=== PATIENT | female | born 1970 | race Caucasian/White ===

== ENCOUNTER 2018-10-18 08:42 | Inpatient (IN) | payer BC ==
--- NOTE | 2018-10-17 17:45 | Pre-op HX & Phy Repo 2 SIG ---
DATE OF ADMISSION: 10/18/2018 HISTORY OF PRESENT ILLNESS: The patient is a 47-year-old female in overall stable health with a malfunctioning ileostomy with parastomal hernia and peristomal ulcerations refractory to care. She has a past history of pelvic floor dysfunction and colonic inertia. She underwent surgery at the [facility] in May 2015 for removal of dilated colon and rectum with a coloanal anastomosis. She has previously had Botox injections and pelvic floor therapy. She had a temporary ileostomy at the time of her May 2015 surgery. In November 2015, she underwent left salpingo-oophorectomy. Subsequently, she had surgery 01/08/2017 to close the ileostomy, but she had severe difficulties evacuating and had an emergency colostomy 01/11/2017. On 07/30/2017, she had repair of a parastomal hernia. Finally, she had surgery 09/29/2017 at the [facility] to remove the rest of her colon and rectum with perineal rectal mucosectomy and end-loop ileostomy with finding of extensive adhesions. She has developed significant difficulties since then managing with her stoma despite interventions with enterostomal therapy. She is scheduled to undergo surgery to takedown her conventional ileostomy with repair of the stomal hernia and create a Wilkinson continent intestinal reservoir type of continent ileostomy. OPERATIONS: In addition to the above, she underwent right oophorectomy in 1989. She underwent total abdominal hysterectomy in 2000 for endometriosis. She underwent cholecystectomy in 2006 and rotator cuff surgery in 2012. She is not sure during one of her operation she had a Ari fundoplication MEDICATIONS: Paxil, trazodone at night, Carafate three times a day, probiotic. ALLERGIES: Morphine, causes severe itching, but she is not allergic to it. PHYSICAL EXAMINATION: The patient is 5 feet 6 inches, approximately 180 pounds. [place] and will be examined upon arrival and dictated separately. IMPRESSION: 1. Malfunctioning Anika ileostomy with parastomal hernia and severe peristomal ulcerations. 2. History of pelvic floor dysfunction and colonic inertia and remote history of endometriosis. 3. STATUS POST MULTIPLE ABDOMINAL OPERATIONS: A) Right oophorectomy in 1989. B) Total abdominal hysterectomy in 2000. C) Cholecystectomy in 2006. D) Removal of dilated colon and rectum with coloanal anastomosis and temporary ileostomy in May 2015 at [facility]. E) Left salpingo-oophorectomy in 11/30/2015. F) 01/08/2017, closure of ileostomy. G) 01/11/2017, emergency colostomy. H) 07/30/2017, repair of parastomal hernia. I) 09/29/2017, removal of the remaining abdominal colon and rectum with perineal rectal mucosectomy and end-loop ileostomy, all at the [facility] PLAN: I have had a full discussion with the patient regarding the nature of her condition, the nature of the surgery, indications, alternatives, options, and risks including bleeding, infection, injury to adjacent structures or organs, inability to create a Wilkinson pouch due to frozen or hostile abdomen or other issues with the small intestine with subsequent revision of ileostomy, repair of parastomal hernia if a Wilkinson pouch cannot be created. I have discussed the specific risks of the Wilkinson pouch including the risk of slipped valve or fistula of pouch or valve and need for reoperation, including stoma difficulties, bowel obstructions from adhesions, deep vein thrombosis despite prophylaxis, etc. All questions have been answered. The patient understands and agrees to proceed. I will have another detailed discussion in person with the patient when she arrives from [place] of state. Manny Kramer M.D. DR: RAJESH JOB#: [id number] CC: OPAL
[~2018-10-18] VITALS: Ht 167.6 cm; Wt 84.0 kg
--- NOTE | 2018-10-18 09:00 | NUR ---
NURSE NOTES: Patient was admitted to room 305 in stable condition. Belongings checked with pt and pt signed. Unit orientation was given. Bed in lowest position, call light within reach. Will continue to monitor.
[2018-10-18 09:05] VITALS: BP 101/68
[2018-10-18] MEDS ORDERED: Heparin1,000 units/500ml Premix(Conc:2 units/ml) IV PRN (09:45)
[2018-10-18] MEDS ORDERED: Lidocaine 1% Plain 30 ml INJ PRN (09:45)
[2018-10-18 10:12] LABS: BASOPHILS % (AUTO) 0.7 % (0.0-2.0); EOSINOPHILS % (AUTO) 1.3 % (0.0-3.0); HEMATOCRIT 38.3 % (37.0-47.0); HEMOGLOBIN 12.6 G/DL (12.0-16.0); LYMPHOCYTES % (AUTO) 33.5 % (20.0-45.0); MEAN CORPUSCULAR VOLUME 84 FL (80-99); MONOCYTES % (AUTO) 5.1 % (1.0-10.0); NEUTROPHILS % (AUTO) 59.4 % (45.0-75.0); PLATELET COUNT 286 K/UL (150-450); RED BLOOD COUNT 4.58 M/UL (4.20-5.40); RED CELL DISTRIBUTION WIDTH 11.4 % (11.6-14.8); WHITE BLOOD COUNT 6.5 K/UL (4.8-10.8)
[2018-10-18] MEDS ORDERED: TRIMPEX100 MG PO (10:12)
[2018-10-18] MEDS ORDERED: KLONOPIN0.5 MG ORAL (10:12)
[2018-10-18] MEDS ORDERED: ESTRACE42.5 GM VAGIN (10:12)
[2018-10-18] MEDS ORDERED: TRAZODONE HCL150 MG ORAL (10:12)
[2018-10-18] MEDS ORDERED: ESTRADIOL1 EA10 TD (10:12)
[2018-10-18] MEDS ORDERED: PAXIL30 MG ORAL (10:12)
[2018-10-18 10:24] LABS: INR 0.9 (0.9-1.1)
--- NOTE | 2018-10-18 10:27 | Diagnostic Imaging Report ---
Indication: Cough Technique: One view of the chest Comparison: none Findings: Lungs and pleural spaces are clear. Heart size is normal. Impression: No acute process
[2018-10-18 10:28] LABS: ANION GAP 10 mmol/L (5-15); BLOOD UREA NITROGEN 6 mg/dL (7-18); CALCIUM 9.1 MG/DL (8.5-10.1); CARBON DIOXIDE 24 MMOL/L (21-32); CHLORIDE 102 MMOL/L (98-107); CREATININE 0.9 MG/DL (0.55-1.30); POTASSIUM 3.5 MMOL/L (3.5-5.1); SODIUM 136 MMOL/L (136-145)
[2018-10-18 10:31] LABS: ALANINE AMINOTRANSFERASE 22 U/L (12-78); ALBUMIN/GLOBULIN RATIO 1.1 (1.0-2.7); ALKALINE PHOSPHATASE 82 U/L (46-116); ASPARTATE AMINO TRANSFERASE 24 U/L (15-37); BILIRUBIN,TOTAL 0.3 MG/DL (0.2-1.0)
--- NOTE | 2018-10-18 11:00 | NUR ---
NURSE NOTES: Picc line was inserted.
--- NOTE | 2018-10-18 11:06 | Pre-Procedure Note/Attestation ---
Pre-Procedure Note/Attestation Complete Prior to Procedure Planned Procedure: not applicable Procedure Narrative: PICC Indications for Procedure Pre-Operative Diagnosis: needs termite control service representative IV access Attestation I attest that I discussed the nature of the procedure; its benefits; risks and complications; and alternatives (and the risks and benefits of such alternatives ), prior to the procedure, with the patient (or the patient's legal parts representative). I attest that, if there was a reasonable possibility of needing a blood transfusion, the patient (or the patient's legal parts representative) was given the [facility] standardized written summary, pursuant to the Felix Jan Blood Safety Act ([place] Health and Safety Code # 1645, as amended). I attest that I re-evaluated the patient just prior to the surgery and that there has been no change in the patient's H&P, except as documented below: Sae Montague MD Oct 18, 2018 11:06
--- NOTE | 2018-10-18 11:07 | Brief Operative Note ---
Immediate Post Operative Note Operative Note Pre-op Diagnosis: needs manager terminal IV access Procedure: PICC Post-op Diagnosis: same as pre-op Surgeon: Suresh MONTAGUE Anesthesia: local Specimen: none Complications: none Condition: unstable Fluids: none Implant(s) used?: No Sae Montague MD Oct 18, 2018 11:07
[2018-10-18 11:19] LABS: APPEARANCE,URINE CLOUDY; BILIRUBIN, URINE NEGATIVE (NEGATIVE); GLUCOSE, URINE (UA) NEGATIVE (NEGATIVE); KETONES,URINE NEGATIVE (NEGATIVE); LEUKOCYTE ESTERASE ,URINE NEGATIVE (NEGATIVE); NITRITE,URINE NEGATIVE (NEGATIVE); PH,URINE 6 (4.5-8.0); PROTEIN,URINE 1+ (NEGATIVE); UROBILINOGEN,URINE NORMAL MG/DL (0.0-1.0)
[2018-10-18 11:23] LABS: COLOR,URINE YELLOW
--- NOTE | 2018-10-18 11:26 | Diagnostic Imaging Report ---
Indications: Needs long-term IV access Technique: Ultrasound confirms patent compressible left basilic vein. Total sterile technique, including sterile probe cover and sterile gel, hat, mask, sterile gown, large sterile drape, and preparation with 2% chlorhexidine utilized. Local anesthesia with 1% lidocaine. Under real-time ultrasound guidance, puncture basilic vein using 21-gauge needle, documented and archived, passage 0.018 guidewire under direct fluoroscopy, which was used to determine appropriate catheter length, exchange for 4 Mosotho peel-away sheath. 4 Mosotho Bard dual-lumen power PICC cut to 43 cm. It was inserted through the peel-away sheath. Peel-away sheath and guidewire removed. Catheter fixed to the skin. Both catheter ports aspirated and flushed. Patient tolerated procedure well, without immediate complication. Digital radiograph documents satisfactory catheter tip position, at the cavoatrial junction. Total fluoroscopy time 13.2 seconds. Total dose area product 1.37 mGy Total number of images: 1 Impression: Successful placement of left arm PICC under sonographic and fluoroscopic guidance, as described above.
[2018-10-18 12:00] VITALS: BP 102/67
[2018-10-18] MEDS: D5 1/2NS w/KCl 20mEq 1,000 ML IV SCH ×2 (12:18→22:00)
[2018-10-18] MEDS: Neomycin Sulfate 500mg Tab ORAL SCH ×3 (12:18→20:19)
--- NOTE | 2018-10-18 14:29 | Anethesia Preoperative Eval ---
Anesthesia Pre-op PMH/ROS General Date of Evaluation: Oct 18, 2018 Time of Evaluation: 15:58 Anesthesiologist: Clari ASA Score: ASA 2 Mallampati Score Class I : Soft palate, uvula, fauces, pillars visible Class II: Soft palate, uvula, fauces visible Class III: Soft palate, base of uvula visible Class IV: Only hard plate visible Mallampati Classification: Class II Surgeon: Williams Diagnosis: Malfunctioning Ileostomy Surgical Procedure: Creation Wilkinson Continent Ileostomy Anesthesia History: none Family History: no anesthesia problems Allergies: Coded Allergies: CODEINE (Verified Adverse Reaction, Severe, Itching, 10/18/18) MORPHINE (Verified Adverse Reaction, Severe, Itching, 10/18/18) sever itching to the point scratches self till bleeding. Medications: see eMAR Patient NPO?: Yes Past Medical History Neurologic/Psychiatric: Reports: depression/anxiety Other: obesity - BMI 31 PSxH Narrative: 1. Malfunctioning Anika ileostomy with parastomal hernia and severe peristomal ulcerations. 2. History of pelvic floor dysfunction and colonic inertia and remote history of endometriosis. 3. STATUS POST MULTIPLE ABDOMINAL OPERATIONS: A) Right oophorectomy in 1989. B) Total abdominal hysterectomy in 2000. C) Cholecystectomy in 2006. D) Removal of dilated colon and rectum with coloanal anastomosis and temporary ileostomy in May 2015 at [facility]. E) Left salpingo-oophorectomy in 11/30/2015. F) 01/08/2017, closed ileostomy. G) 01/11/2017, emergency colostomy. H) 07/30/2017, repair of parastomal hernia. Anesthesia Pre-op Phys. Exam Physician Exam Last Vital Signs Date Time Temp Pulse Resp B/P (MAP) Pulse Ox O2 Delivery O2 Flow Rate FiO2 10/18/18 12:00 98.3 86 15 102/67 (79) 99 10/18/18 09:26 Room Air Constitutional: NAD Neurologic: CN 2-12 intact Cardiovascular: RRR Respiratory: CTA Gastrointestinal: S/NT/ND Airway Exam Mallampati Score: Class II MO: full ROM: limited Teeth: missing, intact Anesthesia Pre-op A/P Labs Hematology Test 10/18/18 09:49 White Blood Count 6.5 K/UL (4.8-10.8) Red Blood Count 4.58 M/UL (4.20-5.40) Hemoglobin 12.6 G/DL (12.0-16.0) Hematocrit 38.3 % (37.0-47.0) Mean Corpuscular Volume 84 FL (80-99) Mean Corpuscular Hemoglobin 27.4 PG (27.0-31.0) Mean Corpuscular Hemoglobin Concent 32.8 G/DL (32.0-36.0) Red Cell Distribution Width 11.4 % (11.6-14.8) L Platelet Count 286 K/UL (150-450) Mean Platelet Volume 6.4 FL (6.5-10.1) L Neutrophils (%) (Auto) 59.4 % (45.0-75.0) Lymphocytes (%) (Auto) 33.5 % (20.0-45.0) Monocytes (%) (Auto) 5.1 % (1.0-10.0) Eosinophils (%) (Auto) 1.3 % (0.0-3.0) Basophils (%) (Auto) 0.7 % (0.0-2.0) Coagulation Test 10/18/18 09:49 Prothrombin Time 9.4 SEC (9.30-11.50) Prothromb Time International Ratio 0.9 (0.9-1.1) Activated Partial Thromboplast Time 27 SEC (23-33) Chemistry Test 10/18/18 09:49 Sodium Level 136 MMOL/L (136-145) Potassium Level 3.5 MMOL/L (3.5-5.1) Chloride Level 102 MMOL/L (98-107) Carbon Dioxide Level 24 MMOL/L (21-32) Anion Gap 10 mmol/L (5-15) Blood Urea Nitrogen 6 mg/dL (7-18) L Creatinine 0.9 MG/DL (0.55-1.30) Estimat Glomerular Filtration Rate > 60 mL/min (>60) Glucose Level 106 MG/DL (74-106) Calcium Level 9.1 MG/DL (8.5-10.1) Total Bilirubin 0.3 MG/DL (0.2-1.0) Aspartate Amino Transf (AST/SGOT) 24 U/L (15-37) Alanine Aminotransferase (ALT/SGPT) 22 U/L (12-78) Alkaline Phosphatase 82 U/L (46-116) Total Protein 7.7 G/DL (6.4-8.2) Albumin 4.0 G/DL (3.4-5.0) Globulin 3.7 g/dL Albumin/Globulin Ratio 1.1 (1.0-2.7) Risk Assessment & Plan Assessment: AS2 Plan: GA Status Change Before Surgery: No Pre-Antibiotics Drug: KENDRAA Ricardo Montague MD Oct 18, 2018 14:29
[2018-10-18 16:00] VITALS: BP 109/69
--- NOTE | 2018-10-18 16:14 | General Progress Note ---
Progress Note Progress Note H&P dictated. Full discussion with patient regarding her surgery tomorrow, all questions answered. Labs satisfactory Manny Kramer MD Oct 18, 2018 16:14
--- NOTE | 2018-10-18 17:10 | NUR ---
NURSE NOTES: Reconcile home meds with Dr. Kramer. ordered continue home meds except for Trimethoprim. Noted and carried out.
[2018-10-18] MEDS ORDERED: clonazePAM 0.5mg tab ORAL PRN (17:15)
--- NOTE | 2018-10-18 19:36 | NUR ---
HAND-OFF: Report given to RADHA Leija.
--- NOTE | 2018-10-18 19:37 | NUR ---
NURSE NOTES: Received report & pt from RADHA Keys. Pt lying in bed, a&ox4, in room air, at bedside. No s/s of acute distress & no c/o pain at this time. Pt made aware & NPO status after midnight for tomorrow's procedure & verbalized understanding. Ileo intact & draining to ostomy bag. PICC line intact with IVF running as ordered. Bed in lowest position, call light within reach. Will continue to monitor.
[2018-10-18 20:00] VITALS: BP 98/64
[2018-10-18] MEDS: Dyna-Hex 2% Top Sol 2oz TOPIC SCH (20:10)
[2018-10-18] MEDS: PARoxetine 10mg tab ORAL SCH (20:19)
[2018-10-18] MEDS: TraZODone 50mg tab ORAL SCH (20:19)
--- NOTE | 2018-10-18 22:30 | Pre-op HX & Phy Repo 2 SIG ---
DATE OF ADMISSION: 10/18/2018 HISTORY OF PRESENT ILLNESS: Please see previously dictated history. The [place] now [place] and examined. She provides additional history that ever since her colorectal resection, she has had to self catheterize her bladder, much more often originally years ago, but currently at least 2 times per week as needed if her bladder is allowed to get too full she cannot urinate. ADDITIONAL NEW INFORMATION: MEDICATIONS: Paxil, clonazepam p.r.n., trazodone at night, estradiol, and recent Bactrim for urinary infection. PHYSICAL EXAMINATION: GENERAL: The patient is 5 feet 6 inches, approximately 180 pounds. HEENT: Within normal limits. LUNGS: Clear. HEART: Regular rhythm. BREASTS: Without masses. ABDOMEN: Soft. There are multiple laparoscopic trocar sites. There is a lower midline incision. Her ileostomy is rather low in the right lower quadrant and she has a parastomal hernia. PELVIC: Per primary care, status post hysterectomy. RECTAL: Status post proctectomy. EXTREMITIES: Without edema. Pulses 2+ femoral to pedal bilaterally. NEUROLOGIC: Physiologic. IMPRESSION: 1. Malfunctioning Anika ileostomy with parastomal hernia and severe peristomal ulcerations. 2. History of pelvic floor dysfunction and colonic inertia and remote history of endometriosis. 3. STATUS POST MULTIPLE ABDOMINAL OPERATIONS: 3.1. Right oophorectomy in 1991. 3.2. Total abdominal hysterectomy in 2000. 3.3. Cholecystectomy in 2006. 3.4. Removal of dilated colon and rectum with colo-anal anastomosis and temporary ileostomy in May 2015 at [facility]. 3.5. Left salpingo-oophorectomy on November 30, 2015. 3.6. Closure of ileostomy on January 08, 2017. 3.7. Emergency colostomy on January 11, 2017. 3.8. Repair of parastomal hernia in July 2017. 3.9. Removal of the remaining abdominal colon and rectum with proctectomy and end ileostomy on September 29, 2017. (All of these operations were done at the [facility]). PLAN: I have had a full discussion with the patient regarding her surgery to convert her malfunctioning ileostomy to a Wilkinson continent intestinal reservoir type of continent ileostomy including the nature of the surgery associated with temporary catheter gastrostomy, indications, alternatives, options, and risks all outlined in the previous dictation. All questions have been answered. She understands and agrees to proceed. Manny Kramer M.D. DR: JILL JOB#: [id number] CC: OPAL
[2018-10-18] MEDS: Ampicillin/Sulbactam Sod 3 GM in NS 110 ML IVPB SCH (23:39)
[2018-10-19] VITALS (12 sets, daily range): BP systolic 94–112; BP diastolic 53–72
[2018-10-19] MEDS: Ampicillin/Sulbactam Sod 3 GM in NS 110 ML IVPB SCH ×3 (05:16→18:22)
--- NOTE | 2018-10-19 07:30 | NUR ---
NURSE NOTES: Patient is in bed awake and able to verbalize needs. Stable. Denies pain or SOB. Patient is encouraged to use call light for assistance, verbalized understanding. Patient is in bed in locked and lowest position with call light within reach. Will continue to monitor.
--- NOTE | 2018-10-19 07:30 | NUR ---
HAND-OFF: Report given to RADHA French. Pt in stable condition. Rounds done.
[2018-10-19] MEDS: D5 1/2NS w/KCl 20mEq 1,000 ML IV SCH (08:00)
[2018-10-19] MEDS ORDERED: Heparin 5000 units/ml inj SUBQ SCH (09:00)
--- NOTE | 2018-10-19 09:18 | Pre-Procedure Note/Attestation ---
Pre-Procedure Note/Attestation Complete Prior to Procedure Planned Procedure: not applicable Procedure Narrative: Wiliknson continent intestinal reservoir; gastrostomy Indications for Procedure Pre-Operative Diagnosis: malfunctioning ileostomy with parastomal hernia and peristomal ulcerations Attestation I attest that I discussed the nature of the procedure; its benefits; risks and complications; and alternatives (and the risks and benefits of such alternatives ), prior to the procedure, with the patient (or the patient's legal sales representative sales manager). I attest that, if there was a reasonable possibility of needing a blood transfusion, the patient (or the patient's legal sales representative sales manager) was given the [facility] standardized written summary, pursuant to the Felix Searcy Blood Safety Act ([place] Health and Safety Code # 1645, as amended). I attest that I re-evaluated the patient just prior to the surgery and that there has been no change in the patient's H&P, except as documented below:none Manny Kramer MD Oct 19, 2018 09:18
[2018-10-19] MEDS: Estradiol Vaginal Cr 42.5 Gm Tube VAGIN SCH (09:22)
[2018-10-19] MEDS ORDERED: Lidocaine 1% MPF 10mg/ml 5ml ONE (10:08)
[2018-10-19] MEDS ORDERED: Midazolam 2mg/2ml Inj ONE (10:08)
[2018-10-19] MEDS ORDERED: fentaNYL 100 mcg/2 mL IV ONE ×2 (10:08→11:35)
[2018-10-19] MEDS ORDERED: Propofol 200mg/20ml IV ONE (10:08)
[2018-10-19] MEDS ORDERED: Bacitracin 50000 Units Vial ONE (10:16)
[2018-10-19] MEDS ORDERED: Zemuron 50mg/5ml Inj IV ONE ×2 (10:16→13:46)
[2018-10-19] MEDS ORDERED: Succinylcholine 20mg/ml 10ml vial ONE (10:16)
[2018-10-19] MEDS ORDERED: NeoSporin Gu Irrig 1ml Amp IRRIG ONE (10:17)
--- NOTE | 2018-10-19 10:30 | NUR ---
NURSE NOTES: Patient taken to surgery. All belongings with .
[2018-10-19] MEDS ORDERED: TransDerm Scop 1.5mg/72HR Patch TDERMAL ONE (10:59)
[2018-10-19] MEDS ORDERED: LR 1000ml ONE (11:00)
[2018-10-19] MEDS ORDERED: NS Irrig 1000ml ONE (11:00)
[2018-10-19] MEDS ORDERED: Sterile Water Irrig 1000ml IRRIG ONE (11:00)
--- NOTE | 2018-10-19 11:07 | NUR ---
NURSE NOTES: Wedding ring with RN. Will give to .
[2018-10-19] MEDS ORDERED: NS Irrig 1000ml IRRIG ONE (11:22)
[2018-10-19] MEDS ORDERED: Ampicillin/Sulbactam Sod 3 GM in NS 110 ML IV SCH (12:00)
[2018-10-19] MEDS ORDERED: LR 1000ml 1,000 ML IVLG SCH (13:01)
[2018-10-19] MEDS ORDERED: Neostigmine 1mg/ml 10ml Inj ONE (13:14)
[2018-10-19] MEDS ORDERED: Glycopyrrolate 0.2mg/ml 1ml Vial ONE (13:14)
[2018-10-19] MEDS ORDERED: Midazolam 2mg/2ml Inj IVP PRN (13:15)
[2018-10-19] MEDS ORDERED: DiphenhydrAMINE 50mg/ml Inj IVP PRN ×2 (13:15→16:00)
[2018-10-19] MEDS ORDERED: Metoclopramide 10mg/2ml Inj IVP PRN (13:15)
[2018-10-19] MEDS ORDERED: Meperidine 50mg/ml Inj(FOR RIGORS ONLY) IV PRN (13:15)
[2018-10-19] MEDS ORDERED: Ketorolac 30mg Inj IV PRN (13:15)
[2018-10-19] MEDS ORDERED: Acetaminophen (Non formulary) 100 ML IV ONE (13:30)
--- NOTE | 2018-10-19 14:52 | NUR ---
CASE MANAGEMENT:REVIEW 47 YR OLD FEMALE HERE FOR ELECTIVE SURGERY SI: MALFUNCTIONING ILEOSTOMY W/PARTIAL HERNIA AND PERISTOMAL ULCERATIONS 98.5 79 16 101/68 97% ON RA IS: TO SURGERY FOR RAGLAND CONTINENT ILEOSTOMY IV FLAGYL Q6HRS IV AMPICILLIN Q6 IVF@100/HR : TO MED/SURG 3 EAST POST OP
--- NOTE | 2018-10-19 15:02 | NUR ---
INSURANCE RECEIVED CALL FROM SHADE BANDER RICHARDSON T: [phone] SHE WILL BE OUT OF THE OFFICE NEXT WEEK BUT MESSAGES CAN BE LEFT ON HER VOICEMAIL AND WILL BE ADDRESSED
--- NOTE | 2018-10-19 15:17 | NUR ---
*-* INSURANCE *-* ALL CLINICALS AND REVIEW HAVE BEEN FAXED TO: [facility] NCM: JANA P:[phone] F:[phone] NURSE: XIMENA
[2018-10-19] MEDS ORDERED: PCA HYDROmorphone 1mg/ml 30 ML IV PRN (15:56)
--- NOTE | 2018-10-19 15:59 | Brief Operative Note ---
Immediate Post Operative Note Operative Note Pre-op Diagnosis: malfunctioning ileostomy with parastomal hernia and peristomal ulcerations Procedure: Wilkinson continent intestinal reservoir, gastrostomy, takedown ileostomy and repair parastomal hernia Post-op Diagnosis: same Post-op Diagnosis: same as pre-op Findings: consistent w/pre-op dx studies Surgeon: junaid Mold Repair Technician: dangelo Anesthesiologist: estela Anesthesia: general Specimen: yes - ileostomy and small bowel segment Complications: none Condition: stable Fluids: see anesthesia record Estimated Blood Loss: volume - 100ml Drains: other - 28 Velasquez to Wilkinson pouch, 18 Fr gastrostomy, 0.25" kenan Implant(s) used?: No Manny Kramer MD Oct 19, 2018 15:59
[2018-10-19] MEDS ORDERED: Naloxone 0.4mg/ml Inj IVP PRN (16:00)
[2018-10-19] MEDS ORDERED: PCA Education Pamphlet MISC ONE (16:00)
[2018-10-19] MEDS ORDERED: Rate Change PCA 1 Each MISC PRN (16:00)
[2018-10-19] MEDS ORDERED: LORazepam 1mg tab SL PRN ×2 (16:00)
--- NOTE | 2018-10-19 16:03 | Immediate Post-Op Evaluation ---
Immediate Post-Op Evalulation Immediate Post-Op Evalulation Procedure: Ex laparotomy,lysis of adhesions, creation of continent pouch Date of Evaluation: Oct 19, 2018 Time of Evaluation: 16:02 IV Fluids: 1200 Blood Products: none Estimated Blood Loss: 100 Urinary Output: 350 Blood Pressure Systolic: 109 Blood Pressure Diastolic: 56 Pulse Rate: 78 Respiratory Rate: 20 O2 Sat by Pulse Oximetry: 99 Temperature (Fahrenheit): 97.8 Pain Score (1-10): 1 Nausea: No Vomiting: No Patient Status: reacts, patent, extubated, none Hydration Status: adequate Sawyer Gomez MD Oct 19, 2018 16:03
--- NOTE | 2018-10-19 17:25 | NUR ---
NURSE NOTES: Patient arrived on unit via hospital bed. Stable. No facial grimacing or visible signs of discomfort noted. Patient oriented to room, call light and unit. Patient encouraged to use call light for assistance, verbalized understanding. Surgical dressing clean, dry, and intact. Velasquez draining. Ileo and Gtube draining as ordered. ASSISTANT PROFESSOR SURGICAL TECHNOLOGY running as ordered. Patient is in bed in locked and lowest position with call light within reach. Will continue to monitor.
[2018-10-19] MEDS: D5 1/4NS w/KCl 20mEq 1,000 ML IV SCH (18:58)
[2018-10-19] MEDS: PCA shift volume MISC SCH (19:00)
--- NOTE | 2018-10-19 19:30 | NUR ---
HAND-OFF: Report given to Chandrao RN. Patient is stable.
--- NOTE | 2018-10-19 19:45 | NUR ---
NURSE NOTES: Receive a report from RADHA French. Done rounds. Pt is asleep but aroused easily by calling her name. Op site is clear without bleeding signs. Ileostomy drained with dark greenish drainage. Gastrostomy tube is drained with brownish gastric juice. Velasquez catheter inserted state with yellowish urine drained without hematuria or sediment. Despite ELOCUTION TEACHER pump for pain control, still noted pain 8/10 on op site. Will administer prn pain medication as ordered. Keep semi-Folwer's position for breathing expansion and encourage I/C while awake. Will continue to monitor.
[2018-10-19] MEDS: Dyna-Hex 2% Top Sol 2oz TOPIC SCH (20:01)
[2018-10-19] MEDS: TraZODone 50mg tab ORAL SCH ×2 (20:22→21:00)
[2018-10-19] MEDS: PARoxetine 10mg tab ORAL SCH ×2 (20:22→21:00)
--- NOTE | 2018-10-19 20:40 | NUR ---
NURSE NOTES: After pain medication for breakthrough, patient still states pain 08/27. Pt looks drowsy but able to answer properly with orientation x4. Reapply O2 3L NC due to spo2 88% in RA and goes up 93-96%. Keep O2 3L NC. Pt has routine medication for sleeping pills and depression medication. Call Dr. Kramer about pt's pain and drowsiness. Receive order to hold routine medication and to give Toradol 30mg IVP stat and prn Q 6hrs for breakthrough pain. Order noted and carried out. Will continue to monitor. Addendum: 10/20/18 at 0154 by Shara Salmeron RN v/s: 100/62-102-14- 93~96% with O2 3L NC.
[2018-10-19] MEDS ORDERED: Ketorolac 30mg Inj IV SCH (21:00)
--- NOTE | 2018-10-19 21:45 | NUR ---
NURSE NOTES: @ 2129 Noted decreased respiration rate < 10bmp with deep breathing pattern. Spo2 93% with O2 3L NC. MT: 121bmp, BP: 126/64mmHg. Minimal pain response without verbal response. Not given Toradol 30mg IVP. @2134 Let CN know pt's conditions and call GIFT SHOP MANAGER. ABGA is done and administer Nalcan 0.1mg/0.25ml IVP. Call Dr. Kramer for pt's change of conditions. @2144 Receive a call from Dr. Kramer and report pt's conditions and ABGA results. Receive orders to discontinue continuous dosage of HAND IRONER except bolus dosage and to transfer to SDU for monitoring. Order noted and carried out. Will continue to monitor.
--- NOTE | 2018-10-19 21:59 | NUR ---
RESPIRATORY NOTE: Pt placed on BiPAP post-COUPON MANIFEST CLERK (see Rapid Response sheet). Pt transferred to SDU & is now on BiPAP 20/5, backup rate 14, 40% w/ a Facial Mask. Skin intact, no redness/breakdowns noted. Foam tape applied on pt's nosebridge/cheeks/chin to prevent any mask irritations. Pt still very lethargic, but slowly responds to stimuli. B/S padmini. clear/diminished, nonproductive cough. BiPAP plugged into redoutlet, alarms on & audible. Pt in no apparent distress at this time. Will continue to monitor pt.
--- NOTE | 2018-10-19 22:00 | NUR ---
NURSE NOTES: Received Patient from Shara GARCIA. Patient is in bed, stable with no signs of acute distress. Patient is drowsy and A/O X 4. VS 98/55 pulse of 105, RR 15, O2 saturation of 98%, Bipap 20/5 , O2 at 40%. Surgical abdominal wound dressed with two drains and collection bags. PICC left upper arm. Bed at its lowest position, call light in reach and X 3 bed rails are up. clark Anthony, at bedside. Will continue to monitor. Addendum: 10/20/18 at 0113 by Bashir No RN Received Patient at 2100
--- NOTE | 2018-10-19 22:10 | NUR ---
NURSE NOTES: Endorse to RADHA Camejo @ SDU about pt's change of conditions and irrigation with 20ml N/S q3hrs on ileostomy and g-tube with checking I/O. After administration of Nalcan IVP, pt's orientation recovered but still noted drowsiness. On Bi-pap machine @ SDU.
[2018-10-19] MEDS ORDERED: Tubing IV Secondary IV ONE (22:23)
[2018-10-19] MEDS ORDERED: NS 275ml ONE (22:23)
[2018-10-20] VITALS (7 sets, daily range): BP systolic 86–145; BP diastolic 52–106
[2018-10-20] MEDS: Ampicillin/Sulbactam Sod 3 GM in NS 110 ML IVPB SCH ×5 (00:17→23:50)
--- NOTE | 2018-10-20 03:00 | Operative Note - Dictated ---
DATE OF OPERATION: 10/19/2018 SURGEON: Manny Kramer M.D. ACUTE SPECIALIST SURGEON: Saurav Moore M.D. ANESTHESIOLOGIST: Sawyer Gomez M.D. TYPE OF ANESTHESIA: General endotracheal. PREOPERATIVE DIAGNOSES: 1. 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 2. History of pelvic floor dysfunction and colonic inertia. 3. Status post multiple abdominal operations. 3.1. Right oophorectomy in 1989. 3.2. Total abdominal hysterectomy for endometriosis in 2000. 3.3. Cholecystectomy in 2006. 3.4. Removal of dilated colon and rectum with coloanal anastomosis and temporary ileostomy in May 2015 at the [facility]. 3.5. Left salpingo-oophorectomy in November 2015. 3.6. Closure of temporary ileostomy on January 08, 2017. 3.7. Emergency colostomy at the [facility] on January 11, 2017. 3.8. Repair of parastomal hernia, which has recurred on July 30, 2017. 3.9. Removal of the remaining abdominal colon and rectum with abdominal-perineal proctectomy and end-loop ileostomy at the [facility] on September 29, 2017. POSTOPERATIVE DIAGNOSES: 1. 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 2. History of pelvic floor dysfunction and colonic inertia. 3. Status post multiple abdominal operations. 3.1. Right oophorectomy in 1989. 3.2. Total abdominal hysterectomy for endometriosis in 2000. 3.3. Cholecystectomy in 2006. 3.4. Removal of dilated colon and rectum with coloanal anastomosis and temporary ileostomy in May 2015 at the [facility]. 3.5. Left salpingo-oophorectomy in November 2015. 3.6. Closure of temporary ileostomy on January 08, 2017. 3.7. Emergency colostomy at the [facility] again, all of the above operations, on January 11, 2017. 3.8. Repair of parastomal hernia, which has recurred on July 30, 2017. 3.9. Removal of the remaining abdominal colon and rectum with abdominal-perineal proctectomy and end-loop ileostomy at the [facility] on September 29, 2017. OPERATION PERFORMED: 1. Wilkinson continent intestinal reservoir. 2. Resection of 15 cm of defunctionalized terminal ileum and malfunctioning ileostomy and repair of parastomal hernia. 3. Temporary catheter gastrostomy. DESCRIPTION OF PROCEDURE: The patient was taken to the operating room and under general endotracheal anesthesia with sequential compression device stockings and Velasquez catheter in place, she was prepped and draped in the usual fashion with the stoma initially sealed with a Tegaderm in the right lower quadrant. Previous midline incision was reopened and due to extensive adhesions had to be extended above the umbilicus past the original incision into the midepigastrium. Hemostasis was achieved with cautery. There were diffuse adhesions to the undersurface of the abdominal wall and throughout the abdomen with small bowel loops deep in the pelvis towards the perineal floor. These loops were all mobilized and adhesions taken down and the ileostomy identified. A loop had been brought up with 15 cm distal defunctionalized. With a transversely oriented elliptical incision, the stoma was dismantled and brought through the abdominal wall into the abdomen. The fascia was closed after excising some hernia sac using continuous 0 looped PDS in a vertical orientation as there was too much tension to close this transversely. A Betadine-soaked Ray-Grant was placed in the subcutaneous tissues until the end of the procedure. Antibiotic-soaked laps were used to protect the abdominal wall. The old ileostomy was resected dividing mesentery with the Thunderbeat electrosurgical device dividing the ileum with a HENRY stapling device. The 15 cm of defunctionalized ileum had to be sacrificed. The staple line was imbricated with 3-0 silk and 12 cm proximal marked for the collar segment. A 15 cm proximal to that was marked for the ileal pouch and the two adjacent 15 cm loops of bowel were placed side by side. Using appropriately located enterotomy in each limb and using the HENRY 75 stapling device with several applications, the ileal reservoir was created. A 3-0 silk placed at the apex. The staple line was everted and there were no leaks. The staple line was reformed and there was hemostasis along the mucosa. The junction of the afferent bowel and the proximal ileum was marked and 12 cm proximal marked for the nipple valve segment. A 2 fingerbreadth mesenteric hiatus created at this point using the Thunderbeat. The abdominal wall thickness measured 5 cm. The appropriate length access segment was measured and marked and the mesentery then divided preserving two good vessels to the access segment. The bowel was divided proximally with the linear stapler 30 imbricated with 3-0 silk distally left open to become the new stoma. Now, the peritoneum on each side of the valve segment mesentery was stripped using the cautery scraper device gently with good elevation of the peritoneal layer. The small bowel segment of the valve was scarified with cautery. Then with intussusception, a 5.5 cm long nipple valve was created. Two applications of the PI 55 stapling device with 4.8 mm hernando were placed on either side of the mesentery. A 3-0 silk sutures were placed between the access segment and the pouch on each side of the access segment mesentery. A third application of the PI 55 stapling device with 4.8 mm hernando was then used to staple the valve to the anterior pouch wall. Using the Epstein suction, a straight tract was confirmed and maintained. Now, additional sutures of 3-0 silk were placed between the access segment and the pouch. Intestinal continuity was now restored by taking the proximal bowel with a very short blind end placing it next to the enterotomy in the pouch and then creating a two-layer anastomosis with an outer layer of 3-0 silk and an inner layer of continuous 2-0 chromic locking suture posteriorly carried anteriorly as [place] suture with an outer layer of 3-0 silk. Now, the collar was brought through the mesenteric hiatus at the junction of the valve and access segments and the collar was sutured to the access segment to itself into the pouch with multiple interrupted 3-0 silk sutures. The 28-Libyan Velasquez catheter was placed through the stoma into the pouch and the afferent bowel manually occluded. The pouch was distended with 100 mL of saline and there was no evidence of any extravasation. The pouch catheter was removed and there was no evidence of any incontinence. The catheter was reintroduced and the pouch decompressed. At an appropriate location low in the right lower quadrant above the prior Pfannenstiel incision, a 2.5 cm long narrow ellipse of skin was excised and with a cruciate incision in the fascia, a 2 fingerbreadth abdominal wall hiatus was created. The stoma and access segment with its mesentery was brought through the abdominal wall, redundancy of the access segment was excised, and the stoma primarily matured with continuous 2-0 chromic locking sutures starting at the 3 and 9 o'clock positions. A very satisfactory stoma was achieved. Through a separate stab incision inferior to the stoma, a quarter-inch Arrington drain was placed around the pouch and sutured to the skin with 3-0 silk. There was some bleeding from the tract, cauterized with the Thunderbeat. In view of all the dissection and the need for decompression, I placed a catheter gastrostomy. An 18-Libyan Velasquez was brought through the abdominal wall with a stab incision in the left upper quadrant and placed into the stomach, body greater curve anterior wall between two concentric 2-0 chromic pursestring sutures with the stomach sutured to the anterior abdominal wall with multiple interrupted 3-0 silk sutures. The catheter was sutured with a 2-0 silk skin suture and flushed and connected to a gravity drainage bag. The 28-Libyan ileostomy catheter was appropriately positioned in the apex of the pouch and marked at the level of the stoma with 3-0 silk and sutured to the skin with two sutures of 2-0 silk. The small bowel loops were allowed to fall back anatomically into the deep pelvis and the pouch lay transversely. After irrigating and ascertaining that hemostasis was secured throughout the abdomen and pelvis, the midline incision was closed in one layer with continuous #1 looped PDS. Additional antibiotic irrigation was utilized and the midline incision was closed with hernando with interrupted 2-0 nylon sutures around the umbilicus. The prior ileostomy site was closed with hernando and multiple interrupted vertical mattress 2-0 nylon sutures. Dry sterile dressings were applied. Final sponge and needle counts were correct. Estimated blood loss 100 mL. The patient tolerated the procedure well and left the operating room in good condition. Manny Kramer M.D. DR: JILL JOB#: [id number] CC: OPAL
--- NOTE | 2018-10-20 03:01 | NUR ---
NURSE NOTES: Patient is awake and alert. RT reduced Bipap O2 to 30%. No sign of acute distress. Will continue to monitor.
[2018-10-20] MEDS: D5 1/4NS w/KCl 20mEq 1,000 ML IV SCH ×3 (03:08→21:12)
--- NOTE | 2018-10-20 05:08 | NUR ---
NURSE NOTES: Patient continues to take Bipap off from 10/19/18 2300 until now. Patient is polite and friendly, but anxious and uncomfortable with bipap on. RT took patient off bipap at 0500. Will call MD regarding Bipap and request associated labs.
[2018-10-20 06:50] LABS: ANION GAP 7 mmol/L (5-15); BLOOD UREA NITROGEN 3 mg/dL (7-18); CALCIUM 7.9 MG/DL (8.5-10.1); CARBON DIOXIDE 24 MMOL/L (21-32); CHLORIDE 105 MMOL/L (98-107); CREATININE 0.9 MG/DL (0.55-1.30); POTASSIUM 4.3 MMOL/L (3.5-5.1); SODIUM 136 MMOL/L (136-145)
[2018-10-20] MEDS: PCA shift volume MISC SCH ×2 (07:20→19:00)
--- NOTE | 2018-10-20 07:20 | NUR ---
Report given to Karyn GARCIA.
[2018-10-20 07:23] LABS: HEMATOCRIT 36.4 % (37.0-47.0); HEMOGLOBIN 11.9 G/DL (12.0-16.0); MEAN CORPUSCULAR VOLUME 86 FL (80-99); PLATELET COUNT 204 K/UL (150-450); RED BLOOD COUNT 4.23 M/UL (4.20-5.40); RED CELL DISTRIBUTION WIDTH 12.2 % (11.6-14.8); WHITE BLOOD COUNT 8.6 K/UL (4.8-10.8)
--- NOTE | 2018-10-20 08:02 | General Progress Note ---
Progress Note Progress Note AVSS with mild tachycardia. Had severe pain last evening but with increased dilaudid developed respiratory depression, treated, recovered, transferred to step-down unit Now awake and alert and comfortable with Toradol IV Chest - decreased expansion Cor - reg rhythm Abdomen mildly distended, incisions clean, stoma pink. [place] moderate serosang Urine only 200cc overnight Gastrostomy and Wilkinson pouch catheter with bilious drainage WBC 8600 Hgb 11.9 BUN 3 Cr 0.9 Imp. Stable with ileus and atelectasis Respiratory depression due to dilaudid - resolved Plan: Transfer back to [facility] Modify MINESWEEPING OFFICER dosing Mobilize NPO Manny Kramer MD Oct 20, 2018 08:02
--- NOTE | 2018-10-20 08:15 | NUR ---
NURSE NOTES: Received pt from RADHA Camejo in stable condition with no cardiopulmonary distress noted. Pt is on RA w/ SaO2 99%. Pt hooked to cardiac rehab nurse currently SR. Pt has F/C draining dark orange urine (Per Bashir, pt only had 250cc of output on his shift, Dr. Kramer came to floor and made aware). Dr. Kramer came in to change surgical dressing. Pt has a surgical incision noted with intact hernando + ileostomy (RUQ) draining to gravity connected to Velasquez bag (Dark green drainage noted w/ Dr. Kramer). Gastrostomy noted in LUQ draining to gravity in Velasquez bag w/ brown colored drainage. Pt has a TEO PICC running D5 1/4NS KCL at 125cc/hr. SLEEPING CAR PORTER pump noted w/ following settings confirmed w/ RADHA Camejo (0.2mg Dilaudid bolus dose w/ 6 min interval rate and max dose of 6mg/4 hrs). Bed is in lowest position with alarm on, side rails up x 2, call light within reach. Will continue to monitor pt. at bedside. Per Dr. Kramer [facility] Awaiting bed.
--- NOTE | 2018-10-20 09:16 | 48 Hour Post Anesthesia Eval ---
Post Anesthesia Evaluation Procedure: Ex laparotomy,lysis of adhesions, creation of continent pouch Date of Evaluation: Oct 20, 2018 Time of Evaluation: 09:15 Blood Pressure Systolic: 124 0: 56 Pulse Rate: 72 Respiratory Rate: 22 Temperature (Fahrenheit): 97.8 O2 Sat by Pulse Oximetry: 98 Airway: patent Nausea: No Vomiting: No Pain Intensity: 3 Hydration Status: adequate Cardiopulmonary Status: stable Mental Status/LOC: patient returned to baseline Follow-up Care/Observations: n/a Post-Anesthesia Complications: none Follow-up care needed: N/A Sawyer Gomez MD Oct 20, 2018 09:16
[2018-10-20] MEDS ORDERED: DiphenhydrAMINE 50mg/ml Inj IVP PRN (10:00)
--- NOTE | 2018-10-20 11:45 | NUR ---
HAND-OFF: Report given to Marleny. Pt taken to 3E in stable condition. Belongings and medications given to Marleny. Telebox removed and returned to tele.
--- NOTE | 2018-10-20 12:00 | NUR ---
NURSE NOTES: Patient received from SDU, report received from Karyn GARCIA. Patient is awake and oriented, reporting abdominal pain rated 5/10, TEO PICC running IVF per order, TEO PICC dressing clean and dry. Ileo, g-tube and juarez to gravity drainage. PROCESS HELPER settings programmed to 0.1mg/6min/6mg/4hr max per MD order. Abdominal dressing clean, dry, intact. Patient placed on continuous pulseox. Patient and her at bedside updated on plan of care. Side rails upx3, bed low and locked, call light in reach. Will continue to monitor.
[2018-10-20] MEDS: Ketorolac 30mg Inj IV PRN ×2 (12:06→22:52)
--- NOTE | 2018-10-20 14:35 | Cardiology Report ---
APPROVED REPORT EKG Measurement Heart [id number] Normal sinus rhythm Normal ECG
[2018-10-20] MEDS ORDERED: PCA HYDROmorphone 1mg/ml 30 ML IV PRN ×2 (15:56)
--- NOTE | 2018-10-20 17:44 | NUR ---
CASE MANAGEMENT: REVIEW SI: MALFUNCTIONING ILEOSTOMY CREATION ELLYN CONTINENT ILEOSTOMY 10/19 T 99.0 HR 108 RR 13 BP 91/52 SAT 96% ROOM AIR H/H 11.9/36.4 IS: PAPER SHEETER DILAUDID D5 / NS IVF @ 125ML/HR UNASYN IV Q6HR PAXIL PO QHS MED/SURG STATUS DCP: PATIENT IS FROM HOME
[2018-10-20] MEDS ORDERED: Sodium Chloride 550 ML IV ONE (18:00)
--- NOTE | 2018-10-20 18:00 | NUR ---
NURSE NOTES: Called Dr. Kramer and informed MD that total urine output for 11 hours was 250mL. MD ordered to perform bladder scan, performed bladder scan, no residual urine in the bladder noted and catheter is draining small amounts of dark orange urine. Called Dr. Kramer back and notified MD of bladder scan results, received order for 500mL of NS IV at 100mL/hr x1 in additional patient's maintenance IVF. Order entered, will carry out.
--- NOTE | 2018-10-20 18:30 | NUR ---
NURSE NOTES: Total ileo output for my shift: +70mL Total g-tube output: +1570mL Total urine output: 275mL Patient ambulated in hallway and tolerated well, pain well managed with INVESTMENT MANAGER, toradol was given for breakthrough pain x1 and was effective for patient's pain management. Abdominal dressing 4x4's changed/reinforced x1 due to some dressings falling out while patient ambulated.
--- NOTE | 2018-10-20 19:30 | NUR ---
HAND-OFF: Report given to Chandrao RN. Patient is in stable condition.
--- NOTE | 2018-10-20 20:00 | NUR ---
NURSE NOTES: Receive a report from RADHA Farmer. Done rounds. Pt is awake and alert. No acute distress noted. Discharge planning tomorrow. Op site is open without any dressing with hernando and clear. Lower abdomen site pain is tolerating with oral pain medication. Leave call light within reach. Will continue to monitor. Addendum: 10/21/18 at 0843 by Shara Salmeron RN INCORRECT charting
--- NOTE | 2018-10-20 20:30 | NUR ---
NURSE NOTES: Pt is asleep but easily aroused by calling her name but noted disorientation x 1. Pt is currently on STORES DESPATCH HAND pump. v/s: 86/38-289-45-93% in RA, PA 07/27. No dizziness noted. Op site dressing clean and dry. Op site dressing has been undone so reinforced with ABD with tape. NPO except ice chips and medication. IV fluids running via PICC. Elevated both legs and recheck BP: 90/53mmHg. Noted 4 extremities involuntary movement. Apply O2 3L NC and keep monitoring Spo2. Spo2 raises up to 97% quickly. Lung sound clear bilateral without congestion. Velasquez catheter inserted state and concentrated urine drained. G-tube and ileostomy natural drained with NS 20ml irrigation q 3hrs. Yellowish with blood tinged gastric juice drained via G-tube and thick greenish drainage via ileostomy. Call Dr. Kramer. Will continue to monitor. Addendum: 10/21/18 at 0839 by Shara Salmeron RN INCORRECT PATIENT CHARTING Addendum: 10/21/18 at 0841 by Shara Salmeron RN RIGHT CHARTING
--- NOTE | 2018-10-20 20:35 | NUR ---
NURSE NOTES: Receive a call from Dr. Kramer and update pt's conditions. Receive orders to discontinue HOME STEREO EQUIPMENT INSTALLER pump and QHS medication. Another 0.9% NS 500ml 1 bag 100ml/hr IV with 5D1/2NS+KCL 20 125ml/hr via PICC. Keep Toradol 30mg IVP q 6hrs for breakthrough pain control and keep O2 3L NC with monitoring. Order noted and carried out. Relay to Dr. Kramer about pt's past experiences of disorientation and respiratory depression from pain medication by 's remark. Will continue to monitor. Pt made aware.
[2018-10-20] MEDS: Dyna-Hex 2% Top Sol 2oz TOPIC SCH (21:12)
--- NOTE | 2018-10-20 23:00 | NUR ---
NURSE NOTES: Pt wants to ambulate the unit. Done ambulation with staff members. Recover her orientations. v/s stable as 119/61-98-16-97% O2 3L NC. No dizziness noted but nausea sensation. After ambulation, pt complains for op site pain. Administer prn pain medication with Zofran 4mg IVP. Keep dry and clean on Op site dressing. SCDs on bilaterally. On bed alarm. Will continue to monitor with O2 3L NC.
[2018-10-21 00:20] VITALS: BP 115/61
[2018-10-21] MEDS: Sodium Chloride 550 ML IV SCH ×2 (01:25→06:45)
[2018-10-21 04:00] VITALS: BP 113/62
--- NOTE | 2018-10-21 04:30 | NUR ---
NURSE NOTES: Pt is crying for pain, 6/10. Alert and orientation x 4. Provide prn Toradol 30mg IVP to control pain. Reapply O2 3L NC with spo2 monitoring, 97%. Urine draining well with yellowish color. Will continue to monitor.
[2018-10-21] MEDS: Ketorolac 30mg Inj IV PRN ×2 (04:35→20:09)
[2018-10-21] MEDS: Ampicillin/Sulbactam Sod 3 GM in NS 110 ML IVPB SCH ×4 (05:47→23:54)
[2018-10-21] MEDS: D5 1/4NS w/KCl 20mEq 1,000 ML IV SCH ×4 (05:47→20:00)
--- NOTE | 2018-10-21 06:00 | NUR ---
NURSE NOTES: Pt is asleep. Pain is 2/10. Will continue to monitor. Ileostomy output: 100ml Urine out: 1075ml G-tube output: 775ml
[2018-10-21 07:00] LABS: BASOPHILS % (AUTO) 0.6 % (0.0-2.0); EOSINOPHILS % (AUTO) 2.4 % (0.0-3.0); HEMATOCRIT 26.4 % (37.0-47.0); HEMOGLOBIN 8.7 G/DL (12.0-16.0); LYMPHOCYTES % (AUTO) 9.1 % (20.0-45.0); MEAN CORPUSCULAR VOLUME 84 FL (80-99); MONOCYTES % (AUTO) 5.2 % (1.0-10.0); NEUTROPHILS % (AUTO) 82.8 % (45.0-75.0); PLATELET COUNT 176 K/UL (150-450); RED BLOOD COUNT 3.15 M/UL (4.20-5.40); RED CELL DISTRIBUTION WIDTH 11.4 % (11.6-14.8); WHITE BLOOD COUNT 7.8 K/UL (4.8-10.8)
[2018-10-21 07:12] LABS: ALANINE AMINOTRANSFERASE 20 U/L (12-78); ALBUMIN 2.3 G/DL (3.4-5.0); ALBUMIN/GLOBULIN RATIO 0.9 (1.0-2.7); ALKALINE PHOSPHATASE 53 U/L (46-116); ANION GAP 5 mmol/L (5-15); ASPARTATE AMINO TRANSFERASE 25 U/L (15-37); BILIRUBIN,TOTAL 0.3 MG/DL (0.2-1.0); BLOOD UREA NITROGEN 3 mg/dL (7-18); CALCIUM 7.4 MG/DL (8.5-10.1); CARBON DIOXIDE 29 MMOL/L (21-32); CHLORIDE 107 MMOL/L (98-107); CREATININE 0.7 MG/DL (0.55-1.30); PHOSPHORUS 2.1 MG/DL (2.5-4.9); POTASSIUM 3.4 MMOL/L (3.5-5.1); SODIUM 141 MMOL/L (136-145)
--- NOTE | 2018-10-21 07:30 | NUR ---
HAND-OFF: Report given to RADHA Farmer. Done rounds. Pt is trying to get out of bed to ambulate. Assisst for ambulation.
--- NOTE | 2018-10-21 07:30 | NUR ---
NURSE NOTES: Received report from Gho RN. Patient is awake and oriented, no acute distress noted, but patient is reporting pain, patient states pain is 5/10 currently, states Toradol helps but would like to have pain medication more frequently than every 6 hours, will follow up with MD. Abdominal dressing dry, intact. TEO PICC running IVF per order, PICC dressing clean and dry. Ileo, g-tube, and juarez to gravity drainage. Patient and her updated on plan of care. Side rails upx3, bed low and locked, call light in reach. Will continue to monitor.
[2018-10-21 08:00] VITALS: BP 91/54
--- NOTE | 2018-10-21 08:06 | NUR ---
NURSE NOTES: Patient is reporting her pain is increasing. Patient appears distressed from pain, called Dr. Kramer and left voicemail reporting patient's increase in pain and that unable to give Toradol yet. Also reported patient's potassium, H/H, Phos, and Mag levels. Awaiting callback from MD. Will continue to monitor.
[2018-10-21] MEDS ORDERED: HYDROmorphone 1mg/ml Carpuject SUBQ SCH (08:15)
--- NOTE | 2018-10-21 08:26 | NUR ---
NURSE NOTES: Received order from Dr. Kramer to give patient a one time dose of dilaudid 1mg subcut STAT. Order entered, carried out, patient placed back on continuous pulseox, saturating at 98% on RA currently. Will continue to monitor and assess.
[2018-10-21] MEDS ORDERED: Rate Change PCA 1 Each MISC PRN (08:30)
[2018-10-21] MEDS ORDERED: PCA Education Pamphlet MISC ONE (08:30)
[2018-10-21] MEDS ORDERED: PCA HYDROmorphone 1mg/ml 30 ML IV PRN (08:30)
[2018-10-21] MEDS ORDERED: DiphenhydrAMINE 50mg/ml Inj IVP PRN (08:30)
--- NOTE | 2018-10-21 08:39 | General Progress Note ---
Progress Note Progress Note AVSSs with decreased tachycardia. Very sensitive to dilaudid with drowsiness and confusion. dosing reduced + using toradol IV Ambulated in hallways yesterday - did well Chest clear Cor reg rhythm Abdomen soft distention, incisions clean, stoma pink, kenan serous Urine 1075cc overnight 12 hours Gastrostomy 775 BCIR ileo 100 enteric WBC 7800 Hgb 8.7 (vigorous hydration yesterday for oliguria) K 3.4 BUN 3 Cr 0.7 Mg 1.3 Phos 2.1 albumin 2.3 Imp. Ileus Malnutrition anemia ? dilutional Plan: NPO Start TPN Mg and P infusions Add compazine to Zofran for nausea Continue Velasquez - pelvic dissection f/u labs with Fe, B12 and folate levels and ferritin Manny Kramer MD Oct 21, 2018 08:39
--- NOTE | 2018-10-21 09:00 | NUR ---
NURSE NOTES: Pain reassessment: Patient reports her pain is much decreased after 1mg subcut dilaudid x1. Patient reports pain is now 2/10. Patient is ambulating comfortably. Will continue to monitor.
[2018-10-21] MEDS: Phytonadione 10 mg/mL 1ml amp SUBQ SCH (09:01)
--- NOTE | 2018-10-21 09:52 | NUR ---
RD ASSESSMENT & RECOMMENDATIONS SEE CARE ACTIVITY FOR COMPLETE ASSESSMENT DAILY ESTIMATED NEEDS: Needs based on Surgery 65.7kg adj 25-30 kcals/kg total kcals 1.2-2 g protein/kg 79-131 g total protein 25-30 mL/kg total fluid mLs NUTRITION DIAGNOSIS: Altered GI fxn r/t h/o pelvic floor dysfunction and colonic inertia as evidenced by pt w/ history of multiple abdominal operations including ileo + colostomy, now s/p BCIR, w/ ileus, NPO w/ TPN orders. PARENTERAL NUTRITION RECOMMENDATIONS: D/AA Rate: 70 IL Rate: 10 Total Rate: 80 Volume: 1920 % Dextrose: 18 % AA: 5.5 Energy (kcals/kg): 1878 Protein (g/kg protein): 92 Nonprotein KCALS: 1508 GIR (mg CHO/kg/min): 3.1 % Fat KCALS: 25.6 NPC: N Ratio: 102:1 TPN Comment: - D18% + AA 5.5% @70 w/ IL 20% @10ml-> all 3:1. - Start @20ml for 6 hrs, advance by 15ml/hr q4-6 hrs to goal. - TPN at goal meets 100% est needs, provides 1878 kcal (28 kcal/adj kg), 92g pro (1.4g/ adj kg). - GIR <5, IL <30%, NPC >100:1 ------- ADDITIONAL RECOMMENDATIONS: * Lytes low (k, phos, mg)- replete prior to TPN * Check lytes, BG daily * Monitor LFT's * Weekly standing weights
[2018-10-21] MEDS ORDERED: Potassium Phosphate 30 MM in NS 275 ML IV ONE (10:00)
--- NOTE | 2018-10-21 11:07 | NUR ---
NURSE NOTES: SOILED LINEN DISTRIBUTOR initiated per MD order. Patient is awake and calm. Set up witnessed by second nurse. Patient is on continuous pulseox, saturating at 95% on RA. Will continue to monitor.
[2018-10-21 12:00] VITALS: BP 94/52
[2018-10-21] MEDS ORDERED: NS Irrig 1000ml ONE (15:43)
[2018-10-21] MEDS ORDERED: NS 275ml ONE (15:43)
[2018-10-21 16:00] VITALS: BP 101/61
--- NOTE | 2018-10-21 17:38 | NUR ---
CASE MANAGEMENT: REVIEW SI: MALFUNCTIONING ILEOSTOMY CREATION ELLYN CONTINENT ILEOSTOMY 10/19 T 99.3 HR 99 RR 16 BP 94/52 SAT 97% ROOM AIR H/H 8.7/26.4 K 3.4 IS: DIESEL POWERPLANT MECHANIC HELPER DILAUDID D5 1/ NS w/KCl 20MEQ IVF @ 50ML/HR UNASYN IV Q6HR FLAGYL IV Q6HR PAXIL PO QHS TPN IV Q24HR MED/SURG STATUS DCP: PATIENT IS FROM HOME
--- NOTE | 2018-10-21 18:51 | NUR ---
NURSE NOTES: Total ileo output for my shift: +270mL Total g-tube output: +320mL Total urine output: 950mL Patient ambulated twice and tolerated well, pain is well managed with SENIOR SHAREPOINT DEVELOPER, patient remains on continuous pulseox and is saturating within normal limits.
[2018-10-21] MEDS: PCA shift volume MISC SCH (19:00)
--- NOTE | 2018-10-21 19:30 | NUR ---
NURSE NOTES: Receive a report from RADHA Farmer. Done rounds. Pt is awake and alert, oriented x 4. No acute distress noted. Op site is clear without bleeding signs. Spo2 97% in RA. No noted respiratory distress. On MACHINE PRINTER for pain control with prn Toradol 30mg IVP q 6hrs. Pain is tolerable as 4/10. Velasquez catheter, G-tube, and Ileostomy natural drained. Will continue to monitor.
--- NOTE | 2018-10-21 19:33 | NUR ---
HAND-OFF: Report given to Chandrao RN. Patient is in stable condition.
[2018-10-21 20:00] VITALS: BP 116/69
[2018-10-21] MEDS ORDERED: Dextrose 10% 1,000 ML IV PRN (20:00)
[2018-10-21] MEDS: Dyna-Hex 2% Top Sol 2oz TOPIC SCH (20:15)
[2018-10-21] MEDS: Fat Emulsion Iv 20% 240 ML in Tpn 1,680 ML IV SCH (20:25)
[2018-10-21] MEDS ORDERED: Fat Emulsion Iv 20% 250 ML IV SCH (21:00)
--- NOTE | 2018-10-21 21:45 | NUR ---
NURSE NOTES: Pt is awake and alert. Ambulating unit with staff members. No dizziness noted. Stating that pain is managing with DRESSMAKER GARMENT FITTER pump and prn Toradol 30mg IVP q 6hrs. TPN started via PICC. Explain for BS checking q 6hrs. Pt verbalizes understanding. Will continue to monitor.
[2018-10-21] MEDS ORDERED: TraZODone 50mg tab ORAL SCH (22:00)
[2018-10-21] MEDS ORDERED: PARoxetine 10mg tab ORAL SCH (22:00)
--- NOTE | 2018-10-21 22:30 | NUR ---
NURSE NOTES: Pt requests for her routine medication of spilling pills and depression medication, which discontinued yesterday d/t confusion. Call Dr. Kramer and receive a order to resume. Order noted and carried out.
[2018-10-22] VITALS (7 sets, daily range): BP systolic 85–108; BP diastolic 53–65
[2018-10-22] MEDS: NovoLOG Insulin Flexpen SUBQ SCH ×5 (00:16→23:37)
[2018-10-22] MEDS: Ketorolac 30mg Inj IV PRN ×4 (02:27→21:29)
--- NOTE | 2018-10-22 02:30 | NUR ---
NURSE NOTES: Ambulating with staff the unit two circles. No noted dizziness or dyspnea. No acute distress noted. Noted brownish mixed with blood drainage via ileostomy. No active bleeding noted. Done 20ml NS irrigation. Will continue to monitor.
[2018-10-22 05:39] LABS: BASOPHILS % (AUTO) 0.3 % (0.0-2.0); EOSINOPHILS % (AUTO) 3.2 % (0.0-3.0); HEMATOCRIT 27.7 % (37.0-47.0); LYMPHOCYTES % (AUTO) 17.4 % (20.0-45.0); MEAN CORPUSCULAR VOLUME 85 FL (80-99); MONOCYTES % (AUTO) 5.3 % (1.0-10.0); NEUTROPHILS % (AUTO) 73.8 % (45.0-75.0); PLATELET COUNT 188 K/UL (150-450); RED BLOOD COUNT 3.25 M/UL (4.20-5.40); RED CELL DISTRIBUTION WIDTH 11.7 % (11.6-14.8); WHITE BLOOD COUNT 7.1 K/UL (4.8-10.8)
--- NOTE | 2018-10-22 06:00 | NUR ---
NURSE NOTES: Pt is awake and alert. Done ambulation around the unit with staff member. Brownish drainage noted without blood via ileostomy. Pain is 2-3/10 and pt feels comfortable. Will continue to monitor. G-tube output: 365ml Urine output: 875ml Ileostomy output: 245ml
[2018-10-22] MEDS: Ampicillin/Sulbactam Sod 3 GM in NS 110 ML IVPB SCH ×4 (06:09→23:30)
[2018-10-22 06:11] LABS: ALANINE AMINOTRANSFERASE 15 U/L (12-78); ALBUMIN 2.3 G/DL (3.4-5.0); ALBUMIN/GLOBULIN RATIO 0.7 (1.0-2.7); ALKALINE PHOSPHATASE 59 U/L (46-116); ANION GAP 4 mmol/L (5-15); ASPARTATE AMINO TRANSFERASE 21 U/L (15-37); BILIRUBIN,TOTAL 0.3 MG/DL (0.2-1.0); BLOOD UREA NITROGEN 2 mg/dL (7-18); CARBON DIOXIDE 29 MMOL/L (21-32); CHLORIDE 107 MMOL/L (98-107); CREATININE 0.7 MG/DL (0.55-1.30); FERRITIN 70 NG/ML (8-388); PHOSPHORUS 2.9 MG/DL (2.5-4.9); POTASSIUM 3.7 MMOL/L (3.5-5.1); SODIUM 140 MMOL/L (136-145)
[2018-10-22 06:28] LABS: IRON 9 ug/dL (50-175); TOTAL IRON BINDING CAPACITY 201 ug/dL (250-450)
[2018-10-22 06:31] LABS: % IRON SATURATION 4 % (15-50)
[2018-10-22] MEDS: PCA shift volume MISC SCH ×2 (07:00→19:21)
--- NOTE | 2018-10-22 07:25 | NUR ---
HAND-OFF: Report given to RADHA French. Done rounds.
--- NOTE | 2018-10-22 07:30 | NUR ---
NURSE NOTES: Patient is in bed awake and able to verbalize needs. Stable. PICC patent, asymptomatic. IVF running as ordered. TPN running as ordered. SOFTWARE QUALITY ASSURANCE ANALYST running as ordered. Surgical dressing clean, dry, and intact. Patient encouraged to use call light for assistance, verbalized understanding. Ileo draining brownish output into bag, gtube draining greenish output into bag, f/c patent and draining urine. Will ambulate with patient as tolerated. Patient in bed in locked and lowest position with call light within reach. Overhead trapeze in place. Will continue to monitor.
[2018-10-22] MEDS: Estradiol Vaginal Cr 42.5 Gm Tube VAGIN SCH (09:00)
[2018-10-22] MEDS ORDERED: Naloxone 0.4mg/ml Inj IV PRN ×2 (09:00)
[2018-10-22] MEDS: PARoxetine 10mg tab ORAL SCH (09:00)
[2018-10-22] MEDS ORDERED: Rate Change PCA 1 Each MISC PRN (09:45)
--- NOTE | 2018-10-22 09:53 | General Progress Note ---
Progress Note Progress Note AVSS Ambulating well. Abdomen soft mild distention, healing well Urine 1825 Gastrostomy 685 BCIR ileo 515 WBC 7100 Hgb 9 stable CMP - ok Iron 9 Ferritin 70 B12 high, folate ok Imp. Ileus Malnutrition Severe iron deficiency Plan: continue npo, tpn, juarez (history of neurogenic bladder), IV antibiotics Venofer 100mg IV daily Manny Kramer MD Oct 22, 2018 09:53
[2018-10-22] MEDS ORDERED: DiphenhydrAMINE 50mg/ml Inj IVP PRN (10:00)
[2018-10-22] MEDS ORDERED: PCA HYDROmorphone 1mg/ml 30 ML IV PRN (10:00)
[2018-10-22] MEDS ORDERED: NS Irrig 1000ml ONE (10:44)
[2018-10-22] MEDS ORDERED: NS 500ML ONE (10:44)
[2018-10-22] MEDS ORDERED: NS 275ml ONE (10:44)
[2018-10-22] MEDS: D5 1/4NS w/KCl 20mEq 1,000 ML IV SCH (11:19)
--- NOTE | 2018-10-22 16:18 | NUR ---
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 98.5 HR 96 RR 20 B/P 108/85 RA 98% IS: IRON IV IVF D5KCL @ 50ML/HR TPN IV AMPICILLIN IV DILAUDID IV MED/SURG STATUS
--- NOTE | 2018-10-22 16:23 | NUR ---
NURSE NOTES: Patient ambulating unit. All safety measures provided.
--- NOTE | 2018-10-22 17:05 | NUR ---
*-* INSURANCE *-* ALL CLINICALS AND REVIEW HAVE BEEN FAXED TO: [facility] NCM: JANA P:[phone] F:[phone] NURSE: XIMENA
--- NOTE | 2018-10-22 19:30 | NUR ---
NURSE NOTES: Received report & pt from RADHA French. Pt lying in bed, a&ox4, in room air. No s/s of acute distress & no c/o pain at this time. Pt uses SIGNS CLEANER. GT, ileo, juarez cath intact & draining to gravity. Surgical dressing C/D/I. PICC line intact with IVF & TPN running as ordered. SIGNS CLEANER setting checked. Bed in lowest position, call light within reach. Will continue to monitor.
--- NOTE | 2018-10-22 19:30 | NUR ---
HAND-OFF: Report given to Liss GARCIA. Patient is stable.
[2018-10-22] MEDS: Fat Emulsion Iv 20% 240 ML in Tpn 1,680 ML IV SCH (19:58)
[2018-10-22] MEDS: Dyna-Hex 2% Top Sol 2oz TOPIC SCH (19:58)
[2018-10-22] MEDS: Iron Sucrose 100 MG in NS 55 ML IV SCH (20:11)
[2018-10-22] MEDS: TraZODone 50mg tab ORAL SCH (20:11)
[2018-10-23] VITALS: BP 107/53
[2018-10-23 04:00] VITALS: BP 109/68
[2018-10-23] MEDS: Ketorolac 30mg Inj IV PRN ×3 (04:55→20:36)
[2018-10-23] MEDS: NovoLOG Insulin Flexpen SUBQ SCH ×4 (05:11→23:34)
[2018-10-23] MEDS: Ampicillin/Sulbactam Sod 3 GM in NS 110 ML IVPB SCH ×3 (05:12→18:05)
[2018-10-23 06:25] LABS: BASOPHILS % (AUTO) 0.6 % (0.0-2.0); HEMATOCRIT 27.5 % (37.0-47.0); HEMOGLOBIN 8.9 G/DL (12.0-16.0); LYMPHOCYTES % (AUTO) 15.4 % (20.0-45.0); MEAN CORPUSCULAR VOLUME 84 FL (80-99); MONOCYTES % (AUTO) 6.1 % (1.0-10.0); NEUTROPHILS % (AUTO) 73.9 % (45.0-75.0); PLATELET COUNT 212 K/UL (150-450); RED BLOOD COUNT 3.27 M/UL (4.20-5.40); RED CELL DISTRIBUTION WIDTH 12.4 % (11.6-14.8); WHITE BLOOD COUNT 6.1 K/UL (4.8-10.8)
[2018-10-23 06:31] LABS: ANION GAP 4 mmol/L (5-15); BLOOD UREA NITROGEN 5 mg/dL (7-18); CALCIUM 8.1 MG/DL (8.5-10.1); CARBON DIOXIDE 31 MMOL/L (21-32); CHLORIDE 105 MMOL/L (98-107); CREATININE 0.6 MG/DL (0.55-1.30); POTASSIUM 3.6 MMOL/L (3.5-5.1); SODIUM 140 MMOL/L (136-145)
--- NOTE | 2018-10-23 07:19 | NUR ---
HAND-OFF: Report given to RADHA French. Patient is in stable condition.
[2018-10-23] MEDS: PCA shift volume MISC SCH (07:20)
--- NOTE | 2018-10-23 07:24 | NUR ---
NURSE NOTES: Patient is in bed awake and able to verbalize needs. Stable. Denies severe pain or SOB. Ileo draining into bag as ordered. Gtube draining into bag as ordered. F/c patent and draining. Surgical site clean, dry, and intact. PICC running IVF, SET BUILDER, and TPN as ordered. Patient in bed in locked and lowest position with call light wihthin reach. Overhead trapeze in place. Will continue to monitor.
[2018-10-23 08:00] VITALS: BP 116/69
[2018-10-23] MEDS: PARoxetine 10mg tab ORAL SCH (08:16)
[2018-10-23] MEDS: LORazepam 1mg tab SL PRN ×3 (08:16→20:40)
[2018-10-23] MEDS ORDERED: Rate Change PCA 1 Each MISC PRN (09:15)
[2018-10-23] MEDS ORDERED: clonazePAM 0.5mg tab ORAL PRN (09:15)
[2018-10-23] MEDS: D5 1/4NS w/KCl 20mEq 1,000 ML IV SCH (09:29)
--- NOTE | 2018-10-23 09:40 | General Progress Note ---
Progress Note Progress Note AVSS Ambulated 5x yesterday. Having some gas pains/cramping Abdomen soft, mildly distended, healing nicely. [place] nil Urine 1900 Gastrostomy 640 BCIR ileo 965 Hgb 8.9 BMP-wnl Imp. Stable with ileus Plan; continue npo, TPN, Venofer continue Velasquez - pelvic dissection + history of partial neurogenic bladder Manny Kramer MD Oct 23, 2018 09:40
[2018-10-23] MEDS ORDERED: PCA HYDROmorphone 1mg/ml 30 ML IV PRN (10:00)
[2018-10-23] MEDS ORDERED: DiphenhydrAMINE 50mg/ml Inj IVP PRN (10:00)
[2018-10-23] MEDS: Vitamin A&D Oint 2oz Tube TOPIC SCH ×2 (11:02→18:05)
[2018-10-23 12:00] VITALS: BP 106/66
[2018-10-23] MEDS ORDERED: NS Irrig 1000ml ONE (14:46)
[2018-10-23] MEDS ORDERED: Tubing IV Secondary IV ONE (14:46)
--- NOTE | 2018-10-23 15:05 | NUR ---
*-* INSURANCE *-* UPDATED CLINICALS HAVE BEEN FAXED TO: [facility] NCM: JANA P:[phone] F:[phone] NURSE: XIMENA
--- NOTE | 2018-10-23 15:12 | NUR ---
NURSE NOTES: Patient ambulating as ordered. Ativan SL given x1 for abdominal cramping. Patient stated she feels relief from Ativan. ileo and gt draining into bag as ordered. f/c patent and draining urine. Will continue to monitor.
[2018-10-23 16:00] VITALS: BP_SYST 100; BP_SYST 140; BP_DIAS 56; BP_DIAS 76
--- NOTE | 2018-10-23 16:59 | NUR ---
SHOW HOST OR HOSTESSHAND LASTER SI: POD#4 T. 97.4 HR 83 RR 16 B/P 100/56 RA 98% IS: IVF D5KCL @ 50ML/HR IRON IV TPN IV FLAGYL IV AMPICILLIN IV MED/SURG STATUS
[2018-10-23] MEDS ORDERED: PCA shift volume MISC SCH (19:00)
--- NOTE | 2018-10-23 19:20 | NUR ---
NURSE NOTES: Received report from RADHA French and rounds made with outgoing nurse. Received pt lying in bed, AOx4, denies any pain at this time, no distress noted. CORE WINDER setting checked and verified. PICCline patent, clean, dry and intact. IV fluid infusing as ordered. Ileo, G-tube, juarez to gravity. Surgical dressing C/D/I. Bed in lowest position and locked, side rails up x 2, call light within reach. Will continue to monitor.
--- NOTE | 2018-10-23 19:30 | NUR ---
HAND-OFF: Report given to Andrade GARCIA. Patient is stable.
[2018-10-23 20:00] VITALS: BP 104/61
[2018-10-23] MEDS: Fat Emulsion Iv 20% 240 ML in Tpn 1,680 ML IV SCH (20:00)
[2018-10-23] MEDS: TraZODone 50mg tab ORAL SCH (20:20)
[2018-10-23] MEDS: Iron Sucrose 100 MG in NS 55 ML IV SCH (20:22)
[2018-10-23] MEDS: Dyna-Hex 2% Top Sol 2oz TOPIC SCH (20:22)
--- NOTE | 2018-10-23 23:45 | NUR ---
NURSE NOTES: Pt ambulated in the hallway x 4 gait steady, denies any pain, no distress noted. Will continue to monitor.
--- NOTE | 2018-10-23 23:55 | NUR ---
NURSE NOTES: Safely back in bed, c/o nausea and pain. Will medicate as needed.
[2018-10-23] MEDS: HYDROmorphone 1mg/ml Carpuject SUBQ PRN (23:58)
[2018-10-24] VITALS: BP 103/62
--- NOTE | 2018-10-24 02:00 | NUR ---
NURSE NOTES: Pt ambulated in the hallway x 3, denies any pain, gait steady, no distress noted. Will continue to monitor.
--- NOTE | 2018-10-24 02:15 | NUR ---
NURSE NOTES: Back in bed safely, denies any pain, no distress noted, will continue to monitor.
[2018-10-24] MEDS: D5 1/4NS w/KCl 20mEq 1,000 ML IV SCH ×2 (02:23→22:05)
[2018-10-24 04:00] VITALS: BP 107/59
[2018-10-24 05:49] LABS: BASOPHILS % (AUTO) 0.7 % (0.0-2.0); EOSINOPHILS % (AUTO) 4.6 % (0.0-3.0); HEMATOCRIT 29.3 % (37.0-47.0); HEMOGLOBIN 9.5 G/DL (12.0-16.0); LYMPHOCYTES % (AUTO) 23.3 % (20.0-45.0); MEAN CORPUSCULAR VOLUME 84 FL (80-99); MONOCYTES % (AUTO) 8.7 % (1.0-10.0); NEUTROPHILS % (AUTO) 62.8 % (45.0-75.0); PLATELET COUNT 221 K/UL (150-450); RED BLOOD COUNT 3.46 M/UL (4.20-5.40); RED CELL DISTRIBUTION WIDTH 11.4 % (11.6-14.8); WHITE BLOOD COUNT 5.8 K/UL (4.8-10.8)
[2018-10-24] MEDS: NovoLOG Insulin Flexpen SUBQ SCH ×3 (06:00→17:19)
[2018-10-24 06:04] LABS: ALANINE AMINOTRANSFERASE 16 U/L (12-78); ALBUMIN 2.1 G/DL (3.4-5.0); ALBUMIN/GLOBULIN RATIO 0.6 (1.0-2.7); ALKALINE PHOSPHATASE 58 U/L (46-116); ANION GAP 4 mmol/L (5-15); ASPARTATE AMINO TRANSFERASE 13 U/L (15-37); BILIRUBIN,TOTAL 0.2 MG/DL (0.2-1.0); BLOOD UREA NITROGEN 7 mg/dL (7-18); CALCIUM 8.3 MG/DL (8.5-10.1); CARBON DIOXIDE 32 MMOL/L (21-32); CHLORIDE 103 MMOL/L (98-107); CREATININE 0.7 MG/DL (0.55-1.30); PHOSPHORUS 4.4 MG/DL (2.5-4.9); POTASSIUM 3.5 MMOL/L (3.5-5.1); SODIUM 139 MMOL/L (136-145)
[2018-10-24] MEDS ORDERED: Rate Change PCA 1 Each MISC PRN (07:00)
[2018-10-24] MEDS ORDERED: LORazepam 1mg tab SL PRN (07:00)
[2018-10-24] MEDS ORDERED: Naloxone 0.4mg/ml Inj IV PRN (07:00)
[2018-10-24] MEDS ORDERED: PCA HYDROmorphone 1mg/ml 30 ML IV PRN (07:10)
[2018-10-24] MEDS: PCA shift volume MISC SCH ×2 (07:14→19:08)
[2018-10-24] MEDS ORDERED: DiphenhydrAMINE 50mg/ml Inj IVP PRN (07:15)
--- NOTE | 2018-10-24 07:29 | General Progress Note ---
Progress Note Progress Note AVSS c/o bloating Abdomen distended, incisions clean, stoma pink Urine 1600 Gastrostomy 840 BCIR fileo 770 Hgb 9.5 Mg low 1.5 albumin 2.1 Imp. Distention Plan: KUB XRay continue npo, TPN, Venofer, Velasquez infuse Mg Manny Kramer MD Oct 24, 2018 07:29
--- NOTE | 2018-10-24 07:29 | NUR ---
HAND-OFF: Report given to RADHA Bass. Pt in stable condition.
--- NOTE | 2018-10-24 07:30 | NUR ---
NURSE NOTES: TITUS. PAIN SCALE 6/10. IN NO ACUTE DISTRESS.
[2018-10-24 08:00] VITALS: BP 105/64
[2018-10-24] MEDS: PARoxetine 10mg tab ORAL SCH (08:14)
[2018-10-24] MEDS: HYDROmorphone 1mg/ml Carpuject SUBQ PRN ×2 (08:15→14:28)
--- NOTE | 2018-10-24 08:30 | NUR ---
NURSE NOTES: OOB,AMBULATED OUT IN THE BECK,TOLERATED.
[2018-10-24] MEDS: Estradiol Vaginal Cr 42.5 Gm Tube VAGIN SCH (09:29)
[2018-10-24] MEDS: Vitamin A&D Oint 2oz Tube TOPIC SCH ×2 (09:29→17:47)
[2018-10-24] MEDS ORDERED: NS Irrig 1000ml ONE (09:34)
[2018-10-24] MEDS ORDERED: NS 500ML ONE (09:34)
[2018-10-24] MEDS: LORazepam 1mg tab SL PRN (10:48)
[2018-10-24 12:00] VITALS: BP 108/65
[2018-10-24 15:20] VITALS: BP 105/63
--- NOTE | 2018-10-24 15:20 | NUR ---
NURSE NOTES: TEMP 101.8. TYLENOL 1000MG GIVEN PO. GT CLAMPED X 30MINUTES. ENCOURAGED TO DO DEEP BREATHING AND USE OF INCENTIVE SPIROMETER. WILL MONITOR PT'S TEMPERATURE.
[2018-10-24] MEDS: Acetaminophen 650mg/20.3ml ORAL PRN (15:23)
--- NOTE | 2018-10-24 16:00 | NUR ---
NURSE NOTES: TEMP RECHECKED 100.2. INSTRUCTED TO CONTINUE USE OF INCENTIVE SPIROMETER.
--- NOTE | 2018-10-24 16:51 | NUR ---
ROLLER SKATE ASSEMBLERJUNIOR ARCHITECT SI: POD# 5 T. 101.8 HR 88 RR 20 B/P 105/63 IS: IVF D5NS @ 50ML/HR TPN IV LIPIDS IV IRON IV DILAUDID IV MED/SURG STATUS
[2018-10-24] MEDS ORDERED: Tubing IV Secondary IV ONE (18:02)
[2018-10-24] MEDS ORDERED: D5 1/2NS 1000ml IV ONE (18:02)
--- NOTE | 2018-10-24 18:55 | NUR ---
NURSE NOTES: DR Duc SALEEM CALLED RE: ABDOMINAL XRAY REPORT. LEFT MESSAGE TO RETURN CALL.
--- NOTE | 2018-10-24 19:08 | NUR ---
NURSE NOTES: dr quiroga returned call . also informed of pt's elevated temperature with new orders.
--- NOTE | 2018-10-24 19:20 | NUR ---
HAND-OFF: Report given to Tabitha BRIGGS RN.
--- NOTE | 2018-10-24 19:30 | NUR ---
NURSE NOTES: Received report from RADHA Bass and rounds made with outgoing nurse. Received pt lying in bed sleeping, arousable by verbal stimuli, AOx4, denies any pain at this time, no distress noted. FAST FOOD TEAM MEMBER setting checked and verified. PICCline patent, clean, dry and intact. IV fluid and TPN infusing as ordered. Ileo, G-tube, juarez to gravity. Surgical dressing C/D/I. Bed in lowest position and locked, side rails up x 2, call light within reach. Will continue to monitor.
[2018-10-24 20:00] VITALS: BP 99/59
[2018-10-24] MEDS: Dyna-Hex 2% Top Sol 2oz TOPIC SCH (20:22)
[2018-10-24] MEDS: Iron Sucrose 100 MG in NS 55 ML IV SCH (20:23)
[2018-10-24] MEDS: TraZODone 50mg tab ORAL SCH (20:23)
[2018-10-24] MEDS: Fat Emulsion Iv 20% 240 ML in Tpn 1,680 ML IV SCH (20:32)
[2018-10-25] VITALS: BP 99/57
[2018-10-25] MEDS: Ketorolac 30mg Inj IV PRN ×2 (01:54→14:46)
[2018-10-25] MEDS: LORazepam 1mg tab SL PRN ×2 (01:57→12:57)
[2018-10-25 04:00] VITALS: BP 98/56
[2018-10-25] MEDS: NovoLOG Insulin Flexpen SUBQ SCH ×4 (05:45→17:41)
[2018-10-25 05:49] LABS: BASOPHILS % (AUTO) 0.4 % (0.0-2.0); EOSINOPHILS % (AUTO) 2.7 % (0.0-3.0); HEMATOCRIT 29.6 % (37.0-47.0); HEMOGLOBIN 9.7 G/DL (12.0-16.0); LYMPHOCYTES % (AUTO) 15.2 % (20.0-45.0); MEAN CORPUSCULAR VOLUME 84 FL (80-99); MONOCYTES % (AUTO) 4.2 % (1.0-10.0); NEUTROPHILS % (AUTO) 77.5 % (45.0-75.0); PLATELET COUNT 230 K/UL (150-450); RED BLOOD COUNT 3.51 M/UL (4.20-5.40); RED CELL DISTRIBUTION WIDTH 11.4 % (11.6-14.8); WHITE BLOOD COUNT 11.1 K/UL (4.8-10.8)
[2018-10-25 06:10] LABS: ANION GAP 4 mmol/L (5-15); BLOOD UREA NITROGEN 9 mg/dL (7-18); CALCIUM 8.3 MG/DL (8.5-10.1); CARBON DIOXIDE 31 MMOL/L (21-32); CHLORIDE 104 MMOL/L (98-107); POTASSIUM 3.9 MMOL/L (3.5-5.1); SODIUM 139 MMOL/L (136-145)
[2018-10-25 06:17] LABS: CREATININE 0.7 MG/DL (0.55-1.30)
[2018-10-25] MEDS: PCA shift volume MISC SCH ×2 (07:16→19:00)
--- NOTE | 2018-10-25 07:28 | NUR ---
HAND-OFF: Report given to RADHA Bass. Pt in stable condition.
--- NOTE | 2018-10-25 07:54 | NUR ---
NURSE NOTES: AWAKE/ALERT. PAIN SCALE 2/10. IN NO APPARENT DISTRESS.
[2018-10-25 08:00] VITALS: BP 106/59
[2018-10-25] MEDS: Vitamin A&D Oint 2oz Tube TOPIC SCH ×2 (08:36→18:27)
[2018-10-25] MEDS: PARoxetine 10mg tab ORAL SCH (08:36)
--- NOTE | 2018-10-25 09:00 | NUR ---
NURSE NOTES: AMBULATED OUTIN THE BECK TOLERATED.
[2018-10-25] MEDS ORDERED: PCA HYDROmorphone 1mg/ml 30 ML IV PRN (09:30)
[2018-10-25] MEDS ORDERED: DiphenhydrAMINE 50mg/ml Inj IVP PRN (09:30)
[2018-10-25] MEDS ORDERED: Rate Change PCA 1 Each MISC PRN (09:30)
--- NOTE | 2018-10-25 09:36 | NUR ---
NURSE NOTES: YUDY PATEL'Duc. BEDSIDE COMMODE PROVIDED. WILL MONITOR PT'S VOIDING..
--- NOTE | 2018-10-25 09:41 | General Progress Note ---
Progress Note Progress Note Temp 101.8 yesterday now afebrile. No pulmonary symptoms but KUB XRay revealed left pleural effusion r/o pneumonia Abdomen soft, healing nicely. [place] - nil Urine 2575 Gastrostomy 390 BCIR fileo 890 WBC up 11,100 Hgb stable 9.7 BMP-wnl Mg 1.9 Imp. Fever ? pneumonitis without cough Resolving ileus Plan: CXR Pulmonary consultation D/C urinary Velasquez - may need to self-cath intermittently with history of partial neurogenic bladder continue TPN and npo urine C&S sent last night Manny Kramer MD Oct 25, 2018 09:41
--- NOTE | 2018-10-25 10:59 | Diagnostic Imaging Report ---
Indication: Fever and cough Comparison: 10/18/2018 A single view chest radiograph was obtained. Findings: Cardiomediastinal appearance is within normal limits for age. The lungs are clear. Pulmonary vascularity is appropriate. The diaphragmatic contour is smooth and costophrenic angles are sharp. No pleural effusions are identified. The bones are unremarkable. Impression: No acute findings
[2018-10-25 12:00] VITALS: BP 104/64
--- NOTE | 2018-10-25 13:15 | NUR ---
*-* INSURANCE *-* UPDATED CLINICALS HAVE BEEN FAXED TO: [facility] NCM: JANA P:[phone] F:[phone] NURSE: XIMENA
--- NOTE | 2018-10-25 13:26 | NUR ---
NURSE NOTES: C/O BURNING ON URINATION. DR Duc SALEEM CALLED,LEFT MESSAGE TO RETURN CALL.
--- NOTE | 2018-10-25 13:43 | NUR ---
RD ASSESSMENT & RECOMMENDATIONS SEE CARE ACTIVITY FOR COMPLETE ASSESSMENT DAILY ESTIMATED NEEDS: Needs based on Surgery 65.7kg adj 25-30 kcals/kg total kcals 1.2-2 g protein/kg 79-131 g total protein 25-30 mL/kg total fluid mLs NUTRITION DIAGNOSIS: Altered GI fxn r/t h/o pelvic floor dysfunction and colonic inertia as evidenced by pt w/ history of multiple abdominal operations including ileo + colostomy, now s/p BCIR, w/ ileus, NPO w/ TPN orders. PARENTERAL NUTRITION RECOMMENDATIONS: D/AA Rate: 70 IL Rate: 10 Total Rate: 80 Volume: 1920 % Dextrose: 18 % AA: 5.5 Energy (kcals/kg): 1878 Protein (g/kg protein): 92 Nonprotein KCALS: 1508 GIR (mg CHO/kg/min): 3.1 % Fat KCALS: 25.6 NCP: N Ratio: 102:1 TPN Comment: - Maineric current TPN at goal D18% + AA 5.5% @70 w/ IL 20% @10ml-> all 3:1. - TPN at goal meets 100% est needs, provides 1878 kcal (28 kcal/adj kg), 92g pro (1.4g/ adj kg). * Added D5 @50 provides additional 204 kcal, 60g dextrose per day. ADDITIONAL RECOMMENDATIONS: . * Check lytes, BG daily (added D5) * Monitor LFT's * Weekly standing weights
--- NOTE | 2018-10-25 13:43 | NUR ---
RD ASSESSMENT & RECOMMENDATIONS SEE CARE ACTIVITY FOR COMPLETE ASSESSMENT DAILY ESTIMATED NEEDS: Needs based on Surgery 65.7kg adj 25-30 kcals/kg total kcals 1.2-2 g protein/kg 79-131 g total protein 25-30 mL/kg total fluid mLs NUTRITION DIAGNOSIS: Altered GI fxn r/t h/o pelvic floor dysfunction and colonic inertia as evidenced by pt w/ history of multiple abdominal operations including ileo + colostomy, now s/p BCIR, w/ ileus, NPO w/ TPN orders. PARENTERAL NUTRITION RECOMMENDATIONS: D/AA Rate: 70 IL Rate: 10 Total Rate: 80 Volume: 1920 % Dextrose: 18 % AA: 5.5 Energy (kcals/kg): 1878 Protein (g/kg protein): 92 Nonprotein KCALS: 1508 GIR (mg CHO/kg/min): 3.1 % Fat KCALS: 25.6 NCP: N Ratio: 102:1 TPN Comment: - Maintain current TPN at goal D18% + AA 5.5% @70 w/ IL 20% @10ml-> all 3:1. - TPN at goal meets 100% est needs, provides 1878 kcal (28 kcal/adj kg), 92g pro (1.4g/ adj kg). * Added D5 @50 provides additional 204 kcal, 60g dextrose per day. ADDITIONAL RECOMMENDATIONS: * Check lytes, BG daily (added D5, 60g dextrose per day) * Monitor LFT's * Weekly standing weights
[2018-10-25 16:00] VITALS: BP 94/51
[2018-10-25] MEDS ORDERED: Tubing IV Secondary IV ONE (16:57)
[2018-10-25] MEDS ORDERED: NS Irrig 1000ml ONE (16:57)
[2018-10-25] MEDS ORDERED: NS 500ML ONE (16:57)
--- NOTE | 2018-10-25 17:30 | Consultation ---
Consult Note Assessment/Plan dict post op fever possible UTI, poss pneumonia cultures start Bashir Heath MD Oct 25, 2018 17:30
[2018-10-25 18:53] LABS: APPEARANCE,URINE CLEAR; BILIRUBIN, URINE NEGATIVE (NEGATIVE); COLOR,URINE BROWN; GLUCOSE, URINE (UA) NEGATIVE (NEGATIVE); KETONES,URINE NEGATIVE (NEGATIVE); LEUKOCYTE ESTERASE ,URINE 1+ (NEGATIVE); NITRITE,URINE POSITIVE (NEGATIVE); PH,URINE 7 (4.5-8.0); PROTEIN,URINE NEGATIVE (NEGATIVE); UROBILINOGEN,URINE 1 MG/DL (0.0-1.0)
--- NOTE | 2018-10-25 19:10 | NUR ---
NURSE NOTES: Received report from Shelia Haley RN. Rounds done. Patient alert, awake. COLLET DRILLER double checked with off going nurse. PICC intact and patent. Ileo and GT patent. Patient able to get up to BSC with minimal assistance. Bed in low position, locked, side rails up x2, call light within reach, COLLET DRILLER button within reach. Will continue to monitor.
[2018-10-25] MEDS: Piperacillin/Tazobactam 3.375 GM in NS 110 ML IVPB SCH (19:13)
[2018-10-25 20:00] VITALS: BP 93/44
[2018-10-25] MEDS: Fat Emulsion Iv 20% 240 ML in Tpn 1,680 ML IV SCH (20:11)
[2018-10-25] MEDS: D5 1/4NS w/KCl 20mEq 1,000 ML IV SCH (20:13)
[2018-10-25] MEDS: Dyna-Hex 2% Top Sol 2oz TOPIC SCH (20:13)
[2018-10-25] MEDS: Iron Sucrose 100 MG in NS 55 ML IV SCH (20:50)
[2018-10-25] MEDS: TraZODone 50mg tab ORAL SCH (20:51)
--- NOTE | 2018-10-25 21:45 | Consultation ---
DATE OF CONSULTATION: 10/25/2018 PULMONARY CONSULTATION CHIEF COMPLAINT: Fever and possible pneumonia. HISTORY OF PRESENT ILLNESS: The patient is a pleasant 47-year-old woman, who was admitted about a week ago and underwent repair of malfunctioning ileostomy. She had an uneventful recovery until yesterday when she had a temperature up to 101.8. She has some dysuria, but the urine culture is negative so far. Urinalysis was ordered. She had no cough or shortness of breath, but chest x-ray showed a possible infiltrate and I was asked to see her in consultation. The patient reports no chest pain, cough, wheezing, or shortness of breath. She has never smoked. She has no history of pneumonia in the past and has no history of asthma or other pulmonary problems. PAST MEDICAL HISTORY: Includes recurrent urinary retention and multiple abdominal surgeries including hysterectomy, cholecystectomy, and numerous bowel surgeries. She did not have any postoperative pneumonia by her report. MEDICATIONS: Paxil, trazodone, and Carafate. in the hospital, she is on numerous other medications, but is not on antibiotics presently. ALLERGIES: Morphine causes itching. REVIEW OF SYSTEMS: Otherwise unremarkable. PHYSICAL EXAMINATION: GENERAL: The patient is alert and responds appropriately. VITAL SIGNS: Normal today with temperature maximum 99.0. Yesterday, her temperature jose a to 101.8. Saturation is normal on room air. SKIN: Warm and dry. She is obese. HEENT: The head is normocephalic. NECK: Has no jugular venous distention. CHEST: Clear without wheezes, rales, or rhonchi. CARDIAC: Rhythm is regular. ABDOMEN: Soft. EXTREMITIES: Have no clubbing, cyanosis, or edema. LABORATORY DATA: White count jose a to 11.1 from 5.8 the previous day. Hemoglobin is 9.7. Chemistry is satisfactory. Blood sugar is mildly elevated. Urinalysis is pending. Urine culture done yesterday has no reportable results. Chest x-ray is reviewed and shows left base infiltrate. IMPRESSION: 1. Status post repair of ileostomy. 2. Possibly urinary infection, possible pneumonia. PLAN: The patient has had a urine culture. We will do blood cultures and follow the white count. Antibiotics will be initiated. Urinalysis will be obtained. Bashir Lynn M.D. DR: TREVER JOB#: [id number] CC: Manny Kramer M.D.; Fax#: [phone] BASHIR LYNN M.D. ; FAX#: [phone]
[2018-10-26] VITALS: BP 91/52
[2018-10-26] MEDS: Piperacillin/Tazobactam 3.375 GM in NS 110 ML IVPB SCH ×3 (01:51→18:39)
[2018-10-26] MEDS: Ketorolac 30mg Inj IV PRN ×3 (02:01→17:21)
[2018-10-26 05:50] LABS: BASOPHILS % (AUTO) 0.2 % (0.0-2.0); HEMATOCRIT 29.1 % (37.0-47.0); HEMOGLOBIN 9.6 G/DL (12.0-16.0); LYMPHOCYTES % (AUTO) 17.4 % (20.0-45.0); MEAN CORPUSCULAR VOLUME 84 FL (80-99); MONOCYTES % (AUTO) 5.6 % (1.0-10.0); NEUTROPHILS % (AUTO) 73.8 % (45.0-75.0); PLATELET COUNT 255 K/UL (150-450); RED BLOOD COUNT 3.46 M/UL (4.20-5.40); RED CELL DISTRIBUTION WIDTH 11.6 % (11.6-14.8); WHITE BLOOD COUNT 8.8 K/UL (4.8-10.8)
[2018-10-26 06:00] VITALS: BP 109/65
[2018-10-26] MEDS: NovoLOG Insulin Flexpen SUBQ SCH ×4 (06:00→17:43)
--- NOTE | 2018-10-26 06:00 | NUR ---
NURSE NOTES: 12 hours I&O: True ILEO: 445 (525 -80) True GT: 470 (439 -51) Urine: 1175 Addendum: 10/26/18 at 0655 by Grazyna Mcallister RN 12 hours Intake: TPN: 960 IVF: 600 IVPB: 165 NPO/sips
[2018-10-26 06:04] LABS: ANION GAP 7 mmol/L (5-15); BLOOD UREA NITROGEN 9 mg/dL (7-18); CALCIUM 8.5 MG/DL (8.5-10.1); CARBON DIOXIDE 29 MMOL/L (21-32); CHLORIDE 103 MMOL/L (98-107); CREATININE 0.9 MG/DL (0.55-1.30); SODIUM 139 MMOL/L (136-145)
[2018-10-26 06:07] LABS: PHOSPHORUS 4.2 MG/DL (2.5-4.9)
[2018-10-26] MEDS: HYDROmorphone 1mg/ml Carpuject SUBQ PRN (07:13)
[2018-10-26] MEDS: PCA shift volume MISC SCH ×2 (07:23→19:18)
[2018-10-26 08:00] VITALS: BP 118/69
[2018-10-26] MEDS ORDERED: Rate Change PCA 1 Each MISC PRN (08:00)
--- NOTE | 2018-10-26 08:14 | Diagnostic Imaging Report ---
Indication: Abdominal distention Technique: Single AP view of the abdomen. Comparison: None. Findings: Bowel gas pattern is nonobstructive. Surgical hernando project over the central abdomen. Cholecystectomy clips are noted. There is a small left pleural effusion with associated streaky airspace opacities. IMPRESSION: 1. No evidence of obstruction. 2. Small left pleural effusion with associated airspace opacities which likely represent compressive atelectasis, but pneumonia should be excluded clinically.
--- NOTE | 2018-10-26 08:36 | Pulmonology Progress Note ---
Assessment/Plan Assessment/Plan 1. Status post repair of ileostomy. 2. Pneumonia urine neg for UTI no fever; WBC down no pulm sx cont Zosyn CXR tomorrow Subjective Constitutional: Reports: no symptoms Respiratory: Denies: dry cough, productive cough, sputum, shortness of breath, dyspnea at rest Allergies: Coded Allergies: CODEINE (Verified Adverse Reaction, Severe, Itching, 10/18/18) MORPHINE (Verified Adverse Reaction, Severe, Itching, 10/18/18) sever itching to the point scratches self till bleeding. Objective Last 24 Hour Vital Signs Date Time Temp Pulse Resp B/P (MAP) Pulse Ox O2 Delivery O2 Flow Rate FiO2 10/26/18 06:00 97.6 83 17 109/65 (80) 96 10/26/18 04:00 17 10/26/18 00:00 98.5 91 18 91/52 (65) 97 10/25/18 23:49 18 10/25/18 21:00 Room Air 10/25/18 20:00 97.9 90 18 93/44 (60) 98 10/25/18 19:45 18 10/25/18 16:00 20 10/25/18 16:00 97.9 93 20 94/51 (65) 95 10/25/18 15:16 99.0 10/25/18 12:00 99.0 95 21 104/64 (77) 97 10/25/18 12:00 21 10/25/18 09:36 Room Air 10/25/18 09:11 Room Air Intake and Output 10/25/18 10/26/18 19:00 07:00 Intake Total 1560 ml 130 ml Output Total 3015 ml Balance -1455 ml 130 ml IV Total 1560 ml 130 ml Output Urine Total 1250 ml Other 1765 ml # Voids 5 General Appearance: no acute distress HEENT: atraumatic Respiratory/Chest: lungs clear Cardiovascular: normal rate Microbiology Date/Time Source Procedure Growth Status 10/24/18 20:45 Indwelling Cath Urine Culture - Preliminary Resulted Laboratory Tests 10/25/18 17:30: Urine Color Brown, Urine Appearance Clear, Urine pH 7, Urine Specific [place] 1.005, Urine Protein Negative, Urine Glucose (UA) Negative, Urine Ketones Negative, Urine Blood Negative, Urine Nitrite PositiveH, Urine Bilirubin Negative, Urine Urobilinogen 1H, Urine Leukocyte Esterase 1+H, Urine RBC 0-2, Urine WBC 2-4, Urine Squamous Epithelial Cells ModerateH, Urine Bacteria Few 10/26/18 05:26: White Blood Count 8.8, Red Blood Count 3.46L, Hemoglobin 9.6L, Hematocrit 29.1L , Mean Corpuscular Volume 84, Mean Corpuscular Hemoglobin 27.7, Mean Corpuscular Hemoglobin Concent 32.9, Red Cell Distribution Width 11.6, Platelet Count 255, Mean Platelet Volume 6.6, Neutrophils (%) (Auto) 73.8, Lymphocytes (% ) (Auto) 17.4L, Monocytes (%) (Auto) 5.6, Eosinophils (%) (Auto) 3.0, Basophils (%) (Auto) 0.2, Sodium Level 139, Potassium Level 4.0, Chloride Level 103, Carbon Dioxide Level 29, Anion Gap 7, Blood Urea Nitrogen 9, Creatinine 0.9, Estimat Glomerular Filtration Rate > 60, Glucose Level 123H, Calcium Level 8.5, Phosphorus Level 4.2, Magnesium Level 1.8 Current Medications Medications (Trade) Dose Ordered Sig/Ld Route PRN Reason Start Time Stop Time Status Last Admin Dose Admin Acetaminophen (Tylenol) 1,000 mg Q4H PRN ORAL temp>100.2 or headache 10/19/18 16:00 11/18/18 15:59 10/24/18 15:23 Chlorhexidine Gluconate (Ana Rosa-Hex 2%) 1 applic DAILY@2000 TOPIC 10/18/18 20:00 11/17/18 19:59 10/25/18 20:13 Clonazepam (KlonoPIN) 0.5 mg Q8H PRN ORAL For Anxiety 10/23/18 09:15 10/30/18 09:14 Dextrose 1,000 ml @ 0 mls/hr Q24H PRN IV PN interrupted or unavailable 10/21/18 20:00 11/20/18 19:59 Dextrose (Dextrose 50%) 25 ml Q30M PRN IV Hypoglycemia 10/21/18 08:15 11/20/18 08:14 Dextrose (Dextrose 50%) 50 ml Q30M PRN IV Hypoglycemia 10/21/18 08:15 11/20/18 08:14 Dextrose/ Electrolytes 1,000 ml @ 50 mls/hr Q20H IV 10/21/18 20:00 11/20/18 19:59 10/25/18 20:13 Diphenhydramine HCl (Benadryl) 25 mg Q6H PRN IVP Itching/Pruritis 10/26/18 09:30 10/28/18 09:29 Estradiol (Estrace) 1 applic THREE TIMES A WEEK VAGIN 10/19/18 09:00 11/18/18 08:59 10/24/18 09:29 Fat Emulsion Intravenous 240 ml/Amino Acids/ Electrolytes/ Dextrose 1,920 ml @ 80 mls/hr Q24H IV 10/21/18 20:00 11/20/18 19:59 10/25/18 20:11 Heparin Sodium/ Sodium Chloride (Heparin 1000 units/500ml Premix) 1,000 unit ONCE PRN IV picc line placement 10/18/18 09:45 11/17/18 09:44 Hydromorphone HCl 30 ml @ 0 mls/hr Q24H PRN IV For Pain 10/26/18 09:30 10/28/18 09:29 Hydromorphone HCl (Dilaudid) 1 mg Q3H PRN SUBQ Severe Pain (Pain Scale 7-10) 10/26/18 08:30 11/02/18 08:29 Insulin Aspart (NovoLOG) Q6HR SUBQ 10/22/18 00:00 11/21/18 00:00 10/25/18 17:41 Iron Sucrose 100 mg/Sodium Chloride 60 ml @ 240 mls/hr BEDTIME IV 10/26/18 21:00 10/31/18 21:14 Ketorolac Tromethamine (Toradol 30mg) 30 mg Q6H PRN IV Breakthrough Pain 10/25/18 09:30 10/30/18 09:29 10/26/18 02:01 Lorazepam (Ativan) 1 mg HSPRN PRN SL Sleep 10/24/18 07:00 10/31/18 06:59 Lorazepam (Ativan) 1 mg Q4H PRN SL Abdominal cramps 10/22/18 17:22 10/29/18 17:21 10/25/18 12:57 Miscellaneous Medication (HYDRAULICS ENGINEER Rate Change) 1 ea DAILY PRN MISC rate change 10/26/18 08:00 10/28/18 07:59 Miscellaneous Medication (HYDRAULICS ENGINEER shift volume) 1 ea Q12HR@0700,1900 MISC 10/26/18 19:00 10/28/18 18:59 Naloxone HCl (Narcan) 0.1 mg PRN IV RR<10min OR SBP<90 mmHg OR 10/24/18 07:00 11/23/18 06:59 Ondansetron HCl (Zofran) 4 mg Q4H PRN IVP Nausea & Vomiting 10/26/18 09:30 10/28/18 09:29 Paroxetine HCl (Paxil) 30 mg DAILY ORAL 10/22/18 09:00 11/21/18 08:59 10/25/18 08:36 Patient Own Medication (Patient's Own Med) 1 ea SuWe@0900 TDERMAL 10/28/18 09:00 10/28/18 09:01 Patient Own Medication (Patient's Own Med) 1 ea SuWe@0900 TDERMAL 10/31/18 09:00 11/21/18 09:01 Phenazopyridine HCl (Pyridium) 100 mg THREE TIMES A DAY ORAL 10/25/18 14:45 11/24/18 14:44 10/25/18 18:27 Phytonadione (Vitamin K) 10 mg ONCE A WEEK SUBQ 10/21/18 08:15 11/20/18 08:14 10/21/18 09:01 Piperacillin Sod/ Tazobactam Sod 3.375 gm/Sodium Chloride 110 ml @ 27.5 mls/hr Q8H IVPB 10/25/18 18:30 11/01/18 18:29 10/26/18 01:51 Prochlorperazine (Compazine) 10 mg Q6H PRN IVP Nausea & Vomiting 10/21/18 08:30 11/20/18 08:29 10/23/18 23:53 Trazodone HCl (Desyrel) 150 mg BEDTIME ORAL 10/22/18 21:00 11/21/18 20:59 10/25/18 20:51 Vitamin A/Vitamin D (A & D Oint) 1 applic BID TOPIC 10/23/18 11:00 11/22/18 10:59 10/25/18 18:27 Bashir Lynn MD Oct 26, 2018 08:35
--- NOTE | 2018-10-26 08:57 | General Progress Note ---
Progress Note Progress Note Afebrile since spike / afternoon. Started on Zosyn by Dr. Lynn for LLL infiltrate Abdomen mildly distended, soft, healing nicely Urine 2275 Gastrostomy 1610 BCIR ileo 1065 WBC 8800 Hgb 9.6 sstable chem - ok u/a neg Imp. Persistent high volume gastrostomy output and mild distention Plan: Maintain gastrostomy and BCIR ileo catheters to continuous drainage continue TPN Manny Kramer MD Oct 26, 2018 08:57
[2018-10-26] MEDS: PARoxetine 10mg tab ORAL SCH (09:17)
[2018-10-26] MEDS: Estradiol Vaginal Cr 42.5 Gm Tube VAGIN SCH (09:18)
[2018-10-26] MEDS: Vitamin A&D Oint 2oz Tube TOPIC SCH ×2 (09:18→18:08)
[2018-10-26] MEDS ORDERED: DiphenhydrAMINE 50mg/ml Inj IVP PRN (09:30)
[2018-10-26] MEDS ORDERED: PCA HYDROmorphone 1mg/ml 30 ML IV PRN (09:30)
[2018-10-26] MEDS: LORazepam 1mg tab SL PRN (11:21)
[2018-10-26 12:00] VITALS: BP 115/70
--- NOTE | 2018-10-26 13:18 | NUR ---
VERIFICATION SPECIALISTSOFTWARE SUPPORT ENGINEER SI: POD#7 MALFUNCTION ILEOSTOMY T. 97.3 HR 86 RR 20 B/P 118/69 UTI + NITRITES,UROBILINOGEN,LEUKOCYTE ESTERASE IS: IRON IV ZOSYN IV TPN IV IVF D5@50ML/HR MED/SURG STATUS
[2018-10-26 16:00] VITALS: BP 113/68
[2018-10-26] MEDS: D5 1/4NS w/KCl 20mEq 1,000 ML IV SCH ×3 (17:21→21:00)
--- NOTE | 2018-10-26 19:06 | NUR ---
NURSE NOTES: no significant acute changes.condition stable.
--- NOTE | 2018-10-26 19:30 | NUR ---
NURSE NOTES: Receive a report from RADHA Bass. Round is done. Pt is awake and alert, orientation x4. On ambulating in the unit with steady gait. Breathing is silvaan and non labored. No acute distress noted. Pain is tolerable state with FLANGING OPERATOR pump. No dizziness noted. Ileostomy and G-tube are patent and drained with natural gravity. Will continue to monitor.
--- NOTE | 2018-10-26 19:42 | NUR ---
HAND-OFF: Report given to SHARRON GARCIA.
[2018-10-26 20:00] VITALS: BP 94/57
[2018-10-26] MEDS: Dyna-Hex 2% Top Sol 2oz TOPIC SCH (20:59)
[2018-10-26] MEDS: Iron Sucrose 100 MG in NS 55 ML IV SCH (20:59)
[2018-10-26] MEDS: TraZODone 50mg tab ORAL SCH (21:00)
--- NOTE | 2018-10-26 21:00 | NUR ---
NURSE NOTES: No dysuria, no chilling or febrile sensation noted. Done irrigation with NS 20ml to ileostomy with brownish drainage and to g-tube with yellowish drainage. Kept op site clear without bleeding signs. PICC site is clear without infiltration. Will continue to monitor.
[2018-10-26] MEDS: Fat Emulsion Iv 20% 240 ML in Tpn 1,680 ML IV SCH (21:12)
[2018-10-27] VITALS: BP 90/59
[2018-10-27] MEDS: NovoLOG Insulin Flexpen SUBQ SCH ×4 (00:18→18:00)
[2018-10-27] MEDS: Piperacillin/Tazobactam 3.375 GM in NS 110 ML IVPB SCH ×3 (02:46→18:27)
[2018-10-27] MEDS: Ketorolac 30mg Inj IV PRN ×2 (03:15→14:51)
[2018-10-27 04:30] VITALS: BP 97/64
--- NOTE | 2018-10-27 06:00 | NUR ---
NURSE NOTES: Pt is asleep but easily aroused by calling her name easily. Denies pain. No acute distress noted. Will continue to monitor. Urine output: 1380ml Ileostomy output: 395ml brownish color G-tube output: 290ml light light orange to yellowish color
[2018-10-27 06:06] LABS: BASOPHILS % (AUTO) 0.4 % (0.0-2.0); EOSINOPHILS % (AUTO) 3.9 % (0.0-3.0); HEMATOCRIT 28.9 % (37.0-47.0); HEMOGLOBIN 9.4 G/DL (12.0-16.0); LYMPHOCYTES % (AUTO) 20.5 % (20.0-45.0); MEAN CORPUSCULAR VOLUME 84 FL (80-99); NEUTROPHILS % (AUTO) 70.1 % (45.0-75.0); PLATELET COUNT 279 K/UL (150-450); RED BLOOD COUNT 3.42 M/UL (4.20-5.40); RED CELL DISTRIBUTION WIDTH 12.2 % (11.6-14.8); WHITE BLOOD COUNT 8.2 K/UL (4.8-10.8)
[2018-10-27 06:48] LABS: ALANINE AMINOTRANSFERASE 14 U/L (12-78); ALBUMIN 2.3 G/DL (3.4-5.0); ALBUMIN/GLOBULIN RATIO 0.6 (1.0-2.7); ALKALINE PHOSPHATASE 127 U/L (46-116); ANION GAP 7 mmol/L (5-15); ASPARTATE AMINO TRANSFERASE 15 U/L (15-37); BILIRUBIN,TOTAL 0.3 MG/DL (0.2-1.0); CALCIUM 8.5 MG/DL (8.5-10.1); CARBON DIOXIDE 29 MMOL/L (21-32); CHLORIDE 103 MMOL/L (98-107); CREATININE 0.8 MG/DL (0.55-1.30); SODIUM 139 MMOL/L (136-145)
[2018-10-27] MEDS: PCA shift volume MISC SCH ×2 (07:20→19:00)
--- NOTE | 2018-10-27 07:25 | NUR ---
HAND-OFF: Report given to RADHA Orellana. Round is done.
--- NOTE | 2018-10-27 07:29 | NUR ---
NURSE NOTES: Received RADHA Olmedo. Rounding done with outgoing nurse. Pt a/o x4, in bedside commode. No respiratory distress noted. Bed in lowest position, Will come back soon later. Will continue to monitor.
[2018-10-27 07:37] LABS: BLOOD UREA NITROGEN 12 mg/dL (7-18)
[2018-10-27 08:00] VITALS: BP 109/59
[2018-10-27] MEDS: PARoxetine 10mg tab ORAL SCH (09:23)
[2018-10-27] MEDS: Vitamin A&D Oint 2oz Tube TOPIC SCH ×2 (09:24→18:26)
--- NOTE | 2018-10-27 10:00 | NUR ---
NURSE NOTES: Pt ambulated hallway in stable condition.
[2018-10-27] MEDS: LORazepam 1mg tab SL PRN (10:24)
--- NOTE | 2018-10-27 11:26 | General Progress Note ---
Progress Note Progress Note doing well felt distended and full after clamping g tube for meds Abdomen mildly distended, soft, healing nicely labs stable on abx Imp. Persistent high volume gastrostomy output and mild distention Plan: Maintain gastrostomy and BCIR ileo catheters to continuous drainage continue TPN Saurav Moore Oct 27, 2018 11:26
[2018-10-27 12:00] VITALS: BP 109/71
[2018-10-27] MEDS ORDERED: PCA HYDROmorphone 1mg/ml 30 ML IV PRN (12:41)
[2018-10-27] MEDS ORDERED: DiphenhydrAMINE 50mg/ml Inj IVP PRN (12:41)
[2018-10-27] MEDS ORDERED: Rate Change PCA 1 Each MISC PRN (13:00)
[2018-10-27] MEDS ORDERED: NS Irrig 1000ml ONE (14:56)
[2018-10-27] MEDS: D5 1/4NS w/KCl 20mEq 1,000 ML IV SCH (15:31)
[2018-10-27 16:00] VITALS: BP 95/61
--- NOTE | 2018-10-27 18:40 | NUR ---
NURSE NOTES: Pt ambulating hallway in steady gait.
--- NOTE | 2018-10-27 19:30 | NUR ---
NURSE NOTES: Report taken from RADHA Orellana. Patient is awake and in bed, slightly fatigued, but A&Ox4. No signs of distress on room air. Minor complaint of pain through her abdomen, 04/29. Partial surgical wound open to air, other area covered with 4x4, abd, paper tape, no drainage. Ileo draining to gravity, draining brown/green fluid. G-tube constant drainage, light brown fluid. TEO PICC c/d/i and both ports patent. Running TPN @ 80mls/hr and D51/4+20KCl @ 50mls/hr. bed in lowest position, call light within reach.
--- NOTE | 2018-10-27 19:48 | NUR ---
HAND-OFF: Report given to RADHA Rinaldi.
--- NOTE | 2018-10-27 19:56 | Pulmonology Progress Note ---
Assessment/Plan Assessment/Plan 1. Status post repair of ileostomy. 2. Pneumonia urine neg for UTI no fever; WBC down no pulm sx cont Zosyn NPo and TPN for now pain controlled with AIRCRAFT MACHINIST CXR not done Subjective Constitutional: Reports: no symptoms HEENT: Repors: no symptoms Respiratory: Reports: no symptoms Cardiovascular: Reports: no symptoms Gastrointestinal/Abdominal: Reports: nausea, vomiting Genitourinary: Reports: no symptoms Allergies: Coded Allergies: CODEINE (Verified Adverse Reaction, Severe, Itching, 10/18/18) MORPHINE (Verified Adverse Reaction, Severe, Itching, 10/18/18) sever itching to the point scratches self till bleeding. Subjective doing well pain controlled with brake lining maker npo oob no nv this afternoon Objective Last 24 Hour Vital Signs Date Time Temp Pulse Resp B/P (MAP) Pulse Ox O2 Delivery O2 Flow Rate FiO2 10/27/18 16:00 98.3 86 17 95/61 (72) 96 10/27/18 16:00 17 10/27/18 12:00 18 10/27/18 12:00 98.9 86 18 109/71 (84) 97 10/27/18 09:00 Room Air 10/27/18 08:00 98.8 74 17 109/59 (76) 99 10/27/18 08:00 17 10/27/18 04:30 97.6 80 18 97/64 (75) 96 10/27/18 04:00 18 10/27/18 00:00 98.4 85 18 90/59 (69) 98 10/27/18 00:00 18 10/26/18 21:00 Room Air 10/26/18 20:00 16 10/26/18 20:00 98.2 88 16 94/57 (69) 99 Intake and Output 10/26/18 10/27/18 19:00 07:00 Intake Total 1590 ml 1690 ml Output Total 2265 ml 2065 ml Balance -675 ml -375 ml IV Total 1590 ml 1690 ml Output Urine Total 1150 ml 1380 ml Gastric Drainage Total 290 ml Other 1115 ml 395 ml # Voids 6 General Appearance: WD/WN Respiratory/Chest: lungs clear, normal breath sounds Cardiovascular: normal rate, regular rhythm Abdomen: tender Skin: lesions Neurologic/Psychiatric: alert, oriented x 3, responsive Microbiology Date/Time Source Procedure Growth Status 10/25/18 18:05 Blood Blood Culture - Preliminary NO GROWTH AFTER 24 HOURS Resulted 10/25/18 18:00 Blood Blood Culture - Preliminary NO GROWTH AFTER 24 HOURS Resulted 10/24/18 20:45 Indwelling Cath Urine Culture - Final NO GROWTH AFTER 48 HOURS Complete Laboratory Tests 10/27/18 04:50: White Blood Count 8.2, Red Blood Count 3.42L, Hemoglobin 9.4L, Hematocrit 28.9L , Mean Corpuscular Volume 84, Mean Corpuscular Hemoglobin 27.5, Mean Corpuscular Hemoglobin Concent 32.5, Red Cell Distribution Width 12.2, Platelet Count 279, Mean Platelet Volume 6.6, Neutrophils (%) (Auto) 70.1, Lymphocytes (% ) (Auto) 20.5, Monocytes (%) (Auto) 5.0, Eosinophils (%) (Auto) 3.9H, Basophils (%) (Auto) 0.4, Sodium Level 139, Potassium Level 4.0, Chloride Level 103, Carbon Dioxide Level 29, Anion Gap 7, Blood Urea Nitrogen 12, Creatinine 0.8, Estimat Glomerular Filtration Rate > 60, Glucose Level 103, Calcium Level 8.5, Magnesium Level 1.8, Total Bilirubin 0.3, Aspartate Amino Transf (AST/SGOT) 15, Alanine Aminotransferase (ALT/SGPT) 14, Alkaline Phosphatase 127H, Total Protein 6.4, Albumin 2.3L, Globulin 4.1, Albumin/Globulin Ratio 0.6L Current Medications Medications (Trade) Dose Ordered Sig/Ld Route PRN Reason Start Time Stop Time Status Last Admin Dose Admin Acetaminophen (Tylenol) 1,000 mg Q4H PRN ORAL temp>100.2 or headache 10/19/18 16:00 11/18/18 15:59 10/24/18 15:23 Chlorhexidine Gluconate (Ana Rosa-Hex 2%) 1 applic DAILY@2000 TOPIC 10/18/18 20:00 11/17/18 19:59 10/26/18 20:59 Clonazepam (KlonoPIN) 0.5 mg Q8H PRN ORAL For Anxiety 10/23/18 09:15 10/30/18 09:14 Dextrose 1,000 ml @ 0 mls/hr Q24H PRN IV PN interrupted or unavailable 10/21/18 20:00 11/20/18 19:59 Dextrose (Dextrose 50%) 25 ml Q30M PRN IV Hypoglycemia 10/21/18 08:15 11/20/18 08:14 Dextrose (Dextrose 50%) 50 ml Q30M PRN IV Hypoglycemia 10/21/18 08:15 11/20/18 08:14 Dextrose/ Electrolytes 1,000 ml @ 50 mls/hr Q20H IV 10/21/18 20:00 11/20/18 19:59 10/27/18 15:31 Diphenhydramine HCl (Benadryl) 25 mg Q6H PRN IVP Itching/Pruritis 10/27/18 12:41 11/26/18 12:40 Estradiol (Estrace) 1 applic THREE TIMES A WEEK VAGIN 10/19/18 09:00 11/18/18 08:59 10/26/18 09:18 Fat Emulsion Intravenous 240 ml/Amino Acids/ Electrolytes/ Dextrose 1,920 ml @ 80 mls/hr Q24H IV 10/21/18 20:00 11/20/18 19:59 10/26/18 21:12 Heparin Sodium/ Sodium Chloride (Heparin 1000 units/500ml Premix) 1,000 unit ONCE PRN IV picc line placement 10/18/18 09:45 11/17/18 09:44 Hydromorphone HCl 30 ml @ 0 mls/hr Q24H PRN IV For Pain 10/27/18 12:41 10/29/18 12:40 Hydromorphone HCl (Dilaudid) 1 mg Q3H PRN SUBQ Severe Pain (Pain Scale 7-10) 10/26/18 08:30 11/02/18 08:29 Insulin Aspart (NovoLOG) Q6HR SUBQ 10/22/18 00:00 11/21/18 00:00 10/27/18 12:26 Iron Sucrose 100 mg/Sodium Chloride 60 ml @ 240 mls/hr BEDTIME IV 10/26/18 21:00 10/31/18 21:14 10/26/18 20:59 Ketorolac Tromethamine (Toradol 30mg) 30 mg Q6H PRN IV Breakthrough Pain 10/25/18 09:30 10/30/18 09:29 10/27/18 14:51 Lorazepam (Ativan) 1 mg HSPRN PRN SL Sleep 10/24/18 07:00 10/31/18 06:59 Lorazepam (Ativan) 1 mg Q4H PRN SL Abdominal cramps 10/22/18 17:22 10/29/18 17:21 10/27/18 10:24 Miscellaneous Medication (AIRCRAFT MACHINIST Rate Change) 1 ea DAILY PRN MISC rate change 10/27/18 13:00 10/29/18 12:59 Miscellaneous Medication (AIRCRAFT MACHINIST shift volume) 1 ea Q12HR@0700,1900 MISC 10/27/18 19:00 10/29/18 18:59 10/27/18 19:00 Naloxone HCl (Narcan) 0.1 mg PRN IV RR<10min OR SBP<90 mmHg OR 10/24/18 07:00 11/23/18 06:59 Ondansetron HCl (Zofran) 4 mg Q4H PRN IVP Nausea & Vomiting 10/27/18 12:41 11/26/18 12:40 Paroxetine HCl (Paxil) 30 mg DAILY ORAL 10/22/18 09:00 11/21/18 08:59 10/27/18 09:23 Patient Own Medication (Patient's Own Med) 1 ea SuWe@0900 TDERMAL 10/28/18 09:00 10/28/18 09:01 Patient Own Medication (Patient's Own Med) 1 ea SuWe@0900 TDERMAL 10/31/18 09:00 11/21/18 09:01 Phenazopyridine HCl (Pyridium) 100 mg THREE TIMES A DAY ORAL 10/25/18 14:45 11/24/18 14:44 10/27/18 18:26 Phytonadione (Vitamin K) 10 mg ONCE A WEEK SUBQ 10/21/18 08:15 11/20/18 08:14 10/21/18 09:01 Piperacillin Sod/ Tazobactam Sod 3.375 gm/Sodium Chloride 110 ml @ 27.5 mls/hr Q8H IVPB 10/25/18 18:30 11/01/18 18:29 10/27/18 18:27 Prochlorperazine (Compazine) 10 mg Q6H PRN IVP Nausea & Vomiting 10/21/18 08:30 11/20/18 08:29 8/6/19 23:53 Trazodone HCl (Desyrel) 150 mg BEDTIME ORAL 10/22/18 21:00 11/21/18 20:59 10/26/18 21:00 Vitamin A/Vitamin D (A & D Oint) 1 applic BID TOPIC 10/23/18 11:00 11/22/18 10:59 10/27/18 18:26 Susannah Velazquez DO Oct 27, 2018 19:56
[2018-10-27 20:00] VITALS: BP 138/70
[2018-10-27] MEDS: Iron Sucrose 100 MG in NS 55 ML IV SCH (20:12)
[2018-10-27] MEDS: TraZODone 50mg tab ORAL SCH (20:12)
[2018-10-27] MEDS: Fat Emulsion Iv 20% 240 ML in Tpn 1,680 ML IV SCH (20:20)
[2018-10-27] MEDS: Dyna-Hex 2% Top Sol 2oz TOPIC SCH (20:20)
[2018-10-28] VITALS (7 sets, daily range): BP systolic 102–134; BP diastolic 60–79
[2018-10-28] MEDS: Piperacillin/Tazobactam 3.375 GM in NS 110 ML IVPB SCH ×3 (02:50→18:47)
[2018-10-28] MEDS: Ketorolac 30mg Inj IV PRN ×2 (05:47→18:25)
[2018-10-28] MEDS: NovoLOG Insulin Flexpen SUBQ SCH ×4 (06:00→18:00)
[2018-10-28] MEDS: PCA shift volume MISC SCH ×2 (07:00→19:29)
[2018-10-28 07:21] LABS: BASOPHILS % (AUTO) 0.8 % (0.0-2.0); EOSINOPHILS % (AUTO) 4.1 % (0.0-3.0); HEMATOCRIT 28.5 % (37.0-47.0); HEMOGLOBIN 9.4 G/DL (12.0-16.0); LYMPHOCYTES % (AUTO) 17.5 % (20.0-45.0); MEAN CORPUSCULAR VOLUME 84 FL (80-99); MONOCYTES % (AUTO) 5.3 % (1.0-10.0); NEUTROPHILS % (AUTO) 72.3 % (45.0-75.0); PLATELET COUNT 303 K/UL (150-450); RED BLOOD COUNT 3.41 M/UL (4.20-5.40); RED CELL DISTRIBUTION WIDTH 11.8 % (11.6-14.8); WHITE BLOOD COUNT 8.8 K/UL (4.8-10.8)
--- NOTE | 2018-10-28 07:30 | NUR ---
NURSE NOTES: Patient is in bed awake and able to verbalize needs. Stable. Denies pain at this time. No SOB or distress noted at this time. IVF, EEG TECHNICIAN and TPN running through PICC as ordered. Ileo draining into bag, will flush q3h. Gtube draining into bag, will flush q3h. Surgical dressing clean, dry, and intact. Patient NPO except ice chips and meds. Patient in bed in locked and lowest position with call light within reach. Will continue to monitor.
--- NOTE | 2018-10-28 07:30 | NUR ---
HAND-OFF: Report given to RADHA French.
[2018-10-28 07:51] LABS: ALANINE AMINOTRANSFERASE 18 U/L (12-78); ALBUMIN 2.4 G/DL (3.4-5.0); ALBUMIN/GLOBULIN RATIO 0.5 (1.0-2.7); ALKALINE PHOSPHATASE 211 U/L (46-116); ANION GAP 9 mmol/L (5-15); ASPARTATE AMINO TRANSFERASE 26 U/L (15-37); BILIRUBIN,TOTAL 0.3 MG/DL (0.2-1.0); BLOOD UREA NITROGEN 13 mg/dL (7-18); CALCIUM 8.8 MG/DL (8.5-10.1); CARBON DIOXIDE 26 MMOL/L (21-32); CHLORIDE 102 MMOL/L (98-107); CREATININE 0.8 MG/DL (0.55-1.30); POTASSIUM 3.9 MMOL/L (3.5-5.1); SODIUM 137 MMOL/L (136-145)
[2018-10-28] MEDS: PARoxetine 10mg tab ORAL SCH (08:37)
[2018-10-28] MEDS: Phytonadione 10 mg/mL 1ml amp SUBQ SCH (08:37)
[2018-10-28] MEDS: Vitamin A&D Oint 2oz Tube TOPIC SCH ×2 (08:39→18:25)
[2018-10-28] MEDS ORDERED: Tubing IV Secondary IV ONE (09:58)
--- NOTE | 2018-10-28 09:58 | Diagnostic Imaging Report ---
EXAM: XR Chest, 1 View CLINICAL HISTORY: COPD TECHNIQUE: Frontal view of the chest. COMPARISON: Chest x-ray dated 10/25/18 FINDINGS: Lungs: Unremarkable. The lungs appear clear. No focal consolidation. Pleural space: Unremarkable. The costophrenic angles are sharp. No visible pneumothorax. Heart: Unremarkable. No cardiomegaly. Mediastinum: Unremarkable. Bones/joints: Unremarkable. Tubes, lines and devices: Left-sided PICC with catheter tip in the region of the SVC. IMPRESSION: No acute findings.
[2018-10-28] MEDS: D5 1/4NS w/KCl 20mEq 1,000 ML IV SCH (12:12)
--- NOTE | 2018-10-28 12:41 | General Progress Note ---
Progress Note Progress Note Doing much better today does not feel distended. output okay comfortable. no complaints abd soft incisions c/d/i labs stable on abx Imp. Persistent high volume gastrostomy output and mild distention now improved Plan: BCIR ileo catheter to continuous drainage continue TPN start BCIR clear diet gastrostomy 3:3 trial Saurav Moore Oct 28, 2018 12:41
--- NOTE | 2018-10-28 13:00 | NUR ---
NURSE NOTES: GT clamped, will unclamp at 16:00. Started clear liquid diet. Will continue to monitor.
[2018-10-28] MEDS: LORazepam 1mg tab SL PRN (14:10)
--- NOTE | 2018-10-28 14:48 | Pulmonology Progress Note ---
Assessment/Plan Assessment/Plan 1. Status post repair of ileostomy. 2. Pneumonia CXR negative today urine neg for UTI no fever; WBC down no pulm sx cont Zosyn-probably can DC clears adn advance per surgery pain controlled with METEOROLOGICAL AIDE CXR negative Subjective Constitutional: Reports: no symptoms HEENT: Repors: no symptoms Respiratory: Reports: no symptoms Gastrointestinal/Abdominal: Reports: no symptoms Genitourinary: Reports: no symptoms Allergies: Coded Allergies: CODEINE (Verified Adverse Reaction, Severe, Itching, 10/18/18) MORPHINE (Verified Adverse Reaction, Severe, Itching, 10/18/18) sever itching to the point scratches self till bleeding. Subjective doing well pain controlled with engraver set up operator npo oob no nv this afternoon one drain capped Objective Last 24 Hour Vital Signs Date Time Temp Pulse Resp B/P (MAP) Pulse Ox O2 Delivery O2 Flow Rate FiO2 10/28/18 09:00 Room Air 10/28/18 08:00 98.4 89 18 105/63 (77) 98 10/28/18 08:00 18 10/28/18 04:50 98.8 95 18 126/69 (88) 97 10/28/18 04:00 17 10/28/18 04:00 98.5 82 18 121/68 (85) 99 10/28/18 00:00 18 10/28/18 00:00 98.4 80 18 124/60 (81) 98 10/27/18 21:00 Room Air 10/27/18 20:00 97.5 84 18 138/70 (92) 100 10/27/18 20:00 18 10/27/18 16:00 98.3 86 17 95/61 (72) 96 10/27/18 16:00 17 Intake and Output 10/27/18 10/28/18 18:59 06:59 Intake Total 1440.0 ml Output Total 3410 ml 1965 ml Balance -1970.0 ml -1965 ml IV Total 1440.0 ml Output Urine Total 1900 ml 1225 ml Other 1510 ml 740 ml # Voids 4 General Appearance: WD/WN Respiratory/Chest: lungs clear, normal breath sounds Cardiovascular: normal rate, regular rhythm Abdomen: tender Extremities: no clubbing Neurologic/Psychiatric: alert Microbiology Date/Time Source Procedure Growth Status 10/25/18 18:05 Blood Blood Culture - Preliminary NO GROWTH AFTER 48 HOURS Resulted 10/25/18 18:00 Blood Blood Culture - Preliminary NO GROWTH AFTER 48 HOURS Resulted Laboratory Tests 10/28/18 05:30: White Blood Count 8.8, Red Blood Count 3.41L, Hemoglobin 9.4L, Hematocrit 28.5L , Mean Corpuscular Volume 84, Mean Corpuscular Hemoglobin 27.5, Mean Corpuscular Hemoglobin Concent 33.0, Red Cell Distribution Width 11.8, Platelet Count 303, Mean Platelet Volume 6.6, Neutrophils (%) (Auto) 72.3, Lymphocytes (% ) (Auto) 17.5L, Monocytes (%) (Auto) 5.3, Eosinophils (%) (Auto) 4.1H, Basophils (%) (Auto) 0.8, Sodium Level 137, Potassium Level 3.9, Chloride Level 102, Carbon Dioxide Level 26, Anion Gap 9, Blood Urea Nitrogen 13, Creatinine 0.8, Estimat Glomerular Filtration Rate > 60, Glucose Level 77, Calcium Level 8.8, Magnesium Level 1.9, Total Bilirubin 0.3, Aspartate Amino Transf (AST/SGOT ) 26, Alanine Aminotransferase (ALT/SGPT) 18, Alkaline Phosphatase 211H, Total Protein 6.8, Albumin 2.4L, Globulin 4.4, Albumin/Globulin Ratio 0.5L Current Medications Medications (Trade) Dose Ordered Sig/Ld Route PRN Reason Start Time Stop Time Status Last Admin Dose Admin Acetaminophen (Tylenol) 1,000 mg Q4H PRN ORAL temp>100.2 or headache 10/19/18 16:00 11/18/18 15:59 10/24/18 15:23 Chlorhexidine Gluconate (Ana Rosa-Hex 2%) 1 applic DAILY@2000 TOPIC 10/18/18 20:00 11/17/18 19:59 10/27/18 20:20 Clonazepam (KlonoPIN) 0.5 mg Q8H PRN ORAL For Anxiety 10/23/18 09:15 10/30/18 09:14 Dextrose 1,000 ml @ 0 mls/hr Q24H PRN IV PN interrupted or unavailable 10/21/18 20:00 11/20/18 19:59 Dextrose (Dextrose 50%) 25 ml Q30M PRN IV Hypoglycemia 10/21/18 08:15 11/20/18 08:14 Dextrose (Dextrose 50%) 50 ml Q30M PRN IV Hypoglycemia 10/21/18 08:15 11/20/18 08:14 Dextrose/ Electrolytes 1,000 ml @ 50 mls/hr Q20H IV 10/21/18 20:00 11/20/18 19:59 10/28/18 12:12 Diphenhydramine HCl (Benadryl) 25 mg Q6H PRN IVP Itching/Pruritis 10/27/18 12:41 11/26/18 12:40 Estradiol (Estrace) 1 applic THREE TIMES A WEEK VAGIN 10/19/18 09:00 11/18/18 08:59 10/26/18 09:18 Fat Emulsion Intravenous 240 ml/Amino Acids/ Electrolytes/ Dextrose 1,920 ml @ 80 mls/hr Q24H IV 10/21/18 20:00 11/20/18 19:59 10/27/18 20:20 Heparin Sodium/ Sodium Chloride (Heparin 1000 units/500ml Premix) 1,000 unit ONCE PRN IV picc line placement 10/18/18 09:45 11/17/18 09:44 Hydromorphone HCl 30 ml @ 0 mls/hr Q24H PRN IV For Pain 10/27/18 12:41 10/29/18 12:40 Hydromorphone HCl (Dilaudid) 1 mg Q3H PRN SUBQ Severe Pain (Pain Scale 7-10) 10/26/18 08:30 11/02/18 08:29 Insulin Aspart (NovoLOG) Q6HR SUBQ 10/22/18 00:00 11/21/18 00:00 10/27/18 12:26 Iron Sucrose 100 mg/Sodium Chloride 60 ml @ 240 mls/hr BEDTIME IV 10/26/18 21:00 10/31/18 21:14 10/27/18 20:12 Ketorolac Tromethamine (Toradol 30mg) 30 mg Q6H PRN IV Breakthrough Pain 10/25/18 09:30 10/30/18 09:29 10/28/18 05:47 Lorazepam (Ativan) 1 mg HSPRN PRN SL Sleep 10/24/18 07:00 10/31/18 06:59 Lorazepam (Ativan) 1 mg Q4H PRN SL Abdominal cramps 10/22/18 17:22 10/29/18 17:21 10/28/18 14:10 Miscellaneous Medication (METEOROLOGICAL AIDE Rate Change) 1 ea DAILY PRN MISC rate change 10/27/18 13:00 10/29/18 12:59 Miscellaneous Medication (METEOROLOGICAL AIDE shift volume) 1 ea Q12HR@0700,1900 MISC 10/27/18 19:00 10/29/18 18:59 10/28/18 07:00 Naloxone HCl (Narcan) 0.1 mg PRN IV RR<10min OR SBP<90 mmHg OR 10/24/18 07:00 11/23/18 06:59 Ondansetron HCl (Zofran) 4 mg Q4H PRN IVP Nausea & Vomiting 10/27/18 12:41 11/26/18 12:40 Paroxetine HCl (Paxil) 30 mg DAILY ORAL 10/22/18 09:00 11/21/18 08:59 10/28/18 08:37 Patient Own Medication (Patient's Own Med) 1 ea SuWe@0900 TDERMAL 10/28/18 14:00 11/18/18 09:01 10/28/18 14:10 Phenazopyridine HCl (Pyridium) 100 mg THREE TIMES A DAY ORAL 10/25/18 14:45 11/24/18 14:44 10/28/18 13:25 Phytonadione (Vitamin K) 10 mg ONCE A WEEK SUBQ 10/21/18 08:15 11/20/18 08:14 10/28/18 08:37 Piperacillin Sod/ Tazobactam Sod 3.375 gm/Sodium Chloride 110 ml @ 27.5 mls/hr Q8H IVPB 10/25/18 18:30 11/01/18 18:29 10/28/18 10:46 Prochlorperazine (Compazine) 10 mg Q6H PRN IVP Nausea & Vomiting 10/21/18 08:30 11/20/18 08:29 10/23/18 23:53 Trazodone HCl (Desyrel) 150 mg BEDTIME ORAL 10/22/18 21:00 11/21/18 20:59 10/27/18 20:12 Vitamin A/Vitamin D (A & D Oint) 1 applic BID TOPIC 8/6/19 11:00 11/22/18 10:59 10/28/18 08:39 Susannah Velazquez DO Oct 28, 2018 14:48
--- NOTE | 2018-10-28 19:20 | NUR ---
NURSE NOTES: Report taken from RADHA French. Patient is awake and in bed, A&Ox4. No signs of distress on room air. States that she has been getting minor cramps since her diet change with minimal pain, 05/27. LOG YARD DERRICK OPERATOR still running .. TEO PICC c/d/i and both port patent. Running TPN @80mls/hr and D51/4NS+20KCl at 50mls/hr. Skin is intact, surgical dressing c/d, change PRN. Ileo draining to gravity. G-tube on 3:3 protocal, currently closed, patient aware of protocol for the evening. Bed in lowest position, call light within reach.
--- NOTE | 2018-10-28 19:30 | NUR ---
HAND-OFF: Report given to Gentry GARCIA. Patient is stable.
[2018-10-28] MEDS: Fat Emulsion Iv 20% 240 ML in Tpn 1,680 ML IV SCH (20:18)
[2018-10-28] MEDS: TraZODone 50mg tab ORAL SCH (20:22)
[2018-10-28] MEDS: Dyna-Hex 2% Top Sol 2oz TOPIC SCH (20:23)
[2018-10-28] MEDS: Iron Sucrose 100 MG in NS 55 ML IV SCH (20:30)
[2018-10-29] VITALS: BP 112/69
[2018-10-29] MEDS: Ketorolac 30mg Inj IV PRN ×3 (02:26→16:28)
[2018-10-29] MEDS: Piperacillin/Tazobactam 3.375 GM in NS 110 ML IVPB SCH ×3 (02:26→18:30)
[2018-10-29 04:00] VITALS: BP_SYST 106; BP_SYST 123; BP_DIAS 57; BP_DIAS 63
[2018-10-29] MEDS: NovoLOG Insulin Flexpen SUBQ SCH ×4 (05:47→18:00)
[2018-10-29 06:42] LABS: BASOPHILS % (AUTO) 0.3 % (0.0-2.0); EOSINOPHILS % (AUTO) 2.8 % (0.0-3.0); HEMATOCRIT 31.4 % (37.0-47.0); HEMOGLOBIN 10.2 G/DL (12.0-16.0); LYMPHOCYTES % (AUTO) 13.4 % (20.0-45.0); MEAN CORPUSCULAR VOLUME 84 FL (80-99); MONOCYTES % (AUTO) 4.5 % (1.0-10.0); PLATELET COUNT 355 K/UL (150-450); RED BLOOD COUNT 3.74 M/UL (4.20-5.40); RED CELL DISTRIBUTION WIDTH 12.4 % (11.6-14.8); WHITE BLOOD COUNT 11.9 K/UL (4.8-10.8)
[2018-10-29 07:01] LABS: ALANINE AMINOTRANSFERASE 24 U/L (12-78); ALBUMIN 2.3 G/DL (3.4-5.0); ALBUMIN/GLOBULIN RATIO 0.5 (1.0-2.7); ALKALINE PHOSPHATASE 229 U/L (46-116); ANION GAP 8 mmol/L (5-15); ASPARTATE AMINO TRANSFERASE 29 U/L (15-37); BILIRUBIN,TOTAL 0.3 MG/DL (0.2-1.0); BLOOD UREA NITROGEN 15 mg/dL (7-18); CALCIUM 8.9 MG/DL (8.5-10.1); CARBON DIOXIDE 26 MMOL/L (21-32); CHLORIDE 102 MMOL/L (98-107); CREATININE 0.9 MG/DL (0.55-1.30); POTASSIUM 4.1 MMOL/L (3.5-5.1); SODIUM 136 MMOL/L (136-145)
[2018-10-29] MEDS: PCA shift volume MISC SCH ×2 (07:19→19:00)
--- NOTE | 2018-10-29 07:19 | NUR ---
HAND-OFF: Report given to RADHA French. Patient is awake, endorsed to RN that she has some increased pain in her pelvic/abdominal area, will discuss medicaiton options with patient. Outputs for the evening stated below Ileo: 470cc GT: -55cc UO: 1300cc.
--- NOTE | 2018-10-29 07:30 | NUR ---
NURSE NOTES: Patient is in bed awake and able to verbalize needs. Stable. Denies pain or SOB. Patient encouraged to use call light for assistance. IVF, TPN, and SCHEDULE CLERK running through PICC as ordered. Will clamp and unclamp Gtube as ordered. ileo draining to bag as ordered. Patient in bed in locked and lowest position with call light within reach. Will continue to monitor.
[2018-10-29 08:00] VITALS: BP 98/57
[2018-10-29] MEDS ORDERED: LORazepam 1mg tab SL PRN (08:15)
[2018-10-29] MEDS ORDERED: Rate Change PCA 1 Each MISC PRN (08:15)
[2018-10-29] MEDS: D5 1/4NS w/KCl 20mEq 1,000 ML IV SCH (08:30)
[2018-10-29] MEDS ORDERED: clonazePAM 0.5mg tab ORAL PRN (08:30)
[2018-10-29] MEDS ORDERED: PCA HYDROmorphone 1mg/ml 30 ML IV PRN (08:30)
[2018-10-29] MEDS: Estradiol Vaginal Cr 42.5 Gm Tube VAGIN SCH (08:31)
[2018-10-29] MEDS: PARoxetine 10mg tab ORAL SCH (08:31)
[2018-10-29] MEDS: Vitamin A&D Oint 2oz Tube TOPIC SCH ×2 (09:00→18:00)
[2018-10-29] MEDS: LORazepam 1mg tab SL PRN (09:29)
[2018-10-29] MEDS: HYDROmorphone 1mg/ml Carpuject SUBQ PRN ×3 (10:26→21:20)
[2018-10-29 12:00] VITALS: BP 104/66
--- NOTE | 2018-10-29 13:11 | Pulmonology Progress Note ---
Assessment/Plan Assessment/Plan 1. Status post repair of ileostomy. 2. Pneumonia lungs clear, no focal consolidation on CXR urine neg no fever no pulm sx cont Zosyn until tomorrow Subjective Constitutional: Reports: no symptoms Respiratory: Reports: no symptoms Allergies: Coded Allergies: CODEINE (Verified Adverse Reaction, Severe, Itching, 10/18/18) MORPHINE (Verified Adverse Reaction, Severe, Itching, 10/18/18) sever itching to the point scratches self till bleeding. Objective Last 24 Hour Vital Signs Date Time Temp Pulse Resp B/P (MAP) Pulse Ox O2 Delivery O2 Flow Rate FiO2 10/29/18 12:00 99.4 96 20 104/66 (79) 95 10/29/18 12:00 20 10/29/18 09:00 Room Air 10/29/18 08:00 98.9 96 18 98/57 (71) 99 10/29/18 08:00 18 10/29/18 04:00 18 10/29/18 04:00 98.4 72 17 106/57 (73) 95 10/29/18 00:00 98.6 91 17 112/69 (83) 100 10/29/18 00:00 17 10/28/18 21:00 Room Air 10/28/18 20:00 99.1 98 18 134/79 (97) 97 10/28/18 20:00 17 10/28/18 16:00 18 10/28/18 16:00 97.4 92 18 102/64 (77) 97 Intake and Output 10/28/18 10/29/18 19:00 07:00 Intake Total 1560 ml 600 ml Output Total 2490 ml 1770 ml Balance -930 ml -1170 ml Intake Oral 600 ml IV Total 1560 ml Output Urine Total 800 ml 1300 ml Gastric Drainage Total 770 ml Other 920 ml 470 ml # Voids 3 HEENT: atraumatic Respiratory/Chest: lungs clear Cardiovascular: normal rate Laboratory Tests 10/29/18 05:35: White Blood Count 11.9H, Red Blood Count 3.74L, Hemoglobin 10.2L, Hematocrit 31.4L, Mean Corpuscular Volume 84, Mean Corpuscular Hemoglobin 27.3, Mean Corpuscular Hemoglobin Concent 32.4, Red Cell Distribution Width 12.4, Platelet Count 355, Mean Platelet Volume 6.9, Neutrophils (%) (Auto) 79.0H, Lymphocytes ( %) (Auto) 13.4L, Monocytes (%) (Auto) 4.5, Eosinophils (%) (Auto) 2.8, Basophils (%) (Auto) 0.3, Sodium Level 136, Potassium Level 4.1, Chloride Level 102, Carbon Dioxide Level 26, Anion Gap 8, Blood Urea Nitrogen 15, Creatinine 0.9, Estimat Glomerular Filtration Rate > 60, Glucose Level 122H, Calcium Level 8.9, Total Bilirubin 0.3, Aspartate Amino Transf (AST/SGOT) 29, Alanine Aminotransferase (ALT/SGPT) 24, Alkaline Phosphatase 229H, Total Protein 6.7, Albumin 2.3L, Globulin 4.4, Albumin/Globulin Ratio 0.5L Current Medications Medications (Trade) Dose Ordered Sig/Ld Route PRN Reason Start Time Stop Time Status Last Admin Dose Admin Acetaminophen (Tylenol) 1,000 mg Q4H PRN ORAL temp>100.2 or headache 10/19/18 16:00 11/18/18 15:59 10/24/18 15:23 Chlorhexidine Gluconate (Ana Rosa-Hex 2%) 1 applic DAILY@2000 TOPIC 10/18/18 20:00 11/17/18 19:59 10/28/18 20:23 Clonazepam (KlonoPIN) 0.5 mg Q8H PRN ORAL For Anxiety 10/29/18 08:30 11/05/18 08:29 Dextrose 1,000 ml @ 0 mls/hr Q24H PRN IV PN interrupted or unavailable 10/21/18 20:00 11/20/18 19:59 Dextrose (Dextrose 50%) 25 ml Q30M PRN IV Hypoglycemia 10/21/18 08:15 11/20/18 08:14 Dextrose (Dextrose 50%) 50 ml Q30M PRN IV Hypoglycemia 10/21/18 08:15 11/20/18 08:14 Dextrose/ Electrolytes 1,000 ml @ 50 mls/hr Q20H IV 10/21/18 20:00 11/20/18 19:59 10/29/18 08:30 Diphenhydramine HCl (Benadryl) 25 mg Q6H PRN IVP Itching/Pruritis 10/27/18 12:41 11/26/18 12:40 Estradiol (Estrace) 1 applic THREE TIMES A WEEK VAGIN 10/19/18 09:00 11/18/18 08:59 10/29/18 08:31 Fat Emulsion Intravenous 240 ml/Amino Acids/ Electrolytes/ Dextrose 1,920 ml @ 80 mls/hr Q24H IV 10/21/18 20:00 11/20/18 19:59 10/28/18 20:18 Heparin Sodium/ Sodium Chloride (Heparin 1000 units/500ml Premix) 1,000 unit ONCE PRN IV picc line placement 10/18/18 09:45 11/17/18 09:44 Hydromorphone HCl 30 ml @ 0 mls/hr Q24H PRN IV For Pain 10/29/18 08:30 10/31/18 08:29 Hydromorphone HCl (Dilaudid) 1 mg Q3H PRN SUBQ Severe Pain (Pain Scale 7-10) 10/26/18 08:30 11/02/18 08:29 10/29/18 10:26 Insulin Aspart (NovoLOG) Q6HR SUBQ 10/22/18 00:00 11/21/18 00:00 10/29/18 05:47 Iron Sucrose 100 mg/Sodium Chloride 60 ml @ 240 mls/hr BEDTIME IV 10/26/18 21:00 10/31/18 21:14 10/28/18 20:30 Ketorolac Tromethamine (Toradol 30mg) 30 mg Q6H PRN IV Breakthrough Pain 10/29/18 08:30 11/03/18 08:29 10/29/18 08:31 Lorazepam (Ativan) 1 mg HSPRN PRN SL Sleep 10/29/18 08:15 11/05/18 08:14 Lorazepam (Ativan) 1 mg Q4H PRN SL Abdominal cramps 10/29/18 08:30 11/05/18 08:29 10/29/18 09:29 Miscellaneous Medication (ALTERATIONS TAILOR Rate Change) 1 ea DAILY PRN MISC rate change 10/29/18 08:15 10/31/18 08:14 Miscellaneous Medication (ALTERATIONS TAILOR shift volume) 1 ea Q12HR@0700,1900 MISC 10/29/18 19:00 10/31/18 18:59 Naloxone HCl (Narcan) 0.1 mg PRN IV RR<10min OR SBP<90 mmHg OR 10/24/18 07:00 11/23/18 06:59 Ondansetron HCl (Zofran) 4 mg Q4H PRN IVP Nausea & Vomiting 10/27/18 12:41 11/26/18 12:40 Paroxetine HCl (Paxil) 30 mg DAILY ORAL 10/22/18 09:00 11/21/18 08:59 10/29/18 08:31 Patient Own Medication (Patient's Own Med) 1 ea SuWe@0900 TDERMAL 10/28/18 14:00 11/18/18 09:01 10/28/18 14:10 Phenazopyridine HCl (Pyridium) 100 mg THREE TIMES A DAY ORAL 10/25/18 14:45 11/24/18 14:44 10/29/18 12:21 Phytonadione (Vitamin K) 10 mg ONCE A WEEK SUBQ 10/21/18 08:15 11/20/18 08:14 10/28/18 08:37 Piperacillin Sod/ Tazobactam Sod 3.375 gm/Sodium Chloride 110 ml @ 27.5 mls/hr Q8H IVPB 10/25/18 18:30 11/01/18 18:29 10/29/18 10:26 Prochlorperazine (Compazine) 10 mg Q6H PRN IVP Nausea & Vomiting 10/21/18 08:30 11/20/18 08:29 10/23/18 23:53 Trazodone HCl (Desyrel) 150 mg BEDTIME ORAL 10/22/18 21:00 11/21/18 20:59 10/28/18 20:22 Vitamin A/Vitamin D (A & D Oint) 1 applic BID TOPIC 10/23/18 11:00 11/22/18 10:59 10/29/18 09:00 Bashir Lynn MD Oct 29, 2018 13:11
--- NOTE | 2018-10-29 14:02 | NUR ---
RD ASSESSMENT & RECOMMENDATIONS SEE CARE ACTIVITY FOR COMPLETE ASSESSMENT DAILY ESTIMATED NEEDS: Needs based on Surgery 65.7kg adj 25-30 kcals/kg total kcals 1.2-2 g protein/kg 79-131 g total protein 25-30 mL/kg total fluid mLs NUTRITION DIAGNOSIS: Altered GI fxn r/t h/o pelvic floor dysfunction and colonic inertia as evidenced by pt w/ history of multiple abdominal operations including ileo + colostomy, now s/p BCIR, w/ ileus, on TPN, diet now advanced to clear liquid. CURRENT DIET:CLD PO DIET RECOMMENDATIONS: Clear Liquid diet as per MD PARENTERAL NUTRITION RECOMMENDATIONS: D/AA Rate: 70 IL Rate: 10 Total Rate: 80 Volume: 1920 % Dextrose: 18 % AA: 5.5 Energy (kcals/kg): 1878 Protein (g/kg protein): 92 Nonprotein KCALS: 1508 GIR (mg CHO/kg/min): 3.1 % Fat KCALS: 25.6 NCP: N Ratio: 102:1 TPN Comment: - Rosamaria current TPN at goal D18% + AA 5.5% @70 w/ IL 20% @10ml-> all 3:1. - TPN at goal meets 100% est needs, provides 1878 kcal (28 kcal/adj kg), 92g pro (1.4g/ adj kg). * Added D5 @50 provides additional 204 kcal, 60g dextrose per day. ADDITIONAL RECOMMENDATIONS: * Check lytes, BG daily (added D5) * Monitor LFT's * Weekly standing weights
--- NOTE | 2018-10-29 14:11 | NUR ---
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
[2018-10-29] MEDS ORDERED: NS Irrig 1000ml ONE (14:40)
[2018-10-29] MEDS ORDERED: Tubing IV Secondary IV ONE (14:40)
[2018-10-29] MEDS ORDERED: NS 500ML ONE (14:40)
[2018-10-29] MEDS ORDERED: Isovue-300 100ml vial INJ PRN (15:30)
--- NOTE | 2018-10-29 15:32 | NUR ---
*-* INSURANCE *-* UPDATED CLINICALS AND REVIEWS HAVE BEEN FAXED TO: [facility] NCM: JANA P:[phone] F:[phone] NURSE: XIMENA
--- NOTE | 2018-10-29 15:41 | General Progress Note ---
Progress Note Progress Note Chills and fever 100.4 this afternoon. Had been tolerating clear liquids with gastrostomy 3:3 since yesterday. Abdomen soft, incisions clean, stoma healing, kenan small amount serous, mucous from stoma WBC 11,900 (up) Hgb 10.2 albumin 2.3 on TPN Urine 2100 Gastrostomy 735 BCIR fileo 1450 Imp. Fever and chills on Zosyn for possible pneumonitis now with clear Chest XRay Plan: STAT CT scan of abd+pelvis with oral and IV contrast If CT scan negative, will need to remove PIC line and d/c TPN f/u labs Manny Kramer MD Oct 29, 2018 15:41
[2018-10-29 16:00] VITALS: BP 100/68
[2018-10-29] MEDS: Acetaminophen 650mg/20.3ml ORAL PRN (16:32)
--- NOTE | 2018-10-29 19:30 | NUR ---
NURSE NOTES: Report taken from RADHA French. Patient was just brought back up to the floor via wheelchair from imaging lab. Awaiting results of CT. Patient is A&Ox4. No signs of distress on room air. Is having constant RLQ pain, sharp/tender, 5/10. Skin is intact, surgical site c/d/i, hernando open to air, changed dressing per PRN order. TEO PICC c/d/i and running TPN @75mls/hr and D51/4NS+20KCl at 75mls/hr. Following G-tube 3:3 protocol per MD order, next open to gravity at 2100. Ileo patent and draining to gravity. Bedside commode. Bed in lowest position, call light within reach.
--- NOTE | 2018-10-29 19:30 | NUR ---
HAND-OFF: Report given to Gentry GARCIA. Patient is stable.
--- NOTE | 2018-10-29 19:42 | Diagnostic Imaging Report ---
CT ABDOMEN AND PELVIS WITH CONTRAST INDICATION: Status post total colectomy with ileostomy presenting with fever, concern for abscess TECHNIQUE: Continuous helical transaxial imaging of the abdomen and pelvis was obtained from the lung bases to the pubic symphysis during intravenous contrast administration. Coronal 2-D reformats were also obtained. Study obtained in a Siemens sensation [address] Automatic Exposure Control was utilized. Total Dose length Product (DLP): 922.[address] Dose Index Volume (CTDIvol): 17.49 mGy COMPARISON: None available FINDINGS: Lower chest:: Bibasilar subsegmental atelectasis. Status post bilateral breast augmentation. Hepatobiliary:: Liver is unremarkable. Status post cholecystectomy. Genitourinary:: No hydronephrosis or nephrolithiasis. Bladder is under distended, limiting evaluation. Status post hysterectomy. Adrenals:: Remarkable. Pancreas:: Unremarkable. Gastrointestinal:: Percutaneous gastrostomy tube in good position. 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 No evidence of obstruction. Diffuse multifocal small bowel wall thickening is likely reactive. There is a small umbilical hernia containing nonobstructed loop of small bowel. ] Spleen: : Unremarkable. Peritoneum:: There is diffuse mesenteric and omental fat straining, presumably postoperative. There is a right lower quadrant approach percutaneous drain with an adjacent percutaneous drain tract and prior ostomy site containing locules of air. Subjacent and surrounding this, there is loss of fat plane between the anterior abdominal wall/rectus sheath musculature in the operative bed. There is trace free fluid. In the anterior right lower quadrant, there is a a 1.9 x 1.1 x 2.4 cm walled off, rim-enhancing collection containing gas locules. Subjacent to the midline incision in the left lower quadrant (3:65) there is an ill-defined collection which is indistinguishable from adjacent loop of bowel and which may be a decompressed loop versus additional collection. In the posterior aspect of the pelvis subjacent to the sacrum, there is a walled off, rim-enhancing collection measuring 2.6 x 2.5 x 4.4 cm in maximum orthogonal dimensions. Bones and soft tissues:: There are multilevel discogenic degenerative changes of the visualized spine. IMPRESSION: 1. Status post total colectomy with associated postoperative appearance and two organized, rim-enhancing collections in the pelvis as described above. 2. Additional possible left lower quadrant collection which appears indistinguishable from adjacent loops may represent additional collection, but anastomotic leak cannot be excluded on this examination. These findings are concordant with the [facility] preliminary report, with additional findings as described above. The CT scanner at [facility] is accredited by the [employer] and the scans are performed using protocols designed to limit radiation exposure to as low as reasonably achievable to attain images of sufficient resolution adequate for diagnostic evaluation.
[2018-10-29 20:00] VITALS: BP 99/61
[2018-10-29] MEDS: Dyna-Hex 2% Top Sol 2oz TOPIC SCH (20:00)
[2018-10-29] MEDS: Iron Sucrose 100 MG in NS 55 ML IV SCH (20:38)
[2018-10-29] MEDS: Fat Emulsion Iv 20% 240 ML in Tpn 1,680 ML IV SCH (20:39)
[2018-10-29] MEDS: TraZODone 50mg tab ORAL SCH (20:39)
[2018-10-30] VITALS (19 sets, daily range): BP systolic 98–117; BP diastolic 50–70
[2018-10-30] MEDS: Piperacillin/Tazobactam 3.375 GM in NS 110 ML IVPB SCH ×2 (02:44→10:59)
[2018-10-30] MEDS: Ketorolac 30mg Inj IV PRN ×2 (03:26→15:51)
[2018-10-30] MEDS: D5 1/4NS w/KCl 20mEq 1,000 ML IV SCH ×2 (04:08→23:59)
[2018-10-30] MEDS: HYDROmorphone 1mg/ml Carpuject SUBQ PRN ×3 (05:38→19:56)
[2018-10-30] MEDS: NovoLOG Insulin Flexpen SUBQ SCH ×5 (05:41→23:59)
[2018-10-30 06:14] LABS: BASOPHILS % (AUTO) 0.3 % (0.0-2.0); EOSINOPHILS % (AUTO) 1.7 % (0.0-3.0); HEMATOCRIT 29.2 % (37.0-47.0); HEMOGLOBIN 9.6 G/DL (12.0-16.0); LYMPHOCYTES % (AUTO) 9.5 % (20.0-45.0); MEAN CORPUSCULAR VOLUME 84 FL (80-99); MONOCYTES % (AUTO) 4.5 % (1.0-10.0); PLATELET COUNT 375 K/UL (150-450); RED CELL DISTRIBUTION WIDTH 12.3 % (11.6-14.8); WHITE BLOOD COUNT 15.6 K/UL (4.8-10.8)
[2018-10-30 06:31] LABS: ANION GAP 8 mmol/L (5-15); BLOOD UREA NITROGEN 15 mg/dL (7-18); CALCIUM 8.7 MG/DL (8.5-10.1); CARBON DIOXIDE 26 MMOL/L (21-32); CHLORIDE 101 MMOL/L (98-107); CREATININE 0.9 MG/DL (0.55-1.30); POTASSIUM 3.6 MMOL/L (3.5-5.1); SODIUM 135 MMOL/L (136-145)
--- NOTE | 2018-10-30 06:44 | NUR ---
NURSE NOTES: Patient had an okay night. Continues to get increased pain in her RLQ near her surgical site. Gets some relief from pain meds and has continuous use of DESK MONITOR. MD called to recieve the CT results, will discuss further with patient today. Outputs for patient below. Continue to follow GT 3:3 protocol. UO: 1500cc Ileo: 850cc-80cc= 750cc GT: 600cc-80cc= 520cc
[2018-10-30] MEDS ORDERED: Lidocaine 1% Plain 30 ml INJ PRN (07:15)
[2018-10-30] MEDS: PCA shift volume MISC SCH ×2 (07:27→19:12)
--- NOTE | 2018-10-30 07:30 | NUR ---
NURSE NOTES: WAKING ROUNDS DONE WITH OUTGOING RN. PATIENT AWAKE IN ROOM AT BEDSIDE. SURGICAL SITE C/D/I. ILEO TO DRAINAGE BAG PATENT. GASTRO CURRENTLY PLUGGED PER 3:3 PROTOCOL. CERTIFIED NOVELL ADMINISTRATOR SETTINGS VERIFIED AGAINST MD ORDER. DISCUSSED PLAN OF CARE FOR THE DAY. VERBALIZED UNDERSTANDING. CALL LIGHT WITHIN REACH. WILL CONTINUE MONITOR.
--- NOTE | 2018-10-30 07:35 | NUR ---
HAND-OFF: Report given to RADHA Freed. Patient is awake and stable. NPO order placed and patient aware.
[2018-10-30] MEDS: PARoxetine 10mg tab ORAL SCH (08:17)
[2018-10-30] MEDS: Vitamin A&D Oint 2oz Tube TOPIC SCH ×2 (09:00→18:00)
[2018-10-30] MEDS ORDERED: Lidocaine 1% Plain 30 ml INJ SCH (12:00)
[2018-10-30] MEDS ORDERED: fentaNYL 100 mcg/2 mL IV ONE ×2 (12:47→12:48)
[2018-10-30] MEDS ORDERED: Midazolam 2mg/2ml Inj ONE ×2 (12:47→12:48)
--- NOTE | 2018-10-30 13:18 | NUR ---
*-* INSURANCE *-* UPDATED CLINICALS AND REVIEWS HAVE BEEN FAXED TO: [facility] NCM: JANA P:[phone] F:[phone] NURSE: XIMENA
--- NOTE | 2018-10-30 13:22 | Moderate Sedation - Procedural ---
Moderate Sedation HPI Home Medication Reported Medications Estradiol* (ESTRACE*) 42.5 Gm Cream.appl, 1 APPLIC VAGIN THREE TIMES A WEEK, GM Estradiol 0.01 Vaginal cream three times a week 10/18/18 Estradiol (Estradiol) 1 Each Patch.tdsw, 1 EACH TD TWICE A WEEK, PATCH Estradiol 0.1 mg patch apply to skin twice a week 10/18/18 Clonazepam* (KLONOPIN*) 0.5 Mg Tablet, 0.5 MG ORAL TID PRN for For Anxiety, TAB 0 Refills 10/18/18 Paroxetine Hcl (PAXIL) 30 Mg Tablet, 30 MG ORAL BEDTIME, #30 TAB 0 Refills 10/18/18 Trazodone* (TRAZODONE*) 150 Mg Tablet, 150 MG ORAL BEDTIME, TAB 10/18/18 Trimethoprim Sulfate (Trimethoprim) 100 Mg Tablet, 100 MG PO BEDTIME, TAB 10/18/18 Patient History Allergies: Coded Allergies: CODEINE (Verified Adverse Reaction, Severe, Itching, 10/18/18) MORPHINE (Verified Adverse Reaction, Severe, Itching, 10/18/18) sever itching to the point scratches self till bleeding. Pre-Procedural Mod Sedation Pre-Assessment Time: 13:30 Pre-Sedation Assessment: Reviewed H&P Airway Assessment (Malampati): II Heart: normal Lungs: normal Abdomen: abnormal - abdominal incisions Extremities: normal Pre-op Diagnosis: Pelvic abscess Evaluation Hx of untoward rxns to mod sed: No Procedures/Plans: Radiology Plan for Moderate Sedation: Midazolam, Fentanyl ASA Score: II Informed Consent The nature of the procedure/sedation; its benefits; risks and complications; and alternatives (and the risks and benefits of such alternatives) were discussed with the patient (or their legal business development representative), prior to the procedure. All questions were answered to the patient's (or their legal business development representative's) satisfaction and the patient (or their legal business development representative) gave informed consent to the procedure. I attest that I re-evaluated the patient just prior to the surgery and that there has been no change in the patient's H&P, except as documented below: Post Procedure Assessment Post Procedure TIme: 14:20 Communication: No Apparent Limitation Mental Status: Awake Respiration: Unlabored Skin Condition: WNL Adomen: WNL Nausea: NO Vomiting: NO Trent Cummins MD Oct 30, 2018 13:22
--- NOTE | 2018-10-30 13:23 | Pre-Procedure Note/Attestation ---
Pre-Procedure Note/Attestation Complete Prior to Procedure Planned Procedure: right Procedure Narrative: Planned CT guided drainage of posterior pelvic collection Indications for Procedure Pre-Operative Diagnosis: Abscess Attestation I attest that I discussed the nature of the procedure; its benefits; risks and complications; and alternatives (and the risks and benefits of such alternatives ), prior to the procedure, with the patient (or the patient's legal telephone sales representative). I attest that, if there was a reasonable possibility of needing a blood transfusion, the patient (or the patient's legal telephone sales representative) was given the [facility] standardized written summary, pursuant to the Felix Jan Blood Safety Act ([place] Health and Safety Code # 1645, as amended). I attest that I re-evaluated the patient just prior to the surgery and that there has been no change in the patient's H&P, except as documented below: Trent Cummins MD Oct 30, 2018 13:23
--- NOTE | 2018-10-30 14:00 | Pulmonology Progress Note ---
Assessment/Plan Assessment/Plan Status post repair of ileostomy. Pneumonia, resolved Atelectasis abd abscess lungs clear, no consolidation on CT; atelectasis noted T to 100; CT with abd abscess planned drainage cont Zosyn pending c/s Subjective Constitutional: Reports: fever Gastrointestinal/Abdominal: Reports: other - pain Allergies: Coded Allergies: CODEINE (Verified Adverse Reaction, Severe, Itching, 10/18/18) MORPHINE (Verified Adverse Reaction, Severe, Itching, 10/18/18) sever itching to the point scratches self till bleeding. Objective Last 24 Hour Vital Signs Date Time Temp Pulse Resp B/P (MAP) Pulse Ox O2 Delivery O2 Flow Rate FiO2 10/30/18 12:00 16 10/30/18 12:00 98.9 86 18 105/58 (74) 98 10/30/18 09:00 Room Air 10/30/18 08:48 99.5 10/30/18 08:00 16 10/30/18 08:00 98.9 65 20 98/53 (68) 98 10/30/18 04:00 18 10/30/18 04:00 99.5 98 18 109/62 (78) 94 10/30/18 00:00 18 10/30/18 00:00 98.6 92 18 103/59 (74) 96 10/29/18 21:00 Room Air 10/29/18 20:00 98.9 94 17 99/61 (74) 96 10/29/18 20:00 18 10/29/18 16:00 18 10/29/18 16:00 100.9 105 18 100/68 (79) 100 Intake and Output 10/29/18 10/30/18 19:00 07:00 Intake Total 2740 ml 2470.0 ml Output Total 2345 ml 2790 ml Balance 395 ml -320.0 ml Intake Oral 1440 ml 580 ml IV Total 1300 ml 1890.0 ml Output Urine Total 1200 ml 1500 ml Other 1145 ml 1290 ml # Voids 4 General Appearance: no acute distress HEENT: atraumatic Respiratory/Chest: lungs clear Cardiovascular: normal rate Laboratory Tests 10/30/18 05:00: White Blood Count 15.6H, Red Blood Count 3.50L, Hemoglobin 9.6L, Hematocrit 29.2L, Mean Corpuscular Volume 84, Mean Corpuscular Hemoglobin 27.4, Mean Corpuscular Hemoglobin Concent 32.9, Red Cell Distribution Width 12.3, Platelet Count 375, Mean Platelet Volume 7.1, Neutrophils (%) (Auto) 84.0H, Lymphocytes ( %) (Auto) 9.5L, Monocytes (%) (Auto) 4.5, Eosinophils (%) (Auto) 1.7, Basophils (%) (Auto) 0.3, Sodium Level 135L, Potassium Level 3.6, Chloride Level 101, Carbon Dioxide Level 26, Anion Gap 8, Blood Urea Nitrogen 15, Creatinine 0.9, Estimat Glomerular Filtration Rate > 60, Glucose Level 115H, Calcium Level 8.7 Current Medications Medications (Trade) Dose Ordered Sig/Ld Route PRN Reason Start Time Stop Time Status Last Admin Dose Admin Acetaminophen (Tylenol) 1,000 mg Q4H PRN ORAL temp>100.2 or headache 10/19/18 16:00 11/18/18 15:59 10/29/18 16:32 Barium Sulfate (Readi-Cat 2) 450 ml NOW PRN ORAL Radiology Procedure 10/29/18 15:30 10/31/18 15:27 Chlorhexidine Gluconate (Ana Rosa-Hex 2%) 1 applic DAILY@2000 TOPIC 10/18/18 20:00 11/17/18 19:59 10/29/18 20:00 Clonazepam (KlonoPIN) 0.5 mg Q8H PRN ORAL For Anxiety 10/29/18 08:30 11/05/18 08:29 Dextrose 1,000 ml @ 0 mls/hr Q24H PRN IV PN interrupted or unavailable 10/21/18 20:00 11/20/18 19:59 Dextrose (Dextrose 50%) 25 ml Q30M PRN IV Hypoglycemia 10/21/18 08:15 11/20/18 08:14 Dextrose (Dextrose 50%) 50 ml Q30M PRN IV Hypoglycemia 10/21/18 08:15 11/20/18 08:14 Dextrose/ Electrolytes 1,000 ml @ 50 mls/hr Q20H IV 10/21/18 20:00 11/20/18 19:59 10/30/18 04:08 Diphenhydramine HCl (Benadryl) 25 mg Q6H PRN IVP Itching/Pruritis 10/27/18 12:41 11/26/18 12:40 10/29/18 18:25 Estradiol (Estrace) 1 applic THREE TIMES A WEEK VAGIN 10/19/18 09:00 11/18/18 08:59 10/29/18 08:31 Fat Emulsion Intravenous 240 ml/Amino Acids/ Electrolytes/ Dextrose 1,920 ml @ 80 mls/hr Q24H IV 10/21/18 20:00 11/20/18 19:59 10/29/18 20:39 Heparin Sodium/ Sodium Chloride (Heparin 1000 units/500ml Premix) 1,000 unit ONCE PRN IV picc line placement 10/18/18 09:45 11/17/18 09:44 Hydromorphone HCl 30 ml @ 0 mls/hr Q24H PRN IV For Pain 10/29/18 08:30 10/31/18 08:29 Hydromorphone HCl (Dilaudid) 1 mg Q3H PRN SUBQ Severe Pain (Pain Scale 7-10) 10/26/18 08:30 11/02/18 08:29 10/30/18 08:18 Insulin Aspart (NovoLOG) Q6HR SUBQ 10/22/18 00:00 11/21/18 00:00 10/30/18 05:41 Iopamidol (Isovue-300 100ml) 100 ml NOW PRN INJ Radiology Procedure 10/29/18 15:30 10/31/18 15:29 Iron Sucrose 100 mg/Sodium Chloride 60 ml @ 240 mls/hr BEDTIME IV 10/26/18 21:00 10/31/18 21:14 10/29/18 20:38 Ketorolac Tromethamine (Toradol 30mg) 30 mg Q6H PRN IV Breakthrough Pain 10/30/18 14:00 Lidocaine HCl (Xylocaine 1% 30ml) 30 ml ONCE PRN INJ cath placement 10/30/18 07:15 10/30/18 23:59 Lorazepam (Ativan) 1 mg HSPRN PRN SL Sleep 10/29/18 08:15 11/05/18 08:14 Lorazepam (Ativan) 1 mg Q4H PRN SL Abdominal cramps 10/29/18 08:30 11/05/18 08:29 10/29/18 09:29 Miscellaneous Medication (HAND WRAPPER OPERATOR Rate Change) 1 ea DAILY PRN MISC rate change 10/29/18 08:15 10/31/18 08:14 Miscellaneous Medication (HAND WRAPPER OPERATOR shift volume) 1 ea Q12HR@0700,1900 MISC 10/29/18 19:00 10/31/18 18:59 10/30/18 07:27 Naloxone HCl (Narcan) 0.1 mg PRN IV RR<10min OR SBP<90 mmHg OR 10/24/18 07:00 11/23/18 06:59 Ondansetron HCl (Zofran) 4 mg Q4H PRN IVP Nausea & Vomiting 10/27/18 12:41 11/26/18 12:40 Paroxetine HCl (Paxil) 30 mg DAILY ORAL 10/22/18 09:00 11/21/18 08:59 10/30/18 08:17 Patient Own Medication (Patient's Own Med) 1 ea SuWe@0900 TDERMAL 10/28/18 14:00 11/18/18 09:01 10/28/18 14:10 Phenazopyridine HCl (Pyridium) 100 mg Q8H PRN ORAL BURNING 10/29/18 19:00 11/28/18 18:59 Phytonadione (Vitamin K) 10 mg ONCE A WEEK SUBQ 10/21/18 08:15 11/20/18 08:14 10/28/18 08:37 Piperacillin Sod/ Tazobactam Sod 3.375 gm/Sodium Chloride 110 ml @ 27.5 mls/hr Q8H IVPB 10/25/18 18:30 11/01/18 18:29 10/30/18 10:59 Prochlorperazine (Compazine) 10 mg Q6H PRN IVP Nausea & Vomiting 10/21/18 08:30 11/20/18 08:29 10/23/18 23:53 Trazodone HCl (Desyrel) 150 mg BEDTIME ORAL 10/22/18 21:00 11/21/18 20:59 10/29/18 20:39 Vitamin A/Vitamin D (A & D Oint) 1 applic BID TOPIC 10/23/18 11:00 11/22/18 10:59 10/29/18 09:00 Bashir Lynn MD Oct 30, 2018 14:00
--- NOTE | 2018-10-30 14:27 | Brief Operative Note ---
Immediate Post Operative Note Operative Note Chief Complaint: Abdominal abscess Pre-op Diagnosis: Abscess Procedure: CT guided pelvic drain placement, percutaneous Post-op Diagnosis: Same Post-op Diagnosis: same as pre-op Findings: consistent w/pre-op dx studies - small presacral fluid collection suspicious for abscess Surgeon: Trent Cummins MD, MA Anesthesia: moderate sedation Specimen: yes Complications: none Condition: stable Fluids: None Estimated Blood Loss: minimal Implant(s) used?: No Trent Cummins MD Oct 30, 2018 14:26
--- NOTE | 2018-10-30 14:30 | NUR ---
NURSE NOTES: PATIENT RETURNED FROM PACU WITH PIGTAIL CATHETER ATTACHED TO UROSIL DRAINAGE VIA RIGHT BUTTOCKS. DRSG C/D/I. AND SECURED. BEDSIDE REPORT RECEIVED. BE DIN LOW AND LOCKED POSITION. CALL LIGHT WITHIN REACH.
--- NOTE | 2018-10-30 14:43 | NUR ---
Weed Control InspectorCommercial Credit Lead SI: S/P BCIR, Gastrostomy, takedown ileostomy & repair of parastomal hernia BP:105/58 HR:86 T:98.9 RR:18 02 Sat:98% WBC:15.6 Hgb:9.6 Neutrophils:84 Lymphocytes:9.5 IS: Zosyn IV LIPIDS IV PROCESS CONTROL PROGRAMMER DILAUDID IV IVF TORADOL IV VENOFER IV M/S STATUS
[2018-10-30] MEDS ORDERED: Hydromorphone 0.5mg/0.5ml inj IVP SCH (14:45)
[2018-10-30] MEDS ORDERED: Hydromorphone 0.5mg/0.5ml inj ONE (14:47)
[2018-10-30] MEDS ORDERED: PCA HYDROmorphone 1mg/ml 30 ML IV PRN (16:09)
[2018-10-30] MEDS ORDERED: Rate Change PCA 1 Each MISC PRN (16:15)
--- NOTE | 2018-10-30 16:22 | General Progress Note ---
Progress Note Progress Note T 100.9 yesterday 1600. Has been having chills and diaphoresis. Still on Zosyn per Dr. Lynn - was going to be stopped today CT scan - ? abscesses RLQ (too small to drain) and pre-sacral - CT guided drain placed with 4cc brownish fluid sent for C&S - ? old blood Abdomen soft, incisions clean, stoma healing, small amount of stool around the catheter, kenan nil Urine 2700 Gastrostomy 1915 BCIR ileo 860 WBC up this AM 15,600 Imp. Fever and intra-abdominal infection Plan: ID consult Dr. Quintana Hopefully in AM can start clear liquid diet and gastrostomy 3:3 protocol f/u labs Manny Kramer MD Oct 30, 2018 16:22
--- NOTE | 2018-10-30 17:22 | Infectious Diseases Prog Note ---
Assessment/Plan Assessment/Plan Full consult dictated: A) 1) possible intra-abdominal abscess, ? sepsis, ? line infection, ? other, fevers, leukocytosis - s/p abscess drain 2) s/p Wilkinson continent intestinal reservoir 3) pmh noted 4) allergies - codeine, morphine P) 1) vancomycin and meropenem 2) f/u on cultures, monitor labs 3) d/w Dr. Kramer 4) thank you Subjective Allergies: Coded Allergies: CODEINE (Verified Adverse Reaction, Severe, Itching, 10/18/18) MORPHINE (Verified Adverse Reaction, Severe, Itching, 10/18/18) sever itching to the point scratches self till bleeding. Objective Vital Signs Last 24 Hour Vital Signs Date Time Temp Pulse Resp B/P (MAP) Pulse Ox O2 Delivery O2 Flow Rate FiO2 10/30/18 16:21 98.1 10/30/18 16:00 99.7 100 20 116/69 (85) 100 10/30/18 16:00 16 10/30/18 15:21 98.1 94 20 100 Nasal Cannula 3.0 92 100 10/30/18 15:21 98.1 10/30/18 15:05 98.0 97 21 106/58 97 Room Air 10/30/18 15:00 98 22 100/56 98 Room Air 10/30/18 14:50 93 21 102/56 100 Nasal Cannula 3 10/30/18 14:43 98.5 94 18 102/58 100 Nasal Cannula 3 10/30/18 14:20 91 20 102/66 (78) 98 10/30/18 14:15 91 20 107/61 (76) 100 10/30/18 14:10 94 22 106/70 (82) 100 10/30/18 14:05 93 22 104/65 (78) 100 10/30/18 14:00 89 20 99/64 (76) 100 10/30/18 13:55 89 22 101/66 (78) 100 10/30/18 13:50 89 20 110/57 (74) 100 10/30/18 13:45 98.1 88 20 103/60 (74) 100 10/30/18 12:00 16 10/30/18 12:00 98.9 86 18 105/58 (74) 98 10/30/18 09:00 Room Air 10/30/18 08:48 99.5 10/30/18 08:00 16 10/30/18 08:00 98.9 65 20 98/53 (68) 98 10/30/18 04:00 18 10/30/18 04:00 99.5 98 18 109/62 (78) 94 10/30/18 00:00 18 10/30/18 00:00 98.6 92 18 103/59 (74) 96 10/29/18 21:00 Room Air 10/29/18 20:00 98.9 94 17 99/61 (74) 96 10/29/18 20:00 18 Height (Feet): 5 Height (Inches): 6.00 Weight (Pounds): 187 Laboratory Tests Test 10/30/18 05:00 White Blood Count 15.6 K/UL (4.8-10.8) H Red Blood Count 3.50 M/UL (4.20-5.40) L Hemoglobin 9.6 G/DL (12.0-16.0) L Hematocrit 29.2 % (37.0-47.0) L Mean Corpuscular Volume 84 FL (80-99) Mean Corpuscular Hemoglobin 27.4 PG (27.0-31.0) Mean Corpuscular Hemoglobin Concent 32.9 G/DL (32.0-36.0) Red Cell Distribution Width 12.3 % (11.6-14.8) Platelet Count 375 K/UL (150-450) Mean Platelet Volume 7.1 FL (6.5-10.1) Neutrophils (%) (Auto) 84.0 % (45.0-75.0) H Lymphocytes (%) (Auto) 9.5 % (20.0-45.0) L Monocytes (%) (Auto) 4.5 % (1.0-10.0) Eosinophils (%) (Auto) 1.7 % (0.0-3.0) Basophils (%) (Auto) 0.3 % (0.0-2.0) Sodium Level 135 MMOL/L (136-145) L Potassium Level 3.6 MMOL/L (3.5-5.1) Chloride Level 101 MMOL/L (98-107) Carbon Dioxide Level 26 MMOL/L (21-32) Anion Gap 8 mmol/L (5-15) Blood Urea Nitrogen 15 mg/dL (7-18) Creatinine 0.9 MG/DL (0.55-1.30) Estimat Glomerular Filtration Rate > 60 mL/min (>60) Glucose Level 115 MG/DL (74-106) H Calcium Level 8.7 MG/DL (8.5-10.1) Current Medications Medications (Trade) Dose Ordered Sig/Ld Route PRN Reason Start Time Stop Time Status Last Admin Dose Admin Acetaminophen (Tylenol) 1,000 mg Q4H PRN ORAL temp>100.2 or headache 10/19/18 16:00 11/18/18 15:59 10/29/18 16:32 Barium Sulfate (Readi-Cat 2) 450 ml NOW PRN ORAL Radiology Procedure 10/29/18 15:30 10/31/18 15:27 Chlorhexidine Gluconate (Ana Rosa-Hex 2%) 1 applic DAILY@2000 TOPIC 10/18/18 20:00 11/17/18 19:59 10/29/18 20:00 Clonazepam (KlonoPIN) 0.5 mg Q8H PRN ORAL For Anxiety 10/29/18 08:30 11/05/18 08:29 Dextrose 1,000 ml @ 0 mls/hr Q24H PRN IV PN interrupted or unavailable 10/21/18 20:00 11/20/18 19:59 Dextrose (Dextrose 50%) 25 ml Q30M PRN IV Hypoglycemia 10/21/18 08:15 11/20/18 08:14 Dextrose (Dextrose 50%) 50 ml Q30M PRN IV Hypoglycemia 10/21/18 08:15 11/20/18 08:14 Dextrose/ Electrolytes 1,000 ml @ 50 mls/hr Q20H IV 10/21/18 20:00 11/20/18 19:59 10/30/18 04:08 Diphenhydramine HCl (Benadryl) 25 mg Q6H PRN IVP Itching/Pruritis 10/27/18 12:41 11/26/18 12:40 10/29/18 18:25 Estradiol (Estrace) 1 applic THREE TIMES A WEEK VAGIN 10/19/18 09:00 11/18/18 08:59 10/29/18 08:31 Fat Emulsion Intravenous 240 ml/Amino Acids/ Electrolytes/ Dextrose 1,920 ml @ 80 mls/hr Q24H IV 10/21/18 20:00 11/20/18 19:59 10/29/18 20:39 Heparin Sodium/ Sodium Chloride (Heparin 1000 units/500ml Premix) 1,000 unit ONCE PRN IV picc line placement 10/18/18 09:45 11/17/18 09:44 Hydromorphone HCl 30 ml @ 0 mls/hr Q24H PRN IV For Pain 10/30/18 16:09 11/01/18 16:08 Hydromorphone HCl (Dilaudid) 1 mg Q3H PRN SUBQ Severe Pain (Pain Scale 7-10) 10/26/18 08:30 11/02/18 08:29 10/30/18 08:18 Insulin Aspart (NovoLOG) Q6HR SUBQ 10/22/18 00:00 11/21/18 00:00 10/30/18 05:41 Iopamidol (Isovue-300 100ml) 100 ml NOW PRN INJ Radiology Procedure 10/29/18 15:30 10/31/18 15:29 Iron Sucrose 100 mg/Sodium Chloride 60 ml @ 240 mls/hr BEDTIME IV 10/26/18 21:00 10/31/18 21:14 10/29/18 20:38 Ketorolac Tromethamine (Toradol 30mg) 30 mg Q6H PRN IV Breakthrough Pain 10/30/18 14:00 10/30/18 15:51 Lidocaine HCl (Xylocaine 1% 30ml) 30 ml ONCE PRN INJ cath placement 10/30/18 07:15 10/30/18 23:59 Lorazepam (Ativan) 1 mg HSPRN PRN SL Sleep 10/29/18 08:15 11/05/18 08:14 Lorazepam (Ativan) 1 mg Q4H PRN SL Abdominal cramps 10/29/18 08:30 11/05/18 08:29 10/29/18 09:29 Miscellaneous Medication (SKEIN WINDING OPERATOR Rate Change) 1 ea DAILY PRN MISC rate change 10/30/18 16:15 11/01/18 16:14 Miscellaneous Medication (SKEIN WINDING OPERATOR shift volume) 1 ea Q12HR@0700,1900 MISC 10/30/18 19:00 11/01/18 18:59 Naloxone HCl (Narcan) 0.1 mg PRN IV RR<10min OR SBP<90 mmHg OR 10/24/18 07:00 11/23/18 06:59 Ondansetron HCl (Zofran) 4 mg Q4H PRN IVP Nausea & Vomiting 10/27/18 12:41 11/26/18 12:40 Paroxetine HCl (Paxil) 30 mg DAILY ORAL 10/22/18 09:00 11/21/18 08:59 10/30/18 08:17 Patient Own Medication (Patient's Own Med) 1 ea SuWe@0900 TDERMAL 10/28/18 14:00 11/18/18 09:01 10/28/18 14:10 Phenazopyridine HCl (Pyridium) 100 mg Q8H PRN ORAL BURNING 10/29/18 19:00 11/28/18 18:59 Phytonadione (Vitamin K) 10 mg ONCE A WEEK SUBQ 10/21/18 08:15 11/20/18 08:14 10/28/18 08:37 Piperacillin Sod/ Tazobactam Sod 3.375 gm/Sodium Chloride 110 ml @ 27.5 mls/hr Q8H IVPB 10/30/18 18:00 11/06/18 17:59 Prochlorperazine (Compazine) 10 mg Q6H PRN IVP Nausea & Vomiting 10/21/18 08:30 11/20/18 08:29 10/23/18 23:53 Trazodone HCl (Desyrel) 150 mg BEDTIME ORAL 10/22/18 21:00 11/21/18 20:59 10/29/18 20:39 Vitamin A/Vitamin D (A & D Oint) 1 applic BID TOPIC 10/23/18 11:00 11/22/18 10:59 10/29/18 09:00 Yoshi Quintana MD Oct 30, 2018 17:22
--- NOTE | 2018-10-30 17:22 | Diagnostic Imaging Report ---
CT GUIDED PERCUTANEOUS DRAIN PLACEMENT INDICATION: Pelvic abscess Procedural personnel: Trent Cummins MD, MA COMPARISON: Same day CT abdomen and pelvis Total Dose length Product (DLP): 1365 mGycm ANESTHESIA: Moderate sedation supervised by qualified independent practitioner. PROCEDURE: After the indications, procedure, risks, complications, and alternatives of the procedure were explained, written informed consent was obtained. Patient was placed prone. High Lift Mule Operator CT demonstrated previously described 2.5 x 2.3 cm presacral fluid collection. A skin site was selected and marked with initial beef skinner CT and grid placement. The skin was prepped in the usual sterile fashion and maximum sterile. Technique were followed including cap, mask, sterile gown, sterile gloves, hand hygiene, and sterile sheets. 1% lidocaine was used to anesthetize the skin. A 19-gauge long Chiba needle was then advanced stepwise under sequential CT guidance into the collection. Position was confirmed with aspiration of brown serous fluid. An Amplatz wire was then advanced, over which serial dilatation of the soft tissues was performed. A 10 Iranian Tripathi-Andersen catheter was then advanced over the wire, locked into place, and secured to the skin with adhesive device. Post drain placement CT demonstrates drain in good position without hematoma. IMPRESSION: Successful CT-guided placement of 10 Iranian Tripathi-Judge drain by right gluteal percutaneous approach.
[2018-10-30] MEDS ORDERED: Piperacillin/Tazobactam 3.375 GM in NS 110 ML IVPB SCH (18:00)
[2018-10-30] MEDS ORDERED: Vancomycin 1.5gm Premix IVPB ONE (18:00)
[2018-10-30 18:47] LABS: APPEARANCE,URINE CLEAR; BILIRUBIN, URINE NEGATIVE (NEGATIVE); COLOR,URINE YELLOW; GLUCOSE, URINE (UA) NEGATIVE (NEGATIVE); KETONES,URINE 1+ (NEGATIVE); LEUKOCYTE ESTERASE ,URINE 1+ (NEGATIVE); NITRITE,URINE NEGATIVE (NEGATIVE); PH,URINE 5 (4.5-8.0); PROTEIN,URINE 2+ (NEGATIVE); UROBILINOGEN,URINE NORMAL MG/DL (0.0-1.0)
--- NOTE | 2018-10-30 19:30 | NUR ---
Receive a report from RADHA Freed. Round is done. Pt is awake alert, orientation x 4. Revolution Securement device inserted state and pinkish color drainage drained. Ileostomy and G-tube drained with gravity. Call light is within reach. Will continue to monitor.
--- NOTE | 2018-10-30 19:30 | NUR ---
NURSE NOTES: PATIENT REMAINS STABLE. AMBULATED IN HALLWAY THIS EVENING.TOLERATED. WELL. PAIN CONTROLLED WITH PCS AND ALTERNATING DILAUDID AND TORADOL FOR BREAKTHROUGH PAIN.
--- NOTE | 2018-10-30 19:40 | NUR ---
HAND-OFF: Report given to PETAR JOSEPH RN.
[2018-10-30] MEDS: Dyna-Hex 2% Top Sol 2oz TOPIC SCH (19:54)
[2018-10-30] MEDS: Fat Emulsion Iv 20% 240 ML in Tpn 1,680 ML IV SCH (20:01)
[2018-10-30] MEDS: Iron Sucrose 100 MG in NS 55 ML IV SCH (20:19)
[2018-10-30] MEDS: TraZODone 50mg tab ORAL SCH (20:20)
[2018-10-31] VITALS: BP 96/58
[2018-10-31] MEDS: Ketorolac 30mg Inj IV PRN ×4 (00:10→22:36)
--- NOTE | 2018-10-31 00:30 | Consultation ---
DATE OF CONSULTATION: 10/30/2018 INFECTIOUS DISEASE CONSULTATION CONSULTING PHYSICIAN: Yoshi Quintana M.D. ATTENDING PHYSICIAN: Manny Kramer M.D. REFERRING PHYSICIAN: Manny Kramer M.D. REASON FOR CONSULTATION: Possible intra-abdominal abscess, fevers, possible sepsis, leukocytosis, and possible line infection. CHIEF COMPLAINT: The patient's chief complaint coming in to the hospital is malfunction ileostomy. HISTORY OF PRESENT ILLNESS: This is a very pleasant 47-year-old female who comes to [facility] with malfunction ileostomy. 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 She also has a temporary catheter gastrostomy. The patient was initially on Unasyn and Flagyl and then she subsequently had fevers and she was placed on Zosyn on 10/25/2018. Because the cultures were negative, there was planning on discontinuation of Zosyn. However, the patient was febrile yesterday up to temperature of 100.9. The patient also was noted to have leukocytosis. A CT scan of the abdomen and pelvis showed the following. It showed status post colectomy and again has an enhancing fluid collections or collections in the pelvis. The patient had drainage procedure of pelvic abscess. Infectious Disease consultation is requested for antibiotic management. The patient is currently on Zosyn. I will change to vancomycin and meropenem. Of note, the patient is on TPN. She has a PICC line. Chest x-ray was negative. The patient has been re-cultured. Also noted that the urinalysis is ordered. Case was discussed with Dr. Kramer. We will continue meropenem and vancomycin for now pending workup. REVIEW OF SYSTEMS: CONSTITUTIONAL: The patient has a PICC line. She did have fevers up to 100.9. Currently, no chills. She says she occasionally has night sweats. HEAD AND NECK: No head pain or headache or neck stiffness. CARDIAC: No chest pain. GASTROINTESTINAL: She has abdominal discomfort. GENITOURINARY: No dysuria or frequency. No Velasquez. PULMONARY: No congestion or shortness of breath. SKIN: No rash. EXTREMITY: No extremity pain. NEUROLOGIC: No seizures. PAST MEDICAL HISTORY: The patient's past medical history includes the following. The patient has a past medical history of malfunction ileostomy. 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 She has history of total abdominal hysterectomy, endometriosis, and right oophorectomy. As discussed on 10/20/2018, she had a Wilkinson continent intestinal reservoir placement. Other past medical history is history of urinary retention, cholecystectomy, and multiple bowel surgeries or abdominal surgeries. No history of diabetes or hypertension mentioned. MEDICATIONS: Upon reviewing the MAR, she is on the following medications. She is on Zosyn. I am going to put her on meropenem and vancomycin. She is also on IV fluids, TPN, acetaminophen as needed, Klonopin I believe as needed, diphenhydramine, estradiol cream, heparin, Dilaudid as needed, insulin as needed, lorazepam as needed, Zofran as needed, and paroxetine or Paxil. Outside medications noted and reconciled. ALLERGIES: Include codeine and morphine. SOCIAL HISTORY: Negative for smoking, alcohol, or drug abuse. FAMILY HISTORY: Noncontributory. PHYSICAL EXAMINATION: VITAL SIGNS: Temperature is 99.7, pulse rate 100, respiratory rate 16, and blood pressure 100 +/69, O2 saturation 100%, and T-max 100.9. GENERAL: Alert, responsive, in no distress, and oriented x3. HEAD AND NECK: Oral exam, no thrush. Eye exam, no icterus. Neck is supple. No JVD. Normocephalic. No icterus or thrush. HEART: Regular. No gallop or murmur. ABDOMEN: Soft. Positive bowel sounds. Some discomfort. No rebound. Incisions were clean and dry. She also has a pelvic abscess drained and also a feeding tube, which is a temporary catheter gastrostomy tube. She is on TPN. LUNGS: Clear bilaterally. No rhonchi or rales. SKIN: No rash. MUSCULOSKELETAL: No effusion. Legs are without cellulitis. PERIPHERAL VASCULAR: No cyanosis. GENITOURINARY: She has no Velasquez. LINE SITES: She has a PICC line without any cellulitis. NEUROLOGIC: Intact and nonfocal. She is alert and oriented x3. LABORATORY AND DIAGNOSTIC DATA: Laboratory data is as follows: White count 15.6 and hemoglobin 9.6. Creatinine 0.9. Previous blood cultures on 10/25/2018 are negative and urine culture on 10/24/2018 is negative. Urinalysis is noted. IMAGING: Chest x-ray on October 28, 2018 was negative, no acute findings. CT scan of the abdomen and pelvis showed possible pelvic abscess. The patient is status post drain of possible pelvic abscess. ASSESSMENT AND PLAN: 1. The patient has what looks like possible pelvic abscess. It is unclear if she had intra-abdominal abscess. However, CT scan shows pelvic abscess. The patient is status post drain of the pelvic abscess and she also has possible sepsis with elevated heart rate, leukocytosis, and fevers. She also has risk for line infection and she is on TPN at this time. At this time, I will continue antibiotics. I will change to vancomycin and meropenem. She might have resistance to zosyn since she has been on it for sometime . We will continue vancomycin and meropenem. Follow up on blood cultures, urine culture, UA, and pelvic abscess cultures from the drain. Monitor leukocytosis and temperatures. Continue vancomycin and meropenem for now pending workup. Case was discussed with Dr. Kramer. 2. 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 3. Anemia. 4. The patient has history of multiple abdominal surgeries. 5. History of pelvic floor dysfunction, colonic inertia, and history of endometriosis. 6. History of hysterectomy. 7. History of cholecystectomy. 8. Allergies to codeine and morphine. 9. Social history is negative. 10. Family history is noncontributory. 11. MAR was noted. 12. Case was discussed with RN. 13. Case was discussed with Dr. Kramer. 14. Continue treatment per primary consultants. Yoshi Quintana M.D. DR: PAULO JOB#: [id number] CC: OPAL
[2018-10-31 04:00] VITALS: BP 123/69
--- NOTE | 2018-10-31 06:00 | NUR ---
NURSE NOTES: Pt is awake and alert. No acute distress noted. Dressing change is done d/t greenish discharge with 4x4 gauze, ABD and paper tape. Ileostomy and g-tube patent with NS 20ml q 3hr flushing. Will continue to monitor. Urine output: 1050ml Ileostomy output: 260ml brownish G-tube: 370ml yellowish
[2018-10-31] MEDS: Vancomycin 1gm/D5W 275ml IVPB SCH ×4 (06:17→17:58)
[2018-10-31] MEDS: NovoLOG Insulin Flexpen SUBQ SCH ×3 (06:37→17:58)
[2018-10-31 06:45] LABS: ANION GAP 7 mmol/L (5-15); BLOOD UREA NITROGEN 14 mg/dL (7-18); CALCIUM 8.8 MG/DL (8.5-10.1); CARBON DIOXIDE 27 MMOL/L (21-32); CHLORIDE 102 MMOL/L (98-107); CREATININE 0.9 MG/DL (0.55-1.30); POTASSIUM 4.1 MMOL/L (3.5-5.1); SODIUM 136 MMOL/L (136-145)
[2018-10-31] MEDS: PCA shift volume MISC SCH ×2 (07:00→19:22)
[2018-10-31 07:19] LABS: BASOPHILS % (AUTO) 0.5 % (0.0-2.0); EOSINOPHILS % (AUTO) 2.9 % (0.0-3.0); HEMATOCRIT 25.9 % (37.0-47.0); HEMOGLOBIN 8.7 G/DL (12.0-16.0); LYMPHOCYTES % (AUTO) 14.4 % (20.0-45.0); MEAN CORPUSCULAR VOLUME 83 FL (80-99); MONOCYTES % (AUTO) 4.2 % (1.0-10.0); NEUTROPHILS % (AUTO) 78.1 % (45.0-75.0); PLATELET COUNT 393 K/UL (150-450); RED BLOOD COUNT 3.13 M/UL (4.20-5.40); RED CELL DISTRIBUTION WIDTH 12.2 % (11.6-14.8)
--- NOTE | 2018-10-31 07:45 | NUR ---
HAND-OFF: Report given to RADHA Farmer.
[2018-10-31 08:00] VITALS: BP 112/68
--- NOTE | 2018-10-31 08:00 | NUR ---
NURSE NOTES: Received report from Gho RN. Patient is awake and oriented, ambulating during rounds, no acute distress noted, reports she is feeling better after Toradol administration. Ileo and g-tube to gravity drainage, Urasil drainage bag draining. TEO PICC intact, running IVF and TPN per order, dressing clean and dry. Patient on UNHAIRING INSPECTOR, settings checked and verified against order. Received call from Dr. Kramer, orders received and entered, will carry out. Patient updated on plan of care for the day. Will continue to monitor.
[2018-10-31] MEDS: Estradiol Vaginal Cr 42.5 Gm Tube VAGIN SCH (10:07)
[2018-10-31] MEDS: PARoxetine 10mg tab ORAL SCH (10:08)
[2018-10-31] MEDS: Vitamin A&D Oint 2oz Tube TOPIC SCH ×2 (10:09→17:59)
[2018-10-31] MEDS: HYDROmorphone 1mg/ml Carpuject SUBQ PRN ×2 (10:51→19:28)
[2018-10-31 12:00] VITALS: BP 112/67
--- NOTE | 2018-10-31 12:56 | Infectious Diseases Prog Note ---
Assessment/Plan Assessment/Plan Full consult dictated: A) 1) possible intra-abdominal abscess, ? sepsis, ? line infection, ? other, fevers, leukocytosis - s/p abscess drain - leukocytosis better 2) s/p Wilkinson continent intestinal reservoir 3) pmh noted 4) allergies - codeine, morphine P) 1) vancomycin and meropenem pending final cultures 2) f/u on cultures, monitor labs 3) d/w patient 4) will follow Subjective Constitutional: Denies: fever HEENT: Denies: congestion Respiratory: Denies: shortness of breath Gastrointestinal/Abdominal: Denies: nausea, vomiting, diarrhea Genitourinary: Reports: other - no juarez Allergies: Coded Allergies: CODEINE (Verified Adverse Reaction, Severe, Itching, 10/18/18) MORPHINE (Verified Adverse Reaction, Severe, Itching, 10/18/18) sever itching to the point scratches self till bleeding. Objective Vital Signs Last 24 Hour Vital Signs Date Time Temp Pulse Resp B/P (MAP) Pulse Ox O2 Delivery O2 Flow Rate FiO2 10/31/18 12:00 99.4 86 16 112/67 (82) 98 10/31/18 12:00 16 10/31/18 09:00 Room Air 10/31/18 08:00 16 10/31/18 08:00 98.2 87 16 112/68 (83) 98 10/31/18 04:00 97.5 89 17 123/69 (87) 98 10/31/18 04:00 17 10/31/18 00:00 16 10/31/18 00:00 97.9 73 16 96/58 (71) 97 10/30/18 21:00 Room Air 10/30/18 20:00 18 10/30/18 20:00 97.7 86 18 99/50 (66) 98 10/30/18 16:21 98.1 10/30/18 16:00 99.7 100 20 116/69 (85) 100 10/30/18 16:00 16 10/30/18 15:21 98.1 94 20 100 Nasal Cannula 3.0 92 100 10/30/18 15:21 98.1 10/30/18 15:05 98.0 97 21 106/58 97 Room Air 10/30/18 15:00 98 22 100/56 98 Room Air 10/30/18 14:50 93 21 102/56 100 Nasal Cannula 3 10/30/18 14:43 98.5 94 18 102/58 100 Nasal Cannula 3 10/30/18 14:20 91 20 102/66 (78) 98 10/30/18 14:15 91 20 107/61 (76) 100 10/30/18 14:10 94 22 106/70 (82) 100 10/30/18 14:05 93 22 104/65 (78) 100 10/30/18 14:00 89 20 99/64 (76) 100 10/30/18 13:55 89 22 101/66 (78) 100 10/30/18 13:50 89 20 110/57 (74) 100 10/30/18 13:45 98.1 88 20 103/60 (74) 100 Height (Feet): 5 Height (Inches): 6.00 Weight (Pounds): 189 General Appearance: no acute distress HEENT: normocephalic, atraumatic, anicteric, mucous membranes moist Respiratory/Chest: lungs clear, normal breath sounds, no respiratory distress, no accessory muscle use Cardiovascular: normal rate, regular rhythm, no gallop/murmur, no JVD Abdomen: normal bowel sounds, soft, non tender, no organomegaly Genitourinary: other - no juarez Extremities: no cyanosis Skin: no rash Neurologic/Psychiatric: nurses director II-XII grossly normal Lymphatic: no neck adenopathy Musculoskeletal: no effusion Microbiology Date/Time Source Procedure Growth Status 10/29/18 15:30 Blood Blood Culture - Preliminary NO GROWTH AFTER 24 HOURS Resulted 10/29/18 15:30 Blood Blood Culture - Preliminary NO GROWTH AFTER 24 HOURS Resulted 10/30/18 14:10 Peritoneal Fluid Gram Stain Pending Resulted 10/30/18 14:10 Peritoneal Fluid Body Fluid Culture - Preliminary NO GROWTH Resulted 10/30/18 18:10 Urine,Clean Catch Urine Culture - Preliminary NO GROWTH Resulted Laboratory Tests Test 10/30/18 18:10 10/31/18 06:30 Urine Color Yellow Urine Appearance Clear Urine pH 5 (4.5-8.0) Urine Specific [place] 1.020 (1.005-1.035) Urine Protein 2+ (NEGATIVE) H Urine Glucose (UA) Negative (NEGATIVE) Urine Ketones 1+ (NEGATIVE) H Urine Blood Negative (NEGATIVE) Urine Nitrite Negative (NEGATIVE) Urine Bilirubin Negative (NEGATIVE) Urine Urobilinogen Normal MG/DL (0.0-1.0) Urine Leukocyte Esterase 1+ (NEGATIVE) H Urine RBC 0-2 /HPF (0 - 2) Urine WBC 0-2 /HPF (0 - 2) Urine Squamous Epithelial Cells Few /LPF (NONE/OCC) Urine Bacteria Few /HPF (NONE) White Blood Count 10.0 K/UL (4.8-10.8) Red Blood Count 3.13 M/UL (4.20-5.40) L Hemoglobin 8.7 G/DL (12.0-16.0) L Hematocrit 25.9 % (37.0-47.0) L Mean Corpuscular Volume 83 FL (80-99) Mean Corpuscular Hemoglobin 27.7 PG (27.0-31.0) Mean Corpuscular Hemoglobin Concent 33.4 G/DL (32.0-36.0) Red Cell Distribution Width 12.2 % (11.6-14.8) Platelet Count 393 K/UL (150-450) Mean Platelet Volume 6.3 FL (6.5-10.1) L Neutrophils (%) (Auto) 78.1 % (45.0-75.0) H Lymphocytes (%) (Auto) 14.4 % (20.0-45.0) L Monocytes (%) (Auto) 4.2 % (1.0-10.0) Eosinophils (%) (Auto) 2.9 % (0.0-3.0) Basophils (%) (Auto) 0.5 % (0.0-2.0) Sodium Level 136 MMOL/L (136-145) Potassium Level 4.1 MMOL/L (3.5-5.1) Chloride Level 102 MMOL/L (98-107) Carbon Dioxide Level 27 MMOL/L (21-32) Anion Gap 7 mmol/L (5-15) Blood Urea Nitrogen 14 mg/dL (7-18) Creatinine 0.9 MG/DL (0.55-1.30) Estimat Glomerular Filtration Rate > 60 mL/min (>60) Glucose Level 124 MG/DL (74-106) H Calcium Level 8.8 MG/DL (8.5-10.1) Current Medications Medications (Trade) Dose Ordered Sig/Ld Route PRN Reason Start Time Stop Time Status Last Admin Dose Admin Acetaminophen (Tylenol) 1,000 mg Q4H PRN ORAL temp>100.2 or headache 10/19/18 16:00 11/18/18 15:59 10/29/18 16:32 Barium Sulfate (Readi-Cat 2) 450 ml NOW PRN ORAL Radiology Procedure 10/29/18 15:30 10/31/18 15:27 Chlorhexidine Gluconate (Ana Rosa-Hex 2%) 1 applic DAILY@2000 TOPIC 10/18/18 20:00 11/17/18 19:59 10/30/18 19:54 Clonazepam (KlonoPIN) 0.5 mg Q8H PRN ORAL For Anxiety 10/29/18 08:30 11/05/18 08:29 Dextrose 1,000 ml @ 0 mls/hr Q24H PRN IV PN interrupted or unavailable 10/21/18 20:00 11/20/18 19:59 Dextrose (Dextrose 50%) 25 ml Q30M PRN IV Hypoglycemia 10/21/18 08:15 11/20/18 08:14 Dextrose (Dextrose 50%) 50 ml Q30M PRN IV Hypoglycemia 10/21/18 08:15 11/20/18 08:14 Dextrose/ Electrolytes 1,000 ml @ 50 mls/hr Q20H IV 10/21/18 20:00 11/20/18 19:59 10/30/18 23:59 Diphenhydramine HCl (Benadryl) 25 mg Q6H PRN IVP Itching/Pruritis 10/27/18 12:41 11/26/18 12:40 10/29/18 18:25 Estradiol (Estrace) 1 applic THREE TIMES A WEEK VAGIN 10/19/18 09:00 11/18/18 08:59 10/31/18 10:07 Fat Emulsion Intravenous 240 ml/Amino Acids/ Electrolytes/ Dextrose 1,920 ml @ 80 mls/hr Q24H IV 10/21/18 20:00 11/20/18 19:59 10/30/18 20:01 Heparin Sodium/ Sodium Chloride (Heparin 1000 units/500ml Premix) 1,000 unit ONCE PRN IV picc line placement 10/18/18 09:45 11/17/18 09:44 Hydromorphone HCl 30 ml @ 0 mls/hr Q24H PRN IV For Pain 10/30/18 16:09 11/01/18 16:08 10/31/18 00:38 Hydromorphone HCl (Dilaudid) 1 mg Q3H PRN SUBQ Severe Pain (Pain Scale 7-10) 10/26/18 08:30 11/02/18 08:29 10/31/18 10:51 Insulin Aspart (NovoLOG) Q6HR SUBQ 10/22/18 00:00 11/21/18 00:00 10/31/18 12:20 Iopamidol (Isovue-300 100ml) 100 ml NOW PRN INJ Radiology Procedure 10/29/18 15:30 10/31/18 15:29 Iron Sucrose 100 mg/Sodium Chloride 60 ml @ 240 mls/hr BEDTIME IV 10/26/18 21:00 10/31/18 21:14 10/30/18 20:19 Ketorolac Tromethamine (Toradol 30mg) 30 mg Q6H PRN IV Breakthrough Pain 10/30/18 14:00 10/31/18 07:30 Lorazepam (Ativan) 1 mg HSPRN PRN SL Sleep 10/29/18 08:15 11/05/18 08:14 Lorazepam (Ativan) 1 mg Q4H PRN SL Abdominal cramps 10/29/18 08:30 11/05/18 08:29 10/29/18 09:29 Meropenem 1 gm/ Sodium Chloride 100 ml @ 200 mls/hr Q8HR IVPB 10/30/18 22:00 11/04/18 21:59 10/31/18 05:38 Miscellaneous Medication (CIRCULAR SAWYER STONE Rate Change) 1 ea DAILY PRN MISC rate change 10/30/18 16:15 11/01/18 16:14 Miscellaneous Medication (CIRCULAR SAWYER STONE shift volume) 1 ea Q12HR@0700,1900 MISC 10/30/18 19:00 11/01/18 18:59 10/31/18 07:00 Naloxone HCl (Narcan) 0.1 mg PRN IV RR<10min OR SBP<90 mmHg OR 10/24/18 07:00 11/23/18 06:59 Ondansetron HCl (Zofran) 4 mg Q4H PRN IVP Nausea & Vomiting 10/27/18 12:41 11/26/18 12:40 Paroxetine HCl (Paxil) 30 mg DAILY ORAL 10/22/18 09:00 11/21/18 08:59 10/31/18 10:08 Patient Own Medication (Patient's Own Med) 1 ea SuWe@0900 TDERMAL 10/28/18 14:00 11/18/18 09:01 10/31/18 10:08 Phenazopyridine HCl (Pyridium) 100 mg Q8H PRN ORAL BURNING 10/29/18 19:00 11/28/18 18:59 Phytonadione (Vitamin K) 10 mg ONCE A WEEK SUBQ 10/21/18 08:15 11/20/18 08:14 10/28/18 08:37 Prochlorperazine (Compazine) 10 mg Q6H PRN IVP Nausea & Vomiting 10/21/18 08:30 11/20/18 08:29 10/23/18 23:53 Trazodone HCl (Desyrel) 150 mg BEDTIME ORAL 10/22/18 21:00 11/21/18 20:59 10/30/18 20:20 Vancomycin HCl (Vanco rx to dose) 1 ea DAILY PRN MISC Per rx protocol 10/30/18 17:45 11/29/18 17:44 Vancomycin HCl 1 gm/Dextrose 275 ml @ 183.708 mls/hr Q12HR@0600,1800 IVPB 10/31/18 06:00 11/05/18 05:59 10/31/18 06:17 Vitamin A/Vitamin D (A & D Oint) 1 applic BID TOPIC 10/23/18 11:00 11/22/18 10:59 10/31/18 10:09 Yoshi Quintana MD Oct 31, 2018 12:56
--- NOTE | 2018-10-31 13:33 | Pulmonology Progress Note ---
Assessment/Plan Assessment/Plan Status post repair of ileostomy. Pneumonia, resolved Atelectasis abd abscess, s/p drainage lungs with atelectasis noted CT with abd abscess, drained via R buttock ID ordered abx Subjective Constitutional: Reports: no symptoms Allergies: Coded Allergies: CODEINE (Verified Adverse Reaction, Severe, Itching, 10/18/18) MORPHINE (Verified Adverse Reaction, Severe, Itching, 10/18/18) sever itching to the point scratches self till bleeding. Objective Last 24 Hour Vital Signs Date Time Temp Pulse Resp B/P (MAP) Pulse Ox O2 Delivery O2 Flow Rate FiO2 10/31/18 12:00 99.4 86 16 112/67 (82) 98 10/31/18 12:00 16 10/31/18 09:00 Room Air 10/31/18 08:00 16 10/31/18 08:00 98.2 87 16 112/68 (83) 98 10/31/18 04:00 97.5 89 17 123/69 (87) 98 10/31/18 04:00 17 10/31/18 00:00 16 10/31/18 00:00 97.9 73 16 96/58 (71) 97 10/30/18 21:00 Room Air 10/30/18 20:00 18 10/30/18 20:00 97.7 86 18 99/50 (66) 98 10/30/18 16:21 98.1 10/30/18 16:00 99.7 100 20 116/69 (85) 100 10/30/18 16:00 16 10/30/18 15:21 98.1 94 20 100 Nasal Cannula 3.0 92 100 10/30/18 15:21 98.1 10/30/18 15:05 98.0 97 21 106/58 97 Room Air 10/30/18 15:00 98 22 100/56 98 Room Air 10/30/18 14:50 93 21 102/56 100 Nasal Cannula 3 10/30/18 14:43 98.5 94 18 102/58 100 Nasal Cannula 3 10/30/18 14:20 91 20 102/66 (78) 98 10/30/18 14:15 91 20 107/61 (76) 100 10/30/18 14:10 94 22 106/70 (82) 100 10/30/18 14:05 93 22 104/65 (78) 100 10/30/18 14:00 89 20 99/64 (76) 100 10/30/18 13:55 89 22 101/66 (78) 100 10/30/18 13:50 89 20 110/57 (74) 100 10/30/18 13:45 98.1 88 20 103/60 (74) 100 Intake and Output 10/30/18 10/31/18 19:00 07:00 Intake Total 1405 ml 1747.5 ml Output Total 2250 ml 1690 ml Balance -845 ml 57.5 ml IV Total 1405 ml 1747.5 ml Output Urine Total 840 ml 1050 ml Gastric Drainage Total 370 ml Drainage Total 10 ml Other 1410 ml 260 ml Objective drain, R buttock General Appearance: no acute distress HEENT: atraumatic Respiratory/Chest: lungs clear Cardiovascular: normal rate Microbiology Date/Time Source Procedure Growth Status 10/29/18 15:30 Blood Blood Culture - Preliminary NO GROWTH AFTER 24 HOURS Resulted 10/29/18 15:30 Blood Blood Culture - Preliminary NO GROWTH AFTER 24 HOURS Resulted 10/30/18 14:10 Peritoneal Fluid Gram Stain Pending Resulted 10/30/18 14:10 Peritoneal Fluid Body Fluid Culture - Preliminary NO GROWTH Resulted 10/30/18 18:10 Urine,Clean Catch Urine Culture - Preliminary NO GROWTH Resulted Laboratory Tests 10/30/18 18:10: Urine Color Yellow, Urine Appearance Clear, Urine pH 5, Urine Specific Fre[place] 1.020, Urine Protein 2+H, Urine Glucose (UA) Negative, Urine Ketones 1+H, Urine Blood Negative, Urine Nitrite Negative, Urine Bilirubin Negative, Urine Urobilinogen Normal, Urine Leukocyte Esterase 1+H, Urine RBC 0-2, Urine WBC 0-2 , Urine Squamous Epithelial Cells Few, Urine Bacteria Few 10/31/18 06:30: White Blood Count 10.0, Red Blood Count 3.13L, Hemoglobin 8.7L, Hematocrit 25.9L , Mean Corpuscular Volume 83, Mean Corpuscular Hemoglobin 27.7, Mean Corpuscular Hemoglobin Concent 33.4, Red Cell Distribution Width 12.2, Platelet Count 393, Mean Platelet Volume 6.3L, Neutrophils (%) (Auto) 78.1H, Lymphocytes (%) (Auto) 14.4L, Monocytes (%) (Auto) 4.2, Eosinophils (%) (Auto) 2.9, Basophils (%) (Auto) 0.5, Sodium Level 136, Potassium Level 4.1, Chloride Level 102, Carbon Dioxide Level 27, Anion Gap 7, Blood Urea Nitrogen 14, Creatinine 0.9, Estimat Glomerular Filtration Rate > 60, Glucose Level 124H, Calcium Level 8.8 Current Medications Medications (Trade) Dose Ordered Sig/Ld Route PRN Reason Start Time Stop Time Status Last Admin Dose Admin Acetaminophen (Tylenol) 1,000 mg Q4H PRN ORAL temp>100.2 or headache 10/19/18 16:00 11/18/18 15:59 10/29/18 16:32 Barium Sulfate (Readi-Cat 2) 450 ml NOW PRN ORAL Radiology Procedure 10/29/18 15:30 10/31/18 15:27 Chlorhexidine Gluconate (Ana Rosa-Hex 2%) 1 applic DAILY@2000 TOPIC 10/18/18 20:00 11/17/18 19:59 10/30/18 19:54 Clonazepam (KlonoPIN) 0.5 mg Q8H PRN ORAL For Anxiety 10/29/18 08:30 11/05/18 08:29 Dextrose 1,000 ml @ 0 mls/hr Q24H PRN IV PN interrupted or unavailable 10/21/18 20:00 11/20/18 19:59 Dextrose (Dextrose 50%) 25 ml Q30M PRN IV Hypoglycemia 10/21/18 08:15 11/20/18 08:14 Dextrose (Dextrose 50%) 50 ml Q30M PRN IV Hypoglycemia 10/21/18 08:15 11/20/18 08:14 Dextrose/ Electrolytes 1,000 ml @ 50 mls/hr Q20H IV 10/21/18 20:00 11/20/18 19:59 10/30/18 23:59 Diphenhydramine HCl (Benadryl) 25 mg Q6H PRN IVP Itching/Pruritis 10/27/18 12:41 11/26/18 12:40 10/29/18 18:25 Estradiol (Estrace) 1 applic THREE TIMES A WEEK VAGIN 10/19/18 09:00 11/18/18 08:59 10/31/18 10:07 Fat Emulsion Intravenous 240 ml/Amino Acids/ Electrolytes/ Dextrose 1,920 ml @ 80 mls/hr Q24H IV 10/21/18 20:00 11/20/18 19:59 10/30/18 20:01 Heparin Sodium/ Sodium Chloride (Heparin 1000 units/500ml Premix) 1,000 unit ONCE PRN IV picc line placement 10/18/18 09:45 11/17/18 09:44 Hydromorphone HCl 30 ml @ 0 mls/hr Q24H PRN IV For Pain 10/30/18 16:09 11/01/18 16:08 10/31/18 00:38 Hydromorphone HCl (Dilaudid) 1 mg Q3H PRN SUBQ Severe Pain (Pain Scale 7-10) 10/26/18 08:30 11/02/18 08:29 10/31/18 10:51 Insulin Aspart (NovoLOG) Q6HR SUBQ 10/22/18 00:00 11/21/18 00:00 10/31/18 12:20 Iopamidol (Isovue-300 100ml) 100 ml NOW PRN INJ Radiology Procedure 10/29/18 15:30 10/31/18 15:29 Iron Sucrose 100 mg/Sodium Chloride 60 ml @ 240 mls/hr BEDTIME IV 10/26/18 21:00 10/31/18 21:14 10/30/18 20:19 Ketorolac Tromethamine (Toradol 30mg) 30 mg Q6H PRN IV Breakthrough Pain 10/30/18 14:00 10/31/18 07:30 Lorazepam (Ativan) 1 mg HSPRN PRN SL Sleep 10/29/18 08:15 11/05/18 08:14 Lorazepam (Ativan) 1 mg Q4H PRN SL Abdominal cramps 10/29/18 08:30 11/05/18 08:29 10/29/18 09:29 Meropenem 1 gm/ Sodium Chloride 100 ml @ 200 mls/hr Q8HR IVPB 10/30/18 22:00 11/04/18 21:59 10/31/18 05:38 Miscellaneous Medication (QUALITY SYSTEMS SPECIALIST Rate Change) 1 ea DAILY PRN MISC rate change 10/30/18 16:15 11/01/18 16:14 Miscellaneous Medication (QUALITY SYSTEMS SPECIALIST shift volume) 1 ea Q12HR@0700,1900 MISC 10/30/18 19:00 11/01/18 18:59 10/31/18 07:00 Naloxone HCl (Narcan) 0.1 mg PRN IV RR<10min OR SBP<90 mmHg OR 10/24/18 07:00 11/23/18 06:59 Ondansetron HCl (Zofran) 4 mg Q4H PRN IVP Nausea & Vomiting 10/27/18 12:41 11/26/18 12:40 Paroxetine HCl (Paxil) 30 mg DAILY ORAL 10/22/18 09:00 11/21/18 08:59 10/31/18 10:08 Patient Own Medication (Patient's Own Med) 1 ea SuWe@0900 TDERMAL 10/28/18 14:00 11/18/18 09:01 10/31/18 10:08 Phenazopyridine HCl (Pyridium) 100 mg Q8H PRN ORAL BURNING 10/29/18 19:00 11/28/18 18:59 Phytonadione (Vitamin K) 10 mg ONCE A WEEK SUBQ 10/21/18 08:15 11/20/18 08:14 10/28/18 08:37 Prochlorperazine (Compazine) 10 mg Q6H PRN IVP Nausea & Vomiting 10/21/18 08:30 11/20/18 08:29 10/23/18 23:53 Trazodone HCl (Desyrel) 150 mg BEDTIME ORAL 10/22/18 21:00 11/21/18 20:59 10/30/18 20:20 Vancomycin HCl (Vanco rx to dose) 1 ea DAILY PRN MISC Per rx protocol 10/30/18 17:45 11/29/18 17:44 Vancomycin HCl 1 gm/Dextrose 275 ml @ 183.708 mls/hr Q12HR@0600,1800 IVPB 10/31/18 06:00 11/05/18 05:59 10/31/18 06:17 Vitamin A/Vitamin D (A & D Oint) 1 applic BID TOPIC 10/23/18 11:00 11/22/18 10:59 10/31/18 10:09 Bashir Lynn MD Oct 31, 2018 13:33
--- NOTE | 2018-10-31 14:07 | General Progress Note ---
Progress Note Progress Note Afebrile x 24 hours. having leaking of stool around BCIR pouch catheter Abdomen mildly distended, incisions clean. Joel removedd BCIR ileo catheter repaced with new 28 Velasquez without difficulty WBC 10,000Hgb 8.7 Urine 1890 Gastrostomy 1210 BCIR ileo 585 On Meropenem and Vancomycin per ID Imp: Intra=abdominal abscess, drained Ileus, resolving Plan; BCIR pouch catheter to med intermittent suction clear liquid diet with gastrostomy 5:1 protocol hopefully can remove pre-sacral drain in 24-48 hours Manny Kramer MD Oct 31, 2018 14:07
[2018-10-31 16:00] VITALS: BP 97/66
--- NOTE | 2018-10-31 16:12 | NUR ---
*-* INSURANCE *-* UPDATED CLINICALS AND REVIEWS HAVE BEEN FAXED TO: [facility] NCM: JANA P:[phone] F:[phone] NURSE: XIMENA
--- NOTE | 2018-10-31 18:30 | NUR ---
NURSE NOTES: Total ileo output for my shift: +145mL Total g-tube output: +415mL Total urine output: 1100mL Patient tolerating 5:1 g-tube plugging protocol so far, dressing reinforced x2 for drainage from kenan drain site. Pain managed with BANKRUPTCY LEGAL ASSISTANT and breakthrough pain medication.
--- NOTE | 2018-10-31 19:30 | NUR ---
NURSE NOTES: Receive a report from RADHA Farmer. Round is done. Pt is awake and alert. Pt states of pressure feeling of discomfort on lower abdomen. Given prn pain medication as ordered. G-tube is 5:1 protocol as ordered with clear liquid diet. Flushing NS 20ml is done and gravity drained for an hour. Ileostomy is on intermittent suction with 3hr NS 20ml flushing. Will continue to monitor.
--- NOTE | 2018-10-31 19:30 | NUR ---
HAND-OFF: Report given to Chandrao RN. Patient is in stable condition.
--- NOTE | 2018-10-31 19:50 | NUR ---
NURSE NOTES: Receive a call from Dr. Kramer after updating from AM RN about discharging on pin jose a site and ileostomy catheter site. Dr Kramer orders to discontinue G-tube 5:1 protocol and resume npo except ice chips and po medication, keep G-tube natural gravity drainage with NS 20ml Q 3hrs flushing and change dressing as needed. Order noted and carried out. Update to pt's order. Pt verbalize understanding. Will continue to monitor.
[2018-10-31 20:00] VITALS: BP 105/56
[2018-10-31] MEDS: Dyna-Hex 2% Top Sol 2oz TOPIC SCH (20:41)
[2018-10-31] MEDS: Fat Emulsion Iv 20% 240 ML in Tpn 1,680 ML IV SCH (20:41)
[2018-10-31] MEDS: Iron Sucrose 100 MG in NS 55 ML IV SCH (20:46)
[2018-10-31] MEDS: TraZODone 50mg tab ORAL SCH (20:47)
[2018-10-31] MEDS: D5 1/4NS w/KCl 20mEq 1,000 ML IV SCH (21:08)
--- NOTE | 2018-10-31 22:00 | NUR ---
NURSE NOTES: During routine care, changed dressing twice with reinforcement on ileostomy catheter site and pin jose a removal site with 4x4 gauze, ABD and paper tape. Pt still feeling bloating and discomfort on lower abdomen. Bowel sound intact but decreased on left side. TPN and main fluid running on left upper arm PICC. Serosanguineous color drainage via Uracil on right lower back area with Tegarderm dressing on. Due to pt's discomfort, call Dr. Kramer and update pt's conditions. Will continue to monitor for now.
[2018-11-01] VITALS: BP 100/44
--- NOTE | 2018-11-01 | NUR ---
NURSE NOTES: After prn pain medication, Toradol 30mg IVP, pt states that level of discomfort gets better. Done dressing change with reinforcement with 4 of 4x4 gauze and ABD with paper tape to support ileostomy catheter. Will continue to monitor.
--- NOTE | 2018-11-01 04:00 | NUR ---
NURSE NOTES: Reinforce ileostomy catheter with 4x4 gauze and paper tape. Dressing change is done on site with greenish discharge on pen jose a removal site and ileostomy catheter site. Will continue to monitor.
[2018-11-01 04:30] VITALS: BP 113/68
[2018-11-01 05:15] LABS: BASOPHILS % (AUTO) 0.7 % (0.0-2.0); EOSINOPHILS % (AUTO) 5.4 % (0.0-3.0); HEMATOCRIT 30.1 % (37.0-47.0); HEMOGLOBIN 9.8 G/DL (12.0-16.0); LYMPHOCYTES % (AUTO) 22.7 % (20.0-45.0); MEAN CORPUSCULAR VOLUME 85 FL (80-99); MONOCYTES % (AUTO) 5.6 % (1.0-10.0); NEUTROPHILS % (AUTO) 65.5 % (45.0-75.0); PLATELET COUNT 445 K/UL (150-450); RED BLOOD COUNT 3.56 M/UL (4.20-5.40); RED CELL DISTRIBUTION WIDTH 12.6 % (11.6-14.8); WHITE BLOOD COUNT 7.8 K/UL (4.8-10.8)
[2018-11-01 05:49] LABS: ANION GAP 6 mmol/L (5-15); BLOOD UREA NITROGEN 10 mg/dL (7-18); CALCIUM 8.8 MG/DL (8.5-10.1); CARBON DIOXIDE 29 MMOL/L (21-32); CHLORIDE 102 MMOL/L (98-107); CREATININE 0.7 MG/DL (0.55-1.30); SODIUM 137 MMOL/L (136-145)
[2018-11-01] MEDS: NovoLOG Insulin Flexpen SUBQ SCH ×5 (06:00→23:33)
--- NOTE | 2018-11-01 06:00 | NUR ---
NURSE NOTES: Pt is asleep and easily aroused by calling her name. No acute distress noted. Pt states that her bloating relieves. Ileostomy is connected intermittent suction on low pressure and patent with brownish greenish color drainage. Will continue to monitor. Urine output: 1180ml Ileostomy output: 470ml G-tube output: 480ml Uracil output: 10ml with 10ml ns flushing
[2018-11-01] MEDS: Vancomycin 1gm/D5W 275ml IVPB SCH ×2 (06:14)
[2018-11-01 06:32] LABS: % IRON SATURATION 36 % (15-50); IRON 102 ug/dL (50-175); TOTAL IRON BINDING CAPACITY 280 ug/dL (250-450)
--- NOTE | 2018-11-01 07:45 | NUR ---
HAND-OFF: Report given to RADHA Orellana. Round is done. Dr. Kramer is next to bed, changes dressing and speak to pt. Will contiue to moniotor.
--- NOTE | 2018-11-01 07:50 | NUR ---
NURSE NOTES: Received report from RADHA Olmedo. Rounding done with outgoing nurse. Pt a/o x4, in bed. Abdominal dressing was changed by Dr. Kramer. Ileostomy is on intermittent low suction. GT is patent. TEO PICC line is patent. Denies any pain at this time. Bed in lowest position, call light within reach. Will continue to monitor.
[2018-11-01] MEDS ORDERED: PCA HYDROmorphone 1mg/ml 30 ML IV PRN (07:52)
--- NOTE | 2018-11-01 07:54 | General Progress Note ---
Progress Note Progress Note AVKEMI Had stool draining from kenan drain site yesterday and overnight until several hours ago. BCIR pouch catheter now to med intermittent suction and gastrostomy to drainage and NPO Abdomen mildly distended, soft, incisions clean. 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 sealed now Plan: Continue npo, TPN, gastrostomy to continuous drainage, BCIR catheter to suction If fistula starts draining profusely again will need to return to surgery - if seals, will need to remain in current status at least 7 days, then pouchogram XRay before advancing diet and starting self-intubations Manny Kramer MD Nov 01, 2018 07:54
[2018-11-01 08:00] VITALS: BP 120/72
[2018-11-01] MEDS ORDERED: Rate Change PCA 1 Each MISC PRN (08:00)
[2018-11-01] MEDS: PARoxetine 10mg tab ORAL SCH (09:09)
[2018-11-01] MEDS: Vitamin A&D Oint 2oz Tube TOPIC SCH ×2 (09:09→18:22)
[2018-11-01] MEDS: LORazepam 1mg tab SL PRN (09:09)
--- NOTE | 2018-11-01 10:27 | NUR ---
*-* INSURANCE *-* UPDATED CLINICALS AND REVIEWS HAVE BEEN FAXED TO: [facility] NCM: JANA P:[phone] F:[phone] NURSE: XIMENA
[2018-11-01] MEDS: Ketorolac 30mg Inj IV PRN (11:08)
--- NOTE | 2018-11-01 11:44 | NUR ---
RD ASSESSMENT & RECOMMENDATIONS SEE CARE ACTIVITY FOR COMPLETE ASSESSMENT DAILY ESTIMATED NEEDS: Needs based on Surgery 65.7kg adj 25-30 kcals/kg total kcals 1.2-2 g protein/kg 79-131 g total protein 25-30 mL/kg total fluid mLs NUTRITION DIAGNOSIS: Altered GI fxn r/t h/o pelvic floor dysfunction and colonic inertia as evidenced by pt w/ history of mutliple abdominal operations including ileo + colostomy, now s/p BCIR, w/ ileus, on TPN, diet now back to NPO status. CURRENT DIET:NPO PO DIET RECOMMENDATIONS: DIET PER MED PARENTERAL NUTRITION RECOMMENDATIONS: D/AA Rate: 70 IL Rate: 10 Total Rate: 80 Volume: 1920 % Dextrose: 18 % AA: 5.5 Energy (kcals/kg): 1878 Protein (g/kg protein): 92 Nonprotein KCALS: 1508 GIR (mg CHO/kg/min): 3.1 % Fat KCALS: 25.6 NCP: N Ratio: 102:1 TPN Comment: - Rosamaria current TPN at goal D18% + AA 5.5% @70 w/ IL 20% @10ml-> all 3:1. - TPN at goal meets 100% est needs, provides 1878 kcal (28 kcal/adj kg), 92g pro (1.4g/ adj kg). * Added D5 @50 provides additional 204 kcal, 60g dextrose per day. ADDITIONAL RECOMMENDATIONS: * Monitor NPO status, diet per MD * Check lytes, BG daily (added D5) * Monitor LFT's * Weekly standing weights
[2018-11-01 12:00] VITALS: BP 109/72
[2018-11-01] MEDS ORDERED: Tubing IV Secondary IV ONE (12:27)
[2018-11-01] MEDS ORDERED: NS Irrig 1000ml ONE (12:27)
[2018-11-01] MEDS ORDERED: NS 275ml ONE (12:27)
--- NOTE | 2018-11-01 15:08 | NUR ---
COFFEE BLENDERONLINE EDITOR SI: S/P BCIR, Gastrostomy, takedown ileostomy and repair of parastomal hernia, PELVIA ABSCESS S/P DRAINAGE T. 98.5 HR 84 RR 16 B/P 100/44 RA 98% IS: VANCO IV MEROPENEM IV TPN/LIPIDS IV IVF D5KCL @ 50ML/HR DILAUDID SUGAR TRUCKER PYRIDIUM PO MED/SURG STATUS
--- NOTE | 2018-11-01 15:35 | Pulmonology Progress Note ---
Assessment/Plan Assessment/Plan Status post repair of ileostomy. Pneumonia, resolved Atelectasis abd abscess, s/p drainage lungs with atelectasis noted CT with abd abscess, drained via R buttock culture neg so far ID ordered abx WBC normal Subjective Constitutional: Reports: no symptoms Allergies: Coded Allergies: CODEINE (Verified Adverse Reaction, Severe, Itching, 10/18/18) MORPHINE (Verified Adverse Reaction, Severe, Itching, 10/18/18) sever itching to the point scratches self till bleeding. Objective Last 24 Hour Vital Signs Date Time Temp Pulse Resp B/P (MAP) Pulse Ox O2 Delivery O2 Flow Rate FiO2 11/01/18 12:00 98.6 84 17 109/72 (84) 97 11/01/18 12:00 17 11/01/18 09:00 Room Air 11/01/18 08:00 16 11/01/18 08:00 98.5 89 16 120/72 (88) 99 11/01/18 04:30 98.0 83 16 113/68 (83) 97 11/01/18 04:00 16 11/01/18 00:00 16 11/01/18 00:00 97.9 90 16 100/44 (62) 95 10/31/18 21:00 Room Air 10/31/18 20:00 98.1 89 16 105/56 (72) 96 10/31/18 20:00 16 10/31/18 16:00 16 10/31/18 16:00 98.9 81 16 97/66 (76) 98 Intake and Output 10/31/18 11/01/18 19:00 07:00 Intake Total 2240 ml 1540 ml Output Total 1660 ml 2140 ml Balance 580 ml -600 ml Intake Oral 700 ml 100 ml IV Total 1530 ml 1430 ml Other 10 ml 10 ml Output Urine Total 1100 ml 1180 ml Gastric Drainage Total 480 ml Drainage Total 10 ml Other 560 ml 470 ml Objective drain, R buttock General Appearance: no acute distress HEENT: atraumatic Respiratory/Chest: lungs clear Cardiovascular: normal rate Microbiology Date/Time Source Procedure Growth Status 10/30/18 14:10 Peritoneal Fluid Gram Stain - Final Resulted 10/30/18 14:10 Peritoneal Fluid Body Fluid Culture - Preliminary NO GROWTH AFTER 24 HOURS Resulted 10/30/18 14:10 Aspirate Gram Stain - Final Resulted 10/30/18 14:10 Aspirate Aerobic Culture - Preliminary NO GROWTH AFTER 24 HOURS Resulted 10/30/18 14:10 Aspirate Anaerobic Culture - Preliminary NO GROWTH AFTER 48 HOURS Resulted 10/30/18 18:10 Urine,Clean Catch Urine Culture - Final NO GROWTH AFTER 48 HOURS Complete Laboratory Tests 11/01/18 05:03: White Blood Count 7.8, Red Blood Count 3.56L, Hemoglobin 9.8L, Hematocrit 30.1L , Mean Corpuscular Volume 85, Mean Corpuscular Hemoglobin 27.5, Mean Corpuscular Hemoglobin Concent 32.6, Red Cell Distribution Width 12.6, Platelet Count 445, Mean Platelet Volume 6.4L, Neutrophils (%) (Auto) 65.5, Lymphocytes ( %) (Auto) 22.7, Monocytes (%) (Auto) 5.6, Eosinophils (%) (Auto) 5.4H, Basophils (%) (Auto) 0.7, Sodium Level 137, Potassium Level 4.0, Chloride Level 102, Carbon Dioxide Level 29, Anion Gap 6, Blood Urea Nitrogen 10, Creatinine 0.7, Estimat Glomerular Filtration Rate > 60, Glucose Level 105, Calcium Level 8.8, Iron Level 102, Total Iron Binding Capacity 280, Percent Iron Saturation 36 , Unsaturated Iron Binding 178, Vancomycin Level Trough 11.3 Current Medications Medications (Trade) Dose Ordered Sig/Ld Route PRN Reason Start Time Stop Time Status Last Admin Dose Admin Acetaminophen (Tylenol) 1,000 mg Q4H PRN ORAL temp>100.2 or headache 10/19/18 16:00 11/18/18 15:59 10/29/18 16:32 Chlorhexidine Gluconate (Ana Rosa-Hex 2%) 1 applic DAILY@2000 TOPIC 10/18/18 20:00 11/17/18 19:59 10/31/18 20:41 Clonazepam (KlonoPIN) 0.5 mg Q8H PRN ORAL For Anxiety 10/29/18 08:30 11/05/18 08:29 Dextrose 1,000 ml @ 0 mls/hr Q24H PRN IV PN interrupted or unavailable 10/21/18 20:00 11/20/18 19:59 Dextrose (Dextrose 50%) 25 ml Q30M PRN IV Hypoglycemia 10/21/18 08:15 11/20/18 08:14 Dextrose (Dextrose 50%) 50 ml Q30M PRN IV Hypoglycemia 10/21/18 08:15 11/20/18 08:14 Dextrose/ Electrolytes 1,000 ml @ 50 mls/hr Q20H IV 10/21/18 20:00 11/20/18 19:59 10/31/18 21:08 Diphenhydramine HCl (Benadryl) 25 mg Q6H PRN IVP Itching/Pruritis 10/27/18 12:41 11/26/18 12:40 10/29/18 18:25 Estradiol (Estrace) 1 applic THREE TIMES A WEEK VAGIN 10/19/18 09:00 11/18/18 08:59 10/31/18 10:07 Fat Emulsion Intravenous 240 ml/Amino Acids/ Electrolytes/ Dextrose 1,920 ml @ 80 mls/hr Q24H IV 10/21/18 20:00 11/20/18 19:59 10/31/18 20:41 Heparin Sodium/ Sodium Chloride (Heparin 1000 units/500ml Premix) 1,000 unit ONCE PRN IV picc line placement 10/18/18 09:45 11/17/18 09:44 Hydromorphone HCl 30 ml @ 0 mls/hr Q24H PRN IV For Pain 11/01/18 07:52 11/03/18 07:51 Hydromorphone HCl (Dilaudid) 1 mg Q3H PRN SUBQ Severe Pain (Pain Scale 7-10) 11/01/18 07:51 11/08/18 07:50 Insulin Aspart (NovoLOG) Q6HR SUBQ 10/22/18 00:00 11/21/18 00:00 11/01/18 12:09 Lorazepam (Ativan) 1 mg HSPRN PRN SL Sleep 10/29/18 08:15 11/05/18 08:14 Lorazepam (Ativan) 1 mg Q4H PRN SL Abdominal cramps 10/29/18 08:30 11/05/18 08:29 11/01/18 09:09 Meropenem 1 gm/ Sodium Chloride 100 ml @ 200 mls/hr Q8HR IVPB 10/30/18 22:00 11/04/18 21:59 11/01/18 14:50 Miscellaneous Medication (HEALTH SAFETY SPECIALIST Rate Change) 1 ea DAILY PRN MISC rate change 11/01/18 08:00 11/03/18 07:59 Miscellaneous Medication (HEALTH SAFETY SPECIALIST shift volume) 1 ea Q12HR@0700,1900 MISC 11/01/18 19:00 11/03/18 18:59 Naloxone HCl (Narcan) 0.1 mg PRN IV RR<10min OR SBP<90 mmHg OR 10/24/18 07:00 11/23/18 06:59 Ondansetron HCl (Zofran) 4 mg Q4H PRN IVP Nausea & Vomiting 10/27/18 12:41 11/26/18 12:40 Paroxetine HCl (Paxil) 30 mg DAILY ORAL 10/22/18 09:00 11/21/18 08:59 11/01/18 09:09 Patient Own Medication (Patient's Own Med) 1 ea SuWe@0900 TDERMAL 10/28/18 14:00 11/18/18 09:01 10/31/18 10:08 Phenazopyridine HCl (Pyridium) 100 mg Q8H PRN ORAL BURNING 10/29/18 19:00 11/28/18 18:59 Phytonadione (Vitamin K) 10 mg ONCE A WEEK SUBQ 10/21/18 08:15 11/20/18 08:14 10/28/18 08:37 Prochlorperazine (Compazine) 10 mg Q6H PRN IVP Nausea & Vomiting 10/21/18 08:30 11/20/18 08:29 10/23/18 23:53 Trazodone HCl (Desyrel) 150 mg BEDTIME ORAL 10/22/18 21:00 11/21/18 20:59 10/31/18 20:47 Vancomycin HCl (Vanco rx to dose) 1 ea DAILY PRN MISC Per rx protocol 10/30/18 17:45 11/29/18 17:44 Vancomycin HCl 1 gm/Dextrose 275 ml @ 183.708 mls/hr Q12HR@0600,1800 IVPB 10/31/18 06:00 11/05/18 05:59 11/01/18 06:14 Vitamin A/Vitamin D (A & D Oint) 1 applic BID TOPIC 10/23/18 11:00 11/22/18 10:59 11/01/18 09:09 Bashir Lynn MD Nov 01, 2018 15:35
[2018-11-01 16:00] VITALS: BP 113/76
--- NOTE | 2018-11-01 16:00 | NUR ---
NURSE NOTES: Pt is stable condition. No leakage from pen jose a drain removed site.
--- NOTE | 2018-11-01 17:48 | Infectious Diseases Prog Note ---
Assessment/Plan Assessment/Plan ASSESSMENT AND PLAN: 1. pelvic abscess on CT, s/p drain, ? sepsis, leukocytosis and fevers, possible pna - continue meropenem - day # 3, discontinue iv vancomycin (blood cultures negative) - cultures negative (patient on zosyn prior to CT drainage cultures) - monitor labs - leukocytosis and fevers resolved - continue per Dr. Kramer and Dr. Lynn 2. 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 3. Anemia. 4. The patient has history of multiple abdominal surgeries. 5. History of pelvic floor dysfunction, colonic inertia, and history of endometriosis. 6. History of hysterectomy. 7. History of cholecystectomy. 8. Allergies to codeine and morphine. 9. Social history is negative. 10. Family history is noncontributory. 11. MAR was noted. 12. Case was discussed with RN. 13. Case was discussed with Dr. Kramer. 14. Continue treatment per primary consultants. Subjective Constitutional: Denies: fever HEENT: Denies: congestion Respiratory: Denies: shortness of breath Cardiovascular: Denies: chest pain Gastrointestinal/Abdominal: Reports: other - less abdominal pain ; Denies: nausea, vomiting, diarrhea Genitourinary: Reports: other - no juarez Neurologic: Denies: headache Psychiatric: Denies: depression Skin: Denies: rash Hematologic: Denies: bleeding Musculoskeletal: Reports: pain - less abdominal pain Allergies: Coded Allergies: CODEINE (Verified Adverse Reaction, Severe, Itching, 10/18/18) MORPHINE (Verified Adverse Reaction, Severe, Itching, 10/18/18) sever itching to the point scratches self till bleeding. Objective Vital Signs Last 24 Hour Vital Signs Date Time Temp Pulse Resp B/P (MAP) Pulse Ox O2 Delivery O2 Flow Rate FiO2 11/01/18 16:00 16 11/01/18 16:00 98.1 87 16 113/76 (88) 99 11/01/18 12:00 98.6 84 17 109/72 (84) 97 11/01/18 12:00 17 11/01/18 09:00 Room Air 11/01/18 08:00 16 11/01/18 08:00 98.5 89 16 120/72 (88) 99 11/01/18 04:30 98.0 83 16 113/68 (83) 97 11/01/18 04:00 16 11/01/18 00:00 16 11/01/18 00:00 97.9 90 16 100/44 (62) 95 10/31/18 21:00 Room Air 10/31/18 20:00 98.1 89 16 105/56 (72) 96 10/31/18 20:00 16 Height (Feet): 5 Height (Inches): 6.00 Weight (Pounds): 189 General Appearance: no acute distress HEENT: normocephalic, atraumatic, anicteric, mucous membranes moist Respiratory/Chest: lungs clear, normal breath sounds, no respiratory distress, no accessory muscle use Cardiovascular: normal peripheral pulses, normal rate, regular rhythm, no gallop/murmur Abdomen: normal bowel sounds, soft, non tender, no organomegaly, non distended , other - + drain Genitourinary: other - no juarez Extremities: no cyanosis Skin: no rash Neurologic/Psychiatric: 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 Status post total colectomy with associated postoperative appearance and two organized, rim-enhancing collections in the pelvis as described above. 2. Additional possible left lower quadrant collection which appears indistinguishable from adjacent loops may represent additional collection, but anastomotic leak cannot be excluded on this examination. Microbiology Date/Time Source Procedure Growth Status 10/30/18 14:10 Peritoneal Fluid Gram Stain - Final Resulted 10/30/18 14:10 Peritoneal Fluid Body Fluid Culture - Preliminary NO GROWTH AFTER 24 HOURS Resulted 10/30/18 14:10 Aspirate Gram Stain - Final Resulted 10/30/18 14:10 Aspirate Aerobic Culture - Preliminary NO GROWTH AFTER 24 HOURS Resulted 10/30/18 14:10 Aspirate Anaerobic Culture - Preliminary NO GROWTH AFTER 48 HOURS Resulted 10/30/18 18:10 Urine,Clean Catch Urine Culture - Final NO GROWTH AFTER 48 HOURS Complete Laboratory Tests Test 11/01/18 05:03 White Blood Count 7.8 K/UL (4.8-10.8) Red Blood Count 3.56 M/UL (4.20-5.40) L Hemoglobin 9.8 G/DL (12.0-16.0) L Hematocrit 30.1 % (37.0-47.0) L Mean Corpuscular Volume 85 FL (80-99) Mean Corpuscular Hemoglobin 27.5 PG (27.0-31.0) Mean Corpuscular Hemoglobin Concent 32.6 G/DL (32.0-36.0) Red Cell Distribution Width 12.6 % (11.6-14.8) Platelet Count 445 K/UL (150-450) Mean Platelet Volume 6.4 FL (6.5-10.1) L Neutrophils (%) (Auto) 65.5 % (45.0-75.0) Lymphocytes (%) (Auto) 22.7 % (20.0-45.0) Monocytes (%) (Auto) 5.6 % (1.0-10.0) Eosinophils (%) (Auto) 5.4 % (0.0-3.0) H Basophils (%) (Auto) 0.7 % (0.0-2.0) Sodium Level 137 MMOL/L (136-145) Potassium Level 4.0 MMOL/L (3.5-5.1) Chloride Level 102 MMOL/L (98-107) Carbon Dioxide Level 29 MMOL/L (21-32) Anion Gap 6 mmol/L (5-15) Blood Urea Nitrogen 10 mg/dL (7-18) Creatinine 0.7 MG/DL (0.55-1.30) Estimat Glomerular Filtration Rate > 60 mL/min (>60) Glucose Level 105 MG/DL (74-106) Calcium Level 8.8 MG/DL (8.5-10.1) Iron Level 102 ug/dL (50-175) Total Iron Binding Capacity 280 ug/dL (250-450) Percent Iron Saturation 36 % (15-50) Unsaturated Iron Binding 178 ug/dL (112-346) Vancomycin Level Trough 11.3 ug/mL (5.0-12.0) Current Medications Medications (Trade) Dose Ordered Sig/Ld Route PRN Reason Start Time Stop Time Status Last Admin Dose Admin Acetaminophen (Tylenol) 1,000 mg Q4H PRN ORAL temp>100.2 or headache 10/19/18 16:00 11/18/18 15:59 10/29/18 16:32 Chlorhexidine Gluconate (Ana Rosa-Hex 2%) 1 applic DAILY@1999 TOPIC 10/18/18 20:00 11/17/18 19:59 10/31/18 20:41 Clonazepam (KlonoPIN) 0.5 mg Q8H PRN ORAL For Anxiety 10/29/18 08:30 11/05/18 08:29 Dextrose 1,000 ml @ 0 mls/hr Q24H PRN IV PN interrupted or unavailable 10/21/18 20:00 11/20/18 19:59 Dextrose (Dextrose 50%) 25 ml Q30M PRN IV Hypoglycemia 10/21/18 08:15 11/20/18 08:14 Dextrose (Dextrose 50%) 50 ml Q30M PRN IV Hypoglycemia 10/21/18 08:15 11/20/18 08:14 Dextrose/ Electrolytes 1,000 ml @ 50 mls/hr Q20H IV 10/21/18 20:00 11/20/18 19:59 10/31/18 21:08 Diphenhydramine HCl (Benadryl) 25 mg Q6H PRN IVP Itching/Pruritis 10/27/18 12:41 11/26/18 12:40 10/29/18 18:25 Estradiol (Estrace) 1 applic THREE TIMES A WEEK VAGIN 10/19/18 09:00 11/18/18 08:59 10/31/18 10:07 Fat Emulsion Intravenous 240 ml/Amino Acids/ Electrolytes/ Dextrose 1,920 ml @ 80 mls/hr Q24H IV 10/21/18 20:00 11/20/18 19:59 10/31/18 20:41 Heparin Sodium/ Sodium Chloride (Heparin 1000 units/500ml Premix) 1,000 unit ONCE PRN IV picc line placement 10/18/18 09:45 11/17/18 09:44 Hydromorphone HCl 30 ml @ 0 mls/hr Q24H PRN IV For Pain 11/01/18 07:52 11/03/18 07:51 Hydromorphone HCl (Dilaudid) 1 mg Q3H PRN SUBQ Severe Pain (Pain Scale 7-10) 11/01/18 07:51 11/08/18 07:50 Insulin Aspart (NovoLOG) Q6HR SUBQ 10/22/18 00:00 11/21/18 00:00 11/01/18 12:09 Lorazepam (Ativan) 1 mg HSPRN PRN SL Sleep 10/29/18 08:15 11/05/18 08:14 Lorazepam (Ativan) 1 mg Q4H PRN SL Abdominal cramps 10/29/18 08:30 11/05/18 08:29 11/01/18 09:09 Meropenem 1 gm/ Sodium Chloride 100 ml @ 200 mls/hr Q8HR IVPB 10/30/18 22:00 11/04/18 21:59 11/01/18 14:50 Miscellaneous Medication (MEDICAL OFFICE ASST Rate Change) 1 ea DAILY PRN MISC rate change 11/01/18 08:00 11/03/18 07:59 Miscellaneous Medication (MEDICAL OFFICE ASST shift volume) 1 ea Q12HR@0700,1900 MISC 11/01/18 19:00 11/03/18 18:59 Naloxone HCl (Narcan) 0.1 mg PRN IV RR<10min OR SBP<90 mmHg OR 10/24/18 07:00 11/23/18 06:59 Ondansetron HCl (Zofran) 4 mg Q4H PRN IVP Nausea & Vomiting 10/27/18 12:41 11/26/18 12:40 Paroxetine HCl (Paxil) 30 mg DAILY ORAL 10/22/18 09:00 11/21/18 08:59 11/01/18 09:09 Patient Own Medication (Patient's Own Med) 1 ea SuWe@0900 TDERMAL 10/28/18 14:00 11/18/18 09:01 10/31/18 10:08 Phenazopyridine HCl (Pyridium) 100 mg Q8H PRN ORAL BURNING 10/29/18 19:00 11/28/18 18:59 Phytonadione (Vitamin K) 10 mg ONCE A WEEK SUBQ 10/21/18 08:15 11/20/18 08:14 10/28/18 08:37 Prochlorperazine (Compazine) 10 mg Q6H PRN IVP Nausea & Vomiting 10/21/18 08:30 11/20/18 08:29 10/23/18 23:53 Trazodone HCl (Desyrel) 150 mg BEDTIME ORAL 10/22/18 21:00 11/21/18 20:59 10/31/18 20:47 Vancomycin HCl (Vanco rx to dose) 1 ea DAILY PRN MISC Per rx protocol 10/30/18 17:45 11/29/18 17:44 Vancomycin HCl 1 gm/Dextrose 275 ml @ 183.708 mls/hr Q12HR@0600,1800 IVPB 10/31/18 06:00 11/05/18 05:59 11/01/18 06:14 Vitamin A/Vitamin D (A & D Oint) 1 applic BID TOPIC 10/23/18 11:00 11/22/18 10:59 11/01/18 09:09 Yoshi Quintana MD Nov 01, 2018 17:48
[2018-11-01] MEDS: D5 1/4NS w/KCl 20mEq 1,000 ML IV SCH (18:22)
[2018-11-01] MEDS: PCA shift volume MISC SCH (19:00)
--- NOTE | 2018-11-01 19:29 | NUR ---
HAND-OFF: Report given to Larry Zafar RN. Pt in stable condition.
--- NOTE | 2018-11-01 19:30 | NUR ---
NURSE NOTES: Received patient in bed, awake, alert, orientedx4, very pleasant, responsive, able to make her needs known. No acute distress noted, VSS, afebrile. Patient is NPO except ice chips and medications. Call light is within reach, bed is low, locked and alarm is on. Will continue to monitor for comfort and safety.
[2018-11-01 20:00] VITALS: BP 107/71
[2018-11-01] MEDS: Dyna-Hex 2% Top Sol 2oz TOPIC SCH (20:06)
[2018-11-01] MEDS: TraZODone 50mg tab ORAL SCH (20:06)
[2018-11-01] MEDS: Fat Emulsion Iv 20% 240 ML in Tpn 1,680 ML IV SCH (20:07)
[2018-11-01] MEDS ORDERED: Ketorolac 30mg Inj IV PRN (20:45)
--- NOTE | 2018-11-01 21:10 | NUR ---
NURSE NOTES: Pt c/o pain, requesting Toradol medication. Toradol medication discontinued by pharmacy this am at 1108. Called Dr. Kramer if he wants Toradol renewed. Awaiting for call back.
[2018-11-01] MEDS ORDERED: HYDROmorphone 1mg/ml Carpuject IVP SCH (21:15)
--- NOTE | 2018-11-01 21:15 | NUR ---
NURSE NOTES: Dr. Kramer called back and said that pt has reach the maximum dose for Toradol. Dr. Kramer ordered for pt to have Dilaudid 1mg sub cut for break thru pain or if pt does not want injection she can have bolus Dilaudid 0.1mg IVP x 1. Informed pt and pt wants Dilaudid sub cut. Will give pain medication.
[2018-11-01] MEDS: HYDROmorphone 1mg/ml Carpuject SUBQ PRN (21:23)
[2018-11-02] VITALS: BP 103/60
[2018-11-02] MEDS: HYDROmorphone 1mg/ml Carpuject SUBQ PRN ×2 (04:37→09:34)
[2018-11-02 04:47] VITALS: BP 107/63
[2018-11-02] MEDS: NovoLOG Insulin Flexpen SUBQ SCH ×4 (05:46→23:51)
[2018-11-02 07:09] LABS: ALANINE AMINOTRANSFERASE 20 U/L (12-78); ALBUMIN 2.3 G/DL (3.4-5.0); ALBUMIN/GLOBULIN RATIO 0.5 (1.0-2.7); ALKALINE PHOSPHATASE 237 U/L (46-116); ANION GAP 9 mmol/L (5-15); ASPARTATE AMINO TRANSFERASE 19 U/L (15-37); BILIRUBIN,TOTAL 0.2 MG/DL (0.2-1.0); BLOOD UREA NITROGEN 10 mg/dL (7-18); CALCIUM 9.3 MG/DL (8.5-10.1); CARBON DIOXIDE 27 MMOL/L (21-32); CHLORIDE 101 MMOL/L (98-107); CREATININE 0.7 MG/DL (0.55-1.30); PHOSPHORUS 3.5 MG/DL (2.5-4.9); POTASSIUM 3.8 MMOL/L (3.5-5.1); SODIUM 137 MMOL/L (136-145)
[2018-11-02] MEDS: PCA shift volume MISC SCH ×2 (07:09→19:00)
--- NOTE | 2018-11-02 07:22 | NUR ---
HAND-OFF: Report given to RADHA Orellana. Pt in stable condition.
--- NOTE | 2018-11-02 07:25 | NUR ---
NURSE NOTES: Received report from Andrade Juarez RN. Rounding done with outgoing nurse. Pt a/o x 4, in bed. No respiratory distress noted. Denies pain at this time. Abdominal dressing is C/D/I. is at bedside. Questions answered. Bed in lowest position, call light within reach. Will continue to monitor.
[2018-11-02 08:00] VITALS: BP 113/69
[2018-11-02 08:34] LABS: BASOPHILS % (AUTO) 0.6 % (0.0-2.0); EOSINOPHILS % (AUTO) 3.6 % (0.0-3.0); HEMATOCRIT 29.6 % (37.0-47.0); HEMOGLOBIN 9.8 G/DL (12.0-16.0); LYMPHOCYTES % (AUTO) 18.3 % (20.0-45.0); MEAN CORPUSCULAR VOLUME 84 FL (80-99); MONOCYTES % (AUTO) 3.9 % (1.0-10.0); NEUTROPHILS % (AUTO) 73.7 % (45.0-75.0); PLATELET COUNT 528 K/UL (150-450); RED BLOOD COUNT 3.51 M/UL (4.20-5.40); RED CELL DISTRIBUTION WIDTH 12.4 % (11.6-14.8); WHITE BLOOD COUNT 9.6 K/UL (4.8-10.8)
[2018-11-02] MEDS: Estradiol Vaginal Cr 42.5 Gm Tube VAGIN SCH ×2 (09:00→09:34)
[2018-11-02] MEDS: Vitamin A&D Oint 2oz Tube TOPIC SCH ×2 (09:34→18:00)
[2018-11-02] MEDS: PARoxetine 10mg tab ORAL SCH (09:34)
[2018-11-02] MEDS ORDERED: PCA HYDROmorphone 1mg/ml 30 ML IV PRN (10:58)
[2018-11-02] MEDS ORDERED: Rate Change PCA 1 Each MISC PRN (11:00)
--- NOTE | 2018-11-02 11:15 | General Progress Note ---
Progress Note Progress Note AVSS Has achy lower abdominal/pelvic pain but feels okay. No further drainage from kenan drain site aBdomen mildly distended, soft, non-tender, incisions healing Urine 3300 Gastrostomy 620 BCIR ileo to suction 1065 WBC 9800 - on Meropenem Hgb 9.8 Platelets up 528,000 Albumin 2.3 Imp. Early post-operative Wilkinson pouch enterocutaneous fistula, sealed with pouch catheter to suction, npo and gastrostomy to drainage Plan: continue current regimen of npo, TPN, etc try Percocet po instead of Dilaudid RENEWABLE ENERGY CONSULTANT Manny Kramer MD Nov 02, 2018 11:15
[2018-11-02 12:00] VITALS: BP 107/75
[2018-11-02] MEDS: D5 1/4NS w/KCl 20mEq 1,000 ML IV SCH (12:00)
[2018-11-02] MEDS: TransDerm Scop 1.5mg/72HR Patch TDERMAL SCH (13:08)
[2018-11-02] MEDS: oxyCODONE HCL/Acetaminophen 5/325mg ORAL PRN ×3 (13:08→22:29)
--- NOTE | 2018-11-02 15:02 | Pulmonology Progress Note ---
Assessment/Plan Assessment/Plan Status post repair of ileostomy. Pneumonia, resolved Atelectasis abd abscess, s/p drainage lungs with atelectasis on CT CT with abd abscess, drained via R buttock culture neg so far abx per ID WBC normal increase activity, up to chair Subjective Allergies: Coded Allergies: CODEINE (Verified Adverse Reaction, Severe, Itching, 10/18/18) MORPHINE (Verified Adverse Reaction, Severe, Itching, 10/18/18) sever itching to the point scratches self till bleeding. Objective Last 24 Hour Vital Signs Date Time Temp Pulse Resp B/P (MAP) Pulse Ox O2 Delivery O2 Flow Rate FiO2 11/02/18 12:00 15 11/02/18 12:00 98.1 90 15 107/75 (86) 99 11/02/18 09:00 Room Air 11/02/18 08:00 98.5 82 16 113/69 (84) 95 11/02/18 08:00 16 11/02/18 04:47 97.9 89 18 107/63 (78) 11/02/18 04:00 18 11/02/18 00:00 98.0 84 18 103/60 (74) 11/02/18 00:00 18 11/01/18 21:00 Room Air 11/01/18 20:00 99.0 90 18 107/71 (83) 11/01/18 20:00 18 11/01/18 16:00 16 11/01/18 16:00 98.1 87 16 113/76 (88) 99 Intake and Output 11/01/18 11/02/18 19:00 07:00 Intake Total 1510 ml 1320 ml Output Total 3132 ml 1875 ml Balance -1622 ml -555 ml IV Total 1510 ml 1320 ml Output Urine Total 2200 ml 1100 ml Gastric Drainage Total 220 ml Drainage Total 12 ml 10 ml Other 920 ml 545 ml Objective drain, R buttock General Appearance: no acute distress HEENT: atraumatic Respiratory/Chest: normal breath sounds Cardiovascular: normal rate Abdomen: soft, non tender Microbiology Date/Time Source Procedure Growth Status 10/30/18 18:10 Urine,Clean Catch Urine Culture - Final NO GROWTH AFTER 48 HOURS Complete Laboratory Tests 11/02/18 05:15: Sodium Level 137, Potassium Level 3.8, Chloride Level 101, Carbon Dioxide Level 27, Anion Gap 9, Blood Urea Nitrogen 10, Creatinine 0.7, Estimat Glomerular Filtration Rate > 60, Glucose Level 104, Calcium Level 9.3, Phosphorus Level 3.5 , Magnesium Level 1.8, Total Bilirubin 0.2, Aspartate Amino Transf (AST/SGOT) 19 , Alanine Aminotransferase (ALT/SGPT) 20, Alkaline Phosphatase 237H, Total Protein 7.3, Albumin 2.3L, Globulin 5.0, Albumin/Globulin Ratio 0.5L 11/02/18 07:30: White Blood Count 9.6, Red Blood Count 3.51L, Hemoglobin 9.8L, Hematocrit 29.6L , Mean Corpuscular Volume 84, Mean Corpuscular Hemoglobin 27.9, Mean Corpuscular Hemoglobin Concent 33.1, Red Cell Distribution Width 12.4, Platelet Count 528H, Mean Platelet Volume 5.7L, Neutrophils (%) (Auto) 73.7, Lymphocytes (%) (Auto) 18.3L, Monocytes (%) (Auto) 3.9, Eosinophils (%) (Auto) 3.6H, Basophils (%) (Auto) 0.6 Current Medications Medications (Trade) Dose Ordered Sig/Ld Route PRN Reason Start Time Stop Time Status Last Admin Dose Admin Acetaminophen (Tylenol) 1,000 mg Q4H PRN ORAL temp>100.2 or headache 10/19/18 16:00 11/18/18 15:59 10/29/18 16:32 Chlorhexidine Gluconate (Ana Rosa-Hex 2%) 1 applic DAILY@2000 TOPIC 10/18/18 20:00 11/17/18 19:59 11/01/18 20:06 Clonazepam (KlonoPIN) 0.5 mg Q8H PRN ORAL For Anxiety 10/29/18 08:30 11/05/18 08:29 Dextrose 1,000 ml @ 0 mls/hr Q24H PRN IV PN interrupted or unavailable 10/21/18 20:00 11/20/18 19:59 Dextrose (Dextrose 50%) 25 ml Q30M PRN IV Hypoglycemia 10/21/18 08:15 11/20/18 08:14 Dextrose (Dextrose 50%) 50 ml Q30M PRN IV Hypoglycemia 10/21/18 08:15 11/20/18 08:14 Dextrose/ Electrolytes 1,000 ml @ 50 mls/hr Q20H IV 10/21/18 20:00 11/20/18 19:59 11/01/18 18:22 Diphenhydramine HCl (Benadryl) 25 mg Q6H PRN IVP Itching/Pruritis 10/27/18 12:41 11/26/18 12:40 10/29/18 18:25 Estradiol (Estrace) 1 applic THREE TIMES A WEEK VAGIN 10/19/18 09:00 11/18/18 08:59 10/31/18 10:07 Fat Emulsion Intravenous 240 ml/Amino Acids/ Electrolytes/ Dextrose 1,920 ml @ 80 mls/hr Q24H IV 10/21/18 20:00 11/20/18 19:59 11/01/18 20:07 Heparin Sodium/ Sodium Chloride (Heparin 1000 units/500ml Premix) 1,000 unit ONCE PRN IV picc line placement 10/18/18 09:45 11/17/18 09:44 Hydromorphone HCl 30 ml @ 0 mls/hr Q24H PRN IV For Pain 11/02/18 10:58 11/04/18 10:57 Hydromorphone HCl (Dilaudid) 1 mg Q3H PRN SUBQ Severe Pain (Pain Scale 7-10) 11/01/18 07:51 11/08/18 07:50 11/02/18 09:34 Insulin Aspart (NovoLOG) Q6HR SUBQ 10/22/18 00:00 11/21/18 00:00 11/01/18 23:33 Lorazepam (Ativan) 1 mg HSPRN PRN SL Sleep 10/29/18 08:15 11/05/18 08:14 Lorazepam (Ativan) 1 mg Q4H PRN SL Abdominal cramps 10/29/18 08:30 11/05/18 08:29 11/01/18 09:09 Meropenem 1 gm/ Sodium Chloride 100 ml @ 200 mls/hr Q8HR IVPB 10/30/18 22:00 11/04/18 21:59 11/02/18 05:47 Miscellaneous Medication (PNEUMATIC DRUM SANDER Rate Change) 1 ea DAILY PRN MISC rate change 11/02/18 11:00 11/04/18 10:59 Miscellaneous Medication (PNEUMATIC DRUM SANDER shift volume) 1 ea Q12HR@0700,1900 MISC 11/02/18 19:00 11/04/18 18:59 Naloxone HCl (Narcan) 0.1 mg PRN IV RR<10min OR SBP<90 mmHg OR 10/24/18 07:00 11/23/18 06:59 Ondansetron HCl (Zofran ODT) 4 mg Q6H PRN ORAL Nausea & Vomiting 11/02/18 11:15 12/02/18 11:14 Ondansetron HCl (Zofran) 4 mg Q4H PRN IVP Nausea & Vomiting 11/02/18 11:15 11/26/18 12:40 Oxycodone/ Acetaminophen (Percocet 5-325) 1 tab Q4H PRN ORAL For Pain 11/02/18 11:15 11/09/18 11:14 11/02/18 13:08 Paroxetine HCl (Paxil) 30 mg DAILY ORAL 10/22/18 09:00 11/21/18 08:59 11/02/18 09:34 Patient Own Medication (Patient's Own Med) 1 ea SuWe@0900 TDERMAL 10/28/18 14:00 11/18/18 09:01 10/31/18 10:08 Phenazopyridine HCl (Pyridium) 100 mg Q8H PRN ORAL BURNING 10/29/18 19:00 11/28/18 18:59 Phytonadione (Vitamin K) 10 mg ONCE A WEEK SUBQ 10/21/18 08:15 11/20/18 08:14 10/28/18 08:37 Prochlorperazine (Compazine) 10 mg Q6H PRN IVP Nausea & Vomiting 10/21/18 08:30 11/20/18 08:29 10/23/18 23:53 Scopolamine (TransDerm Scop 1.5mg/72HR Patch) 1.5 mg Q72H TDERMAL 11/02/18 12:00 12/02/18 11:59 11/02/18 13:08 Trazodone HCl (Desyrel) 150 mg BEDTIME ORAL 10/22/18 21:00 11/21/18 20:59 11/01/18 20:06 Vitamin A/Vitamin D (A & D Oint) 1 applic BID TOPIC 10/23/18 11:00 11/22/18 10:59 11/02/18 09:34 Bashir Lynn MD Nov 02, 2018 15:02
[2018-11-02 16:00] VITALS: BP 110/70
--- NOTE | 2018-11-02 16:20 | NUR ---
NURSE NOTES: CLINICAL MEDICAL TRANSCRIPTIONIST tubing was leaking and tubing was changed by Hannah Adames/ Reid, Charge nurse. CLINICAL MEDICAL TRANSCRIPTIONIST Dilaudid 1.6 ml was waste. Spoke to pharmacist.
--- NOTE | 2018-11-02 17:00 | NUR ---
NURSE NOTES: Dr. Kramer ordered flush PICC line with heparin today. Noted and carried out.
[2018-11-02 20:00] VITALS: BP 95/55
--- NOTE | 2018-11-02 20:08 | NUR ---
HAND-OFF: Report given to RADHA Restrepo.
--- NOTE | 2018-11-02 20:14 | NUR ---
NURSE NOTES: Verified with pharmacist, no need to put new heparin flush order. okay to use previously ordered heparin for PICC line placement.
[2018-11-02] MEDS: Dyna-Hex 2% Top Sol 2oz TOPIC SCH (20:20)
[2018-11-02] MEDS: Fat Emulsion Iv 20% 240 ML in Tpn 1,680 ML IV SCH (20:20)
[2018-11-02] MEDS: TraZODone 50mg tab ORAL SCH (21:48)
--- NOTE | 2018-11-02 23:02 | Diagnostic Imaging Report ---
APPROVED REPORT CPT Code: 50532 Present Symptoms Comments: RIGHT LEG PAIN. RIGHT LEG: Venous imaging reveals a patent deep venous system. There is no evidence of thrombus within the femoral, popliteal or tibial segments. The greater saphenous vein is also within normal limits. Doppler indicates normal spontaneous flow within these segments.
[2018-11-03] VITALS: BP 97/47
--- NOTE | 2018-11-03 02:46 | NUR ---
NURSE NOTE: Pt is A/Ox4 with stable VS. Orders reviewed and physical assessment completed. PRN pain meds given per patient request. IV fluid primary tubing was changed. Irrigation trays and bottle of NS replaced. Pt does not endorse any complaints. is at bedside. Call reynolds remains within reach and bed is low and locked. Will continue to monitor.
[2018-11-03 04:00] VITALS: BP 116/59
[2018-11-03] MEDS: NovoLOG Insulin Flexpen SUBQ SCH ×4 (05:05→23:57)
[2018-11-03] MEDS: oxyCODONE HCL/Acetaminophen 5/325mg ORAL PRN ×4 (05:42→21:22)
[2018-11-03 06:20] LABS: BASOPHILS % (AUTO) 0.6 % (0.0-2.0); EOSINOPHILS % (AUTO) 4.5 % (0.0-3.0); HEMATOCRIT 29.3 % (37.0-47.0); HEMOGLOBIN 9.5 G/DL (12.0-16.0); LYMPHOCYTES % (AUTO) 15.9 % (20.0-45.0); MEAN CORPUSCULAR VOLUME 85 FL (80-99); MONOCYTES % (AUTO) 4.8 % (1.0-10.0); NEUTROPHILS % (AUTO) 74.2 % (45.0-75.0); PLATELET COUNT 539 K/UL (150-450); RED BLOOD COUNT 3.45 M/UL (4.20-5.40); RED CELL DISTRIBUTION WIDTH 12.6 % (11.6-14.8); WHITE BLOOD COUNT 10.6 K/UL (4.8-10.8)
[2018-11-03 06:59] LABS: ANION GAP 8 mmol/L (5-15); BLOOD UREA NITROGEN 12 mg/dL (7-18); CALCIUM 9.2 MG/DL (8.5-10.1); CARBON DIOXIDE 27 MMOL/L (21-32); CHLORIDE 104 MMOL/L (98-107); CREATININE 0.8 MG/DL (0.55-1.30); POTASSIUM 3.9 MMOL/L (3.5-5.1); SODIUM 139 MMOL/L (136-145)
--- NOTE | 2018-11-03 07:15 | NUR ---
NURSE NOTES: Report received from Shobha RN/Lauro RN, rounds made. Patient sleeping in semi-fowlers position in bed, awakens to name/touch. No distress on RA. TEO PICC dressing CDI, site asymptomatic. Reinforced NPO status (except ice/meds). IVF (D5 1/4 NS + 20KCL at 50 ml/hr) and TPN at 80 ml/hr, NURSE EDUCATOR (Dilaudid) in place. Abdominal hernando intact, no redness/swelling, dressing to right ileostomy (light green output in tubing to intermittent suction) and left GT (light clear yellow drainage to tubing), CDI. Right Uresil drainage bag intact, light serosanguineous fluid to tubing. Voids on BSC. Bilateral SCDs off. Spouse at bedside. Call light in reach, bed in lowest position, will continue to monitor.
[2018-11-03] MEDS: PCA shift volume MISC SCH (07:25)
--- NOTE | 2018-11-03 07:44 | NUR ---
hAND OFF: Report given to Kathryn. Pt is stable. Endorsed that PICC line dressing was changed on 11/03/2016 at approx 0545.
[2018-11-03 08:00] VITALS: BP 106/64
[2018-11-03] MEDS: D5 1/4NS w/KCl 20mEq 1,000 ML IV SCH ×2 (08:00→18:06)
--- NOTE | 2018-11-03 09:18 | General Progress Note ---
Progress Note Progress Note AVSS Feeling okay. Abdomen soft, hernando removed and steristrips applied. 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
[2018-11-03] MEDS ORDERED: clonazePAM 0.5mg tab ORAL PRN (09:21)
[2018-11-03] MEDS: Vitamin A&D Oint 2oz Tube TOPIC SCH ×2 (09:48→18:04)
[2018-11-03] MEDS: PARoxetine 10mg tab ORAL SCH (09:48)
[2018-11-03 12:00] VITALS: BP 117/78
--- NOTE | 2018-11-03 14:57 | Infectious Diseases Prog Note ---
Assessment/Plan Assessment/Plan ASSESSMENT AND PLAN: 1. pelvic abscess on CT, s/p drain, ? sepsis, leukocytosis and fevers, possible pna - continue meropenem - day # 5 - cultures negative (patient on zosyn prior to CT drainage cultures) - monitor labs - leukocytosis and fevers resolved - continue per Dr. Kramer and Dr. Lynn 2. 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 3. Anemia. 4. The patient has history of multiple abdominal surgeries. 5. History of pelvic floor dysfunction, colonic inertia, and history of endometriosis. 6. History of hysterectomy. 7. History of cholecystectomy. 8. Allergies to codeine and morphine. 9. Social history is negative. 10. Family history is noncontributory. 11. MAR was noted. 12. Case was discussed with RN. 13. Case was discussed with Dr. Kramer. 14. Continue treatment per primary consultants. Subjective Constitutional: Denies: fever HEENT: Denies: congestion Respiratory: Denies: shortness of breath Cardiovascular: Denies: chest pain Gastrointestinal/Abdominal: Denies: nausea, vomiting Genitourinary: Reports: other - no juarez Neurologic: Denies: headache Psychiatric: Denies: depression Skin: Denies: rash Hematologic: Denies: bleeding Musculoskeletal: Denies: pain Allergies: Coded Allergies: CODEINE (Verified Adverse Reaction, Severe, Itching, 10/18/18) MORPHINE (Verified Adverse Reaction, Severe, Itching, 10/18/18) sever itching to the point scratches self till bleeding. Objective Vital Signs Last 24 Hour Vital Signs Date Time Temp Pulse Resp B/P (MAP) Pulse Ox O2 Delivery O2 Flow Rate FiO2 11/03/18 08:00 18 11/03/18 08:00 98.4 84 15 106/64 (78) 97 11/03/18 05:00 18 11/03/18 04:00 18 11/03/18 04:00 98.6 77 20 116/59 (78) 96 11/03/18 00:00 98.3 86 18 97/47 (64) 94 11/03/18 00:00 18 11/02/18 21:00 Room Air 11/02/18 20:00 98.3 84 20 95/55 (68) 97 11/02/18 20:00 20 11/02/18 16:00 98.3 84 16 110/70 (83) 99 11/02/18 16:00 16 Height (Feet): 5 Height (Inches): 6.00 Weight (Pounds): 189 General Appearance: no acute distress HEENT: normocephalic, atraumatic, anicteric, mucous membranes moist Respiratory/Chest: lungs clear, normal breath sounds, no respiratory distress, respiratory distress Cardiovascular: normal rate, regular rhythm, no gallop/murmur, no JVD Abdomen: normal bowel sounds, soft, non tender, no organomegaly, non distended Genitourinary: other - no juarez Extremities: no cyanosis Skin: no rash Neurologic/Psychiatric: pricing consultant II-XII grossly normal, 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 Status post total colectomy with associated postoperative appearance and two organized, rim-enhancing collections in the pelvis as described above. 2. Additional possible left lower quadrant collection which appears indistinguishable from adjacent loops may represent additional collection, but anastomotic leak cannot be excluded on this examination. Microbiology Date/Time Source Procedure Growth Status 10/29/18 15:30 Blood Blood Culture - Preliminary NO GROWTH AFTER 4 DAYS Resulted 10/30/18 14:10 Peritoneal Fluid Gram Stain - Final Resulted 10/30/18 14:10 Peritoneal Fluid Body Fluid Culture - Preliminary NO GROWTH AFTER 72 HOURS Resulted 10/30/18 18:10 Urine,Clean Catch Urine Culture - Final NO GROWTH AFTER 48 HOURS Complete Laboratory Tests Test 11/03/18 05:00 White Blood Count 10.6 K/UL (4.8-10.8) Red Blood Count 3.45 M/UL (4.20-5.40) L Hemoglobin 9.5 G/DL (12.0-16.0) L Hematocrit 29.3 % (37.0-47.0) L Mean Corpuscular Volume 85 FL (80-99) Mean Corpuscular Hemoglobin 27.5 PG (27.0-31.0) Mean Corpuscular Hemoglobin Concent 32.4 G/DL (32.0-36.0) Red Cell Distribution Width 12.6 % (11.6-14.8) Platelet Count 539 K/UL (150-450) H Mean Platelet Volume 5.8 FL (6.5-10.1) L Neutrophils (%) (Auto) 74.2 % (45.0-75.0) Lymphocytes (%) (Auto) 15.9 % (20.0-45.0) L Monocytes (%) (Auto) 4.8 % (1.0-10.0) Eosinophils (%) (Auto) 4.5 % (0.0-3.0) H Basophils (%) (Auto) 0.6 % (0.0-2.0) Sodium Level 139 MMOL/L (136-145) Potassium Level 3.9 MMOL/L (3.5-5.1) Chloride Level 104 MMOL/L (98-107) Carbon Dioxide Level 27 MMOL/L (21-32) Anion Gap 8 mmol/L (5-15) Blood Urea Nitrogen 12 mg/dL (7-18) Creatinine 0.8 MG/DL (0.55-1.30) Estimat Glomerular Filtration Rate > 60 mL/min (>60) Glucose Level 96 MG/DL (74-106) Calcium Level 9.2 MG/DL (8.5-10.1) Current Medications Medications (Trade) Dose Ordered Sig/Ld Route PRN Reason Start Time Stop Time Status Last Admin Dose Admin Acetaminophen (Tylenol) 1,000 mg Q4H PRN ORAL temp>100.2 or headache 10/19/18 16:00 11/18/18 15:59 10/29/18 16:32 Chlorhexidine Gluconate (Ana Rosa-Hex 2%) 1 applic DAILY@2000 TOPIC 10/18/18 20:00 11/17/18 19:59 11/02/18 20:20 Clonazepam (KlonoPIN) 0.5 mg Q8H PRN ORAL For Anxiety 11/03/18 09:21 11/10/18 09:20 Dextrose 1,000 ml @ 0 mls/hr Q24H PRN IV PN interrupted or unavailable 10/21/18 20:00 11/20/18 19:59 Dextrose (Dextrose 50%) 25 ml Q30M PRN IV Hypoglycemia 10/21/18 08:15 11/20/18 08:14 Dextrose (Dextrose 50%) 50 ml Q30M PRN IV Hypoglycemia 10/21/18 08:15 11/20/18 08:14 Dextrose/ Electrolytes 1,000 ml @ 50 mls/hr Q20H IV 10/21/18 20:00 11/20/18 19:59 11/01/18 18:22 Diphenhydramine HCl (Benadryl) 25 mg Q6H PRN IVP Itching/Pruritis 10/27/18 12:41 11/26/18 12:40 10/29/18 18:25 Estradiol (Estrace) 1 applic THREE TIMES A WEEK VAGIN 10/19/18 09:00 11/18/18 08:59 10/31/18 10:07 Fat Emulsion Intravenous 240 ml/Amino Acids/ Electrolytes/ Dextrose 1,920 ml @ 80 mls/hr Q24H IV 10/21/18 20:00 11/20/18 19:59 11/02/18 20:20 Heparin Sodium/ Sodium Chloride (Heparin 1000 units/500ml Premix) 1,000 unit ONCE PRN IV picc line placement 10/18/18 09:45 11/17/18 09:44 Hydromorphone HCl (Dilaudid) 1 mg Q3H PRN SUBQ Severe Pain (Pain Scale 7-10) 11/01/18 07:51 11/08/18 07:50 11/02/18 09:34 Insulin Aspart (NovoLOG) Q6HR SUBQ 10/22/18 00:00 11/21/18 00:00 11/01/18 23:33 Lorazepam (Ativan) 1 mg HSPRN PRN SL Sleep 11/03/18 21:00 11/10/18 20:59 Lorazepam (Ativan) 1 mg Q4H PRN SL Abdominal cramps 11/03/18 09:22 11/10/18 09:21 Meropenem 1 gm/ Sodium Chloride 100 ml @ 200 mls/hr Q8HR IVPB 10/30/18 22:00 11/04/18 21:59 11/03/18 14:47 Naloxone HCl (Narcan) 0.1 mg PRN IV RR<10min OR SBP<90 mmHg OR 10/24/18 07:00 11/23/18 06:59 Ondansetron HCl (Zofran ODT) 4 mg Q6H PRN ORAL Nausea & Vomiting 11/02/18 11:15 12/02/18 11:14 Ondansetron HCl (Zofran) 4 mg Q4H PRN IVP Nausea & Vomiting 11/02/18 11:15 11/26/18 12:40 Oxycodone/ Acetaminophen (Percocet 5-325) 1 tab Q4H PRN ORAL For Pain 11/02/18 11:15 11/09/18 11:14 11/03/18 10:01 Paroxetine HCl (Paxil) 30 mg DAILY ORAL 10/22/18 09:00 11/21/18 08:59 11/03/18 09:48 Patient Own Medication (Patient's Own Med) 1 ea SuWe@0900 TDERMAL 10/28/18 14:00 11/18/18 09:01 10/31/18 10:08 Phenazopyridine HCl (Pyridium) 100 mg Q8H PRN ORAL BURNING 10/29/18 19:00 11/28/18 18:59 Phytonadione (Vitamin K) 10 mg ONCE A WEEK SUBQ 10/21/18 08:15 11/20/18 08:14 10/28/18 08:37 Prochlorperazine (Compazine) 10 mg Q6H PRN IVP Nausea & Vomiting 10/21/18 08:30 11/20/18 08:29 10/23/18 23:53 Scopolamine (TransDerm Scop 1.5mg/72HR Patch) 1.5 mg Q72H TDERMAL 11/02/18 12:00 12/02/18 11:59 11/02/18 13:08 Trazodone HCl (Desyrel) 150 mg BEDTIME ORAL 10/22/18 21:00 11/21/18 20:59 11/02/18 21:48 Vitamin A/Vitamin D (A & D Oint) 1 applic BID TOPIC 10/23/18 11:00 11/22/18 10:59 11/03/18 09:48 Yoshi Quintana MD Nov 03, 2018 14:57
--- NOTE | 2018-11-03 15:00 | NUR ---
NURSE NOTES: Uresil drain discontinued by Dr. Kramer at 0910, no output noted in bag, light serosanguineous fluid noted in tubing and suction compartment. 4x4 gauze with paper tape in place, intact, small area/shadow drainage noted, outlined. Will continue to monitor. Will endorse to next shift.
[2018-11-03 16:00] VITALS: BP 112/71
--- NOTE | 2018-11-03 16:00 | NUR ---
NURSE NOTES: GT clamped for 30 minutes when PO medications given, no distress noted during clamp time, unclamped and resumed drainage to gravity without difficulty.
[2018-11-03] MEDS ORDERED: NS Irrig 1000ml ONE (17:27)
--- NOTE | 2018-11-03 19:35 | NUR ---
HAND-OFF: Report given to Shobha GARCIA/Lauro GARCIA. Outputs: Urine/Voids: 2300 ml True Ileostomy: 720 ml Gastrostomy: 370 ml
[2018-11-03 20:00] VITALS: BP 92/67
--- NOTE | 2018-11-03 20:11 | Pulmonology Progress Note ---
Assessment/Plan Assessment/Plan Status post repair of ileostomy. Pneumonia, resolved Atelectasis abd abscess, s/p drainage lungs with atelectasis on CT CT with abd abscess, drained via R buttock culture neg so far abx per ID WBC normal increase activity, up to chair Subjective Constitutional: Reports: no symptoms HEENT: Repors: no symptoms Cardiovascular: Reports: no symptoms Gastrointestinal/Abdominal: Reports: no symptoms Genitourinary: Reports: no symptoms Neurologic: Reports: no symptoms Allergies: Coded Allergies: CODEINE (Verified Adverse Reaction, Severe, Itching, 10/18/18) MORPHINE (Verified Adverse Reaction, Severe, Itching, 10/18/18) sever itching to the point scratches self till bleeding. Subjective doing well pain controlled npo, tpn and ice chips oob no nv this afternoon Objective Last 24 Hour Vital Signs Date Time Temp Pulse Resp B/P (MAP) Pulse Ox O2 Delivery O2 Flow Rate FiO2 11/03/18 16:00 97.9 83 17 112/71 (85) 99 11/03/18 12:00 98.0 81 17 117/78 (91) 97 11/03/18 09:00 Room Air 11/03/18 08:00 18 11/03/18 08:00 98.4 84 15 106/64 (78) 97 11/03/18 05:00 18 11/03/18 04:00 18 11/03/18 04:00 98.6 77 20 116/59 (78) 96 11/03/18 00:00 98.3 86 18 97/47 (64) 94 11/03/18 00:00 18 11/02/18 21:00 Room Air Intake and Output 11/02/18 11/03/18 18:59 06:59 Intake Total 1470 ml 730 ml Output Total 1880 ml 1480 ml Balance -410 ml -750 ml IV Total 1460 ml 720 ml Other 10 ml 10 ml Output Urine Total 1050 ml 1300 ml Drainage Total 10 ml 10 ml Other 820 ml 170 ml General Appearance: WD/WN Respiratory/Chest: lungs clear Cardiovascular: normal rate, regular rhythm Abdomen: tender Skin: no rash Neurologic/Psychiatric: alert, oriented x 3, responsive Laboratory Tests 11/03/18 05:00: White Blood Count 10.6, Red Blood Count 3.45L, Hemoglobin 9.5L, Hematocrit 29.3L , Mean Corpuscular Volume 85, Mean Corpuscular Hemoglobin 27.5, Mean Corpuscular Hemoglobin Concent 32.4, Red Cell Distribution Width 12.6, Platelet Count 539H, Mean Platelet Volume 5.8L, Neutrophils (%) (Auto) 74.2, Lymphocytes (%) (Auto) 15.9L, Monocytes (%) (Auto) 4.8, Eosinophils (%) (Auto) 4.5H, Basophils (%) (Auto) 0.6, Sodium Level 139, Potassium Level 3.9, Chloride Level 104, Carbon Dioxide Level 27, Anion Gap 8, Blood Urea Nitrogen 12, Creatinine 0.8, Estimat Glomerular Filtration Rate > 60, Glucose Level 96, Calcium Level 9.2 Current Medications Medications (Trade) Dose Ordered Sig/Ld Route PRN Reason Start Time Stop Time Status Last Admin Dose Admin Acetaminophen (Tylenol) 1,000 mg Q4H PRN ORAL temp>100.2 or headache 10/19/18 16:00 11/18/18 15:59 10/29/18 16:32 Chlorhexidine Gluconate (Ana Rosa-Hex 2%) 1 applic DAILY@2000 TOPIC 10/18/18 20:00 11/17/18 19:59 11/02/18 20:20 Clonazepam (KlonoPIN) 0.5 mg Q8H PRN ORAL For Anxiety 11/03/18 09:21 11/10/18 09:20 Dextrose 1,000 ml @ 0 mls/hr Q24H PRN IV PN interrupted or unavailable 10/21/18 20:00 11/20/18 19:59 Dextrose (Dextrose 50%) 25 ml Q30M PRN IV Hypoglycemia 10/21/18 08:15 11/20/18 08:14 Dextrose (Dextrose 50%) 50 ml Q30M PRN IV Hypoglycemia 10/21/18 08:15 11/20/18 08:14 Dextrose/ Electrolytes 1,000 ml @ 50 mls/hr Q20H IV 10/21/18 20:00 11/20/18 19:59 11/03/18 18:06 Diphenhydramine HCl (Benadryl) 25 mg Q6H PRN IVP Itching/Pruritis 10/27/18 12:41 11/26/18 12:40 10/29/18 18:25 Estradiol (Estrace) 1 applic THREE TIMES A WEEK VAGIN 10/19/18 09:00 11/18/18 08:59 10/31/18 10:07 Fat Emulsion Intravenous 240 ml/Amino Acids/ Electrolytes/ Dextrose 1,920 ml @ 80 mls/hr Q24H IV 10/21/18 20:00 11/20/18 19:59 11/02/18 20:20 Hydromorphone HCl (Dilaudid) 1 mg Q3H PRN SUBQ Severe Pain (Pain Scale 7-10) 11/01/18 07:51 11/08/18 07:50 11/02/18 09:34 Insulin Aspart (NovoLOG) Q6HR SUBQ 10/22/18 00:00 11/21/18 00:00 11/01/18 23:33 Lorazepam (Ativan) 1 mg HSPRN PRN SL Sleep 11/03/18 21:00 11/10/18 20:59 Lorazepam (Ativan) 1 mg Q4H PRN SL Abdominal cramps 11/03/18 09:22 11/10/18 09:21 Meropenem 1 gm/ Sodium Chloride 100 ml @ 200 mls/hr Q8HR IVPB 11/03/18 22:00 11/08/18 21:59 Naloxone HCl (Narcan) 0.1 mg PRN IV RR<10min OR SBP<90 mmHg OR 10/24/18 07:00 11/23/18 06:59 Ondansetron HCl (Zofran ODT) 4 mg Q6H PRN ORAL Nausea & Vomiting 11/02/18 11:15 12/02/18 11:14 Ondansetron HCl (Zofran) 4 mg Q4H PRN IVP Nausea & Vomiting 11/02/18 11:15 11/26/18 12:40 Oxycodone/ Acetaminophen (Percocet 5-325) 1 tab Q4H PRN ORAL For Pain 11/02/18 11:15 11/09/18 11:14 11/03/18 14:57 Paroxetine HCl (Paxil) 30 mg DAILY ORAL 10/22/18 09:00 11/21/18 08:59 11/03/18 09:48 Patient Own Medication (Patient's Own Med) 1 ea SuWe@0900 TDERMAL 10/28/18 14:00 9/1/19 09:01 10/31/18 10:08 Phenazopyridine HCl (Pyridium) 100 mg Q8H PRN ORAL BURNING 10/29/18 19:00 11/28/18 18:59 Phytonadione (Vitamin K) 10 mg ONCE A WEEK SUBQ 10/21/18 08:15 11/20/18 08:14 10/28/18 08:37 Prochlorperazine (Compazine) 10 mg Q6H PRN IVP Nausea & Vomiting 10/21/18 08:30 11/20/18 08:29 10/23/18 23:53 Scopolamine (TransDerm Scop 1.5mg/72HR Patch) 1.5 mg Q72H TDERMAL 11/02/18 12:00 12/02/18 11:59 11/02/18 13:08 Trazodone HCl (Desyrel) 150 mg BEDTIME ORAL 10/22/18 21:00 11/21/18 20:59 11/02/18 21:48 Vitamin A/Vitamin D (A & D Oint) 1 applic BID TOPIC 10/23/18 11:00 11/22/18 10:59 11/03/18 18:04 Susannah Velazquez DO Nov 03, 2018 20:11
[2018-11-03] MEDS ORDERED: Cathflo Alteplase 2mg Inj INJ ONE (20:15)
[2018-11-03] MEDS ORDERED: LORazepam 1mg tab SL PRN (21:00)
[2018-11-03] MEDS: Fat Emulsion Iv 20% 240 ML in Tpn 1,680 ML IV SCH (21:25)
[2018-11-03] MEDS: Dyna-Hex 2% Top Sol 2oz TOPIC SCH (21:36)
[2018-11-03] MEDS: TraZODone 50mg tab ORAL SCH (22:26)
[2018-11-04] VITALS: BP 109/68
--- NOTE | 2018-11-04 03:16 | NUR ---
NURSE NOTE: Pt is A/Ox4 with stable VS. Orders reviewed and physical assessment completed. Due to a sluggish flow and reoccurring errors with the IV pump related to occlusion, 2mg IV push Alteplase was ordered and administered in each lumen of the PICC line. Alteplase was allowed to sit in lines for 30 mins then was removed. IV fluids/TPN restarted without complications. Bed is low and locked and call reynolds remains within reach. is at the bedside. Will continue to monitor.
[2018-11-04 04:00] VITALS: BP 125/67
[2018-11-04 04:38] LABS: BASOPHILS % (AUTO) 0.4 % (0.0-2.0); EOSINOPHILS % (AUTO) 4.4 % (0.0-3.0); HEMATOCRIT 31.7 % (37.0-47.0); HEMOGLOBIN 10.2 G/DL (12.0-16.0); LYMPHOCYTES % (AUTO) 18.5 % (20.0-45.0); MEAN CORPUSCULAR VOLUME 85 FL (80-99); MONOCYTES % (AUTO) 5.4 % (1.0-10.0); NEUTROPHILS % (AUTO) 71.4 % (45.0-75.0); PLATELET COUNT 615 K/UL (150-450); RED BLOOD COUNT 3.74 M/UL (4.20-5.40); RED CELL DISTRIBUTION WIDTH 12.7 % (11.6-14.8); WHITE BLOOD COUNT 11.2 K/UL (4.8-10.8)
[2018-11-04 04:47] LABS: ANION GAP 8 mmol/L (5-15); BLOOD UREA NITROGEN 14 mg/dL (7-18); CALCIUM 9.3 MG/DL (8.5-10.1); CARBON DIOXIDE 27 MMOL/L (21-32); CHLORIDE 104 MMOL/L (98-107); CREATININE 0.7 MG/DL (0.55-1.30); POTASSIUM 3.7 MMOL/L (3.5-5.1); SODIUM 139 MMOL/L (136-145)
[2018-11-04] MEDS: NovoLOG Insulin Flexpen SUBQ SCH ×3 (05:35→18:00)
--- NOTE | 2018-11-04 07:00 | NUR ---
NURSE NOTES: Report received from Shobha RN/Lauro RN, rounds made. Patient sleeping in semi-fowlers position in bed. No distress on RA. TEO PICC dressing CDI, site asymptomatic. NPO status (except ice/meds). IVF (D5 1/4 NS + 20KCL at 50 ml/hr) and TPN at 80 ml/hr. Right ileostomy (dark green output noted to intermittent suction) and left GT (light clear yellow to drainage bag). Bilateral SCDs off. Spouse at bedside. Call light in reach, bed in lowest position, will continue to monitor.
--- NOTE | 2018-11-04 07:28 | NUR ---
HAND-OFF: Report given to valery Peralta is stable.
[2018-11-04 08:00] VITALS: BP 100/66
[2018-11-04] MEDS: Phytonadione 10 mg/mL 1ml amp SUBQ SCH (08:38)
[2018-11-04] MEDS: oxyCODONE HCL/Acetaminophen 5/325mg ORAL PRN ×3 (08:39→18:15)
[2018-11-04] MEDS: PARoxetine 10mg tab ORAL SCH (08:40)
[2018-11-04] MEDS: Vitamin A&D Oint 2oz Tube TOPIC SCH ×2 (08:40→18:15)
--- NOTE | 2018-11-04 10:26 | General Progress Note ---
Progress Note Progress Note AVSS Feeling okay with much less pain since drain removed ABdomen soft, non-distended. 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
[2018-11-04 12:00] VITALS: BP 105/60
--- NOTE | 2018-11-04 12:46 | Infectious Diseases Prog Note ---
Assessment/Plan Assessment/Plan ASSESSMENT AND PLAN: 1. pelvic abscess on CT, s/p drain, ? sepsis, leukocytosis and fevers, possible pna - continue meropenem - day # 6 - cultures negative - monitor labs - fevers resolved, monitor mild leukocytosis - continue per Dr. Kramer and Dr. Lynn 2. 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 3. Anemia. 4. The patient has history of multiple abdominal surgeries. 5. History of pelvic floor dysfunction, colonic inertia, and history of endometriosis. 6. History of hysterectomy. 7. History of cholecystectomy. 8. Allergies to codeine and morphine. 9. Social history is negative. 10. Family history is noncontributory. 11. MAR was noted. 12. Case was discussed with RN. 13. Case was discussed with Dr. Kramer. 14. Continue treatment per primary consultants. Subjective Constitutional: Denies: fever HEENT: Denies: congestion Respiratory: Denies: shortness of breath Cardiovascular: Denies: chest pain Gastrointestinal/Abdominal: Denies: nausea, vomiting Allergies: Coded Allergies: CODEINE (Verified Adverse Reaction, Severe, Itching, 10/18/18) MORPHINE (Verified Adverse Reaction, Severe, Itching, 10/18/18) sever itching to the point scratches self till bleeding. Objective Vital Signs Last 24 Hour Vital Signs Date Time Temp Pulse Resp B/P (MAP) Pulse Ox O2 Delivery O2 Flow Rate FiO2 11/04/18 08:00 98.2 73 20 100/66 (77) 97 11/04/18 04:00 98.8 85 16 125/67 (86) 99 11/04/18 00:00 98.4 77 16 109/68 (82) 99 11/03/18 21:00 Room Air 11/03/18 20:00 98.2 88 18 92/67 (75) 99 11/03/18 16:00 97.9 83 17 112/71 (85) 99 Height (Feet): 5 Height (Inches): 6.00 Weight (Pounds): 189 General Appearance: no acute distress HEENT: normocephalic, atraumatic, anicteric Respiratory/Chest: no respiratory distress, no accessory muscle use Cardiovascular: normal rate, regular rhythm Abdomen: normal bowel sounds, soft, non tender, no organomegaly Objective CT abdomen and pelvis: IMPRESSION: 1. Status post total colectomy with associated postoperative appearance and two organized, rim-enhancing collections in the pelvis as described above. 2. Additional possible left lower quadrant collection which appears indistinguishable from adjacent loops may represent additional collection, but anastomotic leak cannot be excluded on this examination. Laboratory Tests Test 11/04/18 04:00 White Blood Count 11.2 K/UL (4.8-10.8) H Red Blood Count 3.74 M/UL (4.20-5.40) L Hemoglobin 10.2 G/DL (12.0-16.0) L Hematocrit 31.7 % (37.0-47.0) L Mean Corpuscular Volume 85 FL (80-99) Mean Corpuscular Hemoglobin 27.3 PG (27.0-31.0) Mean Corpuscular Hemoglobin Concent 32.3 G/DL (32.0-36.0) Red Cell Distribution Width 12.7 % (11.6-14.8) Platelet Count 615 K/UL (150-450) H Mean Platelet Volume 5.8 FL (6.5-10.1) L Neutrophils (%) (Auto) 71.4 % (45.0-75.0) Lymphocytes (%) (Auto) 18.5 % (20.0-45.0) L Monocytes (%) (Auto) 5.4 % (1.0-10.0) Eosinophils (%) (Auto) 4.4 % (0.0-3.0) H Basophils (%) (Auto) 0.4 % (0.0-2.0) Sodium Level 139 MMOL/L (136-145) Potassium Level 3.7 MMOL/L (3.5-5.1) Chloride Level 104 MMOL/L (98-107) Carbon Dioxide Level 27 MMOL/L (21-32) Anion Gap 8 mmol/L (5-15) Blood Urea Nitrogen 14 mg/dL (7-18) Creatinine 0.7 MG/DL (0.55-1.30) Estimat Glomerular Filtration Rate > 60 mL/min (>60) Glucose Level 101 MG/DL (74-106) Calcium Level 9.3 MG/DL (8.5-10.1) Current Medications Medications (Trade) Dose Ordered Sig/Ld Route PRN Reason Start Time Stop Time Status Last Admin Dose Admin Acetaminophen (Tylenol) 1,000 mg Q4H PRN ORAL temp>100.2 or headache 10/19/18 16:00 11/18/18 15:59 10/29/18 16:32 Chlorhexidine Gluconate (Ana Rosa-Hex 2%) 1 applic DAILY@2000 TOPIC 10/18/18 20:00 11/17/18 19:59 11/03/18 21:36 Clonazepam (KlonoPIN) 0.5 mg Q8H PRN ORAL For Anxiety 11/03/18 09:21 11/10/18 09:20 Dextrose 1,000 ml @ 0 mls/hr Q24H PRN IV PN interrupted or unavailable 10/21/18 20:00 11/20/18 19:59 Dextrose (Dextrose 50%) 25 ml Q30M PRN IV Hypoglycemia 10/21/18 08:15 11/20/18 08:14 Dextrose (Dextrose 50%) 50 ml Q30M PRN IV Hypoglycemia 10/21/18 08:15 11/20/18 08:14 Dextrose/ Electrolytes 1,000 ml @ 50 mls/hr Q20H IV 10/21/18 20:00 11/20/18 19:59 11/03/18 18:06 Diphenhydramine HCl (Benadryl) 25 mg Q6H PRN IVP Itching/Pruritis 10/27/18 12:41 11/26/18 12:40 10/29/18 18:25 Estradiol (Estrace) 1 applic THREE TIMES A WEEK VAGIN 10/19/18 09:00 11/18/18 08:59 10/31/18 10:07 Fat Emulsion Intravenous 240 ml/Amino Acids/ Electrolytes/ Dextrose 1,920 ml @ 80 mls/hr Q24H IV 10/21/18 20:00 11/20/18 19:59 11/03/18 21:25 Hydromorphone HCl (Dilaudid) 1 mg Q3H PRN SUBQ Severe Pain (Pain Scale 7-10) 11/01/18 07:51 11/08/18 07:50 11/02/18 09:34 Insulin Aspart (NovoLOG) Q6HR SUBQ 10/22/18 00:00 11/21/18 00:00 11/03/18 23:57 Lorazepam (Ativan) 1 mg HSPRN PRN SL Sleep 11/03/18 21:00 11/10/18 20:59 Lorazepam (Ativan) 1 mg Q4H PRN SL Abdominal cramps 11/03/18 09:22 11/10/18 09:21 Meropenem 1 gm/ Sodium Chloride 100 ml @ 200 mls/hr Q8HR IVPB 11/03/18 22:00 11/08/18 21:59 11/04/18 05:36 Naloxone HCl (Narcan) 0.1 mg PRN IV RR<10min OR SBP<90 mmHg OR 10/24/18 07:00 11/23/18 06:59 Ondansetron HCl (Zofran ODT) 4 mg Q6H PRN ORAL Nausea & Vomiting 11/02/18 11:15 12/02/18 11:14 Ondansetron HCl (Zofran) 4 mg Q4H PRN IVP Nausea & Vomiting 11/02/18 11:15 11/26/18 12:40 Oxycodone/ Acetaminophen (Percocet 5-325) 1 tab Q4H PRN ORAL For Pain 11/02/18 11:15 11/09/18 11:14 11/04/18 08:39 Paroxetine HCl (Paxil) 30 mg DAILY ORAL 10/22/18 09:00 11/21/18 08:59 11/04/18 08:40 Patient Own Medication (Patient's Own Med) 1 ea SuWe@0900 TDERMAL 10/28/18 14:00 11/18/18 09:01 11/04/18 09:08 Phenazopyridine HCl (Pyridium) 100 mg Q8H PRN ORAL BURNING 10/29/18 19:00 11/28/18 18:59 Phytonadione (Vitamin K) 10 mg ONCE A WEEK SUBQ 10/21/18 08:15 11/20/18 08:14 11/04/18 08:38 Prochlorperazine (Compazine) 10 mg Q6H PRN IVP Nausea & Vomiting 10/21/18 08:30 11/20/18 08:29 10/23/18 23:53 Scopolamine (TransDerm Scop 1.5mg/72HR Patch) 1.5 mg Q72H TDERMAL 11/02/18 12:00 12/02/18 11:59 11/02/18 13:08 Trazodone HCl (Desyrel) 150 mg BEDTIME ORAL 10/22/18 21:00 11/21/18 20:59 11/03/18 22:26 Vitamin A/Vitamin D (A & D Oint) 1 applic BID TOPIC 10/23/18 11:00 11/22/18 10:59 11/04/18 08:40 Yoshi Quintana MD Nov 04, 2018 12:46
--- NOTE | 2018-11-04 13:25 | NUR ---
RD ASSESSMENT & RECOMMENDATIONS SEE CARE ACTIVITY FOR COMPLETE ASSESSMENT DAILY ESTIMATED NEEDS: Needs based on Surgery 65.7kg adj 25-30 kcals/kg total kcals 1.2-2 g protein/kg 79-131 g total protein 25-30 mL/kg total fluid mLs NUTRITION DIAGNOSIS: Altered GI fxn r/t h/o pelvic floor dysfunction and colonic inertia as evidenced by pt w/ history of multiple abdominal operations including ileo + colostomy, now s/p BCIR, w/ ileus, on TPN, diet now back to NPO status. PARENTERAL NUTRITION RECOMMENDATIONS: D/AA Rate: 70 IL Rate: 10 Total Rate: 80 Volume: 1920 % Dextrose: 18 % AA: 5.5 Energy (kcals/kg): 1878 Protein (g/kg protein): 92 Nonprotein KCALS: 1508 GIR (mg CHO/kg/min): 3.1 % Fat KCALS: 25.6 NCP: N Ratio: 102:1 TPN Comment: - Rosamaria current TPN at goal D18% + AA 5.5% @70 w/ IL 20% @10ml-> all 3:1. - TPN at goal meets 100% est needs, provides 1878 kcal (28 kcal/adj kg), 92g pro (1.4g/ adj kg). * Added D5 @50 provides additional 204 kcal, 60g dextrose per day. ADDITIONAL RECOMMENDATIONS: * Monitor NPO status, diet per MD * Check lytes, BG daily (added D5) * Monitor LFT's * Weekly standing weights
[2018-11-04 16:00] VITALS: BP 127/66
[2018-11-04] MEDS: D5 1/4NS w/KCl 20mEq 1,000 ML IV SCH (18:22)
--- NOTE | 2018-11-04 18:30 | NUR ---
NURSE NOTES: Patient up ambulating in halls twice this shift (1300 and 1800). Ileostomy connected to drainage bag and GT clamped for 30 minutes due to Percocet taken prior. Gait steady, no dizziness, weakness or NV reported. Encouraged CDB throughout shift, while using pillow to abdomen as splint, verbalized understanding.
--- NOTE | 2018-11-04 19:25 | NUR ---
HAND-OFF: Report given to Lauro GARCIA. Outputs: Urine:775 ml Ileostomy:670 ml Gastrostomy:270 ml
--- NOTE | 2018-11-04 19:30 | NUR ---
NURSE NOTES: Pt lying in bed w/bed in lowest position and call light within reach. Pt A&Ox4, VSS, and in no apparent distress at this time. TEO PICC line intact/asymptomatic w/IVF & TPN infusing; GT to drainage bag; ileo to mod/int suction; and dressing C/D/I. Pt state she would like to go on a walk a little later. Will continue to monitor.
[2018-11-04 20:00] VITALS: BP 109/60
[2018-11-04] MEDS: Fat Emulsion Iv 20% 240 ML in Tpn 1,680 ML IV SCH (20:35)
--- NOTE | 2018-11-04 20:35 | Pulmonology Progress Note ---
Assessment/Plan Assessment/Plan Status post repair of ileostomy. Pneumonia, resolved Atelectasis abd abscess, s/p drainage better still npo wound care lytes ok culture neg so far abx per ID WBC normal increase activity, up to chair Subjective Constitutional: Reports: no symptoms HEENT: Repors: no symptoms Respiratory: Reports: no symptoms Cardiovascular: Reports: no symptoms Gastrointestinal/Abdominal: Reports: no symptoms Allergies: Coded Allergies: CODEINE (Verified Adverse Reaction, Severe, Itching, 10/18/18) MORPHINE (Verified Adverse Reaction, Severe, Itching, 10/18/18) sever itching to the point scratches self till bleeding. Subjective doing well pain controlled npo, tpn and ice chips oob no nv this afternoon Objective Last 24 Hour Vital Signs Date Time Temp Pulse Resp B/P (MAP) Pulse Ox O2 Delivery O2 Flow Rate FiO2 11/04/18 16:00 98.1 105 21 127/66 (86) 97 11/04/18 12:00 97.1 60 20 105/60 (75) 100 11/04/18 09:00 Room Air 11/04/18 08:00 98.2 73 20 100/66 (77) 97 11/04/18 04:00 98.8 85 16 125/67 (86) 99 11/04/18 00:00 98.4 77 16 109/68 (82) 99 11/03/18 21:00 Room Air Intake and Output 11/03/18 11/04/18 19:00 07:00 Intake Total 1010 ml 1350 ml Output Total 3390 ml 1740 ml Balance -2380 ml -390 ml IV Total 1010 ml 1350 ml Other 0 ml Output Urine Total 2300 ml 950 ml Other 1090 ml 790 ml General Appearance: WD/WN Respiratory/Chest: lungs clear, normal breath sounds Cardiovascular: normal rate, regular rhythm Abdomen: soft, non tender, no organomegaly, non distended Extremities: no cyanosis Neurologic/Psychiatric: alert, oriented x 3, responsive Laboratory Tests 11/04/18 04:00: White Blood Count 11.2H, Red Blood Count 3.74L, Hemoglobin 10.2L, Hematocrit 31.7L, Mean Corpuscular Volume 85, Mean Corpuscular Hemoglobin 27.3, Mean Corpuscular Hemoglobin Concent 32.3, Red Cell Distribution Width 12.7, Platelet Count 615H, Mean Platelet Volume 5.8L, Neutrophils (%) (Auto) 71.4, Lymphocytes (%) (Auto) 18.5L, Monocytes (%) (Auto) 5.4, Eosinophils (%) (Auto) 4.4H, Basophils (%) (Auto) 0.4, Sodium Level 139, Potassium Level 3.7, Chloride Level 104, Carbon Dioxide Level 27, Anion Gap 8, Blood Urea Nitrogen 14, Creatinine 0.7, Estimat Glomerular Filtration Rate > 60, Glucose Level 101, Calcium Level 9.3 Current Medications Medications (Trade) Dose Ordered Sig/Ld Route PRN Reason Start Time Stop Time Status Last Admin Dose Admin Acetaminophen (Tylenol) 1,000 mg Q4H PRN ORAL temp>100.2 or headache 10/19/18 16:00 11/18/18 15:59 10/29/18 16:32 Chlorhexidine Gluconate (Ana Rosa-Hex 2%) 1 applic DAILY@2000 TOPIC 10/18/18 20:00 11/17/18 19:59 11/03/18 21:36 Clonazepam (KlonoPIN) 0.5 mg Q8H PRN ORAL For Anxiety 11/03/18 09:21 11/10/18 09:20 Dextrose 1,000 ml @ 0 mls/hr Q24H PRN IV PN interrupted or unavailable 10/21/18 20:00 11/20/18 19:59 Dextrose (Dextrose 50%) 25 ml Q30M PRN IV Hypoglycemia 10/21/18 08:15 11/20/18 08:14 Dextrose (Dextrose 50%) 50 ml Q30M PRN IV Hypoglycemia 10/21/18 08:15 11/20/18 08:14 Dextrose/ Electrolytes 1,000 ml @ 50 mls/hr Q20H IV 10/21/18 20:00 11/20/18 19:59 11/04/18 18:22 Diphenhydramine HCl (Benadryl) 25 mg Q6H PRN IVP Itching/Pruritis 10/27/18 12:41 11/26/18 12:40 10/29/18 18:25 Estradiol (Estrace) 1 applic THREE TIMES A WEEK VAGIN 10/19/18 09:00 11/18/18 08:59 10/31/18 10:07 Fat Emulsion Intravenous 240 ml/Amino Acids/ Electrolytes/ Dextrose 1,920 ml @ 80 mls/hr Q24H IV 10/21/18 20:00 11/20/18 19:59 11/03/18 21:25 Hydromorphone HCl (Dilaudid) 1 mg Q3H PRN SUBQ Severe Pain (Pain Scale 7-10) 11/01/18 07:51 11/08/18 07:50 11/02/18 09:34 Insulin Aspart (NovoLOG) Q6HR SUBQ 10/22/18 00:00 11/21/18 00:00 11/03/18 23:57 Lorazepam (Ativan) 1 mg HSPRN PRN SL Sleep 11/03/18 21:00 11/10/18 20:59 Lorazepam (Ativan) 1 mg Q4H PRN SL Abdominal cramps 11/03/18 09:22 11/10/18 09:21 Meropenem 1 gm/ Sodium Chloride 100 ml @ 200 mls/hr Q8HR IVPB 11/03/18 22:00 11/08/18 21:59 11/04/18 13:34 Naloxone HCl (Narcan) 0.1 mg PRN IV RR<10min OR SBP<90 mmHg OR 10/24/18 07:00 11/23/18 06:59 Ondansetron HCl (Zofran ODT) 4 mg Q6H PRN ORAL Nausea & Vomiting 11/02/18 11:15 12/02/18 11:14 Ondansetron HCl (Zofran) 4 mg Q4H PRN IVP Nausea & Vomiting 11/02/18 11:15 11/26/18 12:40 Oxycodone/ Acetaminophen (Percocet 5-325) 1 tab Q4H PRN ORAL For Pain 11/02/18 11:15 11/09/18 11:14 11/04/18 18:15 Paroxetine HCl (Paxil) 30 mg DAILY ORAL 10/22/18 09:00 11/21/18 08:59 11/04/18 08:40 Patient Own Medication (Patient's Own Med) 1 ea SuWe@0900 TDERMAL 10/28/18 14:00 11/18/18 09:01 11/04/18 09:08 Phenazopyridine HCl (Pyridium) 100 mg Q8H PRN ORAL BURNING 10/29/18 19:00 11/28/18 18:59 Phytonadione (Vitamin K) 10 mg ONCE A WEEK SUBQ 10/21/18 08:15 11/20/18 08:14 11/04/18 08:38 Prochlorperazine (Compazine) 10 mg Q6H PRN IVP Nausea & Vomiting 10/21/18 08:30 11/20/18 08:29 10/23/18 23:53 Scopolamine (TransDerm Scop 1.5mg/72HR Patch) 1.5 mg Q72H TDERMAL 11/02/18 12:00 12/02/18 11:59 11/02/18 13:08 Trazodone HCl (Desyrel) 150 mg BEDTIME ORAL 10/22/18 21:00 11/21/18 20:59 11/03/18 22:26 Vitamin A/Vitamin D (A & D Oint) 1 applic BID TOPIC 10/23/18 11:00 11/22/18 10:59 11/04/18 18:15 Susannah Velazquez DO Nov 04, 2018 20:35
[2018-11-04] MEDS: TraZODone 50mg tab ORAL SCH (20:36)
[2018-11-04] MEDS: Dyna-Hex 2% Top Sol 2oz TOPIC SCH (20:36)
--- NOTE | 2018-11-04 22:15 | NUR ---
NURSE NOTES: Pt seen ambulating around unit w/o difficulty; pt tolerated well. Will continue to monitor.
[2018-11-05] VITALS: BP 105/61
[2018-11-05 04:00] VITALS: BP 119/72
[2018-11-05 04:31] LABS: BASOPHILS % (AUTO) 0.5 % (0.0-2.0); EOSINOPHILS % (AUTO) 3.6 % (0.0-3.0); HEMATOCRIT 31.4 % (37.0-47.0); HEMOGLOBIN 10.3 G/DL (12.0-16.0); LYMPHOCYTES % (AUTO) 19.2 % (20.0-45.0); MEAN CORPUSCULAR VOLUME 84 FL (80-99); MONOCYTES % (AUTO) 5.4 % (1.0-10.0); NEUTROPHILS % (AUTO) 71.3 % (45.0-75.0); PLATELET COUNT 580 K/UL (150-450); RED BLOOD COUNT 3.72 M/UL (4.20-5.40); RED CELL DISTRIBUTION WIDTH 12.7 % (11.6-14.8); WHITE BLOOD COUNT 10.3 K/UL (4.8-10.8)
[2018-11-05 04:48] LABS: ALANINE AMINOTRANSFERASE 22 U/L (12-78); ALBUMIN 2.5 G/DL (3.4-5.0); ALBUMIN/GLOBULIN RATIO 0.5 (1.0-2.7); ALKALINE PHOSPHATASE 217 U/L (46-116); ANION GAP 7 mmol/L (5-15); ASPARTATE AMINO TRANSFERASE 18 U/L (15-37); BILIRUBIN,TOTAL 0.2 MG/DL (0.2-1.0); BLOOD UREA NITROGEN 14 mg/dL (7-18); CARBON DIOXIDE 28 MMOL/L (21-32); CHLORIDE 101 MMOL/L (98-107); CREATININE 0.7 MG/DL (0.55-1.30); PHOSPHORUS 3.1 MG/DL (2.5-4.9); POTASSIUM 3.9 MMOL/L (3.5-5.1); SODIUM 136 MMOL/L (136-145)
[2018-11-05] MEDS: NovoLOG Insulin Flexpen SUBQ SCH ×5 (05:42→23:22)
--- NOTE | 2018-11-05 07:22 | NUR ---
HAND-OFF: Report given to RADHA French.
--- NOTE | 2018-11-05 07:30 | NUR ---
NURSE NOTES: Patient is in bed awake and able to verbalize needs. AOx4. Stable. Denies pain or SOB at this time. Patient able to sit up independently and ambulate. Patient encouraged to use call light for assistance, verbalized understanding. Ileo connected to suction and gt draining as ordered. Will continue to monitor output throughout shift. Patient voided yellow urine into bedside commode, will continue to monitor urine output. Patient in bed in locked and lowest position with call light within reach. Will continue to monitor.
[2018-11-05 08:00] VITALS: BP 126/63
--- NOTE | 2018-11-05 08:06 | General Progress Note ---
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
[2018-11-05] MEDS: Vitamin A&D Oint 2oz Tube TOPIC SCH ×2 (08:44→18:37)
[2018-11-05] MEDS: Estradiol Vaginal Cr 42.5 Gm Tube VAGIN SCH ×2 (08:44→09:00)
[2018-11-05] MEDS: PARoxetine 10mg tab ORAL SCH (08:44)
[2018-11-05] MEDS: oxyCODONE HCL/Acetaminophen 5/325mg ORAL PRN ×2 (09:01→17:03)
[2018-11-05] MEDS ORDERED: Tubing IV Secondary IV ONE (10:00)
[2018-11-05] MEDS ORDERED: NS Irrig 1000ml ONE (10:00)
[2018-11-05 12:00] VITALS: BP 110/63
[2018-11-05] MEDS: TransDerm Scop 1.5mg/72HR Patch TDERMAL SCH (12:00)
[2018-11-05] MEDS: D5 1/4NS w/KCl 20mEq 1,000 ML IV SCH ×2 (14:30→20:21)
--- NOTE | 2018-11-05 14:49 | Infectious Diseases Prog Note ---
Assessment/Plan Assessment/Plan ASSESSMENT AND PLAN: 1. pelvic abscess on CT, s/p drain, ? sepsis, leukocytosis and fevers, possible pna - continue meropenem - day # 7 - clinically stable - cultures negative - monitor labs - fevers resolved, leukocytosis resolved - drain out - continue per Dr. Kramer and Dr. Lynn 2. 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 3. Anemia. 4. The patient has history of multiple abdominal surgeries. 5. History of pelvic floor dysfunction, colonic inertia, and history of endometriosis. 6. History of hysterectomy. 7. History of cholecystectomy. 8. Allergies to codeine and morphine. 9. Social history is negative. 10. Family history is noncontributory. 11. MAR was noted. 12. Case was discussed with RN. 13. Case was discussed with Dr. Kramer. 14. Continue treatment per primary consultants. Subjective Constitutional: Reports: fatigue; Denies: fever HEENT: Denies: congestion Respiratory: Denies: shortness of breath Cardiovascular: Denies: chest pain Gastrointestinal/Abdominal: Denies: nausea, vomiting, diarrhea Genitourinary: Reports: other - no juarez Neurologic: Denies: headache Psychiatric: Denies: depression Skin: Denies: rash Hematologic: Denies: bleeding Musculoskeletal: Denies: pain Allergies: Coded Allergies: CODEINE (Verified Adverse Reaction, Severe, Itching, 10/18/18) MORPHINE (Verified Adverse Reaction, Severe, Itching, 10/18/18) sever itching to the point scratches self till bleeding. Objective Vital Signs Last 24 Hour Vital Signs Date Time Temp Pulse Resp B/P (MAP) Pulse Ox O2 Delivery O2 Flow Rate FiO2 11/05/18 12:00 97.9 72 20 110/63 (79) 98 11/05/18 09:00 Room Air 11/05/18 08:00 97.2 79 18 126/63 (84) 96 11/05/18 04:00 98.6 78 20 119/72 (88) 96 11/05/18 00:00 98.0 75 20 105/61 (76) 98 11/04/18 21:00 Room Air 11/04/18 20:00 98.6 75 20 109/60 (76) 97 11/04/18 16:00 98.1 105 21 127/66 (86) 97 Height (Feet): 5 Height (Inches): 6.00 Weight (Pounds): 189 General Appearance: no acute distress HEENT: normocephalic, atraumatic, anicteric, mucous membranes moist Respiratory/Chest: lungs clear, normal breath sounds, no respiratory distress, no accessory muscle use Cardiovascular: normal rate, regular rhythm, no gallop/murmur, no JVD Abdomen: normal bowel sounds, soft, non tender, no organomegaly, non distended Genitourinary: other - no juarez Extremities: no cyanosis Skin: no rash 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 Status post total colectomy with associated postoperative appearance and two organized, rim-enhancing collections in the pelvis as described above. 2. Additional possible left lower quadrant collection which appears indistinguishable from adjacent loops may represent additional collection, but anastomotic leak cannot be excluded on this examination. Microbiology Date/Time Source Procedure Growth Status 10/29/18 15:30 Blood Blood Culture - Final NO GROWTH AFTER 5 DAYS Complete 10/30/18 14:10 Peritoneal Fluid Gram Stain - Final Complete 10/30/18 14:10 Peritoneal Fluid Body Fluid Culture - Final NO GROWTH Complete 10/30/18 18:10 Urine,Clean Catch Urine Culture - Final NO GROWTH AFTER 48 HOURS Complete Laboratory Tests Test 11/05/18 04:15 White Blood Count 10.3 K/UL (4.8-10.8) Red Blood Count 3.72 M/UL (4.20-5.40) L Hemoglobin 10.3 G/DL (12.0-16.0) L Hematocrit 31.4 % (37.0-47.0) L Mean Corpuscular Volume 84 FL (80-99) Mean Corpuscular Hemoglobin 27.6 PG (27.0-31.0) Mean Corpuscular Hemoglobin Concent 32.7 G/DL (32.0-36.0) Red Cell Distribution Width 12.7 % (11.6-14.8) Platelet Count 580 K/UL (150-450) H Mean Platelet Volume 5.6 FL (6.5-10.1) L Neutrophils (%) (Auto) 71.3 % (45.0-75.0) Lymphocytes (%) (Auto) 19.2 % (20.0-45.0) L Monocytes (%) (Auto) 5.4 % (1.0-10.0) Eosinophils (%) (Auto) 3.6 % (0.0-3.0) H Basophils (%) (Auto) 0.5 % (0.0-2.0) Sodium Level 136 MMOL/L (136-145) Potassium Level 3.9 MMOL/L (3.5-5.1) Chloride Level 101 MMOL/L (98-107) Carbon Dioxide Level 28 MMOL/L (21-32) Anion Gap 7 mmol/L (5-15) Blood Urea Nitrogen 14 mg/dL (7-18) Creatinine 0.7 MG/DL (0.55-1.30) Estimat Glomerular Filtration Rate > 60 mL/min (>60) Glucose Level 88 MG/DL (74-106) Calcium Level 9.0 MG/DL (8.5-10.1) Phosphorus Level 3.1 MG/DL (2.5-4.9) Magnesium Level 1.5 MG/DL (1.8-2.4) L Total Bilirubin 0.2 MG/DL (0.2-1.0) Aspartate Amino Transf (AST/SGOT) 18 U/L (15-37) Alanine Aminotransferase (ALT/SGPT) 22 U/L (12-78) Alkaline Phosphatase 217 U/L (46-116) H Total Protein 7.5 G/DL (6.4-8.2) Albumin 2.5 G/DL (3.4-5.0) L Globulin 5.0 g/dL Albumin/Globulin Ratio 0.5 (1.0-2.7) L Current Medications Medications (Trade) Dose Ordered Sig/Ld Route PRN Reason Start Time Stop Time Status Last Admin Dose Admin Acetaminophen (Tylenol) 1,000 mg Q4H PRN ORAL temp>100.2 or headache 10/19/18 16:00 11/18/18 15:59 10/29/18 16:32 Chlorhexidine Gluconate (Ana Rosa-Hex 2%) 1 applic DAILY@1999 TOPIC 10/18/18 20:00 11/17/18 19:59 11/04/18 20:36 Clonazepam (KlonoPIN) 0.5 mg Q8H PRN ORAL For Anxiety 11/03/18 09:21 11/10/18 09:20 Dextrose 1,000 ml @ 0 mls/hr Q24H PRN IV PN interrupted or unavailable 10/21/18 20:00 11/20/18 19:59 Dextrose (Dextrose 50%) 25 ml Q30M PRN IV Hypoglycemia 10/21/18 08:15 11/20/18 08:14 Dextrose (Dextrose 50%) 50 ml Q30M PRN IV Hypoglycemia 10/21/18 08:15 11/20/18 08:14 Dextrose/ Electrolytes 1,000 ml @ 50 mls/hr Q20H IV 10/21/18 20:00 11/20/18 19:59 11/04/18 18:22 Diphenhydramine HCl (Benadryl) 25 mg Q6H PRN IVP Itching/Pruritis 10/27/18 12:41 11/26/18 12:40 10/29/18 18:25 Estradiol (Estrace) 1 applic THREE TIMES A WEEK VAGIN 10/19/18 09:00 11/18/18 08:59 10/31/18 10:07 Fat Emulsion Intravenous 240 ml/Amino Acids/ Electrolytes/ Dextrose 1,920 ml @ 80 mls/hr Q24H IV 10/21/18 20:00 11/20/18 19:59 11/04/18 20:35 Hydromorphone HCl (Dilaudid) 1 mg Q3H PRN SUBQ Severe Pain (Pain Scale 7-10) 11/01/18 07:51 11/08/18 07:50 11/02/18 09:34 Insulin Aspart (NovoLOG) Q6HR SUBQ 10/22/18 00:00 11/21/18 00:00 11/03/18 23:57 Lorazepam (Ativan) 1 mg HSPRN PRN SL Sleep 11/03/18 21:00 11/10/18 20:59 Lorazepam (Ativan) 1 mg Q4H PRN SL Abdominal cramps 11/03/18 09:22 11/10/18 09:21 Meropenem 1 gm/ Sodium Chloride 100 ml @ 200 mls/hr Q8HR IVPB 11/03/18 22:00 11/08/18 21:59 11/05/18 05:39 Naloxone HCl (Narcan) 0.1 mg PRN IV RR<10min OR SBP<90 mmHg OR 10/24/18 07:00 11/23/18 06:59 Ondansetron HCl (Zofran ODT) 4 mg Q6H PRN ORAL Nausea & Vomiting 11/02/18 11:15 12/02/18 11:14 Ondansetron HCl (Zofran) 4 mg Q4H PRN IVP Nausea & Vomiting 11/02/18 11:15 11/26/18 12:40 Oxycodone/ Acetaminophen (Percocet 5-325) 1 tab Q4H PRN ORAL For Pain 11/02/18 11:15 11/09/18 11:14 11/05/18 09:01 Paroxetine HCl (Paxil) 30 mg DAILY ORAL 10/22/18 09:00 11/21/18 08:59 11/05/18 08:44 Patient Own Medication (Patient's Own Med) 1 fernando Mccain@0900 TDERMAL 10/28/18 14:00 11/18/18 09:01 11/04/18 09:08 Phenazopyridine HCl (Pyridium) 100 mg Q8H PRN ORAL BURNING 10/29/18 19:00 11/28/18 18:59 Phytonadione (Vitamin K) 10 mg ONCE A WEEK SUBQ 10/21/18 08:15 11/20/18 08:14 11/04/18 08:38 Prochlorperazine (Compazine) 10 mg Q6H PRN IVP Nausea & Vomiting 10/21/18 08:30 11/20/18 08:29 10/23/18 23:53 Scopolamine (TransDerm Scop 1.5mg/72HR Patch) 1.5 mg Q72H TDERMAL 11/02/18 12:00 12/02/18 11:59 11/05/18 12:00 Trazodone HCl (Desyrel) 150 mg BEDTIME ORAL 10/22/18 21:00 11/21/18 20:59 11/04/18 20:36 Vitamin A/Vitamin D (A & D Oint) 1 applic BID TOPIC 10/23/18 11:00 11/22/18 10:59 11/05/18 08:44 Alkasspooles,Salam MD Nov 05, 2018 14:49
[2018-11-05 16:00] VITALS: BP 108/64
--- NOTE | 2018-11-05 19:30 | NUR ---
HAND-OFF: Report given to Andrade GARCIA. Patient is stable.
--- NOTE | 2018-11-05 20:00 | NUR ---
NURSE NOTES: Received report from AM RN Gillian. Patient is resting comfortably in bed AxO x4. G-tube draining to gravity. Ileostomy tube on intermittent suction. Fluids running D5 1/4 NS + 20mEqu KCL at 50ml/hr. TPN changed and running at 80ml/hr. Abdominal dressing is c/d/i. Patient NPO with ice chips at bedside for medications. No SOB or signs of distress.
[2018-11-05] MEDS: Dyna-Hex 2% Top Sol 2oz TOPIC SCH (20:17)
[2018-11-05] MEDS: TraZODone 50mg tab ORAL SCH (20:17)
[2018-11-05] MEDS: Fat Emulsion Iv 20% 240 ML in Tpn 1,680 ML IV SCH (20:21)
[2018-11-06] VITALS: BP 99/58
[2018-11-06 04:00] VITALS: BP 105/63
[2018-11-06] MEDS: NovoLOG Insulin Flexpen SUBQ SCH ×4 (05:08→23:59)
[2018-11-06] MEDS: D5 1/4NS w/KCl 20mEq 1,000 ML IV SCH (05:09)
[2018-11-06] MEDS: oxyCODONE HCL/Acetaminophen 5/325mg ORAL PRN ×2 (05:40→20:17)
[2018-11-06 06:16] LABS: BASOPHILS % (AUTO) 0.7 % (0.0-2.0); EOSINOPHILS % (AUTO) 3.2 % (0.0-3.0); HEMATOCRIT 30.8 % (37.0-47.0); LYMPHOCYTES % (AUTO) 18.8 % (20.0-45.0); MEAN CORPUSCULAR VOLUME 84 FL (80-99); MONOCYTES % (AUTO) 5.9 % (1.0-10.0); NEUTROPHILS % (AUTO) 71.3 % (45.0-75.0); PLATELET COUNT 536 K/UL (150-450); RED BLOOD COUNT 3.67 M/UL (4.20-5.40); RED CELL DISTRIBUTION WIDTH 12.3 % (11.6-14.8); WHITE BLOOD COUNT 9.8 K/UL (4.8-10.8)
[2018-11-06 06:40] LABS: ANION GAP 8 mmol/L (5-15); BLOOD UREA NITROGEN 15 mg/dL (7-18); CALCIUM 9.1 MG/DL (8.5-10.1); CARBON DIOXIDE 28 MMOL/L (21-32); CHLORIDE 105 MMOL/L (98-107); CREATININE 0.8 MG/DL (0.55-1.30); POTASSIUM 4.2 MMOL/L (3.5-5.1); SODIUM 140 MMOL/L (136-145)
--- NOTE | 2018-11-06 07:19 | NUR ---
CASE MANAGEMENT:REVIEW 11/03/18 SI: POD #15 ABDOMINAL INFECTION IMPROVING 98.4 84 18 106/64 97% ON RA H/H-9.5/29.3 IS: IV MEROPENEM Q8HRS TPN/IL @80/HR IVF@50/HR : MED/SURG STATUS 3 EAST PLAN: CONTINUE NPO 11/04/18 SI: POD #16 97.1 60 20 105/60 100% ON RA WBC+11.2 IS: IV MEROPENEM Q8HRS TPN/IL @80/HR IVF@50/HR : MED/SURG STATUS 3 EAST PLAN: CONTINUE NPO AND TPN GASTROSTOMY TO DRAINAGE BCIR ILEO CATHETER TO SUCTION MAY NEED CT SCAN BEFORE POUCHOGRAM 11/05/18 SI: POD #17..S/P SURGERY DAY#6 SINCE ENTEROCUTANEOUS FISTULA SEALED 97.2 79 18 126/63 96% ON RA H/H-10.3/31.4 MAG-1.5 IS: IV MAG SULFATE Q1HR X3 BAGS IV MEROPENEM Q8HRS TPN/IL @80/HR IVF@50/HR : MED/SURG STATUS 3 EAST PLAN: CONTINUE NPO AND TPN RAGLAND POUCH TO SUCTION DEFER POUCHOGRAM XRAY ANOTHER DAY BEFORE DISTENDING THE POUCH W/CONTRAST 11/06/18 SI: POD #18..S/P SURGERY DAY#7 SINCE ENTEROCUTANEOUS FISTULA SEALED 99.0 87 18 105/63 98% ON RA IS: IV MEROPENEM Q8HRS TPN/IL @80/HR IVF@50/HR : MED/SURG STATUS 3 EAST PLAN: CONTINUE NPO AND TPN RAGLAND POUCH TO SUCTION
--- NOTE | 2018-11-06 07:30 | NUR ---
HAND-OFF: Report given to Shazia Tony RN.
--- NOTE | 2018-11-06 07:35 | NUR ---
NURSE NOTES: Patient lying in bed awake. No complain of pain or distress at this time. Skin intact and dry. Surgical dressing intact and dry. Ileostomy connected to wall suction as ordered. GT drainage bag patent and draining well. PICC line dressing intact and dry. TPN and IV fluid on going as ordered. Bed lowest position. Call light within reach. Will continue to monitor.
--- NOTE | 2018-11-06 07:58 | General Progress Note ---
Progress Note Progress Note AVSS Slept well Abdomen soft Urine 2525 Gastrostomy 470 BCIR ileo 1220 WBC 9800 Platelets down 536,000 BMP - wnl Mg 2 IMp. Improved Plan: Jaja continent ileostomy gastrograffin Pouchogram today to r/o fistula tract Manny Kramer MD Nov 06, 2018 07:58
[2018-11-06 08:00] VITALS: BP 110/63
[2018-11-06] MEDS: Vitamin A&D Oint 2oz Tube TOPIC SCH ×2 (09:18→18:17)
[2018-11-06] MEDS: PARoxetine 10mg tab ORAL SCH (09:18)
--- NOTE | 2018-11-06 10:00 | NUR ---
NURSE NOTES: Patient went down for procedure in stable condition.
--- NOTE | 2018-11-06 11:00 | NUR ---
NURSE NOTES: Patient came back from procedure in stable condition. Ileostomy catheter flushed and connected to wall suction as ordered. Will continue to monitor.
--- NOTE | 2018-11-06 11:51 | Infectious Diseases Prog Note ---
Assessment/Plan Assessment/Plan ASSESSMENT AND PLAN: 1. pelvic abscess on CT, s/p drain, ? sepsis, leukocytosis and fevers, possible pna - continue meropenem - day # 8 - clinically stable - cultures negative - monitor labs - fevers resolved, leukocytosis resolved - drain out - continue per Dr. Kramer and Dr. Lynn 2. 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 3. Anemia. 4. The patient has history of multiple abdominal surgeries. 5. History of pelvic floor dysfunction, colonic inertia, and history of endometriosis. 6. History of hysterectomy. 7. History of cholecystectomy. 8. Allergies to codeine and morphine. 9. Social history is negative. 10. Family history is noncontributory. 11. MAR was noted. 12. Case was discussed with RN. 13. Case was discussed with Dr. Kramer. 14. Continue treatment per primary consultants. Subjective Constitutional: Denies: fever HEENT: Denies: congestion Respiratory: Denies: shortness of breath Cardiovascular: Denies: chest pain Gastrointestinal/Abdominal: Denies: nausea, vomiting, diarrhea Allergies: Coded Allergies: CODEINE (Verified Adverse Reaction, Severe, Itching, 10/18/18) MORPHINE (Verified Adverse Reaction, Severe, Itching, 10/18/18) sever itching to the point scratches self till bleeding. Objective Vital Signs Last 24 Hour Vital Signs Date Time Temp Pulse Resp B/P (MAP) Pulse Ox O2 Delivery O2 Flow Rate FiO2 11/06/18 09:00 Room Air 11/06/18 08:00 99.1 68 16 110/63 (79) 99 11/06/18 04:00 99.0 87 18 105/63 (77) 98 11/06/18 00:00 97.8 73 18 99/58 (72) 97 11/05/18 21:00 Room Air 11/05/18 16:00 99.0 73 18 108/64 (79) 98 11/05/18 12:00 97.9 72 20 110/63 (79) 98 Height (Feet): 5 Height (Inches): 6.00 Weight (Pounds): 189 General Appearance: no acute distress HEENT: normocephalic, atraumatic, anicteric Respiratory/Chest: lungs clear, normal breath sounds, no respiratory distress Cardiovascular: normal rate, regular rhythm Abdomen: normal bowel sounds, soft, non tender, no organomegaly Objective CT abdomen and pelvis: IMPRESSION: 1. Status post total colectomy with associated postoperative appearance and two organized, rim-enhancing collections in the pelvis as described above. 2. Additional possible left lower quadrant collection which appears indistinguishable from adjacent loops may represent additional collection, but anastomotic leak cannot be excluded on this examination. Laboratory Tests Test 11/06/18 05:44 White Blood Count 9.8 K/UL (4.8-10.8) Red Blood Count 3.67 M/UL (4.20-5.40) L Hemoglobin 10.0 G/DL (12.0-16.0) L Hematocrit 30.8 % (37.0-47.0) L Mean Corpuscular Volume 84 FL (80-99) Mean Corpuscular Hemoglobin 27.3 PG (27.0-31.0) Mean Corpuscular Hemoglobin Concent 32.5 G/DL (32.0-36.0) Red Cell Distribution Width 12.3 % (11.6-14.8) Platelet Count 536 K/UL (150-450) H Mean Platelet Volume 5.6 FL (6.5-10.1) L Neutrophils (%) (Auto) 71.3 % (45.0-75.0) Lymphocytes (%) (Auto) 18.8 % (20.0-45.0) L Monocytes (%) (Auto) 5.9 % (1.0-10.0) Eosinophils (%) (Auto) 3.2 % (0.0-3.0) H Basophils (%) (Auto) 0.7 % (0.0-2.0) Sodium Level 140 MMOL/L (136-145) Potassium Level 4.2 MMOL/L (3.5-5.1) Chloride Level 105 MMOL/L (98-107) Carbon Dioxide Level 28 MMOL/L (21-32) Anion Gap 8 mmol/L (5-15) Blood Urea Nitrogen 15 mg/dL (7-18) Creatinine 0.8 MG/DL (0.55-1.30) Estimat Glomerular Filtration Rate > 60 mL/min (>60) Glucose Level 81 MG/DL (74-106) Calcium Level 9.1 MG/DL (8.5-10.1) Magnesium Level 2.0 MG/DL (1.8-2.4) Current Medications Medications (Trade) Dose Ordered Sig/Ld Route PRN Reason Start Time Stop Time Status Last Admin Dose Admin Acetaminophen (Tylenol) 1,000 mg Q4H PRN ORAL temp>100.2 or headache 10/19/18 16:00 11/18/18 15:59 10/29/18 16:32 Chlorhexidine Gluconate (Ana Rosa-Hex 2%) 1 applic DAILY@2000 TOPIC 10/18/18 20:00 11/17/18 19:59 11/05/18 20:17 Clonazepam (KlonoPIN) 0.5 mg Q8H PRN ORAL For Anxiety 11/03/18 09:21 11/10/18 09:20 Dextrose 1,000 ml @ 0 mls/hr Q24H PRN IV PN interrupted or unavailable 10/21/18 20:00 11/20/18 19:59 Dextrose (Dextrose 50%) 25 ml Q30M PRN IV Hypoglycemia 10/21/18 08:15 11/20/18 08:14 Dextrose (Dextrose 50%) 50 ml Q30M PRN IV Hypoglycemia 10/21/18 08:15 11/20/18 08:14 Dextrose/ Electrolytes 1,000 ml @ 50 mls/hr Q20H IV 10/21/18 20:00 11/20/18 19:59 11/06/18 05:09 Diphenhydramine HCl (Benadryl) 25 mg Q6H PRN IVP Itching/Pruritis 10/27/18 12:41 11/26/18 12:40 10/29/18 18:25 Estradiol (Estrace) 1 applic THREE TIMES A WEEK VAGIN 10/19/18 09:00 11/18/18 08:59 10/31/18 10:07 Fat Emulsion Intravenous 240 ml/Amino Acids/ Electrolytes/ Dextrose 1,920 ml @ 80 mls/hr Q24H IV 10/21/18 20:00 11/20/18 19:59 11/05/18 20:21 Hydromorphone HCl (Dilaudid) 1 mg Q3H PRN SUBQ Severe Pain (Pain Scale 7-10) 11/01/18 07:51 11/08/18 07:50 11/02/18 09:34 Insulin Aspart (NovoLOG) Q6HR SUBQ 10/22/18 00:00 11/21/18 00:00 11/03/18 23:57 Lorazepam (Ativan) 1 mg HSPRN PRN SL Sleep 11/03/18 21:00 11/10/18 20:59 Lorazepam (Ativan) 1 mg Q4H PRN SL Abdominal cramps 11/03/18 09:22 11/10/18 09:21 Meropenem 1 gm/ Sodium Chloride 100 ml @ 200 mls/hr Q8HR IVPB 11/03/18 22:00 11/08/18 21:59 11/06/18 05:09 Naloxone HCl (Narcan) 0.1 mg PRN IV RR<10min OR SBP<90 mmHg OR 10/24/18 07:00 11/23/18 06:59 Ondansetron HCl (Zofran ODT) 4 mg Q6H PRN ORAL Nausea & Vomiting 11/02/18 11:15 12/02/18 11:14 Ondansetron HCl (Zofran) 4 mg Q4H PRN IVP Nausea & Vomiting 11/02/18 11:15 11/26/18 12:40 Oxycodone/ Acetaminophen (Percocet 5-325) 1 tab Q4H PRN ORAL For Pain 11/02/18 11:15 11/09/18 11:14 11/06/18 05:40 Paroxetine HCl (Paxil) 30 mg DAILY ORAL 10/22/18 09:00 11/21/18 08:59 11/06/18 09:18 Patient Own Medication (Patient's Own Med) 1 ea SuWe@0900 TDERMAL 10/28/18 14:00 11/18/18 09:01 11/04/18 09:08 Phenazopyridine HCl (Pyridium) 100 mg Q8H PRN ORAL BURNING 10/29/18 19:00 11/28/18 18:59 Phytonadione (Vitamin K) 10 mg ONCE A WEEK SUBQ 10/21/18 08:15 11/20/18 08:14 11/04/18 08:38 Prochlorperazine (Compazine) 10 mg Q6H PRN IVP Nausea & Vomiting 10/21/18 08:30 11/20/18 08:29 10/23/18 23:53 Scopolamine (TransDerm Scop 1.5mg/72HR Patch) 1.5 mg Q72H TDERMAL 11/02/18 12:00 12/02/18 11:59 11/05/18 12:00 Trazodone HCl (Desyrel) 150 mg BEDTIME ORAL 10/22/18 21:00 11/21/18 20:59 11/05/18 20:17 Vitamin A/Vitamin D (A & D Oint) 1 applic BID TOPIC 10/23/18 11:00 11/22/18 10:59 11/06/18 09:18 Yoshi Quintana MD Nov 06, 2018 11:51
[2018-11-06 12:00] VITALS: BP 105/67
--- NOTE | 2018-11-06 14:58 | Pulmonology Progress Note ---
Assessment/Plan Assessment/Plan Status post repair of ileostomy Pneumonia, resolved Atelectasis abd abscess, s/p drainage better Diet per surgery wound care abx per ID WBC normal increase activity, OOB Stable from a respiratory standpoint, will sign off and follow peripherally, please call with any questions or change in status. Subjective Allergies: Coded Allergies: CODEINE (Verified Adverse Reaction, Severe, Itching, 10/18/18) MORPHINE (Verified Adverse Reaction, Severe, Itching, 10/18/18) sever itching to the point scratches self till bleeding. Subjective AFVSS on RA S/P esophogram No F/C, no cough, no SOB, OOB feels better Objective Last 24 Hour Vital Signs Date Time Temp Pulse Resp B/P (MAP) Pulse Ox O2 Delivery O2 Flow Rate FiO2 11/06/18 12:00 98.5 74 17 105/67 (80) 98 11/06/18 09:00 Room Air 11/06/18 08:00 99.1 68 16 110/63 (79) 99 11/06/18 04:00 99.0 87 18 105/63 (77) 98 11/06/18 00:00 97.8 73 18 99/58 (72) 97 11/05/18 21:00 Room Air 11/05/18 16:00 99.0 73 18 108/64 (79) 98 Intake and Output 11/05/18 11/06/18 19:00 07:00 Intake Total 1560 ml 1430 ml Output Total 1695 ml 1640 ml Balance -135 ml -210 ml IV Total 1560 ml 1430 ml Output Urine Total 1425 ml 1100 ml Other 270 ml 540 ml # Voids 2 General Appearance: WD/WN, no acute distress HEENT: normocephalic, atraumatic, anicteric, mucous membranes moist Respiratory/Chest: chest wall non-tender, lungs clear, normal breath sounds, no respiratory distress, no accessory muscle use Cardiovascular: normal peripheral pulses, normal rate, regular rhythm Abdomen: normal bowel sounds, soft, non tender, no organomegaly, non distended , no mass, other - BCIR ileos Extremities: no cyanosis, no clubbing, no edema Laboratory Tests 11/06/18 05:44: White Blood Count 9.8, Red Blood Count 3.67L, Hemoglobin 10.0L, Hematocrit 30.8L , Mean Corpuscular Volume 84, Mean Corpuscular Hemoglobin 27.3, Mean Corpuscular Hemoglobin Concent 32.5, Red Cell Distribution Width 12.3, Platelet Count 536H, Mean Platelet Volume 5.6L, Neutrophils (%) (Auto) 71.3, Lymphocytes (%) (Auto) 18.8L, Monocytes (%) (Auto) 5.9, Eosinophils (%) (Auto) 3.2H, Basophils (%) (Auto) 0.7, Sodium Level 140, Potassium Level 4.2, Chloride Level 105, Carbon Dioxide Level 28, Anion Gap 8, Blood Urea Nitrogen 15, Creatinine 0.8, Estimat Glomerular Filtration Rate > 60, Glucose Level 81, Calcium Level 9.1, Magnesium Level 2.0 Current Medications Medications (Trade) Dose Ordered Sig/Ld Route PRN Reason Start Time Stop Time Status Last Admin Dose Admin Acetaminophen (Tylenol) 1,000 mg Q4H PRN ORAL temp>100.2 or headache 10/19/18 16:00 11/18/18 15:59 10/29/18 16:32 Chlorhexidine Gluconate (Ana Rosa-Hex 2%) 1 applic DAILY@2000 TOPIC 10/18/18 20:00 11/17/18 19:59 11/05/18 20:17 Clonazepam (KlonoPIN) 0.5 mg Q8H PRN ORAL For Anxiety 11/03/18 09:21 11/10/18 09:20 Dextrose 1,000 ml @ 0 mls/hr Q24H PRN IV PN interrupted or unavailable 10/21/18 20:00 11/20/18 19:59 Dextrose (Dextrose 50%) 25 ml Q30M PRN IV Hypoglycemia 10/21/18 08:15 11/20/18 08:14 Dextrose (Dextrose 50%) 50 ml Q30M PRN IV Hypoglycemia 10/21/18 08:15 11/20/18 08:14 Dextrose/ Electrolytes 1,000 ml @ 50 mls/hr Q20H IV 10/21/18 20:00 11/20/18 19:59 11/06/18 05:09 Diphenhydramine HCl (Benadryl) 25 mg Q6H PRN IVP Itching/Pruritis 10/27/18 12:41 11/26/18 12:40 10/29/18 18:25 Estradiol (Estrace) 1 applic THREE TIMES A WEEK VAGIN 10/19/18 09:00 11/18/18 08:59 10/31/18 10:07 Fat Emulsion Intravenous 240 ml/Amino Acids/ Electrolytes/ Dextrose 1,920 ml @ 80 mls/hr Q24H IV 10/21/18 20:00 11/20/18 19:59 11/05/18 20:21 Hydromorphone HCl (Dilaudid) 1 mg Q3H PRN SUBQ Severe Pain (Pain Scale 7-10) 11/01/18 07:51 11/08/18 07:50 11/02/18 09:34 Insulin Aspart (NovoLOG) Q6HR SUBQ 10/22/18 00:00 11/21/18 00:00 11/03/18 23:57 Lorazepam (Ativan) 1 mg HSPRN PRN SL Sleep 11/03/18 21:00 11/10/18 20:59 Lorazepam (Ativan) 1 mg Q4H PRN SL Abdominal cramps 11/03/18 09:22 11/10/18 09:21 Meropenem 1 gm/ Sodium Chloride 100 ml @ 200 mls/hr Q8HR IVPB 11/06/18 14:00 11/11/18 13:59 Naloxone HCl (Narcan) 0.1 mg PRN IV RR<10min OR SBP<90 mmHg OR 10/24/18 07:00 11/23/18 06:59 Ondansetron HCl (Zofran ODT) 4 mg Q6H PRN ORAL Nausea & Vomiting 11/02/18 11:15 12/02/18 11:14 Ondansetron HCl (Zofran) 4 mg Q4H PRN IVP Nausea & Vomiting 11/02/18 11:15 11/26/18 12:40 Oxycodone/ Acetaminophen (Percocet 5-325) 1 tab Q4H PRN ORAL For Pain 11/02/18 11:15 11/09/18 11:14 11/06/18 05:40 Paroxetine HCl (Paxil) 30 mg DAILY ORAL 10/22/18 09:00 11/21/18 08:59 11/06/18 09:18 Patient Own Medication (Patient's Own Med) 1 ea SuWe@0900 TDERMAL 10/28/18 14:00 11/18/18 09:01 11/04/18 09:08 Phenazopyridine HCl (Pyridium) 100 mg Q8H PRN ORAL BURNING 10/29/18 19:00 11/28/18 18:59 Phytonadione (Vitamin K) 10 mg ONCE A WEEK SUBQ 10/21/18 08:15 11/20/18 08:14 11/04/18 08:38 Prochlorperazine (Compazine) 10 mg Q6H PRN IVP Nausea & Vomiting 10/21/18 08:30 11/20/18 08:29 10/23/18 23:53 Scopolamine (TransDerm Scop 1.5mg/72HR Patch) 1.5 mg Q72H TDERMAL 11/02/18 12:00 12/02/18 11:59 11/05/18 12:00 Trazodone HCl (Desyrel) 150 mg BEDTIME ORAL 10/22/18 21:00 11/21/18 20:59 11/05/18 20:17 Vitamin A/Vitamin D (A & D Oint) 1 applic BID TOPIC 10/23/18 11:00 11/22/18 10:59 11/06/18 09:18 Arnulfo Allen MD Nov 06, 2018 14:58
--- NOTE | 2018-11-06 15:27 | Diagnostic Imaging Report ---
Indication: Pelvic pain, prior cutaneous fistula, history of ileostomy pouch placement Technique: Via indwelling Velasquze catheter, contrast was injected into the ileostomy pouch, and spot and overhead films are obtained. Total fluoroscopy time 76.8 seconds. Total dose area product 32.5 mGy Number of images: 14 Comparison: none Findings: Supervisor Final image demonstrates a Velasquez catheter within a pelvic continent ileostomy reservoir. Subsequent images demonstrate opacification of a small amount of the pouch, with brisk retrograde propagation of contrast into the proximal small bowel. On the oblique views, a linear opacity is seen just cephalad to the pouch nipple . This probably just represents contrast within the pouch, which does not distend easily as contrast readily refluxes into the entering small bowel. No definite leak demonstrated. Distal small bowel loops are nondilated. Incidentally noted are cholecystectomy clips.. Impression: No definite evidence of leakage or fistula tract demonstrated. Images reviewed in person with Dr. Kramer previously
[2018-11-06 16:00] VITALS: BP 111/66
--- NOTE | 2018-11-06 19:30 | NUR ---
HAND-OFF: Report given to Andrade GARCIA and Kalin GARCIA. Patient in stable condition.
[2018-11-06 20:00] VITALS: BP 106/70
[2018-11-06] MEDS: Fat Emulsion Iv 20% 240 ML in Tpn 1,680 ML IV SCH (20:26)
[2018-11-06] MEDS: Dyna-Hex 2% Top Sol 2oz TOPIC SCH (20:34)
--- NOTE | 2018-11-06 21:04 | NUR ---
NURSE NOTES:\ Received report from Shazia Tony RN. Patient is lying in bed with no SOB and VSS. c/o of abominal pain 6/10, medication administered according to eMAR. G-tube draining to gravity. Ileostomy tube connected low intermittent suction. Dressing is c/d/i. Will continue to monitor.
[2018-11-06] MEDS: TraZODone 50mg tab ORAL SCH (21:57)
[2018-11-07] VITALS: BP 88/53
[2018-11-07] MEDS: D5 1/4NS w/KCl 20mEq 1,000 ML IV SCH (03:04)
[2018-11-07 04:00] VITALS: BP 107/64
[2018-11-07] MEDS: NovoLOG Insulin Flexpen SUBQ SCH ×3 (06:00→18:00)
--- NOTE | 2018-11-07 07:26 | NUR ---
HAND-OFF: Report given to RADHA Zhao.
--- NOTE | 2018-11-07 07:56 | General Progress Note ---
Progress Note Progress Note AVSS Feels well. tolerated some clear liquids and gastrostomy 3:3 ABdomen soft Urine 2475 Gastrostomy 670 (to drainage overnight) BCIr ileo 970 Imp. Improved Plan: BCIR low residue diet Plug gastrostomy continuously as tolerated f/u labs in AM continue TPN Manny Kramer MD Nov 07, 2018 07:56
[2018-11-07 08:00] VITALS: BP 105/68
--- NOTE | 2018-11-07 08:00 | NUR ---
NURSE NOTES:BEDSIDE ROUNDS DONE,PT JUST FINISHED AND TOLERATED CLEAR LIQUID DIET.PICC LINE PATENT WITH IVS ON GOING.ILEO TO LIS DRAINING BROWNISH EFFLUENT.SEEN BY DR. SALEEM.GT FLUSHED AND PLUGGED CONT.WILL CONT. TO MONITOR.
--- NOTE | 2018-11-07 08:54 | NUR ---
NURSE NOTES:AMBULATED IN HALLWAY X 3 ROUNDS,BCIR DIET STARTED AND WITH TOLERANCE.
[2018-11-07] MEDS: Estradiol Vaginal Cr 42.5 Gm Tube VAGIN SCH (09:15)
[2018-11-07] MEDS: PARoxetine 10mg tab ORAL SCH (09:15)
[2018-11-07] MEDS: Vitamin A&D Oint 2oz Tube TOPIC SCH ×2 (09:23→17:36)
--- NOTE | 2018-11-07 10:38 | NUR ---
RD ASSESSMENT & RECOMMENDATIONS SEE CARE ACTIVITY FOR COMPLETE ASSESSMENT DAILY ESTIMATED NEEDS: Needs based on Surgery 65.7kg adj 25-30 kcals/kg total kcals 1.2-2 g protein/kg 79-131 g total protein 25-30 mL/kg total fluid mLs NUTRITION DIAGNOSIS: Altered GI fxn r/t h/o pelvic floor dysfunction and colonic inertia as evidenced by pt w/ history of mutliple abdominal operations including ileo + colostomy, now s/p BCIR, diet now advanced to BCIR Low Residue diet, remains on TPN. CURRENT DIET:BCIR LOW RESIDUE PO DIET RECOMMENDATIONS: BCIR LOW RESIDUE DIET PER MD PARENTERAL NUTRITION RECOMMENDATIONS: D/AA Rate: 70 IL Rate: 10 Total Rate: 80 Volume: 1920 % Dextrose: 18 % AA: 5.5 Energy (kcals/kg): 1878 Protein (g/kg protein): 92 Nonprotein KCALS: 1508 GIR (mg CHO/kg/min): 3.1 % Fat KCALS: 25.6 NCP: N Ratio: 102:1 TPN Comment: REC TO TAPER DOWN TPN W/ BCIR LOW RESIDUE DIET -> - TPN: D18% + AA 5.5% @70 w/ IL 20% @10ml-> all 3:1. - TPN at goal meets 100% est needs, provides 1878 kcal (28 kcal/adj kg), 92g pro (1.4g/ adj kg). ADDITIONAL RECOMMENDATIONS: * Monitor PO intake and tolerance -> taper down TPN * Monitor LFT's, lytes and BGs daily while on TPN * Weekly standing weights
[2018-11-07] MEDS: HYDROcodone/Acetamin 5/325 tab ORAL PRN ×2 (11:21→16:18)
--- NOTE | 2018-11-07 11:47 | NUR ---
NURSE NOTES:MEDICATED WITH NORCO 5/325 FOR C/O ABDOMINAL PAIN 06/23,PT.TOLERATING GT.PLUGGING SO FAR. C/O VAGINAL ITCHING/BURNING SENSATION WHEN URINATING.DR. SALEEM NOTIFIED,AWAITING FOR CALL BACK.
[2018-11-07 12:00] VITALS: BP 117/65
[2018-11-07] MEDS ORDERED: Miconazole Vag Cr 45gm Tube (100mg per applicator) VAGIN PRN (12:00)
[2018-11-07] MEDS ORDERED: Fluconazole 150mg tab ORAL SCH (13:00)
--- NOTE | 2018-11-07 13:34 | Infectious Diseases Prog Note ---
Assessment/Plan Assessment/Plan ASSESSMENT AND PLAN: 1. pelvic abscess on CT, s/p drain, ? sepsis, leukocytosis and fevers, possible pna - continue meropenem - day # 9 - clinically stable - cultures negative - monitor labs - fevers resolved, leukocytosis resolved - drain out - continue per Dr. Kramer and Dr. Lynn/Dr. Allen 2. 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 3. Anemia. 4. The patient has history of multiple abdominal surgeries. 5. History of pelvic floor dysfunction, colonic inertia, and history of endometriosis. 6. History of hysterectomy. 7. History of cholecystectomy. 8. Allergies to codeine and morphine. 9. Social history is negative. 10. Family history is noncontributory. 11. MAR was noted. 12. Case was discussed with RN. 13. Case was discussed with Dr. Kramer. 14. Continue treatment per primary consultants. Subjective Constitutional: Denies: fever HEENT: Denies: congestion Respiratory: Denies: shortness of breath Cardiovascular: Denies: chest pain Gastrointestinal/Abdominal: Denies: nausea, vomiting, diarrhea Genitourinary: Reports: other - no juarez Neurologic: Denies: headache Psychiatric: Denies: depression Skin: Denies: rash Hematologic: Denies: bleeding Musculoskeletal: Denies: pain Allergies: Coded Allergies: CODEINE (Verified Adverse Reaction, Severe, Itching, 10/18/18) MORPHINE (Verified Adverse Reaction, Severe, Itching, 10/18/18) sever itching to the point scratches self till bleeding. Objective Vital Signs Last 24 Hour Vital Signs Date Time Temp Pulse Resp B/P (MAP) Pulse Ox O2 Delivery O2 Flow Rate FiO2 11/07/18 12:00 98.7 78 18 117/65 (82) 98 11/07/18 08:01 Room Air 11/07/18 08:00 98.5 89 18 105/68 (80) 98 11/07/18 04:00 98.9 66 15 107/64 (78) 98 11/07/18 00:00 98.7 66 18 88/53 (65) 96 11/06/18 21:00 Room Air 11/06/18 20:00 98.1 76 18 106/70 (82) 98 11/06/18 16:00 98.7 83 16 111/66 (81) 100 Height (Feet): 5 Height (Inches): 6.00 Weight (Pounds): 186 General Appearance: no acute distress HEENT: normocephalic, atraumatic, anicteric, mucous membranes moist Respiratory/Chest: lungs clear, normal breath sounds, no respiratory distress, no accessory muscle use Cardiovascular: normal rate, regular rhythm, no gallop/murmur, no JVD Abdomen: normal bowel sounds, soft, non tender, no organomegaly, non distended Genitourinary: other - no juarez Extremities: no cyanosis Skin: no rash Neurologic/Psychiatric: transplant immunologist II-XII grossly normal, 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 Status post total colectomy with associated postoperative appearance and two organized, rim-enhancing collections in the pelvis as described above. 2. Additional possible left lower quadrant collection which appears indistinguishable from adjacent loops may represent additional collection, but anastomotic leak cannot be excluded on this examination. Microbiology Date/Time Source Procedure Growth Status 10/29/18 15:30 Blood Blood Culture - Final NO GROWTH AFTER 5 DAYS Complete 10/30/18 14:10 Peritoneal Fluid Gram Stain - Final Complete 10/30/18 14:10 Peritoneal Fluid Body Fluid Culture - Final NO GROWTH Complete 10/30/18 18:10 Urine,Clean Catch Urine Culture - Final NO GROWTH AFTER 48 HOURS Complete Labs Test 11/05/18 04:15 11/06/18 05:44 White Blood Count 10.3 K/UL (4.8-10.8) 9.8 K/UL (4.8-10.8) Red Blood Count 3.72 M/UL (4.20-5.40) 3.67 M/UL (4.20-5.40) Hemoglobin 10.3 G/DL (12.0-16.0) 10.0 G/DL (12.0-16.0) Hematocrit 31.4 % (37.0-47.0) 30.8 % (37.0-47.0) Mean Corpuscular Volume 84 FL (80-99) 84 FL (80-99) Mean Corpuscular Hemoglobin 27.6 PG (27.0-31.0) 27.3 PG (27.0-31.0) Mean Corpuscular Hemoglobin Concent 32.7 G/DL (32.0-36.0) 32.5 G/DL (32.0-36.0) Red Cell Distribution Width 12.7 % (11.6-14.8) 12.3 % (11.6-14.8) Platelet Count 580 K/UL (150-450) 536 K/UL (150-450) Mean Platelet Volume 5.6 FL (6.5-10.1) 5.6 FL (6.5-10.1) Neutrophils (%) (Auto) 71.3 % (45.0-75.0) 71.3 % (45.0-75.0) Lymphocytes (%) (Auto) 19.2 % (20.0-45.0) 18.8 % (20.0-45.0) Monocytes (%) (Auto) 5.4 % (1.0-10.0) 5.9 % (1.0-10.0) Eosinophils (%) (Auto) 3.6 % (0.0-3.0) 3.2 % (0.0-3.0) Basophils (%) (Auto) 0.5 % (0.0-2.0) 0.7 % (0.0-2.0) Sodium Level 136 MMOL/L (136-145) 140 MMOL/L (136-145) Potassium Level 3.9 MMOL/L (3.5-5.1) 4.2 MMOL/L (3.5-5.1) Chloride Level 101 MMOL/L (98-107) 105 MMOL/L (98-107) Carbon Dioxide Level 28 MMOL/L (21-32) 28 MMOL/L (21-32) Anion Gap 7 mmol/L (5-15) 8 mmol/L (5-15) Blood Urea Nitrogen 14 mg/dL (7-18) 15 mg/dL (7-18) Creatinine 0.7 MG/DL (0.55-1.30) 0.8 MG/DL (0.55-1.30) Estimat Glomerular Filtration Rate > 60 mL/min (>60) > 60 mL/min (>60) Glucose Level 88 MG/DL (74-106) 81 MG/DL (74-106) Calcium Level 9.0 MG/DL (8.5-10.1) 9.1 MG/DL (8.5-10.1) Phosphorus Level 3.1 MG/DL (2.5-4.9) Magnesium Level 1.5 MG/DL (1.8-2.4) 2.0 MG/DL (1.8-2.4) Total Bilirubin 0.2 MG/DL (0.2-1.0) Aspartate Amino Transf (AST/SGOT) 18 U/L (15-37) Alanine Aminotransferase (ALT/SGPT) 22 U/L (12-78) Alkaline Phosphatase 217 U/L (46-116) Total Protein 7.5 G/DL (6.4-8.2) Albumin 2.5 G/DL (3.4-5.0) Globulin 5.0 g/dL Albumin/Globulin Ratio 0.5 (1.0-2.7) Current Medications Medications (Trade) Dose Ordered Sig/Ld Route PRN Reason Start Time Stop Time Status Last Admin Dose Admin Acetaminophen (Tylenol) 1,000 mg Q4H PRN ORAL temp>100.2 or headache 10/19/18 16:00 11/18/18 15:59 10/29/18 16:32 Acetaminophen/ Hydrocodone Bitart ([place] 5/325) 1 tab Q4H PRN ORAL Moderate Pain (Pain Scale 4-6) 11/07/18 08:00 11/14/18 07:59 11/07/18 11:21 Chlorhexidine Gluconate (Ana Rosa-Hex 2%) 1 applic DAILY@2000 TOPIC 10/18/18 20:00 11/17/18 19:59 11/06/18 20:34 Clonazepam (KlonoPIN) 0.5 mg Q8H PRN ORAL For Anxiety 11/03/18 09:21 11/10/18 09:20 Dextrose 1,000 ml @ 0 mls/hr Q24H PRN IV PN interrupted or unavailable 10/21/18 20:00 11/20/18 19:59 Dextrose (Dextrose 50%) 25 ml Q30M PRN IV Hypoglycemia 10/21/18 08:15 11/20/18 08:14 Dextrose (Dextrose 50%) 50 ml Q30M PRN IV Hypoglycemia 10/21/18 08:15 11/20/18 08:14 Dextrose/ Electrolytes 1,000 ml @ 50 mls/hr Q20H IV 10/21/18 20:00 11/20/18 19:59 11/07/18 03:04 Diphenhydramine HCl (Benadryl) 25 mg Q6H PRN IVP Itching/Pruritis 10/27/18 12:41 11/26/18 12:40 10/29/18 18:25 Estradiol (Estrace) 1 applic THREE TIMES A WEEK VAGIN 10/19/18 09:00 11/18/18 08:59 11/07/18 09:15 Fat Emulsion Intravenous 240 ml/Amino Acids/ Electrolytes/ Dextrose 1,920 ml @ 80 mls/hr Q24H IV 10/21/18 20:00 11/20/18 19:59 11/06/18 20:26 Fluconazole (Diflucan) 150 mg DAILY ORAL 11/08/18 09:00 11/09/18 23:59 Fluconazole (Diflucan) 150 mg ONCE ORAL 11/07/18 13:00 11/07/18 14:00 Hydromorphone HCl (Dilaudid) 1 mg Q3H PRN SUBQ Severe Pain (Pain Scale 7-10) 11/01/18 07:51 11/08/18 07:50 11/02/18 09:34 Insulin Aspart (NovoLOG) Q6HR SUBQ 10/22/18 00:00 11/21/18 00:00 11/03/18 23:57 Lorazepam (Ativan) 1 mg HSPRN PRN SL Sleep 11/03/18 21:00 11/10/18 20:59 Lorazepam (Ativan) 1 mg Q4H PRN SL Abdominal cramps 11/03/18 09:22 11/10/18 09:21 Meropenem 1 gm/ Sodium Chloride 100 ml @ 200 mls/hr Q8HR IVPB 11/06/18 14:00 11/11/18 13:59 11/07/18 06:02 Miconazole Nitrate (Monistat) 1 applic BIDPRN PRN VAGIN Itching 11/07/18 12:00 12/07/18 11:59 Miconazole Nitrate (Monistat) 200 mg BEDTIME VAGIN 11/07/18 21:00 11/09/18 21:01 Naloxone HCl (Narcan) 0.1 mg PRN IV RR<10min OR SBP<90 mmHg OR 10/24/18 07:00 11/23/18 06:59 Ondansetron HCl (Zofran ODT) 4 mg Q6H PRN ORAL Nausea & Vomiting 11/02/18 11:15 12/02/18 11:14 Ondansetron HCl (Zofran) 4 mg Q4H PRN IVP Nausea & Vomiting 11/02/18 11:15 11/26/18 12:40 Paroxetine HCl (Paxil) 30 mg DAILY ORAL 10/22/18 09:00 11/21/18 08:59 11/07/18 09:15 Patient Own Medication (Patient's Own Med) 1 fernando Mccain@0900 TDERMAL 10/28/18 14:00 11/18/18 09:01 11/07/18 09:16 Phenazopyridine HCl (Pyridium) 100 mg Q8H PRN ORAL BURNING 10/29/18 19:00 11/28/18 18:59 Phytonadione (Vitamin K) 10 mg ONCE A WEEK SUBQ 10/21/18 08:15 11/20/18 08:14 11/04/18 08:38 Prochlorperazine (Compazine) 10 mg Q6H PRN IVP Nausea & Vomiting 10/21/18 08:30 11/20/18 08:29 11/06/18 21:57 Scopolamine (TransDerm Scop 1.5mg/72HR Patch) 1.5 mg Q72H TDERMAL 11/02/18 12:00 12/02/18 11:59 11/05/18 12:00 Trazodone HCl (Desyrel) 150 mg BEDTIME ORAL 10/22/18 21:00 11/21/18 20:59 11/06/18 21:57 Vitamin A/Vitamin D (A & D Oint) 1 applic BID TOPIC 10/23/18 11:00 11/22/18 10:59 11/07/18 09:23 Yoshi Quintana MD Nov 07, 2018 13:34
--- NOTE | 2018-11-07 15:40 | NUR ---
*-* INSURANCE *-* UPDATED CLINICALS AND REVIEWS HAVE BEEN FAXED TO: [facility] NCM: JANA P:[phone] F:[phone] NURSE: XIMENA
[2018-11-07 16:00] VITALS: BP 107/71
--- NOTE | 2018-11-07 16:21 | NUR ---
CASE MANAGEMENT:REVIEW 11/07/18 SI: POD #19..S/P SURGERY DAY#8....SINCE ENTEROCUTANEOUS FISTULA SEALED 98.4 86 18 107/71 99% ON RA NO LABS FOR TODAY IS: IV MEROPENEM Q8HRS DIFLUCAN PO QD TPN/IL @80/HR IVF@50/HR NORCO PO Q4HRS PRN : MED/SURG STATUS 3 EAST
--- NOTE | 2018-11-07 16:35 | NUR ---
NURSE NOTES:DR. SALEEM NOTIFIED RE:LARGE VOLUME FR. ILEO OUTPUT.STOOL C DIFF SENT,PT.PROACTIVE IN AMBULATING,CLAIMS LESS ITCHING WHEN URINATING.PYRIDIUM OFFERED BUT REFUSED.
--- NOTE | 2018-11-07 19:17 | NUR ---
HAND-OFF: Report given to ELODIA GARCIA.PT STABLE TALKING ON THE PHONE..
--- NOTE | 2018-11-07 19:30 | NUR ---
NURSE NOTES: Pt lying in bed w/bed in lowest position and call light within reach. Pt A&Ox4, VSS, and in no apparent distress at this time. TEO PICC line intact/asymptomatic w/IVF & TPN infusing; GT plugged continuously; ileo to med/int suction with sizeable output & MD aware; and dressing C/D/I. Will continue to monitor.
[2018-11-07 20:00] VITALS: BP 116/73
[2018-11-07] MEDS: Dyna-Hex 2% Top Sol 2oz TOPIC SCH (20:13)
[2018-11-07] MEDS: TraZODone 50mg tab ORAL SCH (20:14)
[2018-11-07] MEDS: Miconazole 200mg Supp VAGIN SCH (20:14)
[2018-11-07] MEDS: Fat Emulsion Iv 20% 240 ML in Tpn 1,680 ML IV SCH (20:15)
[2018-11-08] VITALS: BP 111/68
[2018-11-08 04:00] VITALS: BP 107/66
[2018-11-08] MEDS: D5 1/4NS w/KCl 20mEq 1,000 ML IV SCH (04:00)
[2018-11-08 04:44] LABS: BASOPHILS % (AUTO) 0.8 % (0.0-2.0); EOSINOPHILS % (AUTO) 6.3 % (0.0-3.0); HEMATOCRIT 31.4 % (37.0-47.0); HEMOGLOBIN 10.2 G/DL (12.0-16.0); LYMPHOCYTES % (AUTO) 21.3 % (20.0-45.0); MEAN CORPUSCULAR VOLUME 84 FL (80-99); MONOCYTES % (AUTO) 7.2 % (1.0-10.0); NEUTROPHILS % (AUTO) 64.4 % (45.0-75.0); PLATELET COUNT 463 K/UL (150-450); RED BLOOD COUNT 3.75 M/UL (4.20-5.40); RED CELL DISTRIBUTION WIDTH 12.4 % (11.6-14.8)
[2018-11-08 04:59] LABS: ALANINE AMINOTRANSFERASE 24 U/L (12-78); ALBUMIN 2.7 G/DL (3.4-5.0); ALBUMIN/GLOBULIN RATIO 0.6 (1.0-2.7); ALKALINE PHOSPHATASE 186 U/L (46-116); ANION GAP 10 mmol/L (5-15); ASPARTATE AMINO TRANSFERASE 23 U/L (15-37); BILIRUBIN,TOTAL 0.2 MG/DL (0.2-1.0); BLOOD UREA NITROGEN 13 mg/dL (7-18); CALCIUM 9.2 MG/DL (8.5-10.1); CARBON DIOXIDE 27 MMOL/L (21-32); CHLORIDE 101 MMOL/L (98-107); CREATININE 0.7 MG/DL (0.55-1.30); PHOSPHORUS 3.3 MG/DL (2.5-4.9); SODIUM 138 MMOL/L (136-145)
[2018-11-08] MEDS: NovoLOG Insulin Flexpen SUBQ SCH ×4 (05:51→18:00)
--- NOTE | 2018-11-08 07:45 | NUR ---
NURSE NOTES: Report received from Lauro GARCIA, rounds made. Patient alert, oriented x4, calm, up ambulating and repositioning self in bed. No distress on RA. IVF (D5 1/4 NS + 20 KCL at 50 ml/hr) and TPN at 80 ml/hr to TEO PICC line, dressing CDI. LUQ GT clamped, dressing CDI. RLQ ileostomy intact to drainage bag, dark green liquid output, dressing CDI. Abdominal steri strips intact, no redness/swelling. Bilateral SCDs off. Denies need for pain medication at this time. Call light in reach, bed in lowest position, will continue to monitor.
--- NOTE | 2018-11-08 07:51 | NUR ---
HAND-OFF: Report given to RADHA Chin. Endorsed to please f/u re: Mag 1.6 and large ileo output.
[2018-11-08 08:00] VITALS: BP 108/69
--- NOTE | 2018-11-08 08:54 | General Progress Note ---
Progress Note Progress Note AVSS Having cramping and not able to eat well. BCIR ileo output high volume, very watery, and with odor. C.diff toxin negative ABdomen soft Urine 3750 BCIR ileo 1890 WBC 8000 Platelets down 463,000 Mg 1.6 low albumin up 2.7 Imp: bacterial overgrowth enteritis (pouchitis) Plan; Cipro 500mg po STAT and q12h Flagyl 500mg po STAT and TID Cannot start self-intubations until ileostomy pouch output returns to normal continue TPN Manny Kramer MD Nov 08, 2018 08:54
[2018-11-08] MEDS: Vitamin A&D Oint 2oz Tube TOPIC SCH ×2 (09:17→17:49)
[2018-11-08] MEDS: PARoxetine 10mg tab ORAL SCH (09:18)
[2018-11-08] MEDS: HYDROcodone/Acetamin 5/325 tab ORAL PRN ×3 (09:19→19:46)
[2018-11-08] MEDS: Fluconazole 150mg tab ORAL SCH (09:19)
[2018-11-08] MEDS: metroNIDAZOLE 500mg tab ORAL SCH ×3 (09:20→17:49)
[2018-11-08] MEDS: LORazepam 1mg tab SL PRN ×2 (09:37→17:49)
--- NOTE | 2018-11-08 10:45 | NUR ---
NURSE NOTES: Patient complains of abdominal cramping, administered Ativan SL as ordered. Reassessed patient, reports improvement. Ileostomy to moderate intermittent suction, canister/tubing noted with dark green liquid, irrigated at 0900 with NS 20 ml, no NV, will continue to monitor.
[2018-11-08] MEDS ORDERED: Tubing IV Secondary IV ONE (11:18)
[2018-11-08] MEDS ORDERED: NS Irrig 1000ml ONE (11:18)
[2018-11-08] MEDS ORDERED: NS 275ml ONE (11:18)
[2018-11-08] MEDS: TransDerm Scop 1.5mg/72HR Patch TDERMAL SCH (11:47)
[2018-11-08 12:00] VITALS: BP 100/68
--- NOTE | 2018-11-08 13:56 | NUR ---
*-* INSURANCE *-* UPDATED CLINICALS AND REVIEWS HAVE BEEN FAXED TO: [facility] NCM: JANA P:[phone] F:[phone] NURSE: XIMENA
--- NOTE | 2018-11-08 15:52 | NUR ---
CASE MANAGEMENT:REVIEW 11/08/18 SI: POD #20..S/P SURGERY DAY#9....SINCE ENTEROCUTANEOUS FISTULA SEALED 97.7 80 21 100/68 97% ON RA MAG-1.6 IS: IV MEROPENEM Q8HRS DIFLUCAN PO QD FLAGYL PO TID TPN/IL @80/HR IVF@50/HR NORCO PO Q4HRS PRN : MED/SURG STATUS 3 EAST PLAN: PROVIDE DISCHARGE SUPPLIES: 28 JIMENES CATHETER PLUG DRAINAGE BAG IRRIGATION TRAY
[2018-11-08 16:00] VITALS: BP 107/75
--- NOTE | 2018-11-08 16:12 | NUR ---
NURSE NOTES: All discharge supplies (28 FR catheter, 4x4 gauze, paper tape, catheter plug, irrigation tray) provided to patient, all together in a clear hospital belonging bag. Reviewed items with patient, verbalized understanding.
--- NOTE | 2018-11-08 18:41 | NUR ---
NURSE NOTES: Patient ambulated in halls for (20 minutes each time) twice this shift (7a-7p), tolerated well, gait steady, denies dizziness/lightheadedness. Encouraged IS use. Will continue to monitor.
--- NOTE | 2018-11-08 19:30 | NUR ---
HAND-OFF: Report given to Lauro GARCIA. Outputs: Urine:3675 ml Ileostomy:1920 ml
--- NOTE | 2018-11-08 19:30 | NUR ---
NURSE NOTES: Pt lying in bed w/bed in lowest position and call light within reach. Pt A&Ox4, VSS, and c/o cramping and generalized pain; encouraged pt to walk and to allow some time for pain medication to take effect. TEO PICC line intact/asymptomatic w/IVF & TPN running; dressing C/D/I; GT clamped continuously; and ileo to mod/int suction. Will continue to monitor.
[2018-11-08 20:00] VITALS: BP 104/64
[2018-11-08] MEDS: Dyna-Hex 2% Top Sol 2oz TOPIC SCH (20:17)
[2018-11-08] MEDS: Miconazole 200mg Supp VAGIN SCH (20:18)
[2018-11-08] MEDS: Fat Emulsion Iv 20% 240 ML in Tpn 1,680 ML IV SCH (20:19)
[2018-11-08] MEDS: TraZODone 50mg tab ORAL SCH (21:37)
--- NOTE | 2018-11-08 22:00 | NUR ---
NURSE NOTES: Pt ambulated around unit; states she feels better and would not like Ativan for diminished cramping at this time. Will continue to monitor.
[2018-11-09] VITALS: BP 92/59
[2018-11-09 04:00] VITALS: BP 98/67
[2018-11-09] MEDS: D5 1/4NS w/KCl 20mEq 1,000 ML IV SCH (04:27)
[2018-11-09 04:52] LABS: BASOPHILS % (AUTO) 0.6 % (0.0-2.0); EOSINOPHILS % (AUTO) 5.8 % (0.0-3.0); HEMATOCRIT 31.6 % (37.0-47.0); HEMOGLOBIN 10.4 G/DL (12.0-16.0); LYMPHOCYTES % (AUTO) 18.6 % (20.0-45.0); MEAN CORPUSCULAR VOLUME 84 FL (80-99); MONOCYTES % (AUTO) 6.8 % (1.0-10.0); NEUTROPHILS % (AUTO) 68.2 % (45.0-75.0); PLATELET COUNT 426 K/UL (150-450); RED BLOOD COUNT 3.76 M/UL (4.20-5.40); RED CELL DISTRIBUTION WIDTH 12.4 % (11.6-14.8); WHITE BLOOD COUNT 8.9 K/UL (4.8-10.8)
[2018-11-09 05:15] LABS: ANION GAP 8 mmol/L (5-15); BLOOD UREA NITROGEN 13 mg/dL (7-18); CALCIUM 8.6 MG/DL (8.5-10.1); CARBON DIOXIDE 26 MMOL/L (21-32); CHLORIDE 101 MMOL/L (98-107); CREATININE 0.7 MG/DL (0.55-1.30); POTASSIUM 3.8 MMOL/L (3.5-5.1); SODIUM 135 MMOL/L (136-145)
[2018-11-09] MEDS: NovoLOG Insulin Flexpen SUBQ SCH ×3 (06:00→12:00)
--- NOTE | 2018-11-09 07:30 | NUR ---
NURSE NOTES: Report received from Lauro GARCIA, rounds made. Patient sitting/dangling at bedside. No distress on RA. IVF (D5 1/4 NS + 20KCL at 50 ml/hr) and TPN at 80 ml/hr to TEO PICC line, dressing CDI. Abdomen steri strips intact, ileostomy/GT dressing CDI. Ileostomy connected to moderate intermittent suction. GT clamped. Denies need for pain medication at this time, no cramps, no NV, appetite good. Call light in reach, bed in lowest position, will continue to monitor. Addendum: 11/09/18 at 0826 by Elsy Mo RN Patient alert, oriented x4, calm.
--- NOTE | 2018-11-09 07:34 | NUR ---
HAND-OFF: Report given to RADHA Chin.
[2018-11-09 08:00] VITALS: BP 106/62
[2018-11-09] MEDS: Fluconazole 150mg tab ORAL SCH (08:31)
[2018-11-09] MEDS: HYDROcodone/Acetamin 5/325 tab ORAL PRN ×2 (08:32→17:39)
[2018-11-09] MEDS: metroNIDAZOLE 500mg tab ORAL SCH ×3 (08:33→17:15)
[2018-11-09] MEDS: PARoxetine 10mg tab ORAL SCH (08:33)
[2018-11-09] MEDS: Estradiol Vaginal Cr 42.5 Gm Tube VAGIN SCH (08:33)
[2018-11-09] MEDS: Vitamin A&D Oint 2oz Tube TOPIC SCH ×2 (08:33→17:15)
--- NOTE | 2018-11-09 10:21 | NUR ---
CASE MANAGEMENT:REVIEW 11/09/18 SI: POD #20..S/P SURGERY DAY#9....SINCE ENTEROCUTANEOUS FISTULA SEALED 97.9 100 17 106/62 98% ON RA H/H-10.4/31.6 IS: IV MEROPENEM Q8HRS DIFLUCAN PO QD FLAGYL PO TID CIPRO PO Q12 TPN/IL @80/HR IVF@50/HR NORCO PO Q4HRS PRN : MED/SURG STATUS 3 EAST DCP: PATIENT IS FROM [place], [place] PLAN: PROVIDE DISCHARGE SUPPLIES: 28 JIMENES CATHETER PLUG DRAINAGE BAG IRRIGATION TRAY CONTINUE TPN/IL ~ CANNOT START SELF INTUBATION UNTIL ILEOSTOMY POUCH OUTPUT RETURN TO [facility]
[2018-11-09 12:00] VITALS: BP 115/70
--- NOTE | 2018-11-09 12:50 | NUR ---
*-* INSURANCE *-* ALL CLINICALS AND REVIEWS FROM 11/02 TO PRESENT HAVE BEEN RE-FAXED: [facility]:LAURA P:[phone] F: [phone]
--- NOTE | 2018-11-09 14:00 | NUR ---
NURSE NOTES: Patient ambulated in halls x2 (20 minutes each time), tolerated well, gait steady. Abdominal dressings changed and GT discontinued by Dr. Moore today.
--- NOTE | 2018-11-09 15:02 | Infectious Diseases Prog Note ---
Assessment/Plan Assessment/Plan ASSESSMENT AND PLAN: 1. pelvic abscess on CT, s/p drain, ? sepsis, leukocytosis and fevers, possible pna - continue meropenem - day # 11, plan on 14 days iv abx - clinically stable - cultures negative - monitor labs - fevers resolved, leukocytosis resolved - drain out - continue per Dr. Kramer and Dr. Lynn/Dr. Allen 2. 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 3. Anemia. 4. The patient has history of multiple abdominal surgeries. 5. History of pelvic floor dysfunction, colonic inertia, and history of endometriosis. 6. History of hysterectomy. 7. History of cholecystectomy. 8. Allergies to codeine and morphine. 9. Social history is negative. 10. Family history is noncontributory. 11. MAR was noted. 12. Case was discussed with RN. 13. Case was discussed with Dr. Kramer. 14. Continue treatment per primary consultants. Subjective Constitutional: Denies: fever HEENT: Denies: congestion Respiratory: Denies: shortness of breath Cardiovascular: Denies: chest pain Gastrointestinal/Abdominal: Denies: nausea, vomiting, diarrhea Genitourinary: Reports: other - no juarez Neurologic: Denies: headache Psychiatric: Denies: depression Skin: Denies: rash Hematologic: Denies: bleeding Musculoskeletal: Denies: pain Allergies: Coded Allergies: CODEINE (Verified Adverse Reaction, Severe, Itching, 10/18/18) MORPHINE (Verified Adverse Reaction, Severe, Itching, 10/18/18) sever itching to the point scratches self till bleeding. Objective Vital Signs Last 24 Hour Vital Signs Date Time Temp Pulse Resp B/P (MAP) Pulse Ox O2 Delivery O2 Flow Rate FiO2 11/09/18 12:00 98.1 94 19 115/70 (85) 97 11/09/18 08:00 97.9 100 17 106/62 (77) 98 11/09/18 04:00 99.3 87 18 98/67 (77) 97 11/09/18 00:00 98.5 87 20 92/59 (70) 95 11/08/18 21:00 Room Air 11/08/18 20:00 98.6 94 16 104/64 (77) 99 11/08/18 16:00 98.2 95 18 107/75 (86) 98 Height (Feet): 5 Height (Inches): 6.00 Weight (Pounds): 186 General Appearance: no acute distress HEENT: normocephalic, atraumatic, anicteric Respiratory/Chest: lungs clear, normal breath sounds, no respiratory distress, no accessory muscle use Cardiovascular: normal peripheral pulses, normal rate, regular rhythm, no gallop/murmur, no JVD Abdomen: normal bowel sounds, soft, non tender, no organomegaly Genitourinary: other - no juarez Extremities: no cyanosis Skin: no rash 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 Status post total colectomy with associated postoperative appearance and two organized, rim-enhancing collections in the pelvis as described above. 2. Additional possible left lower quadrant collection which appears indistinguishable from adjacent loops may represent additional collection, but anastomotic leak cannot be excluded on this examination. Microbiology Date/Time Source Procedure Growth Status 10/29/18 15:30 Blood Blood Culture - Final NO GROWTH AFTER 5 DAYS Complete 10/30/18 14:10 Peritoneal Fluid Gram Stain - Final Complete 10/30/18 14:10 Peritoneal Fluid Body Fluid Culture - Final NO GROWTH Complete 11/07/18 15:05 Stool Clostridium difficile Toxin Assay - Final Complete 10/30/18 18:10 Urine,Clean Catch Urine Culture - Final NO GROWTH AFTER 48 HOURS Complete Microbiology Date/Time Source Procedure Growth Status 11/07/18 15:05 Stool Clostridium difficile Toxin Assay - Final Complete Laboratory Tests Test 11/09/18 04:20 White Blood Count 8.9 K/UL (4.8-10.8) Red Blood Count 3.76 M/UL (4.20-5.40) L Hemoglobin 10.4 G/DL (12.0-16.0) L Hematocrit 31.6 % (37.0-47.0) L Mean Corpuscular Volume 84 FL (80-99) Mean Corpuscular Hemoglobin 27.5 PG (27.0-31.0) Mean Corpuscular Hemoglobin Concent 32.8 G/DL (32.0-36.0) Red Cell Distribution Width 12.4 % (11.6-14.8) Platelet Count 426 K/UL (150-450) Mean Platelet Volume 5.9 FL (6.5-10.1) L Neutrophils (%) (Auto) 68.2 % (45.0-75.0) Lymphocytes (%) (Auto) 18.6 % (20.0-45.0) L Monocytes (%) (Auto) 6.8 % (1.0-10.0) Eosinophils (%) (Auto) 5.8 % (0.0-3.0) H Basophils (%) (Auto) 0.6 % (0.0-2.0) Sodium Level 135 MMOL/L (136-145) L Potassium Level 3.8 MMOL/L (3.5-5.1) Chloride Level 101 MMOL/L (98-107) Carbon Dioxide Level 26 MMOL/L (21-32) Anion Gap 8 mmol/L (5-15) Blood Urea Nitrogen 13 mg/dL (7-18) Creatinine 0.7 MG/DL (0.55-1.30) Estimat Glomerular Filtration Rate > 60 mL/min (>60) Glucose Level 97 MG/DL (74-106) Calcium Level 8.6 MG/DL (8.5-10.1) Magnesium Level 2.0 MG/DL (1.8-2.4) Current Medications Medications (Trade) Dose Ordered Sig/Ld Route PRN Reason Start Time Stop Time Status Last Admin Dose Admin Acetaminophen (Tylenol) 1,000 mg Q4H PRN ORAL temp>100.2 or headache 10/19/18 16:00 11/18/18 15:59 10/29/18 16:32 Acetaminophen/ Hydrocodone Bitart ([place] 5/325) 1 tab Q4H PRN ORAL Moderate Pain (Pain Scale 4-6) 11/07/18 08:00 11/14/18 07:59 11/09/18 08:32 Chlorhexidine Gluconate (Ana Rosa-Hex 2%) 1 applic DAILY@1999 TOPIC 10/18/18 20:00 11/17/18 19:59 11/08/18 20:17 Ciprofloxacin (Cipro 250mg tab) 500 mg EVERY 12 HOURS ORAL 11/08/18 09:00 11/15/18 08:59 11/09/18 08:32 Clonazepam (KlonoPIN) 0.5 mg Q8H PRN ORAL For Anxiety 11/03/18 09:21 11/10/18 09:20 Diphenhydramine HCl (Benadryl) 25 mg Q6H PRN IVP Itching/Pruritis 10/27/18 12:41 11/26/18 12:40 10/29/18 18:25 Estradiol (Estrace) 1 applic THREE TIMES A WEEK VAGIN 10/19/18 09:00 11/18/18 08:59 11/09/18 08:33 Fluconazole (Diflucan) 150 mg DAILY ORAL 11/08/18 09:00 11/09/18 23:59 11/09/18 08:31 Lorazepam (Ativan) 1 mg HSPRN PRN SL Sleep 11/03/18 21:00 11/10/18 20:59 Lorazepam (Ativan) 1 mg Q4H PRN SL Abdominal cramps 11/03/18 09:22 11/10/18 09:21 11/08/18 17:49 Meropenem 1 gm/ Sodium Chloride 100 ml @ 200 mls/hr Q8HR IVPB 11/06/18 14:00 11/11/18 13:59 11/09/18 06:23 Metronidazole (Flagyl) 500 mg TID ORAL 11/08/18 09:00 11/15/18 08:59 11/09/18 12:37 Miconazole Nitrate (Monistat) 1 applic BIDPRN PRN VAGIN Itching 11/07/18 12:00 12/07/18 11:59 Miconazole Nitrate (Monistat) 200 mg BEDTIME VAGIN 11/07/18 21:00 11/09/18 21:01 11/08/18 20:18 Naloxone HCl (Narcan) 0.1 mg PRN IV RR<10min OR SBP<90 mmHg OR 10/24/18 07:00 11/23/18 06:59 Ondansetron HCl (Zofran ODT) 4 mg Q6H PRN ORAL Nausea & Vomiting 11/02/18 11:15 12/02/18 11:14 Ondansetron HCl (Zofran) 4 mg Q4H PRN IVP Nausea & Vomiting 11/02/18 11:15 11/26/18 12:40 Paroxetine HCl (Paxil) 30 mg DAILY ORAL 10/22/18 09:00 11/21/18 08:59 11/09/18 08:33 Patient Own Medication (Patient's Own Med) 1 ea SoniaWe@0900 TDERMAL 10/28/18 14:00 11/18/18 09:01 11/07/18 09:16 Phenazopyridine HCl (Pyridium) 100 mg Q8H PRN ORAL BURNING 10/29/18 19:00 11/28/18 18:59 Prochlorperazine (Compazine) 10 mg Q6H PRN IVP Nausea & Vomiting 10/21/18 08:30 11/20/18 08:29 11/06/18 21:57 Scopolamine (TransDerm Scop 1.5mg/72HR Patch) 1.5 mg Q72H TDERMAL 11/02/18 12:00 12/02/18 11:59 11/08/18 11:47 Trazodone HCl (Desyrel) 150 mg BEDTIME ORAL 10/22/18 21:00 11/21/18 20:59 11/08/18 21:37 Vitamin A/Vitamin D (A & D Oint) 1 applic BID TOPIC 10/23/18 11:00 11/22/18 10:59 11/09/18 08:33 Yoshi Quintana MD Nov 09, 2018 15:02
[2018-11-09 16:00] VITALS: BP 105/73
--- NOTE | 2018-11-09 19:25 | NUR ---
HAND-OFF: Report given to Liss GARCIA/Michelle GARCIA. Outputs: Urine: 3150 ml Ileostomy: 1920 ml Addendum: 11/09/18 at 2002 by Elsy Mo RN Endorsed TPN to be discontinued jasonight at 1999.
--- NOTE | 2018-11-09 19:34 | General Progress Note ---
Progress Note Progress Note looks much better today no n/v/f/c labs okay exam stable wounds c/d/i still with high output as 1L since 06AM drained from pouch no leakage tolerating diet d/c tpn meds as written diet as tolerated not ready for self intubations Saurav Moore Nov 09, 2018 19:34
[2018-11-09 20:00] VITALS: BP 91/61
--- NOTE | 2018-11-09 20:10 | NUR ---
NURSE NOTES: Patient in bed, AOx4. PICC in left upper arm in place. TPN to be discontinued tonight. No s/s distress noted. Ileostomy connected to intermittent suctioning. Bed in lowest position, call light within reach. Will continue to monitor.
[2018-11-09] MEDS: Miconazole 200mg Supp VAGIN SCH (20:31)
[2018-11-09] MEDS: TraZODone 50mg tab ORAL SCH (20:31)
[2018-11-09] MEDS: Dyna-Hex 2% Top Sol 2oz TOPIC SCH (20:31)
[2018-11-10] VITALS (7 sets, daily range): BP systolic 99–129; BP diastolic 57–80
--- NOTE | 2018-11-10 05:15 | NUR ---
NURSE NOTES: Changed PICC line dressing without incident. Pt tolerated very well.
[2018-11-10 06:04] LABS: BASOPHILS % (AUTO) 0.3 % (0.0-2.0); EOSINOPHILS % (AUTO) 4.7 % (0.0-3.0); HEMATOCRIT 33.7 % (37.0-47.0); LYMPHOCYTES % (AUTO) 19.7 % (20.0-45.0); MEAN CORPUSCULAR VOLUME 83 FL (80-99); MONOCYTES % (AUTO) 5.7 % (1.0-10.0); NEUTROPHILS % (AUTO) 69.5 % (45.0-75.0); PLATELET COUNT 404 K/UL (150-450); RED BLOOD COUNT 4.04 M/UL (4.20-5.40); RED CELL DISTRIBUTION WIDTH 12.4 % (11.6-14.8); WHITE BLOOD COUNT 9.8 K/UL (4.8-10.8)
[2018-11-10 06:21] LABS: ALANINE AMINOTRANSFERASE 27 U/L (12-78); ALBUMIN/GLOBULIN RATIO 0.6 (1.0-2.7); ALKALINE PHOSPHATASE 179 U/L (46-116); ANION GAP 9 mmol/L (5-15); ASPARTATE AMINO TRANSFERASE 29 U/L (15-37); BILIRUBIN,TOTAL 0.3 MG/DL (0.2-1.0); BLOOD UREA NITROGEN 14 mg/dL (7-18); CALCIUM 9.4 MG/DL (8.5-10.1); CARBON DIOXIDE 26 MMOL/L (21-32); CHLORIDE 102 MMOL/L (98-107); CREATININE 0.8 MG/DL (0.55-1.30); POTASSIUM 4.1 MMOL/L (3.5-5.1); SODIUM 137 MMOL/L (136-145)
--- NOTE | 2018-11-10 07:19 | NUR ---
HAND-OFF: Report given to BRENDA Holley RN.
--- NOTE | 2018-11-10 07:24 | NUR ---
NURSE NOTES: AWALE/ALERT. NO C/O PAIN. ILEOSTOMY TO MEDIUM INTERMITTENT SUCTION DRAINING LIGHT GREEN LIQUID OUTPUT. IN NO APPARENT DISTRESS
[2018-11-10] MEDS: PARoxetine 10mg tab ORAL SCH (08:42)
[2018-11-10] MEDS: metroNIDAZOLE 500mg tab ORAL SCH ×3 (08:42→17:37)
[2018-11-10] MEDS: Vitamin A&D Oint 2oz Tube TOPIC SCH ×2 (08:43→17:47)
--- NOTE | 2018-11-10 08:45 | NUR ---
NURSE NOTES: AMBULATED OUT IN THE BECK ,TOLERATED.
--- NOTE | 2018-11-10 12:48 | General Progress Note ---
Progress Note Progress Note looks good today states feels better no n/v/f/c labs okay exam stable wounds c/d/i still with high output as 1L since 07AM drained from pouch and very thin liquid no leakage tolerating diet meds as written diet as tolerated not ready for self intubations Saurav Moore Nov 10, 2018 12:48
[2018-11-10] MEDS ORDERED: NS 275ml ONE (17:42)
[2018-11-10] MEDS ORDERED: Tubing IV Secondary IV ONE (17:42)
[2018-11-10] MEDS ORDERED: NS Irrig 1000ml ONE (17:42)
[2018-11-10] MEDS: HYDROcodone/Acetamin 5/325 tab ORAL PRN (18:41)
--- NOTE | 2018-11-10 19:03 | NUR ---
NURSE NOTES: NO ACUTE CHANGES. CONDITION STABLE
--- NOTE | 2018-11-10 19:08 | NUR ---
HAND-OFF: Report given to Tabitha BRIGGS RN.
--- NOTE | 2018-11-10 19:42 | NUR ---
nurse's notes: received patient awake, alert and oriented; denies pain or any distress. ambulated along the hallway with ileostomy attached to a juarez drainage system; noted greenish colored output in collection chamber; in middle continuous suction. ileostomy site dressing clean, dry and intact; no redness or inflammation noted. will continue plan of care.
[2018-11-10] MEDS: Dyna-Hex 2% Top Sol 2oz TOPIC SCH (20:19)
[2018-11-10] MEDS: TraZODone 50mg tab ORAL SCH (20:19)
[2018-11-11] MEDS: HYDROcodone/Acetamin 5/325 tab ORAL PRN ×2 (03:25→17:22)
[2018-11-11 04:00] VITALS: BP 105/65
--- NOTE | 2018-11-11 06:39 | NUR ---
nurse's notes: unable to draw blood from patient's picc line despite several attempts by 3 RNs; patient requesting cathflo to flush her line; awaiting callback from dr. pierson.
--- NOTE | 2018-11-11 07:17 | NUR ---
HAND-OFF: Report given to RADHA Bass.
--- NOTE | 2018-11-11 07:30 | NUR ---
NURSE NOTES: \ awake/alert. no c/o pain. in no acute distress.
[2018-11-11 08:03] VITALS: BP 119/71
[2018-11-11] MEDS ORDERED: Cathflo Alteplase 2mg Inj INJ ONE (08:30)
[2018-11-11] MEDS: metroNIDAZOLE 500mg tab ORAL SCH ×3 (08:48→17:22)
[2018-11-11] MEDS: PARoxetine 10mg tab ORAL SCH (08:48)
[2018-11-11] MEDS: Estradiol Vaginal Cr 42.5 Gm Tube VAGIN SCH (08:49)
[2018-11-11] MEDS: Vitamin A&D Oint 2oz Tube TOPIC SCH ×2 (09:00→18:00)
--- NOTE | 2018-11-11 10:00 | NUR ---
NURSE NOTES: ambulatory ad jessica out in the rose as tolerated.
[2018-11-11 10:14] LABS: BASOPHILS % (AUTO) 0.7 % (0.0-2.0); EOSINOPHILS % (AUTO) 4.6 % (0.0-3.0); HEMATOCRIT 36.9 % (37.0-47.0); LYMPHOCYTES % (AUTO) 27.6 % (20.0-45.0); MEAN CORPUSCULAR VOLUME 83 FL (80-99); MONOCYTES % (AUTO) 5.1 % (1.0-10.0); PLATELET COUNT 442 K/UL (150-450); RED BLOOD COUNT 4.43 M/UL (4.20-5.40); RED CELL DISTRIBUTION WIDTH 12.2 % (11.6-14.8); WHITE BLOOD COUNT 8.8 K/UL (4.8-10.8)
[2018-11-11 10:42] LABS: ANION GAP 12 mmol/L (5-15); BLOOD UREA NITROGEN 14 mg/dL (7-18); CALCIUM 9.5 MG/DL (8.5-10.1); CARBON DIOXIDE 24 MMOL/L (21-32); CHLORIDE 96 MMOL/L (98-107); CREATININE 0.9 MG/DL (0.55-1.30); POTASSIUM 3.7 MMOL/L (3.5-5.1); SODIUM 132 MMOL/L (136-145)
[2018-11-11 12:00] VITALS: BP 105/63
[2018-11-11] MEDS: TransDerm Scop 1.5mg/72HR Patch TDERMAL SCH (12:15)
--- NOTE | 2018-11-11 13:33 | Infectious Diseases Prog Note ---
Assessment/Plan Assessment/Plan ASSESSMENT AND PLAN: 1. pelvic abscess on CT, s/p drain, ? sepsis, leukocytosis and fevers, possible pna - continue meropenem - day # 13, plan on 14 days iv abx - clinically stable - cultures negative - monitor labs - fevers resolved, leukocytosis resolved - drain out 2. 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 3. Anemia. 4. The patient has history of multiple abdominal surgeries. 5. History of pelvic floor dysfunction, colonic inertia, and history of endometriosis. 6. History of hysterectomy. 7. History of cholecystectomy. 8. Allergies to codeine and morphine. 9. Social history is negative. 10. Family history is noncontributory. 11. MAR was noted. 12. Case was discussed with RN. 13. Case was discussed with Dr. Kramer. 14. Continue treatment per primary consultants. Subjective Constitutional: Denies: fever HEENT: Denies: congestion Respiratory: Denies: shortness of breath Cardiovascular: Denies: chest pain Gastrointestinal/Abdominal: Reports: other - no abdominal pain ; Denies: nausea , vomiting Neurologic: Denies: headache Psychiatric: Denies: depression Skin: Denies: rash Hematologic: Denies: bleeding Musculoskeletal: Denies: pain Allergies: Coded Allergies: CODEINE (Verified Adverse Reaction, Severe, Itching, 10/18/18) MORPHINE (Verified Adverse Reaction, Severe, Itching, 10/18/18) sever itching to the point scratches self till bleeding. Objective Vital Signs Last 24 Hour Vital Signs Date Time Temp Pulse Resp B/P (MAP) Pulse Ox O2 Delivery O2 Flow Rate FiO2 11/11/18 12:00 98.0 67 17 105/63 (77) 97 11/11/18 09:27 Room Air 11/11/18 08:03 97.4 77 17 119/71 (87) 98 11/11/18 04:00 98.3 78 17 105/65 (78) 95 11/10/18 23:55 98.3 82 18 109/70 (83) 100 11/10/18 21:00 Room Air 11/10/18 20:00 98.7 91 18 129/77 (94) 98 11/10/18 16:00 98.5 103 17 117/57 (77) 97 Height (Feet): 5 Height (Inches): 6.00 Weight (Pounds): 186 General Appearance: no acute distress HEENT: normocephalic, atraumatic, anicteric, mucous membranes moist Respiratory/Chest: lungs clear, normal breath sounds, no respiratory distress, no accessory muscle use Cardiovascular: normal rate, regular rhythm, no gallop/murmur, no JVD Abdomen: normal bowel sounds, soft, non tender, no organomegaly, non distended Genitourinary: other - no juarez Extremities: no cyanosis Skin: no rash 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 Status post total colectomy with associated postoperative appearance and two organized, rim-enhancing collections in the pelvis as described above. 2. Additional possible left lower quadrant collection which appears indistinguishable from adjacent loops may represent additional collection, but anastomotic leak cannot be excluded on this examination. Microbiology Date/Time Source Procedure Growth Status 10/29/18 15:30 Blood Blood Culture - Final NO GROWTH AFTER 5 DAYS Complete 10/30/18 14:10 Peritoneal Fluid Gram Stain - Final Complete 10/30/18 14:10 Peritoneal Fluid Body Fluid Culture - Final NO GROWTH Complete 11/07/18 15:05 Stool Clostridium difficile Toxin Assay - Final Complete 10/30/18 18:10 Urine,Clean Catch Urine Culture - Final NO GROWTH AFTER 48 HOURS Complete Laboratory Tests Test 11/11/18 09:45 White Blood Count 8.8 K/UL (4.8-10.8) Red Blood Count 4.43 M/UL (4.20-5.40) Hemoglobin 12.0 G/DL (12.0-16.0) Hematocrit 36.9 % (37.0-47.0) L Mean Corpuscular Volume 83 FL (80-99) Mean Corpuscular Hemoglobin 27.0 PG (27.0-31.0) Mean Corpuscular Hemoglobin Concent 32.4 G/DL (32.0-36.0) Red Cell Distribution Width 12.2 % (11.6-14.8) Platelet Count 442 K/UL (150-450) Mean Platelet Volume 6.1 FL (6.5-10.1) L Neutrophils (%) (Auto) 62.0 % (45.0-75.0) Lymphocytes (%) (Auto) 27.6 % (20.0-45.0) Monocytes (%) (Auto) 5.1 % (1.0-10.0) Eosinophils (%) (Auto) 4.6 % (0.0-3.0) H Basophils (%) (Auto) 0.7 % (0.0-2.0) Erythrocyte Sedimentation Rate 19 MM/HR (0-20) Sodium Level 132 MMOL/L (136-145) L Potassium Level 3.7 MMOL/L (3.5-5.1) Chloride Level 96 MMOL/L (98-107) L Carbon Dioxide Level 24 MMOL/L (21-32) Anion Gap 12 mmol/L (5-15) Blood Urea Nitrogen 14 mg/dL (7-18) Creatinine 0.9 MG/DL (0.55-1.30) Estimat Glomerular Filtration Rate > 60 mL/min (>60) Glucose Level 101 MG/DL (74-106) Calcium Level 9.5 MG/DL (8.5-10.1) C-Reactive Protein, Quantitative 2.9 mg/dL (0.00-0.90) H Current Medications Medications (Trade) Dose Ordered Sig/Ld Route PRN Reason Start Time Stop Time Status Last Admin Dose Admin Acetaminophen (Tylenol) 1,000 mg Q4H PRN ORAL temp>100.2 or headache 10/19/18 16:00 11/18/18 15:59 10/29/18 16:32 Acetaminophen/ Hydrocodone Bitart ([place] 5/325) 1 tab Q4H PRN ORAL Moderate Pain (Pain Scale 4-6) 11/07/18 08:00 11/14/18 07:59 11/11/18 03:25 Chlorhexidine Gluconate (Ana Rosa-Hex 2%) 1 applic DAILY@1999 TOPIC 10/18/18 20:00 11/17/18 19:59 11/10/18 20:19 Ciprofloxacin (Cipro 250mg tab) 500 mg EVERY 12 HOURS ORAL 11/08/18 09:00 11/15/18 08:59 11/11/18 08:48 Diphenhydramine HCl (Benadryl) 25 mg Q6H PRN IVP Itching/Pruritis 10/27/18 12:41 11/26/18 12:40 10/29/18 18:25 Estradiol (Estrace) 1 applic THREE TIMES A WEEK VAGIN 10/19/18 09:00 11/18/18 08:59 11/11/18 08:49 Meropenem 1 gm/ Sodium Chloride 100 ml @ 200 mls/hr Q8HR IVPB 11/09/18 22:00 11/14/18 21:59 11/11/18 05:57 Metronidazole (Flagyl) 500 mg TID ORAL 11/08/18 09:00 11/15/18 08:59 11/11/18 12:30 Miconazole Nitrate (Monistat) 1 applic BIDPRN PRN VAGIN Itching 11/07/18 12:00 12/07/18 11:59 Naloxone HCl (Narcan) 0.1 mg PRN IV RR<10min OR SBP<90 mmHg OR 10/24/18 07:00 11/23/18 06:59 Ondansetron HCl (Zofran ODT) 4 mg Q6H PRN ORAL Nausea & Vomiting 11/02/18 11:15 12/02/18 11:14 Ondansetron HCl (Zofran) 4 mg Q4H PRN IVP Nausea & Vomiting 11/02/18 11:15 11/26/18 12:40 Paroxetine HCl (Paxil) 30 mg DAILY ORAL 10/22/18 09:00 11/21/18 08:59 11/11/18 08:48 Patient Own Medication (Patient's Own Med) 1 ea SuWe@0900 TDERMAL 10/28/18 14:00 11/18/18 09:01 11/11/18 09:38 Phenazopyridine HCl (Pyridium) 100 mg Q8H PRN ORAL BURNING 10/29/18 19:00 11/28/18 18:59 Prochlorperazine (Compazine) 10 mg Q6H PRN IVP Nausea & Vomiting 10/21/18 08:30 11/20/18 08:29 11/11/18 10:05 Scopolamine (TransDerm Scop 1.5mg/72HR Patch) 1.5 mg Q72H TDERMAL 11/02/18 12:00 12/02/18 11:59 11/11/18 12:15 Trazodone HCl (Desyrel) 150 mg BEDTIME ORAL 10/22/18 21:00 11/21/18 20:59 11/10/18 20:19 Vitamin A/Vitamin D (A & D Oint) 1 applic BID TOPIC 10/23/18 11:00 11/22/18 10:59 11/10/18 08:43 Yoshi Quintana MD Nov 11, 2018 13:33
--- NOTE | 2018-11-11 14:03 | General Progress Note ---
Progress Note Progress Note no acute events comfortable no n/v/f/c exam stable wounds c/d/i still with high output as 600cc since 07AM drained from pouch and very thin liquid no leakage tolerating diet meds as written diet as tolerated not ready for self intubations cont Saurav Rangel Nov 11, 2018 14:03
[2018-11-11 16:03] VITALS: BP 114/73
[2018-11-11] MEDS ORDERED: NS Irrig 1000ml ONE (16:03)
[2018-11-11] MEDS ORDERED: NS 275ml ONE (16:03)
[2018-11-11] MEDS ORDERED: Tubing IV Secondary IV ONE (16:03)
--- NOTE | 2018-11-11 19:00 | NUR ---
NURSE NOTES: WALKING OUT IN THE BECK.NO ACUTE DISTRESS.
--- NOTE | 2018-11-11 19:11 | NUR ---
HAND-OFF: Report given to Tabitha BRIGGS RN.
--- NOTE | 2018-11-11 19:30 | NUR ---
NURSE NOTES: Received report from RADHA Bass and rounds made with outgoing nurse. Received pt ambulating in the hallway, gait steady, no distress noted. Will continue to monitor.
--- NOTE | 2018-11-11 19:45 | NUR ---
NURSE NOTES: Pt back in the room, pain level 2/10, reconnected pt back to medium intermittent suction with good output. Piccline patent and intact. Bed in lowest position, side rails up x 2, call light within reach. Will continue to monitor.
[2018-11-11 20:00] VITALS: BP 108/67
[2018-11-11] MEDS: Dyna-Hex 2% Top Sol 2oz TOPIC SCH (20:10)
[2018-11-11] MEDS: TraZODone 50mg tab ORAL SCH (20:10)
[2018-11-11 23:56] VITALS: BP 111/61
[2018-11-12 04:00] VITALS: BP 116/71
--- NOTE | 2018-11-12 07:22 | NUR ---
HAND-OFF: Report given to RADHA Orellana. Pt in stable condition.
--- NOTE | 2018-11-12 07:50 | NUR ---
NURSE NOTES: Received report from RADHA Zafar. Rounding done with outgoing nurse. Pt a/o x 4, having breakfast. Rt ileostomy connected to intermittent medium suction, working properly. Abdominal surgical site dressing is C/D/I. Bed in lowest position, call light within reach. Will continue to monitor.
[2018-11-12 08:00] VITALS: BP 110/70
[2018-11-12] MEDS: PARoxetine 10mg tab ORAL SCH (08:54)
[2018-11-12] MEDS: Vitamin A&D Oint 2oz Tube TOPIC SCH ×2 (08:54→17:22)
[2018-11-12] MEDS: metroNIDAZOLE 500mg tab ORAL SCH ×3 (08:54→17:22)
[2018-11-12] MEDS: Estradiol Vaginal Cr 42.5 Gm Tube VAGIN SCH (08:55)
--- NOTE | 2018-11-12 09:30 | NUR ---
NURSE NOTES: Patient ambulated hallway x3 by herself in stable condition.
[2018-11-12] MEDS ORDERED: NS 500ML ONE (10:40)
[2018-11-12] MEDS ORDERED: Tubing IV Secondary IV ONE (10:40)
[2018-11-12] MEDS ORDERED: NS Irrig 1000ml ONE (10:40)
[2018-11-12 12:00] VITALS: BP 123/71
--- NOTE | 2018-11-12 13:20 | NUR ---
NURSE NOTES: Patient ambulated hallway x3 by herself in stable condition.
--- NOTE | 2018-11-12 13:36 | NUR ---
*-* INSURANCE *-* UPDATED CLINICALS HAVE BEEN FAXED TO: [facility]:[place] P:[phone] F: [phone]
--- NOTE | 2018-11-12 15:20 | General Progress Note ---
Progress Note Progress Note no acute events comfortable no n/v/f/c exam stable wounds c/d/i output decreasing no leakage tolerating diet meds as written diet as tolerated Start self intubations today. q2h while awake and q0200 cont Abx Saurav Moore Nov 12, 2018 15:20
--- NOTE | 2018-11-12 15:42 | NUR ---
RD ASSESSMENT & RECOMMENDATIONS SEE CARE ACTIVITY FOR COMPLETE ASSESSMENT DAILY ESTIMATED NEEDS: Needs based on Surgery 65.7kg adj 25-30 kcals/kg total kcals 1.2-2 g protein/kg 79-131 g total protein 25-30 mL/kg total fluid mLs NUTRITION DIAGNOSIS: Altered GI fxn r/t h/o pelvic floor dysfunction and colonic inertia as evidenced by pt w/ history of mutliple abdominal operations including ileo + colostomy, now s/p BCIR, diet now advanced to BCIR Low Residue diet. CURRENT DIET:BCIR LOW RESIDUE PO DIET RECOMMENDATIONS: BCIR LOW RESIDUE DIET PER MD ADDITIONAL RECOMMENDATIONS: * Monitor PO intake and tolerance * Weekly standing weights .
--- NOTE | 2018-11-12 15:53 | NUR ---
NURSE NOTES: Ileo catheter was removed as MD ordered. Pt is stable condition.
[2018-11-12 16:00] VITALS: BP 109/75
--- NOTE | 2018-11-12 18:16 | NUR ---
NURSE NOTES: Fist self intubating was done. Output was 30 ml with cole cath. Notified to Dr. Moore.
--- NOTE | 2018-11-12 19:48 | NUR ---
HAND-OFF: Report given to RADHA Zafar. Patient is stable condition.
[2018-11-12 20:00] VITALS: BP 136/74
--- NOTE | 2018-11-12 20:00 | NUR ---
NURSE NOTES: Received report from RADHA Orellana. Patient is ambulating in the hallway. No c/o of pain or SOB. Will continue to monitor.
[2018-11-12] MEDS: TraZODone 50mg tab ORAL SCH (20:39)
[2018-11-12] MEDS: Dyna-Hex 2% Top Sol 2oz TOPIC SCH (20:40)
[2018-11-12] MEDS: HYDROcodone/Acetamin 5/325 tab ORAL PRN (20:48)
[2018-11-12] MEDS: Simethicone 80mg tab ORAL PRN (21:20)
[2018-11-13] VITALS: BP 114/69
[2018-11-13 04:00] VITALS: BP 118/68
[2018-11-13] MEDS: Simethicone 80mg tab ORAL PRN ×4 (06:36→20:07)
--- NOTE | 2018-11-13 07:18 | NUR ---
HAND-OFF: Report given to Flavia Tony RN.Patient in stable condition.
--- NOTE | 2018-11-13 07:30 | NUR ---
NURSE NOTES: Patient lying in bed awake. No complain of pain or distress at this time. Skin intact and dry. Dressing on Ileostomy dry and intact. PICC line dressing intact and dry. Bed lowest position. Call light within reach. Will continue to monitor.
[2018-11-13 07:36] VITALS: BP 136/71
[2018-11-13 07:50] LABS: BASOPHILS % (AUTO) 0.3 % (0.0-2.0); EOSINOPHILS % (AUTO) 3.5 % (0.0-3.0); HEMATOCRIT 39.5 % (37.0-47.0); HEMOGLOBIN 12.8 G/DL (12.0-16.0); MEAN CORPUSCULAR VOLUME 83 FL (80-99); MONOCYTES % (AUTO) 5.2 % (1.0-10.0); PLATELET COUNT 402 K/UL (150-450); RED BLOOD COUNT 4.75 M/UL (4.20-5.40); RED CELL DISTRIBUTION WIDTH 12.2 % (11.6-14.8); WHITE BLOOD COUNT 8.3 K/UL (4.8-10.8)
[2018-11-13 08:12] LABS: ANION GAP 16 mmol/L (5-15); BLOOD UREA NITROGEN 8 mg/dL (7-18); CALCIUM 9.3 MG/DL (8.5-10.1); CARBON DIOXIDE 19 MMOL/L (21-32); CHLORIDE 101 MMOL/L (98-107); POTASSIUM 3.7 MMOL/L (3.5-5.1); SODIUM 136 MMOL/L (136-145)
[2018-11-13] MEDS: PARoxetine 10mg tab ORAL SCH (08:22)
[2018-11-13] MEDS: metroNIDAZOLE 500mg tab ORAL SCH ×2 (08:22→13:18)
[2018-11-13] MEDS: Vitamin A&D Oint 2oz Tube TOPIC SCH ×2 (09:03→18:06)
--- NOTE | 2018-11-13 10:04 | NUR ---
CASE MANAGEMENT:REVIEW 11/10/18 SI: POD #21..S/P SURGERY DAY#10....SINCE ENTEROCUTANEOUS FISTULA SEALED ~ PELVIC ABSCESS 98.4 89 17 113/77 97% ON RA H/H-11.0/33.7 IS: IV MEROPENEM Q8HRS FLAGYL PO TID CIPRO PO Q12 TPN/IL @80/HR IVF@50/HR NORCO PO Q4HRS PRN : MED/SURG STATUS 3 [facility] DCP: PATIENT IS FROM [place], [place] PLAN: TPN WAS DISCONTINUED YESTERDAY 11/09/18 STILL W/LARGE OUTPUT ~ 1L DRAINED FROM POUCH TOLERATING DIET ~ NOT READY FOR SELF INTUBATION PROVIDE DISCHARGE SUPPLIES: 28 JIMENES CATHETER PLUG DRAINAGE BAG IRRIGATION TRAY 11/11/18 SI: POD #22..S/P SURGERY DAY#11....SINCE ENTEROCUTANEOUS FISTULA SEALED ~ PELVIC ABSCESS 97.4 77 17 119/71 98% ON RA NA-132 CRP+2.9 IS: IV MEROPENEM Q8HRS FLAGYL PO TID CIPRO PO Q12 NORCO PO Q4HRS PRN : MED/SURG STATUS 3 [facility] 11/12/18 SI: POD #23..S/P SURGERY DAY#12....SINCE ENTEROCUTANEOUS FISTULA SEALED ~ PELVIC ABSCESS 98.2 84 20 110/70 96% ON RA IS: IV MEROPENEM Q8HRS FLAGYL PO TID CIPRO PO Q12 NORCO PO Q4HRS PRN : MED/SURG STATUS 3 [facility] PLAN: START SELF INTUBATION Q2HRS WHILE AWAKE CONTINUE ANTIBIOTICS REMOVE ILEO CATHETER 11/13/18 SI: POD #24..S/P SURGERY DAY#13....SINCE ENTEROCUTANEOUS FISTULA SEALED ~ PELVIC ABSCESS 97.6 92 18 136/71 98% ON RA GLUCOSE+110 IS: IV MEROPENEM Q8HRS FLAGYL PO TID CIPRO PO Q12 NORCO PO Q4HRS PRN : MED/SURG STATUS 3 [facility]
[2018-11-13 12:00] VITALS: BP 112/61
--- NOTE | 2018-11-13 12:21 | Infectious Diseases Prog Note ---
Assessment/Plan Assessment/Plan ASSESSMENT AND PLAN: 1. pelvic abscess on CT, s/p drain, ? sepsis, leukocytosis and fevers, possible pna - continue meropenem - day # 15, consider discontinuation of antibiotics - d/w surgery - clinically stable - cultures negative - monitor labs - fevers resolved, leukocytosis resolved - drain out 2. 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 3. Anemia. 4. The patient has history of multiple abdominal surgeries. 5. History of pelvic floor dysfunction, colonic inertia, and history of endometriosis. 6. History of hysterectomy. 7. History of cholecystectomy. 8. Allergies to codeine and morphine. 9. Social history is negative. 10. Family history is noncontributory. 11. MAR was noted. 12. Case was discussed with RN. 13. Case was discussed with Dr. Kramer. 14. Continue treatment per primary consultants. Subjective Constitutional: Denies: fever HEENT: Denies: congestion Respiratory: Denies: shortness of breath Cardiovascular: Denies: chest pain Gastrointestinal/Abdominal: Reports: other - ileostomy ; Denies: nausea, vomiting Genitourinary: Reports: other - no juarez Neurologic: Denies: headache Psychiatric: Denies: depression Skin: Denies: rash Hematologic: Denies: bleeding Musculoskeletal: Denies: pain Allergies: Coded Allergies: CODEINE (Verified Adverse Reaction, Severe, Itching, 10/18/18) MORPHINE (Verified Adverse Reaction, Severe, Itching, 10/18/18) sever itching to the point scratches self till bleeding. Objective Vital Signs Last 24 Hour Vital Signs Date Time Temp Pulse Resp B/P (MAP) Pulse Ox O2 Delivery O2 Flow Rate FiO2 11/13/18 09:00 Room Air 11/13/18 07:36 97.6 92 18 136/71 (92) 98 11/13/18 04:00 98.1 84 18 118/68 (85) 98 11/13/18 00:00 98.2 77 18 114/69 (84) 99 11/12/18 21:00 Room Air 11/12/18 20:00 98.3 89 18 136/74 (94) 100 11/12/18 16:00 98.6 88 20 109/75 (86) 97 Height (Feet): 5 Height (Inches): 6.00 Weight (Pounds): 186 General Appearance: no acute distress HEENT: normocephalic, atraumatic, anicteric Respiratory/Chest: lungs clear, normal breath sounds, no respiratory distress, no accessory muscle use Cardiovascular: normal rate, regular rhythm, no gallop/murmur, no JVD Abdomen: normal bowel sounds, soft, non tender, no organomegaly, non distended Genitourinary: other - no juarez Extremities: no cyanosis Skin: no rash 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 Status post total colectomy with associated postoperative appearance and two organized, rim-enhancing collections in the pelvis as described above. 2. Additional possible left lower quadrant collection which appears indistinguishable from adjacent loops may represent additional collection, but anastomotic leak cannot be excluded on this examination. Microbiology Date/Time Source Procedure Growth Status 10/29/18 15:30 Blood Blood Culture - Final NO GROWTH AFTER 5 DAYS Complete 10/30/18 14:10 Peritoneal Fluid Gram Stain - Final Complete 10/30/18 14:10 Peritoneal Fluid Body Fluid Culture - Final NO GROWTH Complete 11/07/18 15:05 Stool Clostridium difficile Toxin Assay - Final Complete 10/30/18 18:10 Urine,Clean Catch Urine Culture - Final NO GROWTH AFTER 48 HOURS Complete Laboratory Tests Test 11/13/18 07:25 White Blood Count 8.3 K/UL (4.8-10.8) Red Blood Count 4.75 M/UL (4.20-5.40) Hemoglobin 12.8 G/DL (12.0-16.0) Hematocrit 39.5 % (37.0-47.0) Mean Corpuscular Volume 83 FL (80-99) Mean Corpuscular Hemoglobin 26.9 PG (27.0-31.0) L Mean Corpuscular Hemoglobin Concent 32.3 G/DL (32.0-36.0) Red Cell Distribution Width 12.2 % (11.6-14.8) Platelet Count 402 K/UL (150-450) Mean Platelet Volume 6.2 FL (6.5-10.1) L Neutrophils (%) (Auto) 66.0 % (45.0-75.0) Lymphocytes (%) (Auto) 25.0 % (20.0-45.0) Monocytes (%) (Auto) 5.2 % (1.0-10.0) Eosinophils (%) (Auto) 3.5 % (0.0-3.0) H Basophils (%) (Auto) 0.3 % (0.0-2.0) Sodium Level 136 MMOL/L (136-145) Potassium Level 3.7 MMOL/L (3.5-5.1) Chloride Level 101 MMOL/L (98-107) Carbon Dioxide Level 19 MMOL/L (21-32) L Anion Gap 16 mmol/L (5-15) H Blood Urea Nitrogen 8 mg/dL (7-18) Creatinine 1.0 MG/DL (0.55-1.30) Estimat Glomerular Filtration Rate > 60 mL/min (>60) Glucose Level 110 MG/DL (74-106) H Calcium Level 9.3 MG/DL (8.5-10.1) Current Medications Medications (Trade) Dose Ordered Sig/Ld Route PRN Reason Start Time Stop Time Status Last Admin Dose Admin Acetaminophen (Tylenol) 1,000 mg Q4H PRN ORAL temp>100.2 or headache 10/19/18 16:00 11/18/18 15:59 10/29/18 16:32 Acetaminophen/ Hydrocodone Bitart ([place] 5/325) 1 tab Q4H PRN ORAL Moderate Pain (Pain Scale 4-6) 11/07/18 08:00 11/14/18 07:59 11/12/18 20:48 Chlorhexidine Gluconate (Ana Rosa-Hex 2%) 1 applic DAILY@1999 TOPIC 10/18/18 20:00 11/17/18 19:59 11/12/18 20:40 Ciprofloxacin (Cipro 250mg tab) 500 mg EVERY 12 HOURS ORAL 11/08/18 09:00 11/15/18 08:59 11/13/18 08:22 Diphenhydramine HCl (Benadryl) 25 mg Q6H PRN IVP Itching/Pruritis 10/27/18 12:41 11/26/18 12:40 10/29/18 18:25 Estradiol (Estrace) 1 applic THREE TIMES A WEEK VAGIN 10/19/18 09:00 11/18/18 08:59 11/12/18 08:55 Meropenem 1 gm/ Sodium Chloride 100 ml @ 200 mls/hr Q8HR IVPB 11/09/18 22:00 11/14/18 21:59 11/13/18 05:16 Metronidazole (Flagyl) 500 mg TID ORAL 11/08/18 09:00 11/15/18 08:59 11/13/18 08:22 Miconazole Nitrate (Monistat) 1 applic BIDPRN PRN VAGIN Itching 11/07/18 12:00 12/07/18 11:59 Naloxone HCl (Narcan) 0.1 mg PRN IV RR<10min OR SBP<90 mmHg OR 10/24/18 07:00 11/23/18 06:59 Ondansetron HCl (Zofran ODT) 4 mg Q6H PRN ORAL Nausea & Vomiting 11/02/18 11:15 12/02/18 11:14 Ondansetron HCl (Zofran) 4 mg Q4H PRN IVP Nausea & Vomiting 11/02/18 11:15 11/26/18 12:40 Paroxetine HCl (Paxil) 30 mg DAILY ORAL 10/22/18 09:00 11/21/18 08:59 11/13/18 08:22 Patient Own Medication (Patient's Own Med) 1 ea Kalyn@0900 TDERMAL 10/28/18 14:00 11/18/18 09:01 11/11/18 09:38 Phenazopyridine HCl (Pyridium) 100 mg Q8H PRN ORAL BURNING 10/29/18 19:00 11/28/18 18:59 Prochlorperazine (Compazine) 10 mg Q6H PRN IVP Nausea & Vomiting 10/21/18 08:30 11/20/18 08:29 11/13/18 11:50 Scopolamine (TransDerm Scop 1.5mg/72HR Patch) 1.5 mg Q72H TDERMAL 11/02/18 12:00 12/02/18 11:59 11/11/18 12:15 Simethicone (Mylicon) 40 mg QIDPRN PRN ORAL Abdominal cramps/gas pain 11/12/18 20:45 12/12/18 20:44 11/13/18 08:43 Trazodone HCl (Desyrel) 150 mg BEDTIME ORAL 10/22/18 21:00 11/21/18 20:59 11/12/18 20:39 Vitamin A/Vitamin D (A & D Oint) 1 applic BID TOPIC 10/23/18 11:00 11/22/18 10:59 11/13/18 09:03 Yoshi Quintana MD Nov 13, 2018 12:21
--- NOTE | 2018-11-13 13:15 | NUR ---
*-* INSURANCE *-* UPDATED CLINICALS AND REVIEWS HAVE BEEN FAXED TO: [facility]:LAURA P:[phone] F: [phone]
--- NOTE | 2018-11-13 13:18 | NUR ---
GRAPPLER NOTES SPOKE WITH LAURA FROM [facility] PT STAY APPROVED . OTHER DAYS PENDING CLINICAL REVIEW. DAY 1 CONTINUES TO BE DENIED DUE TO PREOP DAY.WILL CONTINUE TO FOLLOW.
[2018-11-13] MEDS: HYDROcodone/Acetamin 5/325 tab ORAL PRN (13:22)
[2018-11-13 16:00] VITALS: BP 104/67
--- NOTE | 2018-11-13 16:43 | General Progress Note ---
Progress Note Progress Note Doing well learning to intubate her BCIR pouch. Abdomen soft, well healed Urine 1950 BCIR ileo 1145 High volume watery output finally responded to po Cipro and Flagyl started 11/08 WBC 8300 Hgb 12.8 Platelets 402,000 BMP - wnl IMp. Doing well Plan: Continue q2h intubations with RN and strict I&O discharge planning Manny Kramer MD Nov 13, 2018 16:43
[2018-11-13] MEDS ORDERED: metroNIDAZOLE 500mg tab ORAL SCH (18:00)
--- NOTE | 2018-11-13 19:30 | NUR ---
HAND-OFF: Report given to Andrade GARCIA and Kalin GARCIA. Patient in stable condition.
[2018-11-13 20:00] VITALS: BP 120/80
--- NOTE | 2018-11-13 20:00 | NUR ---
NURSE NOTES: Received report from RADHA Tony. Patient is resting in bed. PICC line and dressing is c/d/i. VSS and no c/o of pain or SOB. Patient c/o of gas discomfort. Given medication per eMAR orders.
[2018-11-13] MEDS: TraZODone 50mg tab ORAL SCH (20:09)
[2018-11-13] MEDS: Dyna-Hex 2% Top Sol 2oz TOPIC SCH (20:10)
[2018-11-14] VITALS: BP 98/66
[2018-11-14 04:00] VITALS: BP 123/84
--- NOTE | 2018-11-14 07:18 | NUR ---
HAND-OFF: Report given to RADHA Bass. Patient is in stable condition.
--- NOTE | 2018-11-14 07:56 | NUR ---
NURSE NOTES: Pt up and walking outgoing nurse reported nausea without presence of vomiting. Continues to have nausea Zofran given po pt able to tolerate pill. Supervised with ileostomy output 500 output . Pt able to self intubate without difficulty. Verbalized pressure minimized after intubating.
[2018-11-14 08:00] VITALS: BP 120/72
--- NOTE | 2018-11-14 08:22 | General Progress Note ---
Progress Note Progress Note AVSS Ongoing complaint of nausea and bloating but overnight she feels somewhat better. Now with increased volume of BCIR ileo output 1675cc but also increased po fluids 3000cc Urine 2900 Abdomen remains mildly distended 2view abd XRay - multiple dilated small bowel loops with A-F levels Imp. R/O partial SBO Plan: gastrograffin pouchogram XRay with retrograde SBS Manny Kramer MD Nov 14, 2018 08:22
--- NOTE | 2018-11-14 08:56 | NUR ---
NURSE NOTES: Catheter inserted to drainage bag by gravity output 400 and dark brown no odor
[2018-11-14] MEDS: Vitamin A&D Oint 2oz Tube TOPIC SCH ×2 (09:00→18:00)
[2018-11-14] MEDS: PARoxetine 10mg tab ORAL SCH (09:36)
[2018-11-14] MEDS: Estradiol Vaginal Cr 42.5 Gm Tube VAGIN SCH (09:37)
--- NOTE | 2018-11-14 10:02 | NUR ---
CASE MANAGEMENT:REVIEW 11/14/18 SI: POD #25..S/P SURGERY DAY#14...SINCE ENTEROCUTANEOUS FISTULA SEALED ~ PELVIC ABSCESS ABDOMINAL DISTENTION 98.6 91 18 98/66 97% ON RA IS: NORCO PO Q4HRS PRN MYLICON PO QID PRN ZOFRAN PO Q6HRS PRN TRAZODONE PO QHS PAXIL PO QD IV COMPAZINE Q6HRS PRN : MED/SURG STATUS 3 EAST PLAN: ABDOMINAL XRAY FROM YESTERDAY SHOWED A BLOCKAGE PLAN IS FOR KOCK POUCH POUCHOGRAM TODAY TO R/O PARTIAL SMALL BOWEL OBSTRUCTION
[2018-11-14] MEDS: Simethicone 80mg tab ORAL PRN (11:46)
[2018-11-14] MEDS: HYDROcodone/Acetamin 5/325 tab ORAL PRN (11:46)
--- NOTE | 2018-11-14 11:56 | Diagnostic Imaging Report ---
INDICATION: Abdominal pain. Barrera Pouch continent ileostomy TECHNIQUE: Through the indwelling catheter, water-soluble contrast was administered via gravity and fluoroscopically imaged in multiple projections. COMPARISON: None FINDINGS: Total fluoroscopic time 120 seconds. Total number of fluoroscopic images obtained: 14 images. Multiple fluoroscopic images demonstrate the continent ileostomy catheter well situated within the pouch. The pouch is small. There is no evidence of extravasation of contrast material. There was some reflux of contrast into small bowel which appear mildly dilated as visualized. The dilated bowel is similar in appearance to more proximal dilated bowel seen on the current exam and on recent KUB. This appearance is in keeping with the ileus. More contrast could not be instilled as there was retrograde tracking of contrast along the catheter resulting in contrast leaking adjacent to the catheter onto the skin. Postdrainage images are unremarkable. IMPRESSION: Suspicion of a small bowel ileus with demonstration of mildly distended distal small bowel just proximal to the pouch which appears small.
[2018-11-14 12:00] VITALS: BP 121/84
--- NOTE | 2018-11-14 12:57 | NUR ---
NURSE NOTES: Pt has had minimal output since 9 am output total from ileostomy was 300. Flushed with 20 cc x 2
--- NOTE | 2018-11-14 13:18 | NUR ---
*-* INSURANCE *-* UPDATED CLINICALS AND REVIEWS HAVE BEEN FAXED TO: [facility]:LAURA P:[phone] F: [phone]
--- NOTE | 2018-11-14 13:27 | Diagnostic Imaging Report ---
Indication: Abdominal pain Comparison: 10/24/2018 2 view of the abdomen obtained Findings: Mild distention of small bowel loops noted throughout the abdomen with differential air-fluid levels on upright imaging. Cholecystectomy clips noted. Surgical clips in the pelvis are demonstrated. IMPRESSION: Mildly distended small bowel. Please refer to pouchogram report.
[2018-11-14 16:00] VITALS: BP 118/92
[2018-11-14 20:00] VITALS: BP 122/80
--- NOTE | 2018-11-14 20:10 | NUR ---
NURSE NOTES: Received patient resting in bed. AAO x 4, on room air. PICC line is intact and patent. Ileostomy output 200cc and flushed 20cc, urine out put 100cc. No c/o nausea, vomiting, or pain. Bed locked, lowest position, alarm on, side rails up x 2. Will continue to monitor.
--- NOTE | 2018-11-14 20:17 | NUR ---
HAND-OFF: Report given to .Carol Fournier informed on need to monitor and record output, and to keep drainage bag in place till am
[2018-11-14] MEDS: Dyna-Hex 2% Top Sol 2oz TOPIC SCH (20:44)
[2018-11-14] MEDS: TraZODone 50mg tab ORAL SCH (20:44)
[2018-11-15] VITALS: BP 121/75
[2018-11-15 04:00] VITALS: BP 107/76
[2018-11-15 04:38] LABS: BASOPHILS % (AUTO) 0.5 % (0.0-2.0); EOSINOPHILS % (AUTO) 7.2 % (0.0-3.0); HEMATOCRIT 40.4 % (37.0-47.0); HEMOGLOBIN 13.3 G/DL (12.0-16.0); LYMPHOCYTES % (AUTO) 28.4 % (20.0-45.0); MEAN CORPUSCULAR VOLUME 81 FL (80-99); MONOCYTES % (AUTO) 7.3 % (1.0-10.0); NEUTROPHILS % (AUTO) 56.6 % (45.0-75.0); PLATELET COUNT 423 K/UL (150-450); RED BLOOD COUNT 4.96 M/UL (4.20-5.40); RED CELL DISTRIBUTION WIDTH 12.2 % (11.6-14.8); WHITE BLOOD COUNT 10.5 K/UL (4.8-10.8)
[2018-11-15 05:30] LABS: ALANINE AMINOTRANSFERASE 38 U/L (12-78); ALBUMIN 3.6 G/DL (3.4-5.0); ALBUMIN/GLOBULIN RATIO 0.7 (1.0-2.7); ALKALINE PHOSPHATASE 162 U/L (46-116); ANION GAP 10 mmol/L (5-15); ASPARTATE AMINO TRANSFERASE 29 U/L (15-37); BILIRUBIN,TOTAL 0.5 MG/DL (0.2-1.0); BLOOD UREA NITROGEN 13 mg/dL (7-18); CALCIUM 9.6 MG/DL (8.5-10.1); CARBON DIOXIDE 27 MMOL/L (21-32); CHLORIDE 96 MMOL/L (98-107); POTASSIUM 3.8 MMOL/L (3.5-5.1); SODIUM 133 MMOL/L (136-145)
--- NOTE | 2018-11-15 06:23 | NUR ---
NURSE NOTES: RN noted juarez cath from ileostomy came out @ 0600. Left message to Dr. Kramer and waiting call back.
--- NOTE | 2018-11-15 06:46 | NUR ---
NURSE NOTES: Received call from Dr. Kramer. Stated ok to remove juarez cath from ileostomy and do self intubating q 2hrs.
--- NOTE | 2018-11-15 07:26 | NUR ---
NURSE NOTES: Pt up and walking around denies pain, denies gas. Did not verbalize concerns with nausea or vomiting. Current plan of care will be followed
--- NOTE | 2018-11-15 07:49 | NUR ---
CASE MANAGEMENT:REVIEW 11/15/18 SI: POD #26..S/P SURGERY DAY#14...SINCE ENTEROCUTANEOUS FISTULA SEALED ~ PELVIC ABSCESS ABDOMINAL DISTENTION T 97.8 HR 91 RR 20 B/P 107/76 SATS 95% ON RA NA 133 CL 96 MG 1.6 ALP 162 IS: NORCO PO Q4HRS PRN MYLICON PO QID PRN ZOFRAN PO Q6HRS PRN TRAZODONE PO QHS PAXIL PO QD IV COMPAZINE Q6HRS PRN : MED/SURG STATUS 3 EAST Plan: gastrograffin pouchogram XRay with retrograde SBS
--- NOTE | 2018-11-15 07:53 | NUR ---
HAND-OFF: Report given to RADHA Brooks.
[2018-11-15 08:00] VITALS: BP 115/69
[2018-11-15] MEDS: PARoxetine 10mg tab ORAL SCH (08:22)
[2018-11-15] MEDS: Simethicone 80mg tab ORAL PRN (08:22)
[2018-11-15] MEDS: Vitamin A&D Oint 2oz Tube TOPIC SCH ×2 (08:23→17:03)
[2018-11-15 12:00] VITALS: BP 92/65
--- NOTE | 2018-11-15 12:02 | Infectious Diseases Prog Note ---
Assessment/Plan Assessment/Plan ASSESSMENT AND PLAN: 1. pelvic abscess on CT, s/p drain, ? sepsis, leukocytosis and fevers, possible pna - s/p abx treatment course - s/p drains - clinically stable - cultures negative - monitor labs - fevers resolved, leukocytosis resolved 2. 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 3. Anemia. 4. The patient has history of multiple abdominal surgeries. 5. History of pelvic floor dysfunction, colonic inertia, and history of endometriosis. 6. History of hysterectomy. 7. History of cholecystectomy. 8. Allergies to codeine and morphine. 9. Social history is negative. 10. Family history is noncontributory. 11. MAR was noted. 12. Case was discussed with RN. 13. Case was discussed with Dr. Kramer. 14. Continue treatment per primary consultants. Subjective Constitutional: Denies: fever HEENT: Denies: congestion Respiratory: Denies: shortness of breath Cardiovascular: Denies: chest pain Gastrointestinal/Abdominal: Denies: nausea, vomiting, diarrhea Genitourinary: Reports: other - no juarez Neurologic: Denies: headache Psychiatric: Denies: depression Skin: Denies: rash Hematologic: Denies: bleeding Musculoskeletal: Denies: pain Allergies: Coded Allergies: CODEINE (Verified Adverse Reaction, Severe, Itching, 10/18/18) MORPHINE (Verified Adverse Reaction, Severe, Itching, 10/18/18) sever itching to the point scratches self till bleeding. Objective Vital Signs Last 24 Hour Vital Signs Date Time Temp Pulse Resp B/P (MAP) Pulse Ox O2 Delivery O2 Flow Rate FiO2 11/15/18 09:00 Room Air 11/15/18 08:00 97.2 60 18 115/69 (84) 99 11/15/18 04:00 97.8 91 20 107/76 (86) 95 11/15/18 00:00 98.2 91 18 121/75 (90) 96 11/14/18 21:00 Room Air 11/14/18 20:00 97.8 75 20 122/80 (94) 98 11/14/18 16:00 98.1 65 19 118/92 (101) Height (Feet): 5 Height (Inches): 6.00 Weight (Pounds): 185 General Appearance: no acute distress HEENT: normocephalic, atraumatic, anicteric, mucous membranes moist Respiratory/Chest: lungs clear, normal breath sounds, no respiratory distress, no accessory muscle use Cardiovascular: normal rate, regular rhythm, no gallop/murmur Abdomen: normal bowel sounds, soft, non tender, no organomegaly Genitourinary: other - no juarez Extremities: no cyanosis Skin: no rash 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 Status post total colectomy with associated postoperative appearance and two organized, rim-enhancing collections in the pelvis as described above. 2. Additional possible left lower quadrant collection which appears indistinguishable from adjacent loops may represent additional collection, but anastomotic leak cannot be excluded on this examination. Microbiology Date/Time Source Procedure Growth Status 10/29/18 15:30 Blood Blood Culture - Final NO GROWTH AFTER 5 DAYS Complete 10/30/18 14:10 Peritoneal Fluid Gram Stain - Final Complete 10/30/18 14:10 Peritoneal Fluid Body Fluid Culture - Final NO GROWTH Complete 11/07/18 15:05 Stool Clostridium difficile Toxin Assay - Final Complete 10/30/18 18:10 Urine,Clean Catch Urine Culture - Final NO GROWTH AFTER 48 HOURS Complete Laboratory Tests Test 11/15/18 04:00 White Blood Count 10.5 K/UL (4.8-10.8) Red Blood Count 4.96 M/UL (4.20-5.40) Hemoglobin 13.3 G/DL (12.0-16.0) Hematocrit 40.4 % (37.0-47.0) Mean Corpuscular Volume 81 FL (80-99) Mean Corpuscular Hemoglobin 26.9 PG (27.0-31.0) L Mean Corpuscular Hemoglobin Concent 33.0 G/DL (32.0-36.0) Red Cell Distribution Width 12.2 % (11.6-14.8) Platelet Count 423 K/UL (150-450) Mean Platelet Volume 6.3 FL (6.5-10.1) L Neutrophils (%) (Auto) 56.6 % (45.0-75.0) Lymphocytes (%) (Auto) 28.4 % (20.0-45.0) Monocytes (%) (Auto) 7.3 % (1.0-10.0) Eosinophils (%) (Auto) 7.2 % (0.0-3.0) H Basophils (%) (Auto) 0.5 % (0.0-2.0) Sodium Level 133 MMOL/L (136-145) L Potassium Level 3.8 MMOL/L (3.5-5.1) Chloride Level 96 MMOL/L (98-107) L Carbon Dioxide Level 27 MMOL/L (21-32) Anion Gap 10 mmol/L (5-15) Blood Urea Nitrogen 13 mg/dL (7-18) Creatinine 1.0 MG/DL (0.55-1.30) Estimat Glomerular Filtration Rate > 60 mL/min (>60) Glucose Level 84 MG/DL (74-106) Calcium Level 9.6 MG/DL (8.5-10.1) Magnesium Level 1.6 MG/DL (1.8-2.4) L Total Bilirubin 0.5 MG/DL (0.2-1.0) Aspartate Amino Transf (AST/SGOT) 29 U/L (15-37) Alanine Aminotransferase (ALT/SGPT) 38 U/L (12-78) Alkaline Phosphatase 162 U/L (46-116) H Total Protein 8.5 G/DL (6.4-8.2) H Albumin 3.6 G/DL (3.4-5.0) Globulin 4.9 g/dL Albumin/Globulin Ratio 0.7 (1.0-2.7) L Current Medications Medications (Trade) Dose Ordered Sig/Ld Route PRN Reason Start Time Stop Time Status Last Admin Dose Admin Acetaminophen (Tylenol) 1,000 mg Q4H PRN ORAL temp>100.2 or headache 10/19/18 16:00 11/18/18 15:59 10/29/18 16:32 Acetaminophen/ Hydrocodone Bitart ([place] 5/325) 1 tab Q4H PRN ORAL Moderate Pain (Pain Scale 4-6) 11/13/18 17:30 11/20/18 17:29 11/14/18 11:46 Chlorhexidine Gluconate (Ana Rosa-Hex 2%) 1 applic DAILY@1999 TOPIC 10/18/18 20:00 11/17/18 19:59 11/14/18 20:44 Diphenhydramine HCl (Benadryl) 25 mg Q6H PRN IVP Itching/Pruritis 10/27/18 12:41 11/26/18 12:40 10/29/18 18:25 Estradiol (Estrace) 1 applic THREE TIMES A WEEK VAGIN 10/19/18 09:00 11/18/18 08:59 11/14/18 09:37 Miconazole Nitrate (Monistat) 1 applic BIDPRN PRN VAGIN Itching 11/07/18 12:00 12/07/18 11:59 Ondansetron HCl (Zofran ODT) 4 mg Q6H PRN ORAL Nausea & Vomiting 11/02/18 11:15 12/02/18 11:14 11/14/18 07:42 Paroxetine HCl (Paxil) 30 mg DAILY ORAL 10/22/18 09:00 11/21/18 08:59 11/15/18 08:22 Patient Own Medication (Patient's Own Med) 1 ea Kalyn@0900 TDERMAL 10/28/18 14:00 11/18/18 09:01 11/14/18 09:36 Phenazopyridine HCl (Pyridium) 100 mg Q8H PRN ORAL BURNING 10/29/18 19:00 11/28/18 18:59 Prochlorperazine (Compazine) 10 mg Q6H PRN IVP Nausea & Vomiting 10/21/18 08:30 11/20/18 08:29 11/14/18 02:18 Simethicone (Mylicon) 80 mg QIDPRN PRN ORAL Abdominal cramps/gas pain 11/13/18 17:00 12/12/18 20:44 11/15/18 08:22 Trazodone HCl (Desyrel) 150 mg BEDTIME ORAL 10/22/18 21:00 11/21/18 20:59 11/14/18 20:44 Vitamin A/Vitamin D (A & D Oint) 1 applic BID TOPIC 10/23/18 11:00 11/22/18 10:59 11/13/18 18:06 Yoshi Quintana MD Nov 15, 2018 12:02
[2018-11-15] MEDS ORDERED: Prochlorperazine 10mg tab ORAL PRN (14:00)
--- NOTE | 2018-11-15 14:12 | General Progress Note ---
Progress Note Progress Note Doing well now with no abdominal distention and intubating and eating without distress or nausea Abdomen sof WBC 10,500 Hgb 13.3 Platelets 423,000 BUN 13 Cr 1.0 Albumin up 3.6 Imp: Improved Plan: discharge in AM if remains stable intubating overnight full instructions/limitations/supplies discussed/provided \Rx [place] 5/325 #40 compazine 5mg #40 F/U will me 11/20 and prn Manny Kramer MD Nov 15, 2018 14:12
--- NOTE | 2018-11-15 14:34 | NUR ---
NURSE NOTES: Pt is ambulatory able to verbalize known needs. Supervised with intubation. No questions or complications noted or reported. Pt provided with medication for complaints of gas at start of shift. Catheter removed on previous shift. Requires encouragement for fluid intake. Did not have any verbalizations of nausea this shift. Discharge pending . Pt had a shower picc line covered .
--- NOTE | 2018-11-15 15:07 | NUR ---
*-* INSURANCE *-* UPDATED CLINICALS AND REVIEWS HAVE BEEN FAXED TO: [facility]:LAURA P:[phone] F: [phone]
--- NOTE | 2018-11-15 15:34 | NUR ---
NURSE NOTES: Pt PICC LINE REMOVED CATHETER INTACT MEASURING AT 43 cm . PRESSURE APPLIED TO AREA, PT CURRENTLY LAYING FLAT O2 SATURATION BEING MONITORED SATURATION AT 97 ROOM AIR. WILL MONITOR CLOSELY
[2018-11-15 16:00] VITALS: BP 104/63
--- NOTE | 2018-11-15 17:26 | NUR ---
NURSE NOTES: Dr Kramer phoned per pt request related to fear of abdominal cramping when at home. Pt stated she received Xanax SL orders reviewed Ativan SL noted for sleep. Dr Kramer informed and stated he would come in the AM prior to pt discharge home to give her a written prescription for Ativan for cramping. Pt made aware of Dr khan verbalized understanding. Is not experiencing cramping at this time.
--- NOTE | 2018-11-15 18:35 | NUR ---
NURSE NOTES: Pt currently laying down in bed no concerns at this time. Up and walking around , no verbalizations of gas discomfort, n/v
--- NOTE | 2018-11-15 19:23 | NUR ---
NURSE NOTES: Report given to Gho RN informed of pending discharge. Informed of supplies needed for discharge. Pt requested not to be supervised during intubation , Dr Kramer gave okay. Pt reports output accurately and in a timely manner. Able to insert catheter with comfort. No concern of n/v this shift. Pt flight leaves at 1230. Dr Kramer will be here in AM to provide pt with requested prescription. Breathing room air , without complication 2 to removal of PICC LINE
--- NOTE | 2018-11-15 19:28 | NUR ---
HAND-OFF: Report given to SHARRON GARCIA.
[2018-11-15] MEDS: Dyna-Hex 2% Top Sol 2oz TOPIC SCH (19:33)
--- NOTE | 2018-11-15 19:34 | NUR ---
NURSE NOTES: Receive a report from RADHA Brooks. Round is done. Pt is lying in bed but complains for lower abdominal pain, 4/10. Bowel sound is intact. Breathing is even and non labored. Will provide prn pain medication.
[2018-11-15] MEDS: HYDROcodone/Acetamin 5/325 tab ORAL PRN (19:46)
[2018-11-15 20:00] VITALS: BP 107/73
[2018-11-15] MEDS: TraZODone 50mg tab ORAL SCH (21:21)
--- NOTE | 2018-11-15 21:45 | NUR ---
NURSE NOTES: After pain medication, pt fell asleep and states that pain level is 1/10. Done self-intubation and output 100ml greenish-brownish. Denies any pain or bleeding signs. Next self-intubation will be 0200. Will continue to monitor.
[2018-11-16 00:45] VITALS: BP 96/67
[2018-11-16 04:55] VITALS: BP 109/74
--- NOTE | 2018-11-16 06:00 | NUR ---
NURSE NOTES: Pt feels bloating than abdominal pain. Provide prn Simethicone 80mg 1t po. Done self-intubation and 50ml output with gas. Will continue to monitor. PICC removal site is clear. Provide supplies except cath plugs. Will be provided. Urine output: 550ml BCIR output: 300ml
[2018-11-16] MEDS: Simethicone 80mg tab ORAL PRN (06:04)
--- NOTE | 2018-11-16 07:25 | General Progress Note ---
Progress Note Progress Note Doing well with some gas cramps . Intubating well Abdomen soft Imp. Doing well Plan: discharge with full supplies and instructions additional Rx phoned to home pharmacy Levsin 0.125mg #40 prn gas f/u 1 week and prn Manny Kramer MD Nov 16, 2018 07:25
--- NOTE | 2018-11-16 07:30 | NUR ---
NURSE NOTES: Patient is in bed awake and able to verbalize needs. Stable. Denies pain or SOB. Patient has all supplies. Patient encouraged to use call light for assistance, verbalized understanding. Patient is in bed in locked and lowest position with call light within reach. Will continue to monitor.
--- NOTE | 2018-11-16 07:30 | NUR ---
HAND-OFF: Report given to RADHA French. Round is done. The remaining supplies are provided. Discharge is planned today.
[2018-11-16 08:00] VITALS: BP 103/69
[2018-11-16] MEDS: Vitamin A&D Oint 2oz Tube TOPIC SCH (09:00)
[2018-11-16] MEDS: PARoxetine 10mg tab ORAL SCH (09:08)
[2018-11-16] MEDS: Estradiol Vaginal Cr 42.5 Gm Tube VAGIN SCH (09:08)
--- NOTE | 2018-11-16 09:40 | NUR ---
NURSE NOTES: Patient discharged home as ordered. Stable. Denies pain or SOB. Patient was given thorough discharge instructions, verbalized understanding. Patient has all medications. Medication information given by RN and printout. Surgical dressing clean, dry, and intact. Patient has all supplies needed for self intubation. Patient able to intubate on her own. Patient will follow up with Dr. Kramer. No IV access. Skin is clean, dry, and intact. Patient assisted into [employer] vehicle by RN without incident. Patient has all belongings.
--- NOTE | 2018-11-16 13:31 | NUR ---
CASE MANAGEMENT:REVIEW 11/16/18 SI: POD #27..S/P SURGERY DAY#16...SINCE ENTEROCUTANEOUS FISTULA SEALED ~ PELVIC ABSCESS 98.1 96 18 109/74 97% ON RA IS: DISCHARGE TODAY PROVIDE DISCHARGE SUPPLIES 28 JIMENES. CATHETER PLUG. DRAINAGE BAG. IRRIGATION TRAY NORCO. COMPAZINE REMOVE PICC LINE : MED/SURG STATUS 3 EAST Plan: gastrograffin pouchogram XRay with retrograde SBS
--- NOTE | 2018-11-16 14:56 | NUR ---
*-* INSURANCE *-* DISCHARGE INSTRUCTION HAVE BEEN FAXED D/C SUMMARY NOT YET AVAILABLE: [facility]:[place] P:[phone] F: [phone]
--- NOTE | 2018-11-19 19:20 | Discharge Summary ---
Discharge Summary Discharge Summary _ DATE OF ADMISSION: 10/18/2018 DATE OF DISCHARGE: 11/16/2018 DISCHARGED BY: Dr. Manny Kramer CONSULTANTS: Dr. 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 She has a past history of pelvic floor dysfunction and colonic inertia. She underwent surgery at the [facility] in May 2015 for removal of dilated colon and rectum with a coloanal anastomosis. She has previously had Botox injections and pelvic floor therapy. She had a temporary ileostomy at the time of her May 2015 surgery. In November 2015, she underwent left salpingo-oophorectomy. Subsequently, she had surgery 01/08/2017 to close the ileostomy, but she had severe difficulties evacuating and had an emergency colostomy 01/11/2017. On 07/30/2017, she had repair of a parastomal hernia. Finally, she had surgery 09/29/2017 at the [facility] to remove the rest of her colon and rectum with perineal rectal mucosectomy and end-loop ileostomy with finding of extensive adhesions. She has developed significant difficulties since then managing with her stoma despite interventions with enterostomal therapy. She wasscheduled to undergo surgery to takedown her conventional ileostomy with repair of the stomal hernia and create a Wilkinson continent intestinal reservoir type of continent ileostomy. BRIEF HOSPITAL COURSE: Patient was admitted. PICC line was inserted. She provided additional history that ever since her colorectal resection, she had to self catheterize her bladder, much more often, but currently at least 2 times per week as needed if her bladder is allowed to get to full, she cannot urinate. On 10/19/2018, she underwent Wilkinson continent intestinal reservoir, gastrostomy , takedown ileostomy and repair of parastomal hernia. During the night of the procedure, had severe pain, but with increased Dilaudid, and developed respiratory depression that was treated and recovered. She was transferred to stepdown unit. The following day, she had mild tachycardia, but was alert and comfortable with Toradol IV. Abdomen was mildly distended, incisions were clean, stoma pink. Dozier drain with moderate serosanguineous drainage. Gastrostomy and Wilkinson pouch catheter had bilious drainage. She was ordered to transferred back to [facility]. She was kept on n.p.o. On 10/21/2018, she had decreased tachycardia. She was very sensitive to Dilaudid with drowsiness and confusion. Dosing was reduced. Patient was also on Toradol IV. She was able to ambulate well. She was continued on npo and was started on TPN. She was given Zofran, Compazine was added for nausea. On 10/22/2018, she was noted to have severe iron deficiency with serum iron level of 9 and ferritin level of 70. She was given IV Venofer. She was continued on TPN and Velasquez for neurogenic bladder. On 10/23/2018, she was having gas pain and cramping. Abdomen was soft, mildly distended, healing nicely. Patient with stable ileus. She was continued on n.p.o. and TPN. On 10/24/2018, she complained of bloating. Abdomen was distended. KUB ordered revealed left pleural effusion rule out pneumonia. Patient had fever. She was continued on n.p.o. She was given magnesium IV. On 10/25/2018, patient did not have any pulmonary symptoms, claims clerk was consulted. Velasquez catheter was discontinued. Chest x-ray done was normal. Zosyn was started by claims clerk. On 10/26/2018, patient has been afebrile. Abdomen was mildly distended, but soft and healing nicely. Urinalyses culture was negative. Patient was continued on TPN. Maintain gastrostomy and BCIR ileo catheter to continuous drainage. On 10/27/2018, patient felt distended and fluid after clamping G-tube for meds. Patient patient had persistent high-volume gastrostomy output and mild distention. On 10/28/2018, patient did not feel as distended. She was started on BCIR clear diet, gastrostomy 3: 3 trial. On 10/29/2018, patient had chills and fever. She had been tolerating clear liquids with gastrostomy 3: 3. Stat CT scan of the abdomen and pelvis showed 2 organized, rim-enhancing collections in the pelvis. Blood culture x2 from PICC line was obtained. On 10/30/2018, she underwent CT-guided percutaneous drain placement for the pelvic abscess. She was given meropenem and vancomycin. On 10/31/2018, patient had been afebrile but there was noted leak of stool around BCIR pouch catheter. Dozier was removed. BCIR ileo catheter was replaced with a new 28 Velasquez without difficulty. She was continued on IV antibiotics. On 11/01/2018, BC IR pouch catheter in medium intermittent suction and gastrostomy tube drainage. Joel site was dry. Patient with possible enterocutaneous fistula, likely from Wiliknson pouch, now sealed. On 11/02/2018, patient had lower abdominal/pelvic pain. There was no further drainage from Dozier drain site. Early postoperative Wilkinson pouch enterocutaneous fistula, was sealed with pouch catheter to suction. She was started on trial of p.o. pain medications. On 11/03/2018, abdomen was soft, hernando were removed and Steri-Strips were applied. Presacral drain via right buttock was removed. BC IR catheter was pushed deeper into the pouch with good drainage. CONCRETE FINISHER APPRENTICE was discontinued. She was continued on IV antibiotics. Continue on n.p.o. and TPN. On 11/04/2018, she has much less pain since the drains were removed. Remaining sutures were removed. She was continued on IV antibiotics, n.p.o. and TPN. On 11/05/2018, patient was needing less Percocet. WBC was slower. Albumin went up to 2.5. She was continued on meropenem. On 11/06/2018, pouchogram was negative. There was no definite evidence of leakage or fistula tract demonstrated. Patient was started on clear liquids and gastrostomy 3: 3. On 11/07/2018, she tolerated clear liquids and gastrostomy 3: 3. Patient was started in a low residue diet. On 11/08/2018, she was having cramping and was not able to eat well. BCIR ileo output had high-volume, very watery and with odor. C. difficile toxin was negative. Patient with bacterial overgrowth enteritis/pouchitis. She was given Cipro 500 p.o. and Flagyl 500 p.o. Patient cannot start self intubations until ileostomy pouch output returns to normal. She was continued on TPN. On 11/09/2018, patient still with high output drained from pouch. TPN was discontinued. Diet as tolerated. Patient still not ready for self intubation. On 11/10/2018, she still had a high output drained from pouch and very thin liquid. She was tolerating diet. She was not ready for self intubations. On 11/11/2018, she was tolerating diet. She had high output from pouch. Still not ready for self intubation. On 11/12/2018, output was decreasing. She was tolerating diet. She was started on self intubations every 2 hours while awake. On 11/13/2018, she was doing well learning to intubate her BCIR pouch. Abdomen was soft and well-healed. High watery output responded to p.o. Cipro and Flagyl. She was continued on self intubations. On 11/14/2018, she had ongoing complaints of nausea and bloating. She did again have increased volume BCIR ileo output. Abdomen was mildly distended. Abdominal x-ray showed multiple dilated small bowel loops with air-fluid levels. She again was ordered pouchogram. Pouchogram was unremarkable. Abdomen was much less distended and patient more comfortable. On 11/15/2018, patient was doing well with no abdominal distention and intubating and eating without distress or nausea. Abdomen was soft. She was prepared for discharge the following day. She was given full instructions/ limitations/supplies were discussed and provided. Prescription was written. On 11/16/2018, she was a stable intubating well. Abdomen was soft. She had some gas cramps. Additional prescription was phoned to pharmacy for Levsin. She was eventually cleared for discharge to follow-up in a week. PREOPERATIVE DIAGNOSES: 1. 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 2. History of pelvic floor dysfunction and colonic inertia. 3. Status post multiple abdominal operations. 3.1. Right oophorectomy in 1989. 3.2. Total abdominal hysterectomy for endometriosis in 2000. 3.3. Cholecystectomy in 2006. 3.4. Removal of dilated colon and rectum with coloanal anastomosis and temporary ileostomy in May 2015 at the [facility]. 3.5. Left salpingo-oophorectomy in November 2015. 3.6. Closure of temporary ileostomy on January 08, 2017. 3.7. Emergency colostomy at the [facility] on January 11, 2017. 3.8. Repair of parastomal hernia, which has recurred on July 30, 2017. 3.9. Removal of the remaining abdominal colon and rectum with abdominal-perineal proctectomy and end-loop ileostomy at the [facility] on September 29, 2017. FINAL DIAGNOSES: 1. 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 2. History of pelvic floor dysfunction and colonic inertia. 3. Status post multiple abdominal operations. 3.1. Right oophorectomy in 1989. 3.2. Total abdominal hysterectomy for endometriosis in 2000. 3.3. Cholecystectomy in 2006. 3.4. Removal of dilated colon and rectum with coloanal anastomosis and temporary ileostomy in May 2015 at the [facility]. 3.5. Left salpingo-oophorectomy in November 2015. 3.6. Closure of temporary ileostomy on January 08, 2017. 3.7. Emergency colostomy at the [facility] again, all of the above operations, on January 11, 2017. 3.8. Repair of parastomal hernia, which has recurred on July 30, 2017. 3.9. Removal of the remaining abdominal colon and rectum with abdominal-perineal proctectomy and end-loop ileostomy at the [facility] on September 29, 2017. 4.0. Pelvic abscess s/p CT guided percutaneous drain placement. 5.0 Iron deficiency 6.0 Neurogenic bladder OPERATION PERFORMED: 1. Wilkinson continent intestinal reservoir. 2. Resection of 15 cm of defunctionalized terminal ileum and malfunctioning ileostomy and repair of parastomal hernia. 3. Temporary catheter gastrostomy. DISPOSITION: Patient was discharged home. DISCHARGE MEDICATIONS: Refer to Discharge Medication List. DISCHARGE INSTRUCTIONS: Follow-up in a week. I have been assigned to complete a discharge summary on this account, I was not involved with the patient's management.--GWEN Maria Jacqueline Robles NP Nov 19, 2018 19:20
--- NOTE | 2018-11-20 13:36 | NUR ---
*-* INSURANCE *-* DISCHARGE SUMMARY HAVE BEEN FAXED D/C SUMMARY NOT YET AVAILABLE: [facility]:[place] P:[phone] F: [phone]
--- NOTE | 2018-11-29 10:38 | Discharge Summary ---
Discharge Summary Hospital Course Date of Admission Oct 18, 2018 at 08:42 Date of Discharge Nov 16, 2018 at 09:30 Admitting Diagnosis Malfunctioning ileostomy with parastomal hernia and peristomal ulcerations refractory to care. Reason for Hospitalization: Elective surgery HPI Eve Mccann is a 47 year old female who was admitted on Oct 18, 2018 at 08: 42 for malfunctioning Ileostomy. 47-year-old female in overall stable health with a malfunctioning ileostomy with parastomal hernia and peristomal ulcerations refractory to care. She has a past history of pelvic floor dysfunction and colonic inertia. -She underwent surgery at the [facility] in May 2015 for removal of dilated colon and rectum with a coloanal anastomosis. -She previously had Botox injections and pelvic floor therapy. -She had a temporary ileostomy at the time of her May 2015 surgery. -In November 2015, she underwent left salpingo-oophorectomy. -Subsequently, she had surgery 01/08/2017 to close the ileostomy, but she had severe difficulties evacuating and had an emergency colostomy 01/11/2017. -On 07/30/2017, she had repair of a parastomal hernia. -Finally, she had surgery 09/29/2017 at the [facility] to remove the rest of her colon and rectum with perineal rectal mucosectomy and end-loop ileostomy with finding of extensive adhesions. Patient has developed significant difficulties since then with managing her stoma , despite interventions with enterostomal therapy. She was admitted for scheduled surgery : takedown of her conventional ileostomy with repair of the stomal hernia and creation of a Wilkinson continent intestinal reservoir . Consultations Dr. Quintana-ID specialist Dr. Lynn-IM/tubing assembler Procedures s/p 10/19/[address] Kramer Surgery 1. Wilkinson continent intestinal reservoir. 2. Resection of 15 cm of defunctionalized terminal ileum and malfunctioning ileostomy and repair of parastomal hernia. 3. Temporary catheter gastrostomy. 10/29/18 CT abdomen and pelvis 1. Status post total colectomy with associated postoperative appearance and two organized, rim-enhancing collections in the pelvis as described above. 2. Additional possible left lower quadrant collection which appears indistinguishable from adjacent loops may represent additional collection, but anastomotic leak cannot be excluded on this examination. s/p 10/30/2018 CT guided drain placement Successful CT-guided placement of 10 Indonesian Tripathi-Judge drain by right gluteal percutaneous approach. s/p 11/06/18 Kock Pouch Pouchogram w/SBS Impression: No definite evidence of leakage or fistula tract demonstrated. Hospital Course 10/18/2018 admitted PICC line inserted. patient provided additional history that since her colorectal resection, she had to self catheterize her bladder ( currently at least 2 times per week), prn, if unable to urinate. 10/19/2018 s/p surgery : Wilkinson continent intestinal reservoir, gastrostomy, takedown ileostomy and repair of parastomal hernia during the night after procedure, had severe pain, developed respiratory depression , was treated and recovered subsequently was transferred to stepdown unit 10/20/2018 pain management with MANAGED CARE COORDINATOR and Toradol IV for breakthrough pain kept NPO , intake and output closely monitored mild tachycardiac and mild abdominal distension incisions clean, stoma pink transferred to MS floor 10/21/2018 pain management : dose of Dilaudid decreased, Toradol IV continued ambulated NPO status continued, started on TPN intake and output closely monitored symptomatic treatment for nausea provided . 10/22/2018 noted severe iron deficiency anemia, started on IV Venofer NPO and TPN continued Velasquez continued ( for neurogenic bladder)\ 10/23/2018 still with ileus NPO and TPN continued 10/24/2018 KUB done ( due to complains of bloating), revealed left pleural effusion rule out pneumonia. NPO continued magnesium replaced 10/25/2018 tubing assembler consulted Velasquez catheter discontinued chest x-ray stable started on empiric Zosyn as per tubing assembler 10/26/2018 afebrile urine culture negative abdomen soft, with mild distention, healing nicely patient has been afebrile. NPO and TPN continued gastrostomy and BCIR ileo catheter maintained to continuous drainage. 10/27/2018 persistent high-volume gastrostomy output and mild distention. felt distended after clamping G-tube for mediations . 10/28/2018 not as distended started on BCIR clear diet, gastrostomy 3: 3 trial. blood culture from 10/25 negative 10/29/2018 had chills and fever tolerated clear liquids with gastrostomy 3: 3. stat CT scan of the abdomen and pelvis: showed 2 organized, rim-enhancing fluid collections in the pelvis. blood culture x 2 from PICC line obtained. ID specialist consulted Venous Duplex BLE revealed no evidence of acute DVT 10/30/[address]-guided percutaneous drain placement for intraabdominal abscess started on meropenem and vancomycin-per ID specialist recommendations 10/31/2018 remained afebrile leak of stool around BCIR pouch catheter noted Joel removed. BCIR ileo catheter replaced with a new 28 Velasquez without difficulty IV antibiotics continued 11/01/2018 BCIR pouch catheter to medium intermittent suction and gastrostomy tube to drainage Joel site dry possible enterocutaneous fistula, likely from Wilkinson pouch, now sealed peritoneal fluid culture from 10/30 negative blood culture 10/29 negative urine culture 10/30 negative 11/02/2018 had lower abdominal/pelvic pain. no further drainage from Challis drain site early postoperative Wilkinson pouch enterocutaneous fistula- sealed with pouch catheter to suction started on trial of p.o. pain medications 11/03/2018 abdomen soft, hernando removed, Steri-Strips applied presacral drain via right buttock removed BCIR catheter was pushed deeper into the pouch with good drainage MANAGED CARE COORDINATOR discontinued. IV antibiotics continued NPO status and TPN continued 11/04/2018 less pain since the drains removed remaining sutures removed. IV antibiotics continued NPO status and TPN continued 11/05/2018 antibiotic continued leukocytosis resolved needs less pain medications albumin up to 2.5 11/06/2018, Kock pouch pouchogram with SBS revealed no definite evidence of leakage or fistula tract started on clear liquids and gastrostomy 3: 3 11/07/2018 tolerated clear liquids and gastrostomy 3: 3 started on a low residue diet. 11/08/2018 cramping , unable to eat well BCIR ileo output with high-volume, very watery and with odor. stool for C. difficile toxin negative. bacterial overgrowth enteritis/pouchitis: started on Cipro and Flagyl unable to start self intubations until ileostomy pouch output returns to normal TPN continued 11/09/2018 still high output drained from pouch TPN discontinued. diet provided as tolerated still not ready for self intubation 11/10/2018, high output still drained from pouch tolerated diet not ready for self intubations 11/11/2018 tolerated diet. high output from pouch. not ready for self intubation 11/12/2018 output decreased tolerated diet started on self intubations every 2 hours while awake 11/13/2018 doing well learning to intubate her BCIR pouch abdomen soft and well-healed high watery output responded to p.o. Cipro and Flagyl. self intubation continued 11/14/2018 ongoing complaints of nausea and bloating again had increased volume BCIR ileo output abdomen mildly distended. abdominal x-ray s with multiple dilated small bowel loops with air-fluid levels repeated pouchogram was unremarkable 11/15/2018 doing well no abdominal distention self intubating and eating without distress or nausea abdomen remained soft prepared for discharge on the following day full instructions/limitations/supplies were discussed and provided prescription was written. 11/16/2018, stable intubating well abdomen soft some gas cramps additional prescription was phoned to pharmacy for Levsin patient was cleared for discharge to follow-up as outpatient in clinic in a week FINAL DIAGNOSES: 1. 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 2. History of pelvic floor dysfunction and colonic inertia. 3. Status post multiple abdominal operations. 3.1. Right oophorectomy in 1989. 3.2. Total abdominal hysterectomy for endometriosis in 2000. 3.3. Cholecystectomy in 2006. 3.4. Removal of dilated colon and rectum with coloanal anastomosis and temporary ileostomy in May 2015 at the [facility]. 3.5. Left salpingo-oophorectomy in November 2015. 3.6. Closure of temporary ileostomy on January 08, 2017. 3.7. Emergency colostomy at the [facility] again, all of the above operations, on January 11, 2017. 3.8. Repair of parastomal hernia, which has recurred on July 30, 2017. 3.9. Removal of the remaining abdominal colon and rectum with abdominal-perineal proctectomy and end-loop ileostomy at the [facility] on September 29, 2017. 4.0 s/p 10/19/2018 Wilkinson continent intestinal reservoir. Resection of 15 cm of defunctionalized terminal ileum and malfunctioning ileostomy and repair of parastomal hernia. Temporary catheter gastrostomy 5. Ileus -resolved 6. Intraabdominal abscess, s/p CT guided percutaneous drain placement - resolved 7. Pneumonia, s/p treatment 8. Iron deficiency anemia 9. Neurogenic bladder 10.Early postoperative Wilkinson pouch enterocutaneous fistula ( sealed with pouch catheter to suction) 11. Bacterial overgrowth enteritis/ pouchitis -resolved Discharge Medications Continued Medications: Clonazepam* (Klonopin*) 0.5 Mg Tablet 0.5 MG ORAL TID PRN for For Anxiety, TAB 0 Refills (This prescription has been renewed) Estradiol (Estradiol) 1 Each Patch.tdsw 1 EACH TD TWICE A WEEK, PATCH (This prescription has been renewed) Estradiol 0.1 mg patch apply to skin twice a week Estradiol* (Estrace*) 42.5 Gm Cream.appl 1 APPLIC VAGIN THREE TIMES A WEEK, GM (This prescription has been renewed) Estradiol 0.01 Vaginal cream three times a week Paroxetine Hcl (Paxil) 30 Mg Tablet 30 MG ORAL BEDTIME, #30 TAB 0 Refills (This prescription has been renewed) Trazodone* (Trazodone*) 150 Mg Tablet 150 MG ORAL BEDTIME, TAB (This prescription has been renewed) Trimethoprim Sulfate (Trimethoprim) 100 Mg Tablet 100 MG PO BEDTIME, TAB (This prescription has been renewed) Discharge Condition Upon Discharge: stable Discharge Disposition Patient was discharged home Discharge Instructions Discharge Instructions Special Instructions I have been assigned to complete a D/C Summary on this account. I was not involved in the patient management Marni Reynoso NP Nov 29, 2018 10:38
== END 2018-11-16 09:30 | disposition home or self-care (01) | DRG 329 ==
LOC: 3E 08:42 → 2W 10-19 22:26 → 3E 10-20 11:30
PROC: B518ZZA Fluoroscopy of Superior Vena Cava, Guidance (ICD-10-PCS; principal; 2018-10-18)
PROC: 02HV33Z Insertion of Infusion Device into Superior Vena Cava, Percutaneous Approach (ICD-10-PCS; principal; 2018-10-18)
PROC: 0WQF0ZZ Repair Abdominal Wall, Open Approach (ICD-10-PCS; 2018-10-19)
PROC: 0D1B0Z4 Bypass Ileum to Cutaneous, Open Approach (ICD-10-PCS; 2018-10-19)
PROC: 0DTB0ZZ Resection of Ileum, Open Approach (ICD-10-PCS; 2018-10-19)
PROC: 0DH63UZ Insertion of Feeding Device into Stomach, Percutaneous Approach (ICD-10-PCS; 2018-10-19)
PROC: 0K9N30Z Drainage of Right Hip Muscle with Drainage Device, Percutaneous Approach (ICD-10-PCS; 2018-10-30)
PROC: 0W9J30Z Drainage of Pelvic Cavity with Drainage Device, Percutaneous Approach (ICD-10-PCS; 2018-10-30)
DX: K94.13 Enterostomy malfunction (principal); J18.9 Pneumonia, unspecified organism; A41.9 Sepsis, unspecified organism; K63.3 Ulcer of intestine; N39.0 Urinary tract infection, site not specified; K56.600 Partial intestinal obstruction, unspecified as to cause; K91.850 Pouchitis; K63.2 Fistula of intestine; K56.7 Ileus, unspecified; J98.11 Atelectasis; K43.5 Parastomal hernia without obstruction or gangrene; N73.8 Other specified female pelvic inflammatory diseases; D50.9 Iron deficiency anemia, unspecified; R06.03 Acute respiratory distress; T40.2X5A Adverse effect of other opioids, initial encounter; Y92.234 Operating room of hospital as the place of occurrence of the external cause; N31.9 Neuromuscular dysfunction of bladder, unspecified; M62.89 Other specified disorders of muscle
CPT/HCPCS: 36415; 36569; 36600; 71045; 74018; 74019; 74177; 74270; 75989; 76937; 80048; 80053; 80202; 81001; 82607; 82728; 82746; 82803; 82962; 83540; 83550; 83735; 84100; 85007; 85025; 85610; 85651; 85730; 86140; 86850; 86900; 86901; 87040; 87070; 87075; 87086; 87205; 87324; 93005; 93971; 94003; 94150; 94660; J1815; J2250; J2405; J2710

== ENCOUNTER 2019-01-22 19:57 | Inpatient (IN) | payer BC ==
[~2019-01-22] VITALS: Ht 165.1 cm; Wt 100.7 kg
[~2019-01-22 19:57] MED LIST: ESTRACE42.5 GM VAGIN; ESTRADIOL1 EA10 TD; KLONOPIN0.5 MG ORAL; PAXIL30 MG ORAL; TRAZODONE HCL150 MG ORAL; TRIMPEX100 MG PO
--- NOTE | 2019-01-22 20:30 | Emergency Room Report ---
History of Present Illness General Chief Complaint: General Complaint Source: Patient, Medical Record Present Illness HPI Disclaimer: Please note that this report is being documented using DRAGON technology. This can lead to erroneous entry secondary to incorrect interpretation by the dictating instrument. HPI: 48-year-old female with a history of pelvic floor outlet obstruction status post multiple ostomy procedures and a complicated postsurgical course presents for evaluation of abdominal pain and ostomy evaluation. She is a patient of Dr. Kramer. Recently, she has been experiencing difficulty catheterizing her ostomy, intermittent abdominal pain, at one point significant watery output and now very little output. Concern for pouchitis. Patient arrives from [place] just prior to arrival in the emergency department. She states her abdominal pain is tolerable right now and denies any emesis or fever. No other medical history reported. Does not take anticoagulants. PMH: Pelvic floor outlet obstruction PSH: Multiple ostomy procedures Allergies: Codeine and morphine Social Hx: Denies Allergies: Coded Allergies: CODEINE (Verified Adverse Reaction, Severe, Itching, 10/18/18) MORPHINE (Verified Adverse Reaction, Severe, Itching, 10/18/18) sever itching to the point scratches self till bleeding. Patient History Now: No Nursing Documentation-PMH Past Medical History: No History, Except For Hx Cardiac Problems: No Hx Cancer: No Hx Gastrointestinal Problems: Yes Hx Neurological Problems: No Review of Systems All Other Systems: negative except mentioned in HPI Physical Exam Vital Signs Date Time Temp Pulse Resp B/P (MAP) Pulse Ox O2 Delivery O2 Flow Rate FiO2 01/22/19 20:18 97.9 98 18 123/83 (96) 98 Room Air General: Awake and alert, no acute distress HEENT: NC/AT. EOMI. Cardiovascular: RRR. S1 and S2 normal. No murmur appreciated Resp: Normal work of breathing. No cough, wheezing or crackles appreciated Abdomen: Multiple surgical scars over the abdomen are clean dry and intact. There is an ostomy present in right lower quadrant with a 30 Turkish Velasquez catheter. No leak around the catheter. Abdomen is soft, nondistended. Nontender Skin: Multiple surgical scars over the abdomen are clean dry and intact MSK: Normal tone and bulk. Moving all extremities. No obvious deformity. Neuro: Awake and alert. Mentating appropriately. Medical Decision Making Diagnostic Impression: Primary Impression: malfunctio of Ileostomy ER Course 48-year-old female presents for evaluation of ostomy malfunction. She is a patient of Dr. Kramer and will be admitted to his service. We will obtain preoperative labs. Patient is no acute distress. Do not see indication for emergent CT imaging at this time. Patient stable and appropriate for admission to the medical/surgical floor. Laboratory Tests Test 01/22/19 20:53 White Blood Count 9.2 K/UL (4.8-10.8) Red Blood Count 4.77 M/UL (4.20-5.40) Hemoglobin 12.8 G/DL (12.0-16.0) Hematocrit 37.4 % (37.0-47.0) Mean Corpuscular Volume 79 FL (80-99) L Mean Corpuscular Hemoglobin 26.9 PG (27.0-31.0) L Mean Corpuscular Hemoglobin Concent 34.3 G/DL (32.0-36.0) Red Cell Distribution Width 11.4 % (11.6-14.8) L Platelet Count 260 K/UL (150-450) Mean Platelet Volume 6.3 FL (6.5-10.1) L Neutrophils (%) (Auto) 58.2 % (45.0-75.0) Lymphocytes (%) (Auto) 33.0 % (20.0-45.0) Monocytes (%) (Auto) 6.3 % (1.0-10.0) Eosinophils (%) (Auto) 1.8 % (0.0-3.0) Basophils (%) (Auto) 0.6 % (0.0-2.0) Prothrombin Time 9.9 SEC (9.30-11.50) Prothrombin Time INR 0.9 (0.9-1.1) PTT 29 SEC (23-33) Sodium Level 138 MMOL/L (136-145) Potassium Level 3.4 MMOL/L (3.5-5.1) L Chloride Level 101 MMOL/L (98-107) Carbon Dioxide Level 26 MMOL/L (21-32) Anion Gap 11 mmol/L (5-15) Blood Urea Nitrogen 10 mg/dL (7-18) Creatinine 0.9 MG/DL (0.55-1.30) Estimate Glomerular Filtration Rate > 60 mL/min (>60) Glucose Level 94 MG/DL (74-106) Calcium Level 8.9 MG/DL (8.5-10.1) Total Bilirubin 0.3 MG/DL (0.2-1.0) Aspartate Amino Transferase (AST) 19 U/L (15-37) Alanine Aminotransferase (ALT) 26 U/L (12-78) Alkaline Phosphatase 82 U/L (46-116) Total Protein 7.3 G/DL (6.4-8.2) Albumin 3.8 G/DL (3.4-5.0) Globulin 3.5 g/dL Albumin/Globulin Ratio 1.1 (1.0-2.7) Last Vital Signs Date Time Temp Pulse Resp B/P (MAP) Pulse Ox O2 Delivery O2 Flow Rate FiO2 01/22/19 20:18 97.9 98 18 123/83 (96) 98 Room Air Disposition: ADMITTED INPATIENT Condition: Serious Solis Russo MD Jan 22, 2019 20:30
--- NOTE | 2019-01-22 20:40 | NUR ---
ED Nurse Note: Patient walked in to ER c/o BCIR mulfunctioning. Patient presented calm, AAO x4, VSS at this time, skin is warm to touch. Patient states that had suggery on Agust 2, and now feels some pain, leackage. Dr. Powell wants patient to be admited to
[2019-01-22 21:06] VITALS: BP 123/83
[2019-01-22 21:14] LABS: BASOPHILS % (AUTO) 0.6 % (0.0-2.0); EOSINOPHILS % (AUTO) 1.8 % (0.0-3.0); HEMATOCRIT 37.4 % (37.0-47.0); HEMOGLOBIN 12.8 G/DL (12.0-16.0); MEAN CORPUSCULAR VOLUME 79 FL (80-99); MONOCYTES % (AUTO) 6.3 % (1.0-10.0); NEUTROPHILS % (AUTO) 58.2 % (45.0-75.0); PLATELET COUNT 260 K/UL (150-450); RED BLOOD COUNT 4.77 M/UL (4.20-5.40); RED CELL DISTRIBUTION WIDTH 11.4 % (11.6-14.8); WHITE BLOOD COUNT 9.2 K/UL (4.8-10.8)
[2019-01-22 21:25] LABS: INR 0.9 (0.9-1.1)
[2019-01-22 21:37] LABS: ANION GAP 11 mmol/L (5-15); BLOOD UREA NITROGEN 10 mg/dL (7-18); CALCIUM 8.9 MG/DL (8.5-10.1); CARBON DIOXIDE 26 MMOL/L (21-32); CHLORIDE 101 MMOL/L (98-107); CREATININE 0.9 MG/DL (0.55-1.30); POTASSIUM 3.4 MMOL/L (3.5-5.1); SODIUM 138 MMOL/L (136-145)
[2019-01-22 21:41] LABS: ALANINE AMINOTRANSFERASE 26 U/L (12-78); ALBUMIN 3.8 G/DL (3.4-5.0); ALBUMIN/GLOBULIN RATIO 1.1 (1.0-2.7); ALKALINE PHOSPHATASE 82 U/L (46-116); ASPARTATE AMINO TRANSFERASE 19 U/L (15-37); BILIRUBIN,TOTAL 0.3 MG/DL (0.2-1.0)
[2019-01-22 22:05] VITALS: BP 123/83
--- NOTE | 2019-01-22 22:05 | NUR ---
ED Nurse Note: Patient was admited to MS unit due to BCIR mulfunctioning. AAO x4, VSS at this time, skin is dry no issues. Patient was transfered to the unit via gurney, with all belongings.
--- NOTE | 2019-01-22 22:30 | NUR ---
NURSE NOTES: Received report from ER nurse RADHA Santamaria. Patient's VSS, alert and oriented with no c/o pain at this time. They are on room air with no SOB or signs of distress. Right EJ IV was flushed with 5cc of NS and is asymptomatic. A new 28 chinese Velasquez catheter was placed into the left lower quadrant ileostomy and connected to gravity drainage bag. The stoma is red and moist and abdomen soft and non-distended. The BCIR catheter was flushed with 20cc of NS. Soft brown stool leaked out of the stoma. MD Kramer was contacted for further instructions. Will continue to monitor.
[2019-01-22] MEDS ORDERED: D5 1/2NS w/KCl 20mEq 1,000 ML IV ONE (22:55)
[2019-01-23] VITALS: BP 114/73
[2019-01-23] MEDS: D5 1/2NS w/KCl 20mEq 1,000 ML IV SCH ×3 (00:06→17:08)
--- NOTE | 2019-01-23 02:00 | NUR ---
NURSE NOTES: Patient c/o burning pain in neck from Right EJ IV. Removed it and placed new IV Left AC 22G.
[2019-01-23 04:00] VITALS: BP 102/68
[2019-01-23] MEDS ORDERED: Omnipaque-300 100ml vial INJ PRN (07:45)
--- NOTE | 2019-01-23 07:46 | General Progress Note ---
Progress Note Progress Note H&P to be dictated. 3 months s/p Wilkinson continent ileostomy with ongoing difficulties with pouchitis, abdominal pain and incontinence of stool AVSS Abdomen mildly distended, soft, non-tender 28 Velasquez inserted into BCIR with good output of thick effluent Labs in ER okay - AM labs pending Imp. Abdominal pain Malfunctioning Wilkinson continent ileostomy with incontinence and some difficulty intubating Plan: STAT CT scan abd+pelvis with po and IV contrast Wilkinson pouch endoscopy tomorrow NPO, IV fluids Manny Kramer MD Jan 23, 2019 07:46
--- NOTE | 2019-01-23 07:57 | NUR ---
HAND-OFF: Report given to RADHA Farmer. Patient in stable condition.
[2019-01-23 08:00] VITALS: BP 135/76
--- NOTE | 2019-01-23 08:00 | NUR ---
NURSE NOTES: Received report from Kalin GARCIA. Patient is awake and oriented, no acute distress noted, reporting no pain at this time. Ileo to gravity drainage, additional flushing done per MD order. IVF running per order. Home medications reviewed and reconciled. Patient updated on plan of care for the day. Side rails upx2, bed low and locked, call light within reach.
[2019-01-23 08:08] LABS: APPEARANCE,URINE CLEAR; BILIRUBIN, URINE NEGATIVE (NEGATIVE); COLOR,URINE PALE YELLOW; GLUCOSE, URINE (UA) NEGATIVE (NEGATIVE); KETONES,URINE NEGATIVE (NEGATIVE); LEUKOCYTE ESTERASE ,URINE NEGATIVE (NEGATIVE); NITRITE,URINE NEGATIVE (NEGATIVE); PH,URINE 6 (4.5-8.0); PROTEIN,URINE NEGATIVE (NEGATIVE); UROBILINOGEN,URINE NORMAL MG/DL (0.0-1.0)
[2019-01-23 08:19] LABS: ANION GAP 11 mmol/L (5-15); BASOPHILS % (AUTO) 0.4 % (0.0-2.0); BLOOD UREA NITROGEN 6 mg/dL (7-18); CALCIUM 9.1 MG/DL (8.5-10.1); CARBON DIOXIDE 23 MMOL/L (21-32); CHLORIDE 104 MMOL/L (98-107); CREATININE 0.9 MG/DL (0.55-1.30); HEMATOCRIT 39.8 % (37.0-47.0); HEMOGLOBIN 13.4 G/DL (12.0-16.0); LYMPHOCYTES % (AUTO) 32.7 % (20.0-45.0); MEAN CORPUSCULAR VOLUME 81 FL (80-99); MONOCYTES % (AUTO) 5.5 % (1.0-10.0); NEUTROPHILS % (AUTO) 59.4 % (45.0-75.0); PLATELET COUNT 262 K/UL (150-450); POTASSIUM 3.8 MMOL/L (3.5-5.1); RED BLOOD COUNT 4.94 M/UL (4.20-5.40); SODIUM 138 MMOL/L (136-145); WHITE BLOOD COUNT 6.9 K/UL (4.8-10.8)
[2019-01-23 08:24] LABS: ALANINE AMINOTRANSFERASE 22 U/L (12-78); ALBUMIN 3.8 G/DL (3.4-5.0); ALKALINE PHOSPHATASE 82 U/L (46-116); ASPARTATE AMINO TRANSFERASE 19 U/L (15-37); BILIRUBIN,TOTAL 0.3 MG/DL (0.2-1.0)
[2019-01-23 08:38] LABS: INR 0.9 (0.9-1.1)
--- NOTE | 2019-01-23 08:56 | NUR ---
NURSE NOTES: Reviewed all patient's home medications with Dr. Kramer, orders placed. Trimethoprim replaced per MD order, MD ordered to hold patient's estrogen patch for now.
[2019-01-23] MEDS ORDERED: clonazePAM 0.5mg tab ORAL PRN (09:00)
[2019-01-23] MEDS: Bactrim-DS 1 tab ORAL SCH (09:24)
--- NOTE | 2019-01-23 10:05 | NUR ---
*-* INSURANCE *-* ALL AVAILABLE CLINICALS HAVE BEEN FAXED TO: [facility] REF# [id number] P; [phone] F: [phone]
--- NOTE | 2019-01-23 10:05 | NUR ---
CT A/P WITH ORAL AND IV COMPLETED.
--- NOTE | 2019-01-23 10:37 | Diagnostic Imaging Report ---
Clinical Indication: Abdominal pain, malfunctioning Wilkinson continent ileostomy Technique: Patient ingested oral contrast. IV administration nonionic contrast. Venous phase spiral acquisition obtained through the abdomen and pelvis. Multiplanar reconstructions were generated. Total dose length product 967 mGycm. CTDIvol(s) 17 mGy. Dose reduction achieved using automated exposure control Comparison: 10/29/2018 Findings: Again demonstrated is a right lower quadrant continent ileostomy. There appears to be considerable material within the ileostomy reservoir. A Velasquez catheter is present within the reservoir and is well-positioned. Ingested contrast has traversed the entirety of the small bowel and reach the reservoir. Small bowel leading into the reservoir is mildly dilated but no obstructive pathology is demonstrated. Previously demonstrated acute postsurgical changes have resolved. Midline surgical scar is again demonstrated. The distal esophagus, stomach, duodenum are unremarkable. No free or loculated intraperitoneal gas or fluid is evident. Previously demonstrated pelvic fluid collection is no longer evident. Some scarring is seen in the pelvis. The gallbladder has been removed. The liver, spleen, adrenals, kidneys are unremarkable. No renal or ureteral calculi, hydronephrosis, or hydroureter demonstrated. Prominent extrarenal pelvises again demonstrated. No pelvic mass or adenopathy. The included lung bases are clear. Again noted are bilateral breast implants. The bones are unremarkable. Impression: Somewhat distended ileostomy reservoir, could indicate some inability to drain. However, no abnormalities of inflow to the reservoir are demonstrated. Postsurgical changes, as described Interim resolution of previously demonstrated pelvic fluid collection Evidence of prior cholecystectomy, prior bilateral breast implants The CT scanner at [facility] is accredited by the [employer] and the scans are performed using protocols designed to limit radiation exposure to as low as reasonably achievable to attain images of sufficient resolution adequate for diagnostic evaluation.
[2019-01-23] MEDS: Estradiol Vaginal Cr 42.5 Gm Tube VAGIN SCH (11:17)
[2019-01-23 12:00] VITALS: BP 112/74
[2019-01-23] MEDS: LORazepam 1mg tab SL PRN (12:05)
--- NOTE | 2019-01-23 13:33 | NUR ---
CASE MANAGEMENT:REVIEW 48 YR OLD FEMALE PRESENTED TO OUR ER CC: ISSUE WITH BCIR POUCH SI: ABDOMINAL PAIN. MALFUNCTIONING RAGLAND POUCH 97.9 98 18 123/83 98% ON RA K-3.4 IS: IVF@125/HR : TO MED/SURG UNIT
[2019-01-23 16:00] VITALS: BP 107/76
[2019-01-23] MEDS ORDERED: Ketorolac 30mg Inj IV PRN (16:45)
[2019-01-23] MEDS: HYDROcodone/Acetamin 5/325 tab ORAL PRN (18:19)
--- NOTE | 2019-01-23 18:30 | NUR ---
NURSE NOTES: Total ileo output: +1035mL Total urine output: 500mL Patient ambulated several times in rose, pain managed at this time.
--- NOTE | 2019-01-23 18:46 | NUR ---
NURSE NOTES: Ileostomy catheter slipped out, reinserted by charge nurse Mathieu, patient tolerated well.
--- NOTE | 2019-01-23 19:38 | NUR ---
HAND-OFF: Report given to Liss GARCIA.
--- NOTE | 2019-01-23 19:39 | NUR ---
NURSE NOTES: Received report & pt from RADHA Farmer. Pt lying in bed, a&ox4, in room air, family member at bedside. No s/s of acute distress & no c/o pain. Ileo catheter intact & draining to gravity. Dressing C/D/I. IV site intact with IVF running as ordered. Bed in lowest position, call light within reach. Will continue to monitor.
[2019-01-23 20:00] VITALS: BP 101/66
[2019-01-23] MEDS: PARoxetine 10mg tab ORAL SCH (20:44)
[2019-01-23] MEDS: TraZODone 50mg tab ORAL SCH (20:45)
--- NOTE | 2019-01-23 21:15 | Pre-op HX & Phy Repo 2 SIG ---
DATE OF ADMISSION: 01/22/2019 Admitted through the emergency room. HISTORY OF PRESENT ILLNESS: The patient is a 48-year-old female in overall good health, who presents with recurring episodes of abdominal pain with poor output from her continent ileostomy when intubating as well as persistent pouchitis and incontinence. The patient has a past history of pelvic floor dysfunction and colonic inertia and has undergone multiple operations at the [facility] with an end ileostomy. On October 19, 2018, the patient was operated here for conversion of her malfunctioning ileostomy to a Wilkinson continent intestinal reservoir continent ileostomy and temporary catheter gastrostomy. She had a difficult postoperative course with fevers and transient pouch cutaneous fistula through a drain that resolved with suction drainage of her pouch and NPO with TPN. She was discharged self intubating her pouch, tolerating a low residue diet, and well healed off antibiotics. The patient has had several episodes of abdominal pain. She has taken cefdinir and Cipro and Flagyl for pouchitis often without sustained improvement either with cefdinir or Cipro and Flagyl. She was advised to come to the emergency room to determine the cause of her symptoms and the cause of her incontinence. OPERATIONS: Please see complete list at the end of this dictation. MEDICATIONS: Paxil, trazodone at night, estradiol patch, methenamine for suppression of recurring urinary infections. ALLERGIES: Morphine causes severe itching, but she is not allergic to it PHYSICAL EXAMINATION: GENERAL: The patient is 5 feet 6 inches, approximately 180 pounds. At the time of examination, she is afebrile with stable vital signs and in no acute distress with a catheter in her Wilkinson pouch evacuating fecal material. HEENT: Within normal limits. LUNGS: Clear. HEART: Regular rhythm. BREASTS: Without masses. ABDOMEN: Soft. Not distended. No tenderness at this time. A long midline incision and transverse incisions with the stoma of the Wilkinson pouch in the right lower quadrant. No evidence of abdominal wall hernia. PELVIC: Status post hysterectomy. RECTAL: Status post proctectomy. EXTREMITIES: Without edema. NEUROLOGIC: Physiologic. IMPRESSION: 1. Malfunctioning Wilkinson continent ileostomy with incontinence and refractory pouchitis. 2. Recurring episodes of abdominal pain. 3. History of pelvic floor dysfunction and colonic inertia. 4. Possible mild neurogenic bladder. 5. Status post multiple abdominal operations. 5.1. Right oophorectomy in 1989. 5.2. Total abdominal hysterectomy for endometriosis in 2000. 5.3. Cholecystectomy in 2006. 5.4. Removal of dilated colon and rectum with coloanal anastomosis and temporary ileostomy in May 2015. 5.5. Left salpingo-oophorectomy in November 2015. 5.6. Closure of temporary ileostomy on January 08, 2017. 5.7. Emergency colostomy on 01/11/2017. 5.8. Repair of parastomal hernia on July 30, 2017. 5.9. Removal of the remaining abdominal colon and rectum with abdominoperineal proctectomy and end-loop ileostomy on September 29, 2017. (All these operations were done at the [facility]). 5.10 Wilkinson Continent Ileostomy with resection of 15cm defunctionalized ileum and malfunctioning ileostomy and repair of parastomal hernia and gastrostomy October 19, 2018 PLAN: The patient will undergo emergency CT scan of abdomen and pelvis with oral and intravenous contrast. An indwelling 28-Turkmen Velasquez catheter will be placed into her Wilkinson continent ileostomy pouch and connected to continuous drainage with frequent irrigation by the nursing staff. She will also require a pouch endoscopy and decision whether she has a surgical issue that requires revision of her Wilkinson Pouch. Manny Kramer M.D. DR: JILL JOB#: [id number] CC: OPAL
[2019-01-24] VITALS (7 sets, daily range): BP systolic 99–127; BP diastolic 62–81
[2019-01-24] MEDS: D5 1/2NS w/KCl 20mEq 1,000 ML IV SCH ×3 (00:16→15:51)
[2019-01-24] MEDS: HYDROcodone/Acetamin 5/325 tab ORAL PRN ×3 (06:03→18:42)
[2019-01-24 06:24] LABS: BASOPHILS % (AUTO) 0.7 % (0.0-2.0); EOSINOPHILS % (AUTO) 3.1 % (0.0-3.0); HEMATOCRIT 36.8 % (37.0-47.0); HEMOGLOBIN 12.3 G/DL (12.0-16.0); LYMPHOCYTES % (AUTO) 27.8 % (20.0-45.0); MEAN CORPUSCULAR VOLUME 81 FL (80-99); MONOCYTES % (AUTO) 5.3 % (1.0-10.0); NEUTROPHILS % (AUTO) 63.1 % (45.0-75.0); PLATELET COUNT 229 K/UL (150-450); RED BLOOD COUNT 4.55 M/UL (4.20-5.40); RED CELL DISTRIBUTION WIDTH 13.3 % (11.6-14.8); WHITE BLOOD COUNT 6.4 K/UL (4.8-10.8)
[2019-01-24 07:02] LABS: ALANINE AMINOTRANSFERASE 22 U/L (12-78); ALBUMIN 3.4 G/DL (3.4-5.0); ALKALINE PHOSPHATASE 74 U/L (46-116); ANION GAP 8 mmol/L (5-15); ASPARTATE AMINO TRANSFERASE 21 U/L (15-37); BILIRUBIN,TOTAL 0.4 MG/DL (0.2-1.0); BLOOD UREA NITROGEN 5 mg/dL (7-18); CALCIUM 8.9 MG/DL (8.5-10.1); CARBON DIOXIDE 24 MMOL/L (21-32); CHLORIDE 102 MMOL/L (98-107); PHOSPHORUS 4.5 MG/DL (2.5-4.9); POTASSIUM 4.1 MMOL/L (3.5-5.1); SODIUM 134 MMOL/L (136-145)
--- NOTE | 2019-01-24 07:15 | NUR ---
NURSE NOTES: Pt ambulating around the hallway with steady gait
--- NOTE | 2019-01-24 07:30 | NUR ---
HAND-OFF: Report given to RADHA Farmer. Pt in stable condition.
--- NOTE | 2019-01-24 07:30 | NUR ---
NURSE NOTES: Received report from Liss GARCIA. Patient is awake and oriented, no acute distress noted, ileo to gravity drainage. IVF running per order. Patient NPO after breakfast for pouch endoscopy. Patient's needs met at this time, updated on plan of care. Side rails upx2, bed low and locked, call light within reach.
--- NOTE | 2019-01-24 08:19 | Pre-Procedure Note/Attestation ---
Pre-Procedure Note/Attestation Complete Prior to Procedure Planned Procedure: not applicable Procedure Narrative: Wilkinson continent ileostomy pouch endoscopy Indications for Procedure Pre-Operative Diagnosis: malfunctioning Wilkinson pouch Attestation I attest that I discussed the nature of the procedure; its benefits; risks and complications; and alternatives (and the risks and benefits of such alternatives ), prior to the procedure, with the patient (or the patient's legal enrollment eligibility representative). I attest that, if there was a reasonable possibility of needing a blood transfusion, the patient (or the patient's legal enrollment eligibility representative) was given the [facility] standardized written summary, pursuant to the Felix Wolsey Blood Safety Act ([place] Health and Safety Code # 1645, as amended). I attest that I re-evaluated the patient just prior to the surgery and that there has been no change in the patient's H&P, except as documented below: none Manny Kramer MD Jan 24, 2019 08:19
[2019-01-24] MEDS: Bactrim-DS 1 tab ORAL SCH (09:51)
--- NOTE | 2019-01-24 09:53 | NUR ---
NURSE NOTES: Patient's IV infiltrated, unable to obtain IV access at this time. IV access attempted x2 by myself, attempted x2 by charge nurse Lourdes with vein viewer. Dr. Kramer informed and aware. ordered for PICC line to be placed today following endoscopy.
--- NOTE | 2019-01-24 09:57 | General Progress Note ---
Progress Note Progress Note AVSS Still having cramping pains and discomfort in lower abdomen despite continuous drainage of Wilkinson Pouch with good output. Took 800cc po clear liquids yesterday after negative CT scan She is also having difficulty intubating her pouch and has had an episode of fecal incontinence from the stoma Abdomen soft Urine 1000cc BCIR ileo 1355 Labs all okay with normal albumin and only Mg is low 1.7 Imp: Malfunctioning Wilkinson continent ileostomy Persistent abdominal pain Plan: Wilkinson pouch endoscopy today May need pouchogram XRay May need PIC line for venous access and definitely if surgery is required Manny Kramer MD Jan 24, 2019 09:57
[2019-01-24] MEDS ORDERED: Heparin1,000 units/500ml Premix(Conc:2 units/ml) IV PRN (10:00)
[2019-01-24] MEDS ORDERED: Lidocaine 1% Plain 30 ml INJ PRN (10:00)
--- NOTE | 2019-01-24 12:54 | NUR ---
NURSE NOTES: Patient taken down to GI lab for endoscopy.
--- NOTE | 2019-01-24 13:19 | NUR ---
CASE MANAGEMENT:REVIEW 01/24/19 SI: MALFUNCTIONING RAGLAND CONTINENT ILEOSTOMY PERSISTENT ABDOMINAL PAIN 97.6 88 19 104/70 95% ON RA MAG-1.7 IS: IVF@125/HR/HR BACTRIM PO QD : MED/SURG STATUS 3 EAST PLAN: RAGLAND POUCH ENDOSCOPY TODAY MAY NEED POUCHOGRAM XRAY MAY NEED PICC LINE
--- NOTE | 2019-01-24 13:21 | Brief Operative Note ---
Immediate Post Operative Note Operative Note Pre-op Diagnosis: malfunctioning Wilkinson pouch Procedure: Wilkinson pouch endoscopy Post-op Diagnosis: Partial valve desussception Post-op Diagnosis: same as pre-op Findings: consistent w/pre-op dx studies Surgeon: junaid Anesthesia: other - none Specimen: none Complications: none Condition: stable Fluids: none Estimated Blood Loss: none Drains: other - 28 Velasquez to Wilkinson Pouch Implant(s) used?: No Manny Kramer MD Jan 24, 2019 13:21
--- NOTE | 2019-01-24 13:43 | NUR ---
NURSE NOTES: Received telephone report from Rey GARCIA in GI lab. Patient is currently in radiology getting ordered PICC line.
--- NOTE | 2019-01-24 14:15 | NUR ---
RIGHT UPPER EXTREMITY 2 LUMEN PICC LINE INSERTED BY DR. ANDRE IRVIN. FA
--- NOTE | 2019-01-24 14:27 | Pre-Procedure Note/Attestation ---
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 I attest that, if there was a reasonable possibility of needing a blood transfusion, the patient (or the patient's legal training representative) was given the [facility] standardized written summary, pursuant to the Felix Jan Blood Safety Act ([place] Health and Safety Code # 1645, as amended). I attest that I re-evaluated the patient just prior to the surgery and that there has been no change in the patient's H&P, except as documented below: Sae Montague MD Jan 24, 2019 14:27
--- NOTE | 2019-01-24 14:28 | Brief Operative Note ---
Immediate Post Operative Note Operative Note Pre-op Diagnosis: needs long term care phlebotomist central IV access Procedure: PICC Post-op Diagnosis: same as pre-op Surgeon: Suresh Hensley Anesthesia: local Specimen: none Complications: none Fluids: none Implant(s) used?: No Sae Hensley MD Jan 24, 2019 14:28
--- NOTE | 2019-01-24 14:47 | Diagnostic Imaging Report ---
Indications: Needs long-term IV access Technique: Ultrasound confirms patent compressible right basilic vein. Total sterile technique, including sterile probe cover and sterile gel, hat, mask, sterile gown, large sterile drape, and preparation with 2% chlorhexidine utilized. Local anesthesia with 1% lidocaine. Under real-time ultrasound guidance, puncture basilic vein using 21-gauge needle, documented and archived, passage 0.018 guidewire under direct fluoroscopy, which was used to determine appropriate catheter length, exchange for 4 Indonesian peel-away sheath. 4 Indonesian Bard dual-lumen power PICC cut to 41 cm. It was inserted through the peel-away sheath. Peel-away sheath and guidewire removed. Catheter fixed to the skin. Both catheter ports aspirated and flushed. Patient tolerated procedure well, without immediate complication. Digital radiograph documents satisfactory catheter tip position, at the cavoatrial junction. Total fluoroscopy time 36 seconds. Total dose area product 0.57006 mGym2 Total number of images: 1 Impression: Successful placement of right arm PICC under sonographic and fluoroscopic guidance, as described above.
--- NOTE | 2019-01-24 15:04 | NUR ---
NURSE NOTES: Patient returned from endoscopy and PICC insertion. EVONNE PICC in place, intact, flushed and patent, able to aspirate blood, tegaderm in place with biopatch placed by radiologist. Caps placed were policy. Addendum: 01/24/19 at 1922 by Marleny Leija RN NURSE NOTES: Edit: Caps placed PER policy
--- NOTE | 2019-01-24 18:30 | NUR ---
NURSE NOTES: Total ileo output for my shift: +420mL Total urine output: 700mL Patient is tolerating clear liquid diet well, pain managed at this time.
--- NOTE | 2019-01-24 20:00 | NUR ---
HAND-OFF: Report given to Liss GARCIA.
--- NOTE | 2019-01-24 20:01 | NUR ---
NURSE NOTES: Recieved hand of report from day shift RADHA Farmer patient stable , no distress, denies any pain ,picc line intact and asymptomatic with i.v fluids running. Bed in low position and call light with in reach.
[2019-01-24] MEDS: PARoxetine 10mg tab ORAL SCH (20:18)
[2019-01-24] MEDS: Dyna-Hex 2% Top Sol 2oz TOPIC SCH (20:19)
[2019-01-24] MEDS: TraZODone 50mg tab ORAL SCH (20:19)
--- NOTE | 2019-01-24 21:02 | Procedure Note ---
DATE OF PROCEDURE: 01/24/2019 ENDOSCOPIST: Manny Kramer M.D. ANESTHESIA: None. SEDATION: None. PRE-ENDOSCOPY DIAGNOSES: 1. Malfunctioning Wilkinson continent ileostomy with difficulty with intubation and incontinence. 2. Recurring episodes of abdominal pain. 3. 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 POST-ENDOSCOPY DIAGNOSES: 1. Malfunctioning Wilkinson continent ileostomy with difficulty with intubation and incontinence. 2. Recurring episodes of abdominal pain. 3. 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 ENDOSCOPY PERFORMED: Wilkinson continent ileostomy pouch endoscopy. FINDINGS: A partial dessusception of the nipple valve approximately 10% with the distance to the tip of the valve from the stoma orifice 12 cm, which in this patient should be closer to 9 cm. There are redundant mucosal folds within the access tract. DESCRIPTION OF PROCEDURE: The patient was positioned supine in the GI lab without any anesthesia or sedation given or required with a 28-Mohawk Velasquez catheter in the pouch. I first irrigated it clear. I then used the HENRY-P140 endoscope and there were redundant mucosal folds within the valve segment just before entering the pouch. Pouch was distensible and mucosa looked completely normal throughout without any inflammation or ulcerations. Retroflexed views revealed a circumferentially well-formed nipple valve except on 1 border, it appeared to be slipped about 10%. This would explain her incontinence and difficulty intubating, but not her abdominal pain. Withdrawal views confirmed the above findings. After removing the endoscope, the retained gas in the pouch did not come out of the stoma spontaneously. I inserted a 28-Mohawk Velasquez into the pouch and decompressed it completely. It was secured with tape and connected to a gravity drainage bag. The patient tolerated the endoscopy well. She will undergo further evaluations and preparations for surgery. Manny Kramer M.D. DR: JILL JOB#: [id number] CC: OPAL
[2019-01-25 04:00] VITALS: BP 118/72
--- NOTE | 2019-01-25 07:28 | NUR ---
NURSE NOTES: received report from RADHA Leija. patient in bed. alert. oriented. verbally responsive. no respiratory distress noted. mild discomfort on abd area. illeostomy draining. PIcc line on EVONNE. running d51/2ns 20meq@50/hr. dressing intact. tolerate well with clear liquid diet. expecting pouch gram x-ray. ambulatory. bed in the lowest position. call light within reach. will continue to provide plan of care.
--- NOTE | 2019-01-25 07:30 | NUR ---
HAND-OFF: Report given to RADHA Sanders. Pt in stable condition. Rounds done.
[2019-01-25 08:00] VITALS: BP 120/79
[2019-01-25] MEDS: Bactrim-DS 1 tab ORAL SCH (08:34)
[2019-01-25] MEDS: Estradiol Vaginal Cr 42.5 Gm Tube VAGIN SCH (08:35)
[2019-01-25] MEDS: HYDROcodone/Acetamin 5/325 tab ORAL PRN ×3 (08:41→18:36)
--- NOTE | 2019-01-25 09:30 | NUR ---
NURSE NOTES: patient left unit for kock pouch gram via W/C assisted by radiology. stable. IV on EVONNE.
--- NOTE | 2019-01-25 10:00 | NUR ---
NURSE NOTES: patient came back to unit from [facility] gram. stable. alert. oriented. verbally responsive. no respiratory distress noted.
--- NOTE | 2019-01-25 10:14 | NUR ---
RADIOLOGY DEPT., [facility] POUCHOGRAM COMPLETED.-P.DYE
[2019-01-25 12:00] VITALS: BP 110/75
--- NOTE | 2019-01-25 12:40 | Diagnostic Imaging Report ---
INDICATION: Abdominal pain. Barrera Pouch continent ileostomy TECHNIQUE: Through the indwelling catheter, water-soluble contrast was administered via gravity and fluoroscopically imaged in multiple projections. COMPARISON: None FINDINGS: Total fluoroscopic time 145 seconds. Total number of fluoroscopic images obtained: 16 images. Multiple fluoroscopic images demonstrate the continent ileostomy catheter well situated within the pouch. The pouch is unremarkable. There is no evidence of extravasation of contrast material. There is reflux of contrast into small bowel which appears mildly distended. Postdrainage images are unremarkable. IMPRESSION: Normal pouchogram. Mildly distended distal small bowel may be due to a mild ileus. No evidence of obstruction.
[2019-01-25] MEDS: LORazepam 1mg tab SL PRN (13:57)
--- NOTE | 2019-01-25 14:28 | NUR ---
NURSE NOTES: patient c/o pain on abd area. Since pouch gram the pain/cramping got worse. RN provide hot pack, administered Leeds 5/325@1241, Ativan 1mg @1400. both medications did not help to control the pain. RN notified Sherry Figueroa and left message.
--- NOTE | 2019-01-25 15:04 | General Progress Note ---
Progress Note Progress Note Continued cramping and bloating but when Wilkinson pouch catheter is positioned will into the pouch and is draining well her symptoms are relieved. At home she was able to intubate q4h but says she only ate one meal per day because after eating her cramps occured, unlike pouchitis. Pouchogram XRay with retrograde SBS - small well formed pouch, no obstructions Labs okay except Mg 1.7 Urine 1800 BCIR ileo 675 Took small amount clear liquids Imp. Persistent abdominal cramping and bloating - ? due to maturation of pouch and can be managed with anti-spasmodics (Bentyl), or if there is an obstructive process despite all negative imaging Plan: Trial of clear liquids and then BCIR diet with indwelling pouch catheter to continuous drainage. If tolerates without cramping and bloating will start self-intubations q3h (after passes trial of clears then BCIR diet continue IV fluids - start TPN if unable to tolerate po intake soon f/u labs Manny Kramer MD Jan 25, 2019 15:04
--- NOTE | 2019-01-25 15:08 | General Progress Note ---
Progress Note Progress Note AVSS Tolerating BCIR diet but fistula output 420cc with Wilkinson pouch output 640cc. 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
[2019-01-25] MEDS: D5 1/2NS w/KCl 20mEq 1,000 ML IV SCH (15:36)
[2019-01-25 16:00] VITALS: BP 109/67
--- NOTE | 2019-01-25 16:45 | NUR ---
CASE MANAGEMENT:REVIEW 01/25/19 SI: MALFUNCTIONING RAGLAND CONTINENT ILEOSTOMY PERSISTENT ABDOMINAL PAIN 98.0 82 18 109/67 98% ON RA IS: IVF@50/HR PAXIL PO QHS BACTRIM PO QD NORCO PO Q4HRS PRN : MED/SURG STATUS 3 [facility]
[2019-01-25] MEDS: Dicyclomine HCl 10mg/5ml oral soln ORAL PRN ×2 (17:30→21:31)
--- NOTE | 2019-01-25 19:29 | NUR ---
HAND-OFF: Report given to RADHA Leo .
--- NOTE | 2019-01-25 19:43 | NUR ---
NURSE NOTES: RECEIVED PT FROM RADHA OZUNA. PT IS AWAKE, AAOX4, ON ROOM AIR, NO ACUTE DISTRESS NOTED. PT DENIES PAIN AT THE MOMENT. PICC LINE ON RIGHT UPPER ARM DOUBLE LUMEN IS INTACT AND PATENT RUNNING D5 1/2 NS WITH 20 MEQ AT 50ML/HR. ILEOSTOMY DRAINING. DRESSINGS INTACT. BED IS LOCKED AND LOW, BED ALARMS ACTIVE, SIDE RAILS UP X2 AND CALL LIGHT IS WITHIN REACH. WILL CONTINUE TO MONITOR.
[2019-01-25 20:00] VITALS: BP 110/74
[2019-01-25] MEDS: Dyna-Hex 2% Top Sol 2oz TOPIC SCH (20:37)
[2019-01-25] MEDS: TraZODone 50mg tab ORAL SCH (20:39)
[2019-01-25] MEDS: PARoxetine 10mg tab ORAL SCH (20:40)
[2019-01-25] MEDS ORDERED: NS Irrig 1000ml ONE (22:48)
[2019-01-26] VITALS: BP 113/68
[2019-01-26 04:00] VITALS: BP 114/69
[2019-01-26 06:29] LABS: BASOPHILS % (AUTO) 0.3 % (0.0-2.0); EOSINOPHILS % (AUTO) 2.8 % (0.0-3.0); HEMATOCRIT 35.7 % (37.0-47.0); HEMOGLOBIN 11.9 G/DL (12.0-16.0); LYMPHOCYTES % (AUTO) 27.6 % (20.0-45.0); MEAN CORPUSCULAR VOLUME 80 FL (80-99); MONOCYTES % (AUTO) 5.3 % (1.0-10.0); NEUTROPHILS % (AUTO) 63.9 % (45.0-75.0); PLATELET COUNT 232 K/UL (150-450); RED BLOOD COUNT 4.44 M/UL (4.20-5.40); RED CELL DISTRIBUTION WIDTH 13.1 % (11.6-14.8); WHITE BLOOD COUNT 6.8 K/UL (4.8-10.8)
[2019-01-26 06:45] LABS: ALANINE AMINOTRANSFERASE 21 U/L (12-78); ALBUMIN 3.5 G/DL (3.4-5.0); ALKALINE PHOSPHATASE 75 U/L (46-116); ANION GAP 7 mmol/L (5-15); ASPARTATE AMINO TRANSFERASE 18 U/L (15-37); BILIRUBIN,TOTAL 0.3 MG/DL (0.2-1.0); BLOOD UREA NITROGEN 3 mg/dL (7-18); CALCIUM 8.4 MG/DL (8.5-10.1); CARBON DIOXIDE 29 MMOL/L (21-32); CHLORIDE 103 MMOL/L (98-107); CREATININE 0.9 MG/DL (0.55-1.30); PHOSPHORUS 4.1 MG/DL (2.5-4.9); POTASSIUM 3.8 MMOL/L (3.5-5.1); SODIUM 139 MMOL/L (136-145)
--- NOTE | 2019-01-26 07:33 | NUR ---
HAND-OFF: Report given to RADHA LEDEZMA.
--- NOTE | 2019-01-26 07:40 | NUR ---
NURSE NOTES: Received pt from Felipa, RN, pt was resting comfortably no acute distress, was at bedside, call light w/in reach.
[2019-01-26 08:00] VITALS: BP 95/66
--- NOTE | 2019-01-26 08:00 | NUR ---
NURSE NOTESE Encouraged pt drink water due to low blood pressure.
[2019-01-26] MEDS: Bactrim-DS 1 tab ORAL SCH (09:37)
[2019-01-26] MEDS: HYDROcodone/Acetamin 5/325 tab ORAL PRN ×2 (10:26→19:03)
[2019-01-26] MEDS: Dicyclomine HCl 10mg/5ml oral soln ORAL PRN ×2 (10:27→17:24)
[2019-01-26] MEDS: LORazepam 1mg tab SL PRN ×2 (11:54→18:11)
[2019-01-26 12:00] VITALS: BP 106/68
[2019-01-26] MEDS: D5 1/2NS w/KCl 20mEq 1,000 ML IV SCH (12:45)
--- NOTE | 2019-01-26 15:14 | Surgery Progress Note ---
Surgery Progress Note Subjective Additional Comments no acute events doing well still having cramping pain intermittent on cont drainage on clears Objective Last 24 Hour Vital Signs Date Time Temp Pulse Resp B/P (MAP) Pulse Ox O2 Delivery O2 Flow Rate FiO2 01/26/19 12:00 98.2 78 18 106/68 (81) 97 01/26/19 08:00 98.2 111 18 95/66 (76) 97 01/26/19 07:55 Room Air 01/26/19 04:00 97.9 89 18 114/69 (84) 96 01/26/19 00:00 97.5 73 18 113/68 (83) 97 01/25/19 21:00 Room Air 01/25/19 20:00 98.4 80 18 110/74 (86) 97 01/25/19 16:00 98.0 82 18 109/67 (81) 98 I&O Intake and Output 01/25/19 01/26/19 18:59 06:59 Intake Total 1400 ml 1452 ml Output Total 3620 ml 1720 ml Balance -2220 ml -268 ml Intake Oral 1000 ml 952 ml IV Total 400 ml 500 ml Output Urine Total 1000 ml 900 ml Other 2620 ml 820 ml # Voids 2 Drains: other Cardiovascular: RSR Respiratory: clear Abdomen: soft, flat, non-tender, present bowel sounds Extremities: no edema, no tenderness, no cyanosis Laboratory Tests Test 01/26/19 05:00 White Blood Count 6.8 K/UL (4.8-10.8) Red Blood Count 4.44 M/UL (4.20-5.40) Hemoglobin 11.9 G/DL (12.0-16.0) L Hematocrit 35.7 % (37.0-47.0) L Mean Corpuscular Volume 80 FL (80-99) Mean Corpuscular Hemoglobin 26.9 PG (27.0-31.0) L Mean Corpuscular Hemoglobin Concent 33.4 G/DL (32.0-36.0) Red Cell Distribution Width 13.1 % (11.6-14.8) Platelet Count 232 K/UL (150-450) Mean Platelet Volume 6.3 FL (6.5-10.1) L Neutrophils (%) (Auto) 63.9 % (45.0-75.0) Lymphocytes (%) (Auto) 27.6 % (20.0-45.0) Monocytes (%) (Auto) 5.3 % (1.0-10.0) Eosinophils (%) (Auto) 2.8 % (0.0-3.0) Basophils (%) (Auto) 0.3 % (0.0-2.0) Sodium Level 139 MMOL/L (136-145) Potassium Level 3.8 MMOL/L (3.5-5.1) Chloride Level 103 MMOL/L (98-107) Carbon Dioxide Level 29 MMOL/L (21-32) Anion Gap 7 mmol/L (5-15) Blood Urea Nitrogen 3 mg/dL (7-18) L Creatinine 0.9 MG/DL (0.55-1.30) Estimat Glomerular Filtration Rate > 60 mL/min (>60) Glucose Level 88 MG/DL (74-106) Calcium Level 8.4 MG/DL (8.5-10.1) L Phosphorus Level 4.1 MG/DL (2.5-4.9) Magnesium Level 1.7 MG/DL (1.8-2.4) L Total Bilirubin 0.3 MG/DL (0.2-1.0) Aspartate Amino Transf (AST/SGOT) 18 U/L (15-37) Alanine Aminotransferase (ALT/SGPT) 21 U/L (12-78) Alkaline Phosphatase 75 U/L (46-116) Total Protein 6.9 G/DL (6.4-8.2) Albumin 3.5 G/DL (3.4-5.0) Globulin 3.4 g/dL Albumin/Globulin Ratio 1.0 (1.0-2.7) Plan Problems: (1) malfunctio of Ileostomy Assessment & Plan: AVSS labs okay Abdomen soft and exam benign imaging reviewed still feeling bloated Imp: Severe malnutrition and iron deficiency anemia 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
[2019-01-26 16:00] VITALS: BP 106/68
--- NOTE | 2019-01-26 17:59 | NUR ---
CASE MANAGEMENT:REVIEW 01/26/19 SI: MALFUNCTIONING RAGLAND CONTINENT ILEOSTOMY PERSISTENT ABDOMINAL PAIN T 98.2 HR 78 RR 18 B/P 106/68 SATS 97% ON RA BUN 3 CA 8.4 MG 1.7 IS: IVF@50 mL/HR PAXIL PO QHS BACTRIM PO QD NORCO PO Q4HRS PRN : MED/SURG STATUS 3 [facility]
--- NOTE | 2019-01-26 19:29 | NUR ---
NURSE NOTES: RECEIVED PATIENT FROM RADHA LEDEZMA. PATIENT IS AWAKE, AAOX4, ON ROOM AIR, NO ACUTE DISTRESS NOTED. FAMILY MEMBER AT BEDSIDE. PATIENT STATES THAT PAIN IS SUBSIDING FROM NORCO RECEIVED 30 MINUTES AGO. ILEOSTOMY SITE WITH GAUZE DRESSING IS CLEAN AND DRY. DRAINING WELL. PICC LINE DOUBLE LUMEN ON RIGHT UPPER ARM IS INTACT AND PATENT. RUNNING D5 1/2 NS WITH 20 MEQ AT 50ML/HR. DRESSING IS CLEAN AND AND DRY. LAST CHANGED ON 01/24/19. PT IS TOLERATING CLEAR LIQUID WELL. BED IS LOCKED AND LOW, BED ALARMS ACTIVE, SIDE RAILS UP X2 AND CALL LIGHT IS WITHIN REACH. WILL CONTINUE TO MONITOR.
--- NOTE | 2019-01-26 19:29 | NUR ---
HAND-OFF: Report given to RADHA Leo. pt is in stable condition..
[2019-01-26 20:00] VITALS: BP 106/63
[2019-01-26] MEDS: Dyna-Hex 2% Top Sol 2oz TOPIC SCH (20:17)
[2019-01-26] MEDS: PARoxetine 10mg tab ORAL SCH (20:17)
[2019-01-26] MEDS: TraZODone 50mg tab ORAL SCH (20:17)
[2019-01-27] VITALS: BP 105/65
[2019-01-27 04:00] VITALS: BP 112/61
[2019-01-27 04:57] LABS: BASOPHILS % (AUTO) 0.5 % (0.0-2.0); EOSINOPHILS % (AUTO) 2.9 % (0.0-3.0); HEMATOCRIT 35.7 % (37.0-47.0); HEMOGLOBIN 12.2 G/DL (12.0-16.0); LYMPHOCYTES % (AUTO) 39.2 % (20.0-45.0); MEAN CORPUSCULAR VOLUME 80 FL (80-99); MONOCYTES % (AUTO) 4.6 % (1.0-10.0); NEUTROPHILS % (AUTO) 52.7 % (45.0-75.0); PLATELET COUNT 224 K/UL (150-450); RED BLOOD COUNT 4.49 M/UL (4.20-5.40); RED CELL DISTRIBUTION WIDTH 13.1 % (11.6-14.8)
[2019-01-27 05:11] LABS: INR 0.9 (0.9-1.1)
[2019-01-27 05:16] LABS: ALANINE AMINOTRANSFERASE 27 U/L (12-78); ALBUMIN 3.6 G/DL (3.4-5.0); ALKALINE PHOSPHATASE 77 U/L (46-116); AMYLASE 71 U/L (25-115); ANION GAP 8 mmol/L (5-15); ASPARTATE AMINO TRANSFERASE 27 U/L (15-37); BILIRUBIN,TOTAL 0.3 MG/DL (0.2-1.0); BLOOD UREA NITROGEN 2 mg/dL (7-18); CALCIUM 8.9 MG/DL (8.5-10.1); CARBON DIOXIDE 30 MMOL/L (21-32); CHLORIDE 102 MMOL/L (98-107); CREATININE 0.9 MG/DL (0.55-1.30); POTASSIUM 3.8 MMOL/L (3.5-5.1); SODIUM 140 MMOL/L (136-145)
--- NOTE | 2019-01-27 06:46 | NUR ---
NURSE NOTES: PT IS IN BED RESTING, DENIES PAIN AND DISCOMFORT. TOLERATING CLEAR LIQUID WELL. ILEOSTOMY IS DRAINING WELL. FLUSHED Q3HR. NO S/S OF DISLODGE. STRICT I & O RECORDED. WILL CONTINUE TO MONITOR.
--- NOTE | 2019-01-27 07:20 | NUR ---
HAND-OFF: Report given to RADHA Jimenez. Patient is in stable condition. Endorsed plan of care
[2019-01-27] MEDS: Dicyclomine HCl 10mg/5ml oral soln ORAL PRN ×2 (07:29→14:06)
[2019-01-27 07:56] VITALS: BP 108/69
[2019-01-27] MEDS: Bactrim-DS 1 tab ORAL SCH (08:11)
[2019-01-27] MEDS: LORazepam 1mg tab SL PRN ×4 (08:20→23:12)
--- NOTE | 2019-01-27 08:45 | NUR ---
NURSE NOTES: pt awake alert, no distress. no sob. c/o abd cramps, bentyl prn given , still ineffective, adjusted ileostomy catheter, pt still had cramps, ativan prn given will monitor effectiveness. pt ambulatory. picc is patent and intact with minimal bruising at the site maroon-colored, patient is aware.
[2019-01-27] MEDS: HYDROcodone/Acetamin 5/325 tab ORAL PRN ×4 (08:58→21:33)
[2019-01-27] MEDS: D5 1/2NS w/KCl 20mEq 1,000 ML IV SCH (10:01)
--- NOTE | 2019-01-27 11:19 | NUR ---
RD ASSESSMENT & RECOMMENDATIONS SEE CARE ACTIVITY FOR COMPLETE ASSESSMENT DAILY ESTIMATED NEEDS: Needs based on GI- ileostomy; 64.5kg adj 25-30 kcals/kg 4227-6568 total kcals 1-1.5 g protein/kg 65- 97 g total protein 25-30 mL/kg 1613- 1935 total fluid mLs NUTRITION DIAGNOSIS: *Altered GI function R/T ileostomy AEB pt adm w/ malfunctioning Wilkinson pouch, w/ slipped valve and fistula, currently on clears. CURRENT DIET: CLD PO DIET RECOMMENDATIONS: As per MD TPN Comment: * Consult RD as needed w/ extended NPO/ Clears * ADDITIONAL RECOMMENDATIONS: 1) Obtain standing wt when able. 2) Monitor progression of diet. 3) Pending surgery this week-> monitor need for TPN. 4) Ensure Clear w/ CLD
[2019-01-27 12:00] VITALS: BP 107/78
--- NOTE | 2019-01-27 12:47 | NUR ---
NURSE NOTES: patient may bring her own clear liquid diet and patient's father can have regular tray , kitchen staff made aware. patient states " I can make my own clear liquid diet like broth and I know I have to be kept on clear liquid diet" Dr Moore okayed order for regular tray for patient's dad Charge Nurse Cece made aware
--- NOTE | 2019-01-27 13:11 | Surgery Progress Note ---
Surgery Progress Note Subjective Additional Comments no acute events comfortable stable doing well still having some cramping Objective Last 24 Hour Vital Signs Date Time Temp Pulse Resp B/P (MAP) Pulse Ox O2 Delivery O2 Flow Rate FiO2 01/27/19 12:00 97.2 97 18 107/78 (88) 100 01/27/19 09:28 97.2 01/27/19 08:00 Room Air 01/27/19 07:56 97.2 82 18 108/69 (82) 100 01/27/19 04:00 98.0 61 18 112/61 (78) 100 01/27/19 00:00 98.2 71 18 105/65 (78) 96 01/26/19 21:00 Room Air 01/26/19 20:00 98.2 78 17 106/63 (77) 96 01/26/19 16:00 99.1 88 18 106/68 (81) 98 I&O Intake and Output 01/26/19 01/27/19 19:00 07:00 Intake Total 2260 ml 1446 ml Output Total 2400 ml 1770 ml Balance -140 ml -324 ml Intake Oral 2260 ml IV Total 500 ml Other 946 ml Output Urine Total 1480 ml 1350 ml Other 920 ml 420 ml # Voids 3 Cardiovascular: RSR Respiratory: clear Abdomen: soft, flat, tenderness - cramping , present bowel sounds, non- distended Extremities: no edema, no tenderness, no cyanosis Laboratory Tests Test 01/27/19 04:30 White Blood Count 6.0 K/UL (4.8-10.8) Red Blood Count 4.49 M/UL (4.20-5.40) Hemoglobin 12.2 G/DL (12.0-16.0) Hematocrit 35.7 % (37.0-47.0) L Mean Corpuscular Volume 80 FL (80-99) Mean Corpuscular Hemoglobin 27.2 PG (27.0-31.0) Mean Corpuscular Hemoglobin Concent 34.2 G/DL (32.0-36.0) Red Cell Distribution Width 13.1 % (11.6-14.8) Platelet Count 224 K/UL (150-450) Mean Platelet Volume 5.6 FL (6.5-10.1) L Neutrophils (%) (Auto) 52.7 % (45.0-75.0) Lymphocytes (%) (Auto) 39.2 % (20.0-45.0) Monocytes (%) (Auto) 4.6 % (1.0-10.0) Eosinophils (%) (Auto) 2.9 % (0.0-3.0) Basophils (%) (Auto) 0.5 % (0.0-2.0) Erythrocyte Sedimentation Rate 28 MM/HR (0-20) H Prothrombin Time 9.7 SEC (9.30-11.50) Prothromb Time International Ratio 0.9 (0.9-1.1) Activated Partial Thromboplast Time 28 SEC (23-33) Sodium Level 140 MMOL/L (136-145) Potassium Level 3.8 MMOL/L (3.5-5.1) Chloride Level 102 MMOL/L (98-107) Carbon Dioxide Level 30 MMOL/L (21-32) Anion Gap 8 mmol/L (5-15) Blood Urea Nitrogen 2 mg/dL (7-18) L Creatinine 0.9 MG/DL (0.55-1.30) Estimat Glomerular Filtration Rate > 60 mL/min (>60) Glucose Level 88 MG/DL (74-106) Calcium Level 8.9 MG/DL (8.5-10.1) Total Bilirubin 0.3 MG/DL (0.2-1.0) Aspartate Amino Transf (AST/SGOT) 27 U/L (15-37) Alanine Aminotransferase (ALT/SGPT) 27 U/L (12-78) Alkaline Phosphatase 77 U/L (46-116) C-Reactive Protein, Quantitative 1.1 mg/dL (0.00-0.90) H Total Protein 7.1 G/DL (6.4-8.2) Albumin 3.6 G/DL (3.4-5.0) Globulin 3.5 g/dL Albumin/Globulin Ratio 1.0 (1.0-2.7) Amylase Level 71 U/L (25-115) Lipase 128 U/L (73-393) Plan Problems: (1) malfunctio of Ileostomy Assessment & Plan: AVSS labs okay Abdomen soft and exam benign imaging reviewed still feeling bloated Imp: Severe malnutrition and iron deficiency anemia 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
[2019-01-27] MEDS ORDERED: Gastrograffin 30ml ORAL PRN (13:15)
[2019-01-27 16:00] VITALS: BP 97/66
--- NOTE | 2019-01-27 19:01 | NUR ---
NURSE NOTES: Dr Moore made aware of stool minimal leakage from ileo and twice the catheter slipped and had to be replaced. secured dressing. no new orders from md. is aware
--- NOTE | 2019-01-27 19:21 | NUR ---
HAND-OFF: Report given to GETACHEW GARCIA.
--- NOTE | 2019-01-27 19:43 | NUR ---
NURSE NOTES: Received report from RADHA Jimenez. Patient is ambulating in the hallways with a family member. C/o of abdominal cramping, morning RN gave medication per eMAR. No c/o of pain or SOB on room air. Ileostomy catheter connected to collection bag draining dark brown liquid to gravity. Right upper arm PICC running fluids. Dressing and site is c/d/i and asymptomatic. Will continue plan of care.
[2019-01-27 20:00] VITALS: BP 94/62
[2019-01-27] MEDS: TraZODone 50mg tab ORAL SCH (20:44)
[2019-01-27] MEDS: Dyna-Hex 2% Top Sol 2oz TOPIC SCH (20:44)
[2019-01-27] MEDS: PARoxetine 10mg tab ORAL SCH (20:45)
[2019-01-28] VITALS: BP 95/61
[2019-01-28 04:00] VITALS: BP 99/63
[2019-01-28] MEDS: D5 1/2NS w/KCl 20mEq 1,000 ML IV SCH (05:41)
[2019-01-28 05:56] LABS: BASOPHILS % (AUTO) 1.3 % (0.0-2.0); EOSINOPHILS % (AUTO) 3.3 % (0.0-3.0); HEMATOCRIT 33.5 % (37.0-47.0); HEMOGLOBIN 11.4 G/DL (12.0-16.0); LYMPHOCYTES % (AUTO) 39.6 % (20.0-45.0); MEAN CORPUSCULAR VOLUME 80 FL (80-99); MONOCYTES % (AUTO) 5.6 % (1.0-10.0); NEUTROPHILS % (AUTO) 50.2 % (45.0-75.0); PLATELET COUNT 223 K/UL (150-450); RED BLOOD COUNT 4.18 M/UL (4.20-5.40); RED CELL DISTRIBUTION WIDTH 13.1 % (11.6-14.8); WHITE BLOOD COUNT 5.9 K/UL (4.8-10.8)
[2019-01-28 06:08] LABS: ALANINE AMINOTRANSFERASE 25 U/L (12-78); ALBUMIN 3.3 G/DL (3.4-5.0); ALKALINE PHOSPHATASE 67 U/L (46-116); ANION GAP 2 mmol/L (5-15); ASPARTATE AMINO TRANSFERASE 26 U/L (15-37); BILIRUBIN,TOTAL 0.2 MG/DL (0.2-1.0); BLOOD UREA NITROGEN 5 mg/dL (7-18); CALCIUM 8.2 MG/DL (8.5-10.1); CARBON DIOXIDE 33 MMOL/L (21-32); CHLORIDE 105 MMOL/L (98-107); CREATININE 0.9 MG/DL (0.55-1.30); POTASSIUM 3.8 MMOL/L (3.5-5.1); SODIUM 140 MMOL/L (136-145)
--- NOTE | 2019-01-28 07:30 | NUR ---
NURSE NOTES: Received pt from TAMMY GARCIA. Pt is alert and orient. pt is in RA, no SOB or acute respiratory distress noted. pt has intact PICC EVONNE is running well. pt is eating breakfast independently. is on bed side. pt has ileostomy in place is working. all needs attended, bed is locked and is in the lowest position, call light within easy reach, will continue to monitor.
[2019-01-28 08:00] VITALS: BP 118/73
--- NOTE | 2019-01-28 08:02 | NUR ---
HAND-OFF: Report given to RADHA Garvey. Patient in stable condition.
[2019-01-28] MEDS: Estradiol Vaginal Cr 42.5 Gm Tube VAGIN SCH (08:58)
[2019-01-28] MEDS: Bactrim-DS 1 tab ORAL SCH (08:58)
[2019-01-28] MEDS: HYDROcodone/Acetamin 5/325 tab ORAL PRN ×3 (08:58→19:58)
--- NOTE | 2019-01-28 10:27 | NUR ---
NURSE NOTES: Patient ate clear liquid this morning and spoke to regarding Upper GI w Small bowel procedure. Ok to do Upper GI w Small bowel today. Notified [facility] Radiology department.
--- NOTE | 2019-01-28 10:59 | NUR ---
NURSE NOTES: pt is awake and stable, left unit for upper GI study, waiting to come back.
--- NOTE | 2019-01-28 11:07 | Consultation ---
History of Present Illness General Chief Complaint: General Complaint Present Illness HPI 48F hx of lasik surgery many years ago now requiring reading glasses reassurance given information provided Allergies: Coded Allergies: CODEINE (Verified Adverse Reaction, Severe, Itching, 10/18/18) MORPHINE (Verified Adverse Reaction, Severe, Itching, 10/18/18) sever itching to the point scratches self till bleeding. Medication History Scheduled Estradiol (Estradiol), 1 EACH TD TWICE A WEEK, (Reported) Estradiol* (Estrace*), 1 APPLIC VAGIN THREE TIMES A WEEK, (Reported) Paroxetine Hcl (Paxil), 30 MG ORAL BEDTIME, (Reported) Trazodone* (Trazodone*), 150 MG ORAL BEDTIME, (Reported) Trimethoprim Sulfate (Trimethoprim), 100 MG PO BEDTIME, (Reported) Scheduled PRN Clonazepam* (Klonopin*), 0.5 MG ORAL TID PRN for For Anxiety, (Reported) Patient History Healthcare decision maker Resuscitation status Full Code Advanced Directive on File Review of Systems All Other Systems: negative except mentioned in HPI Physical Exam Physical Exam Narrative EOM intact no cont injection Last 24 Hour Vital Signs Date Time Temp Pulse Resp B/P (MAP) Pulse Ox O2 Delivery O2 Flow Rate FiO2 01/28/19 09:28 97.6 01/28/19 09:00 Room Air 01/28/19 08:00 97.6 90 18 118/73 (88) 98 01/28/19 04:00 97.8 83 16 99/63 (75) 97 01/28/19 00:00 97.7 84 16 95/61 (72) 98 01/27/19 21:00 Room Air 01/27/19 20:00 97.2 82 16 94/62 (73) 96 01/27/19 16:00 97.2 77 18 97/66 (76) 100 01/27/19 12:00 97.2 97 18 107/78 (88) 100 Intake and Output 01/27/19 01/28/19 19:00 07:00 Intake Total 2538 ml 1080 ml Output Total 2190 ml 1120 ml Balance 348 ml -40 ml Intake Oral 1938 ml 480 ml IV Total 600 ml 600 ml Output Urine Total 1000 ml 800 ml Other 1190 ml 320 ml # Voids 1 Laboratory Tests Test 01/28/19 05:30 White Blood Count 5.9 K/UL (4.8-10.8) Red Blood Count 4.18 M/UL (4.20-5.40) L Hemoglobin 11.4 G/DL (12.0-16.0) L Hematocrit 33.5 % (37.0-47.0) L Mean Corpuscular Volume 80 FL (80-99) Mean Corpuscular Hemoglobin 27.4 PG (27.0-31.0) Mean Corpuscular Hemoglobin Concent 34.1 G/DL (32.0-36.0) Red Cell Distribution Width 13.1 % (11.6-14.8) Platelet Count 223 K/UL (150-450) Mean Platelet Volume 5.7 FL (6.5-10.1) L Neutrophils (%) (Auto) 50.2 % (45.0-75.0) Lymphocytes (%) (Auto) 39.6 % (20.0-45.0) Monocytes (%) (Auto) 5.6 % (1.0-10.0) Eosinophils (%) (Auto) 3.3 % (0.0-3.0) H Basophils (%) (Auto) 1.3 % (0.0-2.0) Sodium Level 140 MMOL/L (136-145) Potassium Level 3.8 MMOL/L (3.5-5.1) Chloride Level 105 MMOL/L (98-107) Carbon Dioxide Level 33 MMOL/L (21-32) H Anion Gap 2 mmol/L (5-15) L Blood Urea Nitrogen 5 mg/dL (7-18) L Creatinine 0.9 MG/DL (0.55-1.30) Estimat Glomerular Filtration Rate > 60 mL/min (>60) Glucose Level 77 MG/DL (74-106) Calcium Level 8.2 MG/DL (8.5-10.1) L Total Bilirubin 0.2 MG/DL (0.2-1.0) Aspartate Amino Transf (AST/SGOT) 26 U/L (15-37) Alanine Aminotransferase (ALT/SGPT) 25 U/L (12-78) Alkaline Phosphatase 67 U/L (46-116) Total Protein 6.6 G/DL (6.4-8.2) Albumin 3.3 G/DL (3.4-5.0) L Globulin 3.3 g/dL Albumin/Globulin Ratio 1.0 (1.0-2.7) Height (Feet): 5 Height (Inches): 6.00 Weight (Pounds): 178 Medications Current Medications Medications (Trade) Dose Ordered Sig/Ld Route PRN Reason Start Time Stop Time Status Last Admin Dose Admin Acetaminophen/ Hydrocodone Bitart ([place] 5/325) 1 tab Q4H PRN ORAL Moderate Pain (Pain Scale 4-6) 01/23/19 16:45 01/30/19 16:44 01/28/19 08:58 Chlorhexidine Gluconate (Ana Rosa-Hex 2%) 1 applic DAILY@2000 TOPIC 01/24/19 20:00 02/23/19 19:59 01/27/19 20:44 Clonazepam (KlonoPIN) 0.5 mg Q8H PRN ORAL For Anxiety 01/23/19 09:00 01/30/19 08:59 Dextrose/ Electrolytes 1,000 ml @ 50 mls/hr Q20H IV 01/24/19 08:18 02/23/19 08:17 01/28/19 05:41 Diatrizoate Meglum/ Diatrizoate Sod (Gastrografin) 30 ml NOW PRN ORAL Radiology Procedure 01/27/19 13:15 01/30/19 13:11 Dicyclomine HCl (Bentyl) 10 mg Q4H PRN ORAL Abdominal cramps 01/25/19 14:45 02/24/19 14:44 01/27/19 14:06 Estradiol (Estrace) 1 applic THREE TIMES A WEEK VAGIN 01/23/19 10:30 02/22/19 10:29 01/28/19 08:58 Ketorolac Tromethamine (Toradol 30mg) 30 mg Q6H PRN IV Severe Pain (Pain Scale 7-10) 01/23/19 16:45 01/28/19 16:44 01/23/19 17:09 Lorazepam (Ativan) 1 mg Q4H PRN SL Abdominal cramps 01/25/19 14:45 01/30/19 11:59 01/27/19 23:12 Ondansetron HCl (Zofran) 4 mg Q4H PRN IVP Nausea & Vomiting 01/22/19 22:15 12/5/19 22:14 01/28/19 09:10 Paroxetine HCl (Paxil) 30 mg BEDTIME ORAL 01/23/19 21:00 02/22/19 20:59 01/27/19 20:45 Trazodone HCl (Desyrel) 150 mg BEDTIME ORAL 01/23/19 21:00 02/22/19 20:59 01/27/19 20:44 Trimethoprim/ Sulfamethoxazole (Bactrim-DS) 1 tab DAILY ORAL 01/23/19 09:00 01/30/19 08:59 01/28/19 08:58 Assessment/Plan Assessment/Plan: If you have any of the following eye problems, dont wait for your next appointment visit your eye doctor as soon as possible: Decreased vision Draining or redness of the eye Eye pain Double vision Floaters (tiny specks that appear to float before your eyes) Circles (halos) around lights Flashes of light Individuals who develop diabetes mellitus type 1 should be examined by an scale manager 5 years after disease onset and at least yearly thereafter.13, 14 Individuals who develop diabetes mellitus type 2 should be examined at the time of diagnosis and at least yearly thereafter.15 Women with type 1 or type 2 diabetes should receive a comprehensive eye examination before conception and then early in the first trimester of . Recommended intervals for subsequent examinations depend upon the level of retinopathy.16-18 Adults with no signs or risk factors for eye disease should receive a baseline comprehensive eye evaluation at age 40.4 Individuals without risk factors aged 40 to 54 should be examined by an scale manager every 2 to 4 years. Individuals without risk factors aged 55 to 64 should be examined by an scale manager every 1 to 3 years.4, 5 Individuals without risk factors 65 years old or older should have an examination performed by an scale manager every 1 to 2 years as the incidence of unrecognized ocular disease increases with age.4, 5 The frequency of ocular examinations in the presence of acute or chronic disease will vary widely with intervals ranging from hours to several months, depending on the risks involved, response to treatment, and potential for the disease to progress. Any individual at higher risk for developing disease, based on ocular and medical history, family history, age, or race should have periodic examinations determined by the particular risks, even if no symptoms are present. A routine comprehensive annual adult eye examination in individuals under the age of 40 unnecessarily escalates the cost of eye care and is not indicated except as described above. This is a complementary visit for patient for informational care purposes Federico Starkey MD Jan 28, 2019 11:07
--- NOTE | 2019-01-28 11:27 | NUR ---
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
--- NOTE | 2019-01-28 13:09 | Surgery Progress Note ---
Surgery Progress Note Subjective Additional Comments no acute events comfortable stable feeling okay leaking around catheter likely slipped valve Objective Last 24 Hour Vital Signs Date Time Temp Pulse Resp B/P (MAP) Pulse Ox O2 Delivery O2 Flow Rate FiO2 01/28/19 09:28 97.6 01/28/19 09:00 Room Air 01/28/19 08:00 97.6 90 18 118/73 (88) 98 01/28/19 04:00 97.8 83 16 99/63 (75) 97 01/28/19 00:00 97.7 84 16 95/61 (72) 98 01/27/19 21:00 Room Air 01/27/19 20:00 97.2 82 16 94/62 (73) 96 01/27/19 16:00 97.2 77 18 97/66 (76) 100 I&O Intake and Output 01/27/19 01/28/19 19:00 07:00 Intake Total 2538 ml 1080 ml Output Total 2190 ml 1120 ml Balance 348 ml -40 ml Intake Oral 1938 ml 480 ml IV Total 600 ml 600 ml Output Urine Total 1000 ml 800 ml Other 1190 ml 320 ml # Voids 1 Dressing: other Wound: other Drains: other Cardiovascular: RSR Respiratory: decreased breath sounds Abdomen: soft, present bowel sounds Extremities: no edema, no tenderness Laboratory Tests Test 01/28/19 05:30 White Blood Count 5.9 K/UL (4.8-10.8) Red Blood Count 4.18 M/UL (4.20-5.40) L Hemoglobin 11.4 G/DL (12.0-16.0) L Hematocrit 33.5 % (37.0-47.0) L Mean Corpuscular Volume 80 FL (80-99) Mean Corpuscular Hemoglobin 27.4 PG (27.0-31.0) Mean Corpuscular Hemoglobin Concent 34.1 G/DL (32.0-36.0) Red Cell Distribution Width 13.1 % (11.6-14.8) Platelet Count 223 K/UL (150-450) Mean Platelet Volume 5.7 FL (6.5-10.1) L Neutrophils (%) (Auto) 50.2 % (45.0-75.0) Lymphocytes (%) (Auto) 39.6 % (20.0-45.0) Monocytes (%) (Auto) 5.6 % (1.0-10.0) Eosinophils (%) (Auto) 3.3 % (0.0-3.0) H Basophils (%) (Auto) 1.3 % (0.0-2.0) Sodium Level 140 MMOL/L (136-145) Potassium Level 3.8 MMOL/L (3.5-5.1) Chloride Level 105 MMOL/L (98-107) Carbon Dioxide Level 33 MMOL/L (21-32) H Anion Gap 2 mmol/L (5-15) L Blood Urea Nitrogen 5 mg/dL (7-18) L Creatinine 0.9 MG/DL (0.55-1.30) Estimat Glomerular Filtration Rate > 60 mL/min (>60) Glucose Level 77 MG/DL (74-106) Calcium Level 8.2 MG/DL (8.5-10.1) L Total Bilirubin 0.2 MG/DL (0.2-1.0) Aspartate Amino Transf (AST/SGOT) 26 U/L (15-37) Alanine Aminotransferase (ALT/SGPT) 25 U/L (12-78) Alkaline Phosphatase 67 U/L (46-116) Total Protein 6.6 G/DL (6.4-8.2) Albumin 3.3 G/DL (3.4-5.0) L Globulin 3.3 g/dL Albumin/Globulin Ratio 1.0 (1.0-2.7) Plan Problems: (1) malfunctio of Ileostomy Assessment & Plan: AVSS labs okay Abdomen soft and exam benign imaging reviewed still feeling bloated Imp: Severe malnutrition and iron deficiency anemia 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
--- NOTE | 2019-01-28 13:33 | NUR ---
NURSE NOTES: PT IS BACKED FROM UPPER GI STUDY, PT IS ALERT AND STABLE. WILL CONTINUE TO MONITOR.
[2019-01-28 14:00] VITALS: BP 122/69
--- NOTE | 2019-01-28 14:05 | Diagnostic Imaging Report ---
Indication: Abdominal pain. Continent ileostomy Comparison: Pouchogram 01/25/2019 Findings: Water-soluble contrast was administered orally. Serial films were obtained for the small bowel series. The rn gastroenterology film demonstrates a catheter in the right lower quadrant. The tip is a dominant midline slightly more proximal than on the pouchogram at which time the tip was in the left lower quadrant. There is good bowel motility with the fairly rapid transit of contrast material through the small bowel. By 15 minutes there is contrast into the distal small bowel. By 30 minutes there is contrast within the pouch. Small bowel appears to show mild diffuse dilatation. However this is not functionally significant in that there is good motility. Contrast demonstrated within the catheter and the ileostomy bag. There is no evidence of bowel obstruction or adynamic ileus on the basis of this exam. IMPRESSION: Negative small bowel series with appropriate function and bowel motility. No evidence of obstruction or ileus. Findings were reviewed and discussed with Dr. Moore.
--- NOTE | 2019-01-28 15:20 | NUR ---
NURSE NOTES: Spoke to regarding Diet order and Ok to have full liquid diet. Order read back and carried out.
[2019-01-28 16:00] VITALS: BP 128/72
[2019-01-28] MEDS: LORazepam 1mg tab SL PRN (17:25)
--- NOTE | 2019-01-28 19:11 | NUR ---
HAND-OFF: Report given to EARLINE GARCIA . ILEOSTOMY out put is greenish color.
[2019-01-28 20:01] VITALS: BP 96/64
[2019-01-28] MEDS: TraZODone 50mg tab ORAL SCH (21:01)
[2019-01-28] MEDS: PARoxetine 10mg tab ORAL SCH (21:01)
[2019-01-28] MEDS: Dyna-Hex 2% Top Sol 2oz TOPIC SCH (21:02)
--- NOTE | 2019-01-28 21:38 | NUR ---
NURSE NOTE: Pt is A/Ox4 with stable VS. Family is at the bedside. Orders reviewed and physical assessment completed. Pt had small amount of brownish/greenish leakage around stoma after ambulating in the hallway. 4x4's proximal to the site changed and paper tape changed. Call reynolds is within reach, will continue to monitor.
[2019-01-29 00:23] VITALS: BP 96/61
[2019-01-29 04:30] VITALS: BP 95/65
[2019-01-29] MEDS: D5 1/2NS w/KCl 20mEq 1,000 ML IV SCH ×2 (05:56→20:45)
--- NOTE | 2019-01-29 07:40 | NUR ---
HAND-OFF: Report given to eJet.
--- NOTE | 2019-01-29 07:52 | NUR ---
NURSES NOTE: Met patient in bed, A/OX4, able to communicate needs effectively. Dad at bedside. No outward signs/symptoms of distress noted. Breathing is even and unlabored on RA. Picc line in EVONNE arm is intact, clean with no signs of infection running d5 1/2 NS 20kcl at 50ML/HR. Ileo site dressing is clean and intact with no leaking noted. Patient is on full liquid diet and complains of slight discomfort in abdominal area after eating. All due meds will be given. Bed at lowest level, call light within reach. Patient will continue to be monitored.
[2019-01-29 08:00] VITALS: BP 101/64
[2019-01-29] MEDS: HYDROcodone/Acetamin 5/325 tab ORAL PRN ×2 (08:48→13:32)
[2019-01-29] MEDS: Bactrim-DS 1 tab ORAL SCH (08:49)
[2019-01-29] MEDS ORDERED: NS Irrig 1000ml ONE (09:28)
[2019-01-29] MEDS: Dicyclomine HCl 10mg/5ml oral soln ORAL PRN ×2 (10:02→14:23)
--- NOTE | 2019-01-29 10:17 | NUR ---
*-* INSURANCE *-* ALL AVAILABLE CLINICALS HAVE BEEN FAXED TO: /BS REF# [id number] P; [phone] F: [phone] & /BS REF# [id number] P: [phone] F: [phone]
--- NOTE | 2019-01-29 11:03 | NUR ---
NURSES NOTE: Pt ambulated in hallway at apprx 0800. Tolerated well.
[2019-01-29 12:00] VITALS: BP 101/62
--- NOTE | 2019-01-29 14:17 | NUR ---
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
[2019-01-29 16:00] VITALS: BP 104/69
[2019-01-29] MEDS ORDERED: LORazepam 1mg tab SL PRN (17:00)
[2019-01-29] MEDS ORDERED: clonazePAM 0.5mg tab ORAL PRN (17:00)
--- NOTE | 2019-01-29 17:06 | General Progress Note ---
Progress Note Progress Note AVSS Tolerating full liquid diet. Had gastrograffin UGI with SBS - completely normal Abdomen soft, flat, non-tender po 2500 Urine 1600 BCIR ileo 4035 (includes contrast) Imp. 1) abdominal pain with negative w/u 2) [place] tpouch with mild slipped valve Plan; BCIR diet with pouch catheter to continuous drainage to assess abdominal pain complaints - should be none with pouch draining continuously stool for C. diff toxin Manny Kramer MD Jan 29, 2019 17:06
--- NOTE | 2019-01-29 19:21 | NUR ---
HAND OFF: Report given to RADHA Yeager. Patient left in stable condition.
[2019-01-29 20:00] VITALS: BP 99/59
[2019-01-29] MEDS: TraZODone 50mg tab ORAL SCH (20:44)
[2019-01-29] MEDS: PARoxetine 10mg tab ORAL SCH (20:45)
[2019-01-29] MEDS: Dyna-Hex 2% Top Sol 2oz TOPIC SCH (20:51)
--- NOTE | 2019-01-29 21:23 | NUR ---
NURSE NOTE: Pt is A/Ox4 with stable VS. Her dad is at the bedside. Orders reviewed and physical assessment completed. Pt is resting comfortably in bed. Ileo dressing is clean, dry, and intact. Pt denies pain at the moment. Call reynolds is within reach, will continue to monitor.
[2019-01-30 00:19] VITALS: BP 110/59
[2019-01-30 04:00] VITALS: BP 106/62
--- NOTE | 2019-01-30 07:26 | NUR ---
HAND-OFF: Report given to Denise Rothman.
--- NOTE | 2019-01-30 07:35 | NUR ---
NURSE NOTES: Patient awake, alert x4; patient's dad at the bed side; on room air, no sing of distress and shortness of breath; Ileo dressing dry and intact, no complain of abdominal cramp at this time; PICC at Right-Upper Arm, dressing dry and intact running D51/2NS w/KCl 20mEq 50cc; side rails up x2, breaks engaged, bed at lowest position, call light within reach; will keep monitoring.
[2019-01-30 08:00] VITALS: BP 103/63
[2019-01-30] MEDS: Bactrim-DS 1 tab ORAL SCH (08:45)
[2019-01-30] MEDS: Estradiol Vaginal Cr 42.5 Gm Tube VAGIN SCH (08:46)
--- NOTE | 2019-01-30 11:13 | NUR ---
RD ASSESSMENT & RECOMMENDATIONS SEE CARE ACTIVITY FOR COMPLETE ASSESSMENT DAILY ESTIMATED NEEDS: Needs based on GI- ileostomy; 64.5kg adj 25-30 kcals/kg 4359-0787 total kcals 1-1.5 g protein/kg 65- 97 g total protein 25-30 mL/kg 1613- 1935 total fluid mLs NUTRITION DIAGNOSIS: *Altered GI function R/T ileostomy AEB pt adm w/ malfunctioning Wilkinson pouch, w/ slipped valve and fistula, currently on BCIR diet. CURRENT DIET: BCIR diet. PO DIET RECOMMENDATIONS: BCIR DIET as per MD ADDITIONAL RECOMMENDATIONS: 1) Obtain standing wt when able + weekly weights 2) Monitor progression of diet. 3) Monitor for pending surgery this week-> monitor need for TPN. .
[2019-01-30 12:00] VITALS: BP 111/73
--- NOTE | 2019-01-30 12:30 | General Progress Note ---
Progress Note Progress Note AVSS Able to eat BCIR diet 75% with continuous drainage of Wilkinson pouch with indwelling catheter and no abdominal pain or cramps Abdomen soft, flat, non-tender BCIR ileo 1010 C.diff negative Imp. No signs of obstruction or motility disorder Plan: Start RN supervised BCIR self-intubations in AM q3h am to hs and prn. If has difficulty intubating and or incontinence, will need surgical revision of Wilkinson Continent Ileostomy Manny Kramer MD Jan 30, 2019 12:30
--- NOTE | 2019-01-30 12:40 | NUR ---
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 SCHEDULE IS Q3HRS UNTIL HS, THEN PRN OVERNIGHT UNTIL SHE AWAKENSS Addendum: 02/01/19 at 0922 by LOREN PATEL LVN LVN ABOVE REVIEW FOR 01/30/19
[2019-01-30 16:00] VITALS: BP 118/70
[2019-01-30] MEDS ORDERED: Ascorbic Acid 500mg tab ORAL PRN (16:30)
--- NOTE | 2019-01-30 16:39 | NUR ---
*-* INSURANCE *-* UPDATED CLINICALS HAVE BEEN FAXED TO: [employer]/BS REF# [id number] P; [phone] F: [phone] & [employer]/BS REF# [id number] P: [phone] F: [phone]
--- NOTE | 2019-01-30 17:09 | NUR ---
NURSE NOTES: Patient stated that she needs more water flushes on the Ileostomy and also complains of abdominal cramping; MD Powell order me to do more flushes. I did 20cc flushes at 1630, gave Ativan 1 Mg SL and Vitamin C given.
--- NOTE | 2019-01-30 19:40 | NUR ---
HAND-OFF: Report given to RADHA Richardson.
--- NOTE | 2019-01-30 20:05 | NUR ---
NURSES NOTE: Met patient in bed, father at bedside, A/OX4, able to communicate needs. No outward s/s of distress noted. Breathing is even unlabored on RA. Picc line in R arm is clean, patent, with no s/s of infection running d5 1/2 NS with 20 meq KCL without incident at 50ml/hr. Ileo flushing well according to day nurse RN although output was thick at times. Vitamin C will be given if necessary to keep Ileo flowing correctly. Instructions to start self-intubating 01/31 with supervision from RN in place. Patient aware. Bed at lowest level. Call light within reach. patient will continue to be monitored.
[2019-01-30 21:00] VITALS: BP 90/60
[2019-01-30] MEDS: D5 1/2NS w/KCl 20mEq 1,000 ML IV SCH (21:18)
[2019-01-30] MEDS: Dyna-Hex 2% Top Sol 2oz TOPIC SCH (21:18)
[2019-01-30] MEDS: TraZODone 50mg tab ORAL SCH (21:19)
[2019-01-30] MEDS: PARoxetine 10mg tab ORAL SCH (21:20)
[2019-01-31] VITALS: BP 92/64
[2019-01-31 06:26] LABS: BASOPHILS % (AUTO) 0.2 % (0.0-2.0); EOSINOPHILS % (AUTO) 2.2 % (0.0-3.0); HEMATOCRIT 37.1 % (37.0-47.0); HEMOGLOBIN 12.5 G/DL (12.0-16.0); LYMPHOCYTES % (AUTO) 25.2 % (20.0-45.0); MEAN CORPUSCULAR VOLUME 80 FL (80-99); MONOCYTES % (AUTO) 4.4 % (1.0-10.0); NEUTROPHILS % (AUTO) 67.9 % (45.0-75.0); PLATELET COUNT 209 K/UL (150-450); RED BLOOD COUNT 4.62 M/UL (4.20-5.40); RED CELL DISTRIBUTION WIDTH 13.1 % (11.6-14.8); WHITE BLOOD COUNT 6.8 K/UL (4.8-10.8)
[2019-01-31 06:54] LABS: ALANINE AMINOTRANSFERASE 22 U/L (12-78); ALBUMIN 3.3 G/DL (3.4-5.0); ALBUMIN/GLOBULIN RATIO 0.9 (1.0-2.7); ALKALINE PHOSPHATASE 68 U/L (46-116); ANION GAP 6 mmol/L (5-15); ASPARTATE AMINO TRANSFERASE 16 U/L (15-37); BILIRUBIN,TOTAL 0.2 MG/DL (0.2-1.0); BLOOD UREA NITROGEN 3 mg/dL (7-18); CALCIUM 8.5 MG/DL (8.5-10.1); CARBON DIOXIDE 28 MMOL/L (21-32); CHLORIDE 102 MMOL/L (98-107); PHOSPHORUS 3.1 MG/DL (2.5-4.9); POTASSIUM 3.9 MMOL/L (3.5-5.1); SODIUM 135 MMOL/L (136-145)
[2019-01-31 08:00] VITALS: BP 108/67
--- NOTE | 2019-01-31 08:00 | NUR ---
NURSE NOTES: Patient is in bed awake and able to verbalize needs. In good spirits. Stable. Denies pain or SOB. Ileo cath removed as ordered, tolerated well. Patient knows to call RN for intubation throughout shift. PICC dressing clean, dry, and intact. Patient is in bed in locked and lowest position with call light within reach and trapeze overhead. Will continue to monitor.
--- NOTE | 2019-01-31 08:35 | NUR ---
HAND OFF: Report given to Gillian. Patient left in stable condition.
[2019-01-31] MEDS: Bactrim-DS 1 tab ORAL SCH (08:54)
--- NOTE | 2019-01-31 10:15 | NUR ---
NURSE NOTES: Patient intubated. 100cc output. Tolerated well. Patient does not complain of pain or discomfort.
[2019-01-31 12:00] VITALS: BP 108/72
[2019-01-31] MEDS: HYDROcodone/Acetamin 5/325 tab ORAL PRN (13:23)
--- NOTE | 2019-01-31 13:27 | General Progress Note ---
Progress Note Progress Note AVSS No abdominal pain and tolerating BCIR diet as long at indwelling Wilkinson pouch catheter is draining well, and today as long as she intubates q3h to drain stool from pouch However, she is having some difficulty and soreness with intubations. Abdomen soft, non-distended Urine 2000 BCIR ileo 1490 Na 135 Mg 1.7 Albumin low 3.3 Imp: Abdominal pain, resolved Malfunctioning Wilkinson continent ileostomy with difficulty with intubation and pain, present pre-admission Plan: continue RN supervised self-intubations - if difficulty persists will place indwelling catheter to drainage and schedule surgery for revision of Wilkinson pouch Infuse Mg Will need TPN if needs surgery Manny Kramer MD Jan 31, 2019 13:27
--- NOTE | 2019-01-31 13:57 | NUR ---
NURSE NOTES: Magnesium running as ordered. PICC both lumens flushed and has good blood return. 28fr juarez catheter at bedside. Will continue to monitor I&O.
--- NOTE | 2019-01-31 15:00 | NUR ---
NURSE NOTES: Patient self intubated with 28fr juarez, patient complains of less discomfort than when intubating with Ryann. 25cc output recorded, mostly gas that was released. Patient says her "bloating, crampy" feeling is relieved after intubating. Will continue to monitor output.
[2019-01-31] MEDS: NS w/KCl 20mEq 1000ml 1,000 ML IV SCH (15:28)
[2019-01-31 16:00] VITALS: BP 105/61
--- NOTE | 2019-01-31 19:30 | NUR ---
HAND-OFF: Report given to Erum GARCIA. Patient is stable.
--- NOTE | 2019-01-31 20:00 | NUR ---
NURSES NOTE: Received pt in bed, A/OX4 able to communicate needs. No s/s of distress noted. VS wnl. Breathing is even unlabored on RA. Pt is now self intubating and will let RN know when she is ready. No complaints of pain currently. Picc line in EVONNE is patent, no s/s of infection. Fluids running according to eMAR. All due meds will be given. Bed at lowest level call light within reach.
[2019-01-31] MEDS ORDERED: Fat Emulsion Iv 20% 250 ML IV SCH (21:00)
[2019-01-31] MEDS ORDERED: NS Irrig 1000ml ONE (21:33)
[2019-01-31] MEDS: Dyna-Hex 2% Top Sol 2oz TOPIC SCH (21:51)
[2019-01-31] MEDS: PARoxetine 10mg tab ORAL SCH (21:51)
[2019-01-31] MEDS: TraZODone 50mg tab ORAL SCH (21:52)
[2019-02-01] VITALS: BP 98/57
[2019-02-01 04:00] VITALS: BP 90/60
[2019-02-01 06:01] LABS: BASOPHILS % (AUTO) 0.3 % (0.0-2.0); EOSINOPHILS % (AUTO) 2.4 % (0.0-3.0); HEMATOCRIT 35.3 % (37.0-47.0); LYMPHOCYTES % (AUTO) 24.5 % (20.0-45.0); MEAN CORPUSCULAR VOLUME 81 FL (80-99); MONOCYTES % (AUTO) 4.7 % (1.0-10.0); NEUTROPHILS % (AUTO) 68.1 % (45.0-75.0); PLATELET COUNT 214 K/UL (150-450); RED BLOOD COUNT 4.36 M/UL (4.20-5.40); RED CELL DISTRIBUTION WIDTH 13.3 % (11.6-14.8); WHITE BLOOD COUNT 6.8 K/UL (4.8-10.8)
[2019-02-01 06:42] LABS: ALANINE AMINOTRANSFERASE 27 U/L (12-78); ALBUMIN 3.3 G/DL (3.4-5.0); ALKALINE PHOSPHATASE 70 U/L (46-116); ANION GAP 3 mmol/L (5-15); ASPARTATE AMINO TRANSFERASE 27 U/L (15-37); BLOOD UREA NITROGEN 3 mg/dL (7-18); CALCIUM 8.4 MG/DL (8.5-10.1); CARBON DIOXIDE 29 MMOL/L (21-32); CHLORIDE 102 MMOL/L (98-107); CREATININE 0.9 MG/DL (0.55-1.30); POTASSIUM 3.8 MMOL/L (3.5-5.1); SODIUM 134 MMOL/L (136-145)
[2019-02-01 06:53] LABS: BILIRUBIN,TOTAL 0.2 MG/DL (0.2-1.0)
--- NOTE | 2019-02-01 07:30 | NUR ---
NURSE NOTES: Patient is in bed awake and able to verbalize needs. Stable. Complains of 5/10 pain and asks for pain medication. Patient verbalized that she will call RN when she needs to intubate. Will continue to monitor intake and output. Patient says she has moderate pain when inserting catheter into stoma. Ileo: 425cc liquid output. Patient is in bed in locked and lowest position with call light within reach. Will continue to monitor.
[2019-02-01] MEDS: HYDROcodone/Acetamin 5/325 tab ORAL PRN ×2 (07:54→18:19)
[2019-02-01 08:00] VITALS: BP 109/66
--- NOTE | 2019-02-01 08:32 | NUR ---
RD ASSESSMENT & RECOMMENDATIONS SEE CARE ACTIVITY FOR COMPLETE ASSESSMENT DAILY ESTIMATED NEEDS: Needs based on GI- ileostomy, possible surgery; 64.5kg adj 25-30 kcals/kg 6952-5668 total kcals 1-2 g protein/kg 65- 129 g total protein 25-30 mL/kg 1613- 1935 total fluid mLs NUTRITION DIAGNOSIS: *Altered GI function R/T ileostomy AEB pt adm w/ malfunctioning Wilkinson pouch, w/ slipped valve and fistula, currently on BCIR diet, possible surgery pending, pt to start TPN if needs surgery. CURRENT DIET:BCIR LOW RESIDUE DIET PO DIET RECOMMENDATIONS: DIET PER MD PARENTERAL NUTRITION RECOMMENDATIONS: D/AA Rate: 70 IL Rate: 10 Total Rate: 80 Volume: 1920 % Dextrose: 17 % AA: 5.3 Energy (kcals/kg): 1807 Protein (g/kg protein): 89 Nonprotein KCALS: 1451 GIR (mg CHO/kg/min): 3.07 % Fat KCALS: 26.5 NCP: N Ratio: 102:0 TPN Comment: * D17%, AA5.3% @ 70ml/hr + IL20% @ 10ml/hr-> total of 80ml/hr x 24 hrs, all 3:1 * Start rate per MD * TPN at goal provides 100% est kcal/prot needs (28kcal/1.4g prot per kg abw) ADDITIONAL RECOMMENDATIONS: 1) Obtain standing wt when able + weekly weights 2) W/ TPN, monitor lytes, BGs, LFTs daily 3) Monitor for diet order -> possible TPN initiation w/ surgery .
--- NOTE | 2019-02-01 08:52 | NUR ---
HAND OFF: Patient had 2 self intubations. 0330: 250cc and 0600-300cc. Patient expresses 2/10 pain/discomfort with both attempts. TPN put on hold until 02/01/[address] Endorsed to oncoming nurse. Report given to RADHA French. Patient left in stable condition
[2019-02-01] MEDS: Estradiol Vaginal Cr 42.5 Gm Tube VAGIN SCH (09:12)
[2019-02-01] MEDS: Bactrim-DS 1 tab ORAL SCH (09:12)
--- NOTE | 2019-02-01 09:23 | NUR ---
CASE MANAGEMENT:REVIEW 01/31/19 SI: MALFUNCTIONING RAGLAND CONTINENT ILEOSTOMY PERSISTENT ABDOMINAL PAIN...S/P POUCH ENDOSCOPY 98.1 86 17 92/64 97% ON RA MAG-1.7 IS: IV MAG SULFATE Q1HRS X4 IVF+KCL@50/HR PAXIL PO QHS BACTRIM PO QD NORCO PO Q4HRS PRN VIT K SQ Q WEEK : MED/SURG STATUS 3 [place] PLAN: CONTINUE RN SUPERVISED SELF INTUBATIONS- IF DIFFICULTY PERSISTS WILL PLACE INDWELLING CATHETER TO DRAINAGE AND SCHEDULE SURGERY FOR REVISION OF RAGLAND POUCH *WILL NEED TPN IF NEEDS SURGERY Addendum: 02/04/19 at 1552 by LOREN PATEL LVN LVN ABOVE REVIEW IS FOR 02/01/19
[2019-02-01] MEDS: NS w/KCl 20mEq 1000ml 1,000 ML IV SCH (10:50)
--- NOTE | 2019-02-01 11:56 | General Progress Note ---
Progress Note Progress Note AVSS Now intubating her Wilkinson pouch with 28 Velasquez instead of usual 30Fr Ryann - however, still having to manipulate catheter into pouch and having discomfort every time. No incontinence Abdomen soft urine 1250 BCIR ileo 1050 albumin low 3.3 Mg 2.4 Imp: Malfunctioning Wilkinson continent ileostomy with partially slipped valve and difficult painful intubations with intermittent incontinence Malnutrition, mild but pre-op major abdominal/intestinal surgery Plan: Replace indwelling 28 Fr Velasquez to Wilkinson pouch to continuous drainage Start TPN Schedule surgery Manny Kramer MD Feb 01, 2019 11:56
[2019-02-01 12:00] VITALS: BP 91/60
--- NOTE | 2019-02-01 12:00 | NUR ---
NURSE NOTES: 28fr juarez in place and connected to drainage bag as ordered. Output is liquid. Flushed BCIR with 20cc of NS. Juarez secured in place with silk tape, and covered with 4x4 gauze. Tolerated well.
[2019-02-01] MEDS ORDERED: LORazepam 1mg tab SL PRN (13:00)
[2019-02-01 16:00] VITALS: BP 108/64
--- NOTE | 2019-02-01 19:30 | NUR ---
HAND-OFF: Report given to Kalni GARCIA. Patient is stable.
[2019-02-01 20:00] VITALS: BP 103/60
[2019-02-01] MEDS ORDERED: Dextrose 10% 1,000 ML IV PRN (20:00)
--- NOTE | 2019-02-01 20:07 | NUR ---
NURSE NOTES: Received report from RADHA French. Patient is sitting up in bed. no c/o pain at this time. She states she "doesnt have an appetite". Right sided ileostomy is draining dark green fluid to collection bag. Right upper arm PICC is c/d/i and asymptomatic running fluids. Family at bedside. Will continue plan of care.
[2019-02-01] MEDS: Dyna-Hex 2% Top Sol 2oz TOPIC SCH (20:29)
[2019-02-01] MEDS: PARoxetine 10mg tab ORAL SCH (20:29)
[2019-02-01] MEDS: TraZODone 50mg tab ORAL SCH (20:29)
[2019-02-01] MEDS: Fat Emulsion Iv 20% 240 ML in Tpn 1,680 ML IV SCH (20:30)
--- NOTE | 2019-02-01 23:50 | NUR ---
NURSE NOTES: Received pt from RADHA Gagnon to continue care. Pt AAO x 4, on room air. PICC line dry/intact and running TPN @ 80cc / hr. Pt has no acute distress/respiratory distress noted at this time. R ileostomy intact, draining well with dark green fluid. Family is at bedside. Bed locked, lowest position, side rails up, call light within reach. Will continue to monitor.
[2019-02-02] VITALS: BP 92/52
[2019-02-02 04:00] VITALS: BP 105/62
[2019-02-02] MEDS: NovoLOG Insulin Flexpen SUBQ SCH ×5 (06:00→23:55)
[2019-02-02 06:13] LABS: BASOPHILS % (AUTO) 0.3 % (0.0-2.0); EOSINOPHILS % (AUTO) 2.9 % (0.0-3.0); HEMATOCRIT 35.1 % (37.0-47.0); HEMOGLOBIN 11.8 G/DL (12.0-16.0); MEAN CORPUSCULAR VOLUME 82 FL (80-99); MONOCYTES % (AUTO) 5.2 % (1.0-10.0); NEUTROPHILS % (AUTO) 66.6 % (45.0-75.0); PLATELET COUNT 198 K/UL (150-450); RED CELL DISTRIBUTION WIDTH 13.2 % (11.6-14.8); WHITE BLOOD COUNT 6.4 K/UL (4.8-10.8)
[2019-02-02 06:36] LABS: % IRON SATURATION 25 % (15-50); IRON 53 ug/dL (50-175); TOTAL IRON BINDING CAPACITY 212 ug/dL (250-450)
[2019-02-02 07:06] LABS: ALANINE AMINOTRANSFERASE 30 U/L (12-78); ALBUMIN 3.2 G/DL (3.4-5.0); ALBUMIN/GLOBULIN RATIO 0.9 (1.0-2.7); ALKALINE PHOSPHATASE 68 U/L (46-116); ANION GAP 10 mmol/L (5-15); ASPARTATE AMINO TRANSFERASE 23 U/L (15-37); BILIRUBIN,TOTAL 0.2 MG/DL (0.2-1.0); BLOOD UREA NITROGEN 3 mg/dL (7-18); CALCIUM 8.4 MG/DL (8.5-10.1); CARBON DIOXIDE 26 MMOL/L (21-32); CHLORIDE 105 MMOL/L (98-107); CREATININE 0.8 MG/DL (0.55-1.30); FERRITIN 232 NG/ML (8-388); POTASSIUM 4.1 MMOL/L (3.5-5.1); SODIUM 141 MMOL/L (136-145)
--- NOTE | 2019-02-02 07:17 | NUR ---
HAND-OFF: Report given to RADHA Sanders.
--- NOTE | 2019-02-02 07:32 | NUR ---
NURSE NOTES: received report from RADHA Medina. patient in bed. alert. oriented. verbally responsive. no respiratory distress noted. no c/o pain at this time. Illeostomy draining with thin liquid type of drainage. PICC EVONNE 2lumens running TPN. dressing intact. bed in the lowest position. call light within reach. will continue to provide plan of care.
[2019-02-02 08:00] VITALS: BP 100/64
[2019-02-02] MEDS: Bactrim-DS 1 tab ORAL SCH (08:49)
[2019-02-02] MEDS: Phytonadione 10 mg/mL 1ml amp SUBQ SCH (08:49)
--- NOTE | 2019-02-02 10:14 | General Progress Note ---
Progress Note Progress Note AVSS No abdominal cramping but had large volume of watery Wilkinson pouch ileostomy fluid 2015cc but overnight only 445cc Abdomen soft, non-distended, non-tender Urine 1860 BCIR ileo 2460 Iron 53 B12 359 Folic acid 1.2 Imp: Malfunctioning Wilkinson continent ileostomy with partially slipped valve Plan: Continuous drainage of Wilkinson pouch Continue TPN, strict I&O surgery scheduled for 02/05 Venofer infusions; B12 x 1 IM Manny Kramer MD Feb 02, 2019 10:14
[2019-02-02] MEDS ORDERED: Vitamin B12 1000mcg/ml Inj IM ONE (10:15)
[2019-02-02 12:00] VITALS: BP 109/67
[2019-02-02] MEDS: HYDROcodone/Acetamin 5/325 tab ORAL PRN (14:52)
[2019-02-02 16:00] VITALS: BP 102/65
--- NOTE | 2019-02-02 19:14 | NUR ---
HAND-OFF: Report given to RADHA Owen.
--- NOTE | 2019-02-02 19:32 | NUR ---
HAND-OFF: Report given to RADHA Yeager.
[2019-02-02 20:00] VITALS: BP 105/65
[2019-02-02] MEDS: PARoxetine 10mg tab ORAL SCH (20:53)
[2019-02-02] MEDS: TraZODone 50mg tab ORAL SCH (20:53)
[2019-02-02] MEDS: Fat Emulsion Iv 20% 240 ML in Tpn 1,680 ML IV SCH (20:54)
[2019-02-02] MEDS: Iron Sucrose 100 MG in NS 55 ML IV SCH (20:54)
[2019-02-02] MEDS: Dyna-Hex 2% Top Sol 2oz TOPIC SCH (20:55)
--- NOTE | 2019-02-02 23:18 | NUR ---
NURSE NOTE: A/Ox4 with stable VS. Pt's dad is at bedside. Orders reviewed and physical assessment completed. Ileo draining to to Velasquez bag, output is greenish/brown. Pt denies pain at this time. Call reynolds is within reach, will continue to monitor.
[2019-02-03] VITALS: BP 95/54
[2019-02-03 04:00] VITALS: BP 98/64
[2019-02-03] MEDS: NovoLOG Insulin Flexpen SUBQ SCH ×3 (05:39→17:57)
[2019-02-03 05:47] LABS: BASOPHILS % (AUTO) 0.3 % (0.0-2.0); EOSINOPHILS % (AUTO) 2.4 % (0.0-3.0); HEMATOCRIT 34.3 % (37.0-47.0); HEMOGLOBIN 11.7 G/DL (12.0-16.0); LYMPHOCYTES % (AUTO) 28.1 % (20.0-45.0); MEAN CORPUSCULAR VOLUME 81 FL (80-99); MONOCYTES % (AUTO) 5.4 % (1.0-10.0); NEUTROPHILS % (AUTO) 63.9 % (45.0-75.0); PLATELET COUNT 207 K/UL (150-450); RED BLOOD COUNT 4.25 M/UL (4.20-5.40); RED CELL DISTRIBUTION WIDTH 12.9 % (11.6-14.8); WHITE BLOOD COUNT 6.1 K/UL (4.8-10.8)
[2019-02-03 06:00] LABS: ALANINE AMINOTRANSFERASE 29 U/L (12-78); ALBUMIN 3.2 G/DL (3.4-5.0); ALBUMIN/GLOBULIN RATIO 0.9 (1.0-2.7); ALKALINE PHOSPHATASE 65 U/L (46-116); ANION GAP 10 mmol/L (5-15); ASPARTATE AMINO TRANSFERASE 22 U/L (15-37); BILIRUBIN,TOTAL 0.1 MG/DL (0.2-1.0); BLOOD UREA NITROGEN 9 mg/dL (7-18); CALCIUM 8.6 MG/DL (8.5-10.1); CARBON DIOXIDE 25 MMOL/L (21-32); CHLORIDE 105 MMOL/L (98-107); CREATININE 0.8 MG/DL (0.55-1.30); PHOSPHORUS 4.4 MG/DL (2.5-4.9); SODIUM 140 MMOL/L (136-145)
--- NOTE | 2019-02-03 07:30 | NUR ---
NURSE NOTES: Patient is in bed awake and able to verbalize needs. Stable. Denies pain or SOB. Patient encouraged to use call light for assistance, verbalized understanding. PICC dressing clean, dry, and intact. Running TPN as ordered. Ileo draining into bag as ordered, will continue to monitor output. Patient is in bed in locked and lowest position with call light within reach. Will continue to monitor.
[2019-02-03 08:00] VITALS: BP 101/59
[2019-02-03] MEDS: Bactrim-DS 1 tab ORAL SCH (09:05)
[2019-02-03] MEDS ORDERED: Tubing IV Secondary IV ONE (10:29)
[2019-02-03] MEDS ORDERED: NS Irrig 1000ml ONE (10:29)
--- NOTE | 2019-02-03 10:46 | General Progress Note ---
Progress Note Progress Note AVSS No abdominal or GI issues with Wilkinson pouch catheter to continuous drainage and BCIR diet Abdomen soft Urine 1700 BCIR ileo 1590 labs all stable except Mg 1.6 Albumin 3.2 Imp. Stable Plan: Clear liquid diet starting tonight and continuing tomorrow Surgery scheduled for 02/05 continue TPN Mg infusions Manny Kramer MD Feb 03, 2019 10:46
[2019-02-03 12:00] VITALS: BP 93/70
[2019-02-03] MEDS ORDERED: HYDROcodone/Acetamin 5/325 tab ORAL PRN (13:30)
[2019-02-03 16:00] VITALS: BP 117/61
[2019-02-03] MEDS ORDERED: clonazePAM 0.5mg tab ORAL PRN (17:00)
--- NOTE | 2019-02-03 19:16 | NUR ---
HAND-OFF: Report given to Shobha GARCIA. Patient is stable.
[2019-02-03 20:00] VITALS: BP 113/70
[2019-02-03] MEDS: Iron Sucrose 100 MG in NS 55 ML IV SCH (20:45)
[2019-02-03] MEDS: PARoxetine 10mg tab ORAL SCH (20:45)
[2019-02-03] MEDS: TraZODone 50mg tab ORAL SCH (20:46)
[2019-02-03] MEDS: Fat Emulsion Iv 20% 240 ML in Tpn 1,680 ML IV SCH (20:47)
[2019-02-03] MEDS: Dyna-Hex 2% Top Sol 2oz TOPIC SCH (20:48)
[2019-02-04] VITALS: BP 109/69
--- NOTE | 2019-02-04 03:16 | NUR ---
NURSE NOTE: Pt is A/Ox4 with stable VS. Pt's dad is at the bedside. Orders reviewed and physical assessment completed. Ileo draining to Velasquez bag with greenish/brown output. Pt denies any pain. Will continue to follow plan of care. Will continue to monitor.
[2019-02-04 04:21] VITALS: BP 116/65
[2019-02-04] MEDS: NovoLOG Insulin Flexpen SUBQ SCH ×4 (05:40→17:20)
[2019-02-04 05:43] LABS: BASOPHILS % (AUTO) 0.7 % (0.0-2.0); EOSINOPHILS % (AUTO) 2.6 % (0.0-3.0); HEMATOCRIT 33.5 % (37.0-47.0); MEAN CORPUSCULAR VOLUME 79 FL (80-99); MONOCYTES % (AUTO) 5.2 % (1.0-10.0); NEUTROPHILS % (AUTO) 65.5 % (45.0-75.0); PLATELET COUNT 199 K/UL (150-450); RED BLOOD COUNT 4.24 M/UL (4.20-5.40); RED CELL DISTRIBUTION WIDTH 11.9 % (11.6-14.8); WHITE BLOOD COUNT 6.1 K/UL (4.8-10.8)
[2019-02-04 06:09] LABS: ALANINE AMINOTRANSFERASE 30 U/L (12-78); ALBUMIN 3.2 G/DL (3.4-5.0); ALKALINE PHOSPHATASE 61 U/L (46-116); ANION GAP 10 mmol/L (5-15); ASPARTATE AMINO TRANSFERASE 26 U/L (15-37); BILIRUBIN,TOTAL 0.1 MG/DL (0.2-1.0); BLOOD UREA NITROGEN 10 mg/dL (7-18); CALCIUM 8.4 MG/DL (8.5-10.1); CARBON DIOXIDE 27 MMOL/L (21-32); CHLORIDE 104 MMOL/L (98-107); CREATININE 0.8 MG/DL (0.55-1.30); POTASSIUM 4.3 MMOL/L (3.5-5.1); SODIUM 141 MMOL/L (136-145)
--- NOTE | 2019-02-04 07:38 | NUR ---
HAND-OFF: Report given to Cecilia.
[2019-02-04 08:00] VITALS: BP 102/67
--- NOTE | 2019-02-04 08:12 | NUR ---
nurse notes received patient sitting on the edge of the bed,patient wke, alert, oriented x4, no sign of distress, on gong TPN via PICC line on right upper arm, ileostomy in place attached to drainage bag, plan of care was discussed verbalized understanding , 4P's in progress call light w/n reach will continue to monitor patient condition carolee baeza
[2019-02-04] MEDS: Bactrim-DS 1 tab ORAL SCH (08:56)
[2019-02-04] MEDS: Estradiol Vaginal Cr 42.5 Gm Tube VAGIN SCH (08:57)
--- NOTE | 2019-02-04 09:28 | General Progress Note ---
Progress Note Progress Note Doing well. Abdomen soft Urine 1700 BCIR ileo 1550 Hgb 12 Mg 1.9 Albumin 3.2 Imp: Malfunctioning Wilkinson continent ileostomy with partially slipped valve Malnutrition, iron deficiency - present on admission Plan; continue TPN, clear liquid diet, pre-op IV antibiotics and SQ heparin surgery in AM - laparotomy and revision of Wilkinson continent ileostomy valve Full discussion with patient regarding her condition, the nature of the surgery , indications, alternatives, options and risky (bleeding, infection, injury to adjacent structures or organs, DVT despite prophylaxis, and risks of recurrent BCIR difficulties with function or structure of the pouch; all questions answered. Manny Kramer MD Feb 04, 2019 09:27
--- NOTE | 2019-02-04 10:47 | Anethesia Preoperative Eval ---
Anesthesia Pre-op PMH/ROS General Date of Evaluation: Feb 04, 2019 Time of Evaluation: 10:58 Anesthesiologist: Clari ASA Score: ASA 3 Mallampati Score Class I : Soft palate, uvula, fauces, pillars visible Class II: Soft palate, uvula, fauces visible Class III: Soft palate, base of uvula visible Class IV: Only hard plate visible Mallampati Classification: Class II Surgeon: Williams Diagnosis: Malfunctioning Wilkinson Ileostomy Surgical Procedure: Revision Of Wilkinson Continent Ileostomy Anesthesia History: none Family History: no anesthesia problems Allergies: Coded Allergies: CODEINE (Verified Adverse Reaction, Severe, Itching, 10/18/18) MORPHINE (Verified Adverse Reaction, Severe, Itching, 10/18/18) sever itching to the point scratches self till bleeding. Medications: see eMAR Patient NPO?: Yes Past Medical History Gastrointestinal/Genitourinary: Reports: other - Ulcerative Colitis Neurologic/Psychiatric: Reports: depression/anxiety Other: obesity - BMI 37 PSxH Narrative: 1. Malfunctioning Wilkinson continent ileostomy with incontinence and refractory pouchitis. 2. Recurring episodes of abdominal pain. 3. History of pelvic floor dysfunction and colonic inertia. 4. Possible mild neurogenic bladder. 5. Status post multiple abdominal operations. 5.1. Right oophorectomy in 1989. 5.2. Total abdominal hysterectomy for endometriosis in 2000. 5.3. Cholecystectomy in 2006. 5.4. Removal of dilated colon and rectum with coloanal anastomosis and temporary ileostomy in May 2015. 5.5. Left salpingo-oophorectomy in November 2015. 5.6. Closure of temporary ileostomy on January 08, 2017. 5.7. Emergency colostomy on 01/11/2017. 5.8. Repair of parastomal hernia on July 30, 2017. 5.9. Removal of the remaining abdominal colon and rectum with abdominoperineal proctectomy and end-loop ileostomy on September 29, 2017. (All these operations were done at the [facility]). 5.10 Wilkinson Continent Ileostomy with resection of 15cm defunctionalized ileum and malfunctioning ileostomy and repair of parastomal hernia and gastrostomy October 19, 2018 Anesthesia Pre-op Phys. Exam Physician Exam Last Vital Signs Date Time Temp Pulse Resp B/P (MAP) Pulse Ox O2 Delivery O2 Flow Rate FiO2 11/18/19 08:27 Room Air 02/04/19 08:00 98.0 83 17 102/67 (79) 98 Constitutional: NAD Neurologic: CN 2-12 intact Cardiovascular: RRR Respiratory: CTA Gastrointestinal: S/NT/ND Airway Exam Mallampati Score: Class II MO: full ROM: full Teeth: missing, intact Anesthesia Pre-op A/P Labs Hematology Test 02/04/19 05:25 White Blood Count 6.1 K/UL (4.8-10.8) Red Blood Count 4.24 M/UL (4.20-5.40) Hemoglobin 12.0 G/DL (12.0-16.0) Hematocrit 33.5 % (37.0-47.0) L Mean Corpuscular Volume 79 FL (80-99) L Mean Corpuscular Hemoglobin 28.3 PG (27.0-31.0) Mean Corpuscular Hemoglobin Concent 35.8 G/DL (32.0-36.0) Red Cell Distribution Width 11.9 % (11.6-14.8) Platelet Count 199 K/UL (150-450) Mean Platelet Volume 6.0 FL (6.5-10.1) L Neutrophils (%) (Auto) 65.5 % (45.0-75.0) Lymphocytes (%) (Auto) 26.0 % (20.0-45.0) Monocytes (%) (Auto) 5.2 % (1.0-10.0) Eosinophils (%) (Auto) 2.6 % (0.0-3.0) Basophils (%) (Auto) 0.7 % (0.0-2.0) Chemistry Test 02/04/19 05:25 Sodium Level 141 MMOL/L (136-145) Potassium Level 4.3 MMOL/L (3.5-5.1) Chloride Level 104 MMOL/L (98-107) Carbon Dioxide Level 27 MMOL/L (21-32) Anion Gap 10 mmol/L (5-15) Blood Urea Nitrogen 10 mg/dL (7-18) Creatinine 0.8 MG/DL (0.55-1.30) Estimat Glomerular Filtration Rate > 60 mL/min (>60) Glucose Level 107 MG/DL (74-106) H Calcium Level 8.4 MG/DL (8.5-10.1) L Magnesium Level 1.9 MG/DL (1.8-2.4) Total Bilirubin 0.1 MG/DL (0.2-1.0) L Aspartate Amino Transf (AST/SGOT) 26 U/L (15-37) Alanine Aminotransferase (ALT/SGPT) 30 U/L (12-78) Alkaline Phosphatase 61 U/L (46-116) Total Protein 6.3 G/DL (6.4-8.2) L Albumin 3.2 G/DL (3.4-5.0) L Globulin 3.1 g/dL Albumin/Globulin Ratio 1.0 (1.0-2.7) Risk Assessment & Plan Assessment: ASA 3 Plan: GA Status Change Before Surgery: No Pre-Antibiotics Drug: Ricardo Copeland MD Feb 04, 2019 10:47
[2019-02-04 12:00] VITALS: BP 100/67
--- NOTE | 2019-02-04 13:33 | NUR ---
*-* INSURANCE *-* UPDATED CLINICALS HAVE BEEN FAXED TO: [employer] REF# [id number] P; [phone] F: [phone] & [employer] REF# [id number] P: [phone] F: [phone]
--- NOTE | 2019-02-04 15:52 | NUR ---
CASE MANAGEMENT:REVIEW 02/04/19 SI: MALFUNCTIONING RAGLAND CONTINENT ILEOSTOMY W/PARTIAL SLIPPED VALVE 98.3 78 17 100/67 97% ON RA CA-8.4 IS: TPN/IL @ 80/HR IV AMPICILLIN Q6HRS IV FLAGYL Q8HRS IV VENOFER QHS : MED/SURG STATUS 3 EAST PLAN: SURGERY IN AM FOR LAPAROTOMY AND REVISION
[2019-02-04 16:05] VITALS: BP 97/63
--- NOTE | 2019-02-04 19:17 | NUR ---
HAND-OFF: Report given to Concepción GARCIA accordingly resting comfortably in bed, patient stable carolee baeza.
--- NOTE | 2019-02-04 20:04 | NUR ---
NURSES NOTE: Received pt in bed, A/OX4, pty is able to communicate needs. Patient shows no outward s/s of distress. Breathing is even and unlabored on RA. VS stable. Patient denies pain at this moment. PICC line in R upper arm is patent with no s/s of infection. Ileo patent, draining appropriately. Dressing to R lower abdomen is clean and intact. Pt to be NPO except for ice chips/meds starting 0000 for pending surgery tmrw. All meds due will be given. Bed at lowest level. Call light within reach. Pt will continue to be monitored. Addendum: 02/05/19 at 0141 by Erum Richardson RN NPO starting 0000 except just sips of H2O with meds (no ice chips given).
[2019-02-04] MEDS: PARoxetine 10mg tab ORAL SCH (20:35)
[2019-02-04] MEDS: TraZODone 50mg tab ORAL SCH (20:36)
[2019-02-04] MEDS: Iron Sucrose 100 MG in NS 55 ML IV SCH (20:36)
[2019-02-04] MEDS: Dyna-Hex 2% Top Sol 2oz TOPIC SCH (20:36)
[2019-02-04] MEDS: Fat Emulsion Iv 20% 240 ML in Tpn 1,680 ML IV SCH (20:40)
[2019-02-04 21:00] VITALS: BP 99/61
[2019-02-04] MEDS: Flagyl 500mg/NS 100ml Pre-Mix IV SCH (23:41)
[2019-02-05] VITALS (16 sets, daily range): BP systolic 94–139; BP diastolic 51–65
[2019-02-05] MEDS: Unasyn 3gm/NS 110ml IVPB SCH ×10 (01:02→23:33)
--- NOTE | 2019-02-05 03:00 | NUR ---
NURSE NOTES: Receive a report from RADHA Danielson. Pt is asleep but easily aroused by sound. No acute distress noted. Denies any pain. Dark brownish drainage drained with natural gravity via Ileostomy bag. Planning to have surgery today and MNNPO. TPN is running via PICC on EVONNE. Call light within reach. Will continue to monitor.
--- NOTE | 2019-02-05 03:12 | NUR ---
NURSES NOTE: Report given to Gho RN. Made aware of NPO status and surgery 02/05/19. Patient left in stable condition.
[2019-02-05] MEDS: Flagyl 500mg/NS 100ml Pre-Mix IV SCH ×3 (05:34→18:20)
[2019-02-05] MEDS: NovoLOG Insulin Flexpen SUBQ SCH ×4 (05:47→17:44)
--- NOTE | 2019-02-05 06:00 | NUR ---
Denies pain. NPO for surgery this morning. No acute distress noted. Done pre-op checklist. Will continue to monitor. 12hr output: urine: 1600ml Ileostomy: 795ml
--- NOTE | 2019-02-05 07:30 | NUR ---
HAND-OFF: Report given to RADHA Orellana. Round is done.
--- NOTE | 2019-02-05 07:39 | NUR ---
NURSE NOTES: Received report from RADHA Olmedo. Pt is a/o x 4, in bed. Father is at bedside. Pt is on NPO for the surgery. Denies any pain at this time. Ileostomy bag is patent and in placed. Bed in lowest position, call light within reach. Will continue to monitor.
--- NOTE | 2019-02-05 08:03 | Pre-Procedure Note/Attestation ---
Pre-Procedure Note/Attestation Complete Prior to Procedure Planned Procedure: not applicable Procedure Narrative: revision of Wilkinson continent ileostomy Indications for Procedure Pre-Operative Diagnosis: malfunctioning Wilkinson continent ileostomy with partially slipped valve Attestation I attest that I discussed the nature of the procedure; its benefits; risks and complications; and alternatives (and the risks and benefits of such alternatives ), prior to the procedure, with the patient (or the patient's legal franchise sales representative). I attest that, if there was a reasonable possibility of needing a blood transfusion, the patient (or the patient's legal franchise sales representative) was given the [facility] standardized written summary, pursuant to the [place] Blood Safety Act ([place] Health and Safety Code # 1645, as amended). I attest that I re-evaluated the patient just prior to the surgery and that there has been no change in the patient's H&P, except as documented below: none Manny Kramer MD Feb 05, 2019 08:03
[2019-02-05] MEDS ORDERED: Heparin 5000 units/ml inj SUBQ SCH (08:30)
[2019-02-05] MEDS: Bactrim-DS 1 tab ORAL SCH (08:32)
--- NOTE | 2019-02-05 09:46 | NUR ---
NURSE NOTES: Patient is off the unit for the surgery. Father stays pt's room.
[2019-02-05] MEDS ORDERED: Bacitracin 50000 Units Vial ONE (09:51)
[2019-02-05] MEDS ORDERED: Propofol 200mg/20ml IV ONE (10:02)
[2019-02-05] MEDS ORDERED: fentaNYL 100 mcg/2 mL IV ONE (10:02)
[2019-02-05] MEDS ORDERED: Lidocaine 1% MPF 10mg/ml 5ml ONE (10:02)
[2019-02-05] MEDS ORDERED: Midazolam 2mg/2ml Inj ONE (10:02)
[2019-02-05] MEDS ORDERED: Rocuronium Bromide 50mg/5ml Inj IV ONE (10:06)
[2019-02-05] MEDS ORDERED: Dexamethasone 4mg/ml vial ONE (10:27)
[2019-02-05] MEDS ORDERED: Sterile Water Irrig 1000ml IRRIG ONE (10:27)
[2019-02-05] MEDS ORDERED: LR 1000ml ONE (10:27)
[2019-02-05] MEDS ORDERED: Metoclopramide 10mg/2ml Inj ONE (10:27)
[2019-02-05] MEDS ORDERED: NS Irrig 1000ml ONE ×2 (10:27→14:02)
[2019-02-05] MEDS ORDERED: NS Irrig 1000ml IRRIG ONE (10:30)
[2019-02-05] MEDS ORDERED: Glycopyrrolate 0.2mg/ml 1ml Vial ONE (11:39)
[2019-02-05] MEDS ORDERED: Neostigmine 1mg/ml 10ml Inj ONE (11:39)
[2019-02-05] MEDS ORDERED: Ampicillin/Sulbactam Sod 3 GM in NS 110 ML IV SCH (12:00)
[2019-02-05] MEDS ORDERED: LR 1000ml 1,000 ML IVLG SCH (12:09)
--- NOTE | 2019-02-05 12:09 | Immediate Post-Op Evaluation ---
Immediate Post-Op Evalulation Immediate Post-Op Evalulation Procedure: Revision BCIR Date of Evaluation: Feb 05, 2019 Time of Evaluation: 12:09 IV Fluids: 1L Blood Products: 0 Urinary Output: 125 Blood Pressure Systolic: 121 Blood Pressure Diastolic: 69 Pulse Rate: 110 Respiratory Rate: 16 O2 Sat by Pulse Oximetry: 100 Temperature (Fahrenheit): 97.9 Pain Score (1-10): 0 Nausea: No Vomiting: No Complications 0 Patient Status: awake, reacts, patent, none Hydration Status: adequate Drug: Flagyl 500mg and unasyn 3g Given Within 1 Hr of Incision: Yes Kaylin Livingston MD Feb 05, 2019 12:09
[2019-02-05] MEDS ORDERED: PCA Education Pamphlet MISC ONE (12:15)
[2019-02-05] MEDS ORDERED: Rate Change PCA 1 Each MISC PRN (12:15)
[2019-02-05] MEDS ORDERED: DiphenhydrAMINE 50mg/ml Inj IVP PRN ×2 (12:15)
[2019-02-05] MEDS ORDERED: Hydromorphone 0.5mg/0.5ml inj IVP PRN (12:15)
[2019-02-05] MEDS ORDERED: Naloxone 0.4mg/ml Inj IVP PRN (12:15)
[2019-02-05] MEDS ORDERED: Ketorolac 30mg Inj IV PRN (12:15)
[2019-02-05] MEDS ORDERED: LORazepam 1mg tab SL PRN ×2 (12:15)
[2019-02-05] MEDS ORDERED: fentaNYL 100 mcg/2 mL IV PRN (12:15)
[2019-02-05] MEDS ORDERED: Midazolam 2mg/2ml Inj IVP PRN (12:15)
[2019-02-05] MEDS ORDERED: LORazepam Inj 2mg/ml 1ml IV PRN (12:15)
[2019-02-05] MEDS ORDERED: PCA HYDROmorphone 1mg/ml 30 ML IV PRN (12:15)
--- NOTE | 2019-02-05 12:16 | Brief Operative Note ---
Immediate Post Operative Note Operative Note Pre-op Diagnosis: malfunctioning Wilkinson continent ileostomy with partially slipped valve Procedure: laparotomy with release of intra-abdominal peristomal scar tissue Post-op Diagnosis: malfunctioning Wilkinson continent ileostomy Post-op Diagnosis: same as pre-op Findings: consistent w/pre-op dx studies Surgeon: junaid Motor Assembly Supervisor: dangelo Anesthesiologist: david Anesthesia: general Specimen: none Complications: none Condition: stable Fluids: see anesthesia record Estimated Blood Loss: minimal Drains: other - 28 Velasquez to Wilkinson pouch Implant(s) used?: Manny Sy MD Feb 05, 2019 12:16
[2019-02-05] MEDS ORDERED: PCA HYDROmorphone 1mg/ml 30 ML IV ONE (12:19)
--- NOTE | 2019-02-05 13:15 | NUR ---
NURSE NOTES: Patient came to the unit. Pt a/o x 4, in bed. No respiratory distress noted. Mentioned pain level is 4/10 and encouraged to use DIRECTOR HOUSEKEEPING. Rt ileostomy bag is in placed and patent, brown/greenish color noted. Velasquez catheter is in placed, patent, yellowish color noted. Father is at bedside. Will continue to monitor.
--- NOTE | 2019-02-05 13:58 | NUR ---
CASE MANAGEMENT:REVIEW 02/05/19 SI: MALFUNCTIONING RAGALND CONTINENT ILEOSTOMY W/PARTIAL SLIPPED VALVE 98.6 102 18 94/55 96% ON 3L/NC IS: TPN/IL @ 80/HR IV AMPICILLIN Q6HRS IV FLAGYL Q8HRS IV VENOFER QHS : MED/SURG STATUS 3 EAST PLAN: TO SURGERY TODAY FOR REVISION
[2019-02-05] MEDS: D5 1/4NS w/KCl 20mEq 1,000 ML IV SCH (14:24)
--- NOTE | 2019-02-05 14:44 | NUR ---
*-* INSURANCE *-* UPDATED CLINICALS HAVE BEEN FAXED TO: [employer] REF# [id number] P; [phone] F: [phone] & [employer] REF# [id number] P: [phone] F: [phone]
--- NOTE | 2019-02-05 14:46 | NUR ---
RD ASSESSMENT & RECOMMENDATIONS SEE CARE ACTIVITY FOR COMPLETE ASSESSMENT DAILY ESTIMATED NEEDS: Needs based on GI- ileostomy, possible surgery; 64.5kg adj 25-30 kcals/kg 8324-2043 total kcals 1-2 g protein/kg 65- 129 g total protein 25-30 mL/kg 1613- 1935 total fluid mLs NUTRITION DIAGNOSIS: *Altered GI function R/T ileostomy AEB pt adm w/ malfunctioning Wilkinson pouch, w/ slipped valve and fistula, currently on BCIR diet, s/p surgery revision, TPN initiated. CURRENT DIET:NPO PO DIET RECOMMENDATIONS: DIET PER MD PARENTERAL NUTRITION RECOMMENDATIONS: D/AA Rate: 70 IL Rate: 10 Total Rate: 80 Volume: 1920 % Dextrose: 17 % AA: 5.3 Energy (kcals/kg): 1807 Protein (g/kg protein): 89 Nonprotein KCALS: 1451 GIR (mg CHO/kg/min): 3.07 % Fat KCALS: 26.5 NCP: N Ratio: 102:0 TPN Comment: *D17%, AA5.3% @ 70ml/hr + IL20% @ 10ml/hr-> total of 80ml/hr, all 3:1 *Start rate per MD *TPN at goal provides 100% est kcal/prot needs(28kcal/1.4g prot per kg abw) ADDITIONAL RECOMMENDATIONS: 1) Obtain standing wt when able + weekly weights 2) W/ TPN, monitor lytes, BGs, LFTs daily . .
--- NOTE | 2019-02-05 16:15 | Operative Note - Dictated ---
DATE OF OPERATION: 02/05/2019 SURGEON: Manny Kramer M.D. SUPERVISOR PIT AND AUXILIARIES: Saurav Moore M.D. ANESTHESIOLOGIST: Kaylin De La Rosa M.D. ANESTHESIA: General endotracheal. PREOPERATIVE DIAGNOSES: 1. Malfunctioning Wilkinson continent ileostomy with difficulty with intubation and some incontinence. 2. History of colonic inertia and pelvic floor dysfunction. 3. STATUS POST MULTIPLE ABDOMINAL OPERATIONS: 3.1. Right oophorectomy in 1991. 3.2. Total abdominal hysterectomy for endometriosis in 2000. 3.3. Cholecystectomy in 2006. 3.4. Removal of dilated colon and rectum with coloanal anastomosis and temporary ileostomy in May 2015. 3.5. Left salpingo-oophorectomy in November 2015. 3.6. Closure of temporary ileostomy on 01/08/2017. 3.7. Emergency colostomy on 01/11/2017. 3.8. Repair of parastomal hernia on 07/30/2017. 3.9. Removal of the remaining abdominal colon and rectum with abdominoperineal proctectomy and end-loop ileostomy on 09/29/2018. (All of these above operations were done at the [facility]). 3.10. Wilkinson continent ileostomy with resection of 15 cm of defunctionalized ileum with malfunctioning ileostomy and repair of parastomal hernia with temporary gastrostomy on 10/19/2018. POSTOPERATIVE DIAGNOSES: 1. Malfunctioning Wilkinson continent ileostomy with difficulty with intubation and some incontinence. 2. History of colonic inertia and pelvic floor dysfunction. 3. STATUS POST MULTIPLE ABDOMINAL OPERATIONS: 3.1. Right oophorectomy in 1991. 3.2. Total abdominal hysterectomy for endometriosis in 2000. 3.3. Cholecystectomy in 2006. 3.4. Removal of dilated colon and rectum with coloanal anastomosis and temporary ileostomy in May 2015. 3.5. Left salpingo-oophorectomy in November 2015. 3.6. Closure of temporary ileostomy on 01/08/2017. 3.7. Emergency colostomy on 01/11/2017. 3.8. Repair of parastomal hernia on 07/30/2017. 3.9. Removal of the remaining abdominal colon and rectum with abdominoperineal proctectomy and end-loop ileostomy on 09/29/2018. (All of these above operations were done at the [facility]). 3.10. Wilkinson continent ileostomy with resection of 15 cm of defunctionalized ileum with malfunctioning ileostomy and repair of parastomal hernia with temporary gastrostomy on 10/19/2018. OPERATION PERFORMED: Laparotomy with finding of hostile abdomen and release of intra-abdominal peristomal scar tissue DESCRIPTION OF PROCEDURE: The patient was taken to the operating room and under general endotracheal anesthesia with sequential compression device stockings and Velasquez catheter in place and having received preoperative intravenous antibiotics and subcutaneous heparin, the patient was prepped and draped in usual fashion. Previous midline incision was reopened from umbilicus to pubis. There were severe adhesions in the central and lower abdomen. The upper abdomen was relatively free. Some scar tissue was removed and was lysed, but it became apparent that with all the prior operations and the surgery of four months ago that the patient now had a hostile abdomen. I felt that to pursue dissection to try and mobilize the Wilkinson pouch and do a formal revision of her slightly slipped valve, would be to risk significant enterotomies and potentially damage the pouch where she would end up with a conventional ileostomy. Using a 28-Botswanan Velasquez catheter, it passed from the stoma into the pouch with only very slight resistance and drained well. After making the decision to abandon the full extent of the intended operation to avoid serious risk, the incision was irrigated with antibiotic solution. Hemostasis had been secured with cautery. The fascia was closed with continuous #1 looped PDS protecting the underlying bowel throughout the length of the incision. Additional antibiotic irrigation used and the skin closed with hernando. A 28-Botswanan Velasquez catheter was positioned appropriately in the pouch, confirmed with irrigation and then sutured to the skin with two sutures of 2-0 silk. The catheter was then flushed and connected to a gravity drainage bag. Dry sterile dressings were applied. Final sponge and needle counts were correct. The patient tolerated the procedure well and left the operating room in stable condition. Manny Kramer M.D. DR: LORE JOB#: [id number] CC: OPAL
[2019-02-05] MEDS: PCA shift volume MISC SCH (19:00)
--- NOTE | 2019-02-05 19:36 | NUR ---
HAND-OFF: Report given to RADHA Danielson. Pt is stable.
[2019-02-05] MEDS: Fat Emulsion Iv 20% 240 ML in Tpn 1,680 ML IV SCH (20:20)
[2019-02-05] MEDS: Iron Sucrose 100 MG in NS 55 ML IV SCH (20:21)
[2019-02-05] MEDS: PARoxetine 10mg tab ORAL SCH (20:22)
[2019-02-05] MEDS: Dyna-Hex 2% Top Sol 2oz TOPIC SCH (20:22)
[2019-02-05] MEDS: TraZODone 50mg tab ORAL SCH (20:22)
--- NOTE | 2019-02-05 20:30 | NUR ---
NURSES NOTE: Received report from day shift nurse. Met patient sitting at the side of the bed, A/Ox4, father at bedside. No s/s of distress noted. Breathing pattern is even and unlabored. Patient answers all questions appropriately. VS WNL. PICC line in EVONNE is running TPN at 80cc/hr, D5 1/4 with KCL 20meq at 50cc/hr and patient is also on Dilaudid via NURSING TECHN pump. Ileo is patent and draining appropriately. Velasquez is patent and draining appropriately, urine is light yellow in color with no sediment noted. Patient will receive all due meds. Bed at lowest level. call light within reach.
[2019-02-06] VITALS (9 sets, daily range): BP systolic 84–104; BP diastolic 40–59
[2019-02-06] MEDS: NovoLOG Insulin Flexpen SUBQ SCH ×4 (00:05→18:00)
[2019-02-06] MEDS: Flagyl 500mg/NS 100ml Pre-Mix IV SCH ×4 (00:46→18:16)
[2019-02-06] MEDS: Unasyn 3gm/NS 110ml IVPB SCH ×8 (05:09→23:16)
[2019-02-06 05:50] LABS: ALANINE AMINOTRANSFERASE 69 U/L (12-78); ALBUMIN 3.2 G/DL (3.4-5.0); ALBUMIN/GLOBULIN RATIO 0.9 (1.0-2.7); ALKALINE PHOSPHATASE 73 U/L (46-116); ANION GAP -1 mmol/L (5-15); ASPARTATE AMINO TRANSFERASE 60 U/L (15-37); BILIRUBIN,TOTAL 0.2 MG/DL (0.2-1.0); BLOOD UREA NITROGEN 12 mg/dL (7-18); CALCIUM 8.3 MG/DL (8.5-10.1); CARBON DIOXIDE 34 MMOL/L (21-32); CHLORIDE 104 MMOL/L (98-107); CREATININE 0.9 MG/DL (0.55-1.30); PHOSPHORUS 3.2 MG/DL (2.5-4.9); POTASSIUM 4.6 MMOL/L (3.5-5.1); SODIUM 137 MMOL/L (136-145)
[2019-02-06 05:54] LABS: HEMATOCRIT 33.1 % (37.0-47.0); MEAN CORPUSCULAR VOLUME 82 FL (80-99); PLATELET COUNT 225 K/UL (150-450); RED BLOOD COUNT 4.04 M/UL (4.20-5.40); RED CELL DISTRIBUTION WIDTH 13.3 % (11.6-14.8); WHITE BLOOD COUNT 11.3 K/UL (4.8-10.8)
--- NOTE | 2019-02-06 06:59 | 48 Hour Post Anesthesia Eval ---
Post Anesthesia Evaluation Procedure: Revision BCIR Date of Evaluation: Feb 06, 2019 Time of Evaluation: 06:58 Blood Pressure Systolic: 98 0: 57 Pulse Rate: 92 Respiratory Rate: 17 Temperature (Fahrenheit): 98.2 O2 Sat by Pulse Oximetry: 95 Airway: patent Nausea: No Vomiting: No Pain Intensity: 3 Hydration Status: adequate Cardiopulmonary Status: Stable Mental Status/LOC: patient returned to baseline Follow-up Care/Observations: 0 Post-Anesthesia Complications: 0 Follow-up care needed: N/A Ricardo Montague MD Feb 06, 2019 06:59
[2019-02-06] MEDS: PCA shift volume MISC SCH ×2 (07:00→19:13)
--- NOTE | 2019-02-06 07:20 | NUR ---
NURSE NOTES: Received report from RADHA Danielson. Rounding done with outgoing nurse. Pt is a/o x4, sitting position in bed. Father is at bedside. Pt stat "I feel better. I am doing okay.". Pain level is 3/10 and ASP NET SOFTWARE DEVELOPER is on. EVONNE PICC line is patent. D51/4NS with KCl 20 meq is running @50ml/hr and TPN is running @80ml/hr. Abdominal dressing is C/D/I. Ileostomy bag is patent, greenish color noted. Velasquez is in placed. Bed in lowest position, call light within reach. Will continue to monitor.
--- NOTE | 2019-02-06 08:00 | NUR ---
HAND OFF: Report given to RADHA Orellana. Patient left in stable condition.
--- NOTE | 2019-02-06 08:36 | Cardiology Report ---
APPROVED REPORT EKG Measurement Heart [id number] Normal sinus rhythm Possible Left atrial enlargement Borderline ECG
[2019-02-06] MEDS: Estradiol Vaginal Cr 42.5 Gm Tube VAGIN SCH (09:26)
[2019-02-06] MEDS: D5 1/4NS w/KCl 20mEq 1,000 ML IV SCH (10:44)
[2019-02-06] MEDS ORDERED: Rate Change PCA 1 Each MISC PRN (11:15)
[2019-02-06] MEDS ORDERED: Naloxone 0.4mg/ml Inj IVP PRN (11:16)
--- NOTE | 2019-02-06 11:20 | NUR ---
NURSE NOTES: Pt ambulated hallway x 2 with RN assistance. No distress noted.
--- NOTE | 2019-02-06 11:29 | General Progress Note ---
Progress Note Progress Note AVSS Ambulating. 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
[2019-02-06] MEDS ORDERED: DiphenhydrAMINE 50mg/ml Inj IVP PRN (12:15)
[2019-02-06] MEDS ORDERED: PCA HYDROmorphone 1mg/ml 30 ML IV PRN (12:15)
[2019-02-06] MEDS ORDERED: NS Irrig 1000ml ONE (13:45)
[2019-02-06] MEDS ORDERED: Tubing IV Secondary IV ONE (13:45)
--- NOTE | 2019-02-06 14:11 | NUR ---
CASE MANAGEMENT:REVIEW 02/06/19 SI: POD #1 S/P RELEASE OF SCAR TISSUE ,INTRA-ABDOMINAL PERISTOMAL OF HOSTILE ABDOMEN 98.2 84 18 97/57 98% ON 1L/NC WBC=11.3 IS: IVF@30/HR EVP DILAUDID TPN/IL @ 80/HR IV AMPICILLIN Q6HRS IV FLAGYL Q8HRS IV VENOFER QHS : MED/SURG STATUS 3 EAST
--- NOTE | 2019-02-06 14:20 | NUR ---
NURSE NOTES: Pt ambulated hallway x 2 with RN assistance in stable condition.
--- NOTE | 2019-02-06 15:00 | NUR ---
NURSE NOTES: Patient ambulated hallway x3 with RN assistance. No discomfort noted.
--- NOTE | 2019-02-06 15:22 | NUR ---
*-* INSURANCE *-* UPDATED CLINICALS HAVE BEEN FAXED TO: [facility] REF# [id number] P; [phone] F: [phone] & [facility] REF# [id number] P: [phone] F: [phone]
--- NOTE | 2019-02-06 16:20 | NUR ---
NURSE NOTES: Patient is ambulating hallway with KENYON Asencio assistance. Pt is stable.
--- NOTE | 2019-02-06 19:12 | NUR ---
HAND-OFF: Report given to RADHA Johnson. Pt is stable.
--- NOTE | 2019-02-06 19:38 | NUR ---
NURSE NOTES: Patient was ambulating around the unit with assistance of the father. With ileostomy connected to gravity drainage. With right upper arm PICC double lumen cath connected to TPN, IVF and FOOD CASHIER Dilaudid. With Velasquez cath. Instructed to use call light for assistance. Will continue to monitor.
[2019-02-06] MEDS: PARoxetine 10mg tab ORAL SCH (20:28)
[2019-02-06] MEDS: TraZODone 50mg tab ORAL SCH (20:28)
[2019-02-06] MEDS: Iron Sucrose 100 MG in NS 55 ML IV SCH (20:43)
[2019-02-06] MEDS: Fat Emulsion Iv 20% 240 ML in Tpn 1,680 ML IV SCH (20:53)
[2019-02-06] MEDS: Dyna-Hex 2% Top Sol 2oz TOPIC SCH (20:54)
[2019-02-07] VITALS: BP 95/55
[2019-02-07] MEDS: Flagyl 500mg/NS 100ml Pre-Mix IV SCH ×4 (00:12→17:24)
[2019-02-07 04:00] VITALS: BP 93/57
[2019-02-07] MEDS: Unasyn 3gm/NS 110ml IVPB SCH ×6 (05:41→18:26)
[2019-02-07 06:00] LABS: BASOPHILS % (AUTO) 0.4 % (0.0-2.0); EOSINOPHILS % (AUTO) 3.9 % (0.0-3.0); HEMATOCRIT 30.1 % (37.0-47.0); LYMPHOCYTES % (AUTO) 24.7 % (20.0-45.0); MEAN CORPUSCULAR VOLUME 82 FL (80-99); MONOCYTES % (AUTO) 6.5 % (1.0-10.0); NEUTROPHILS % (AUTO) 64.6 % (45.0-75.0); PLATELET COUNT 168 K/UL (150-450); RED BLOOD COUNT 3.65 M/UL (4.20-5.40); WHITE BLOOD COUNT 7.1 K/UL (4.8-10.8)
[2019-02-07] MEDS: NovoLOG Insulin Flexpen SUBQ SCH ×4 (06:00→17:20)
--- NOTE | 2019-02-07 06:00 | NUR ---
NURSE NOTES: Patient had episodes of decrease blood pressure. Charge nurse Reina stephens. Monitored patient. Patient was asymptomatic. Patient is stable.
[2019-02-07] MEDS: D5 1/4NS w/KCl 20mEq 1,000 ML IV SCH (06:06)
[2019-02-07 06:27] LABS: ALANINE AMINOTRANSFERASE 46 U/L (12-78); ALBUMIN 2.7 G/DL (3.4-5.0); ALBUMIN/GLOBULIN RATIO 0.9 (1.0-2.7); ALKALINE PHOSPHATASE 54 U/L (46-116); ANION GAP -1 mmol/L (5-15); ASPARTATE AMINO TRANSFERASE 34 U/L (15-37); BILIRUBIN,TOTAL 0.1 MG/DL (0.2-1.0); BLOOD UREA NITROGEN 12 mg/dL (7-18); CALCIUM 7.7 MG/DL (8.5-10.1); CARBON DIOXIDE 35 MMOL/L (21-32); CHLORIDE 106 MMOL/L (98-107); CREATININE 0.8 MG/DL (0.55-1.30); POTASSIUM 3.9 MMOL/L (3.5-5.1); SODIUM 140 MMOL/L (136-145)
--- NOTE | 2019-02-07 06:30 | NUR ---
NURSE NOTES: Flushes done. I and O recorded.
[2019-02-07] MEDS: PCA shift volume MISC SCH ×2 (07:22→19:00)
--- NOTE | 2019-02-07 07:56 | NUR ---
NURSE NOTES: Patient awake, alert x4; on room air, no sing of distress and shortness of breath; no sing of chest pain; PICC line at Tight-Upper arm double lumen, D51/4NS W/KCl 20mEq @30cc running, TPN @ 80cc running; Dilaudid RUG UNDERLAY MACHINE OPERATOR pump connected; Velasquez in place drains by gravity, Ileostomy bag drains by gravity; patient's father at the bed side; dressing dry and intact at the abdomen; side rails up x2, breaks engaged, bed at lowest position; call light within reach; will keep monitoring.
[2019-02-07 08:00] VITALS: BP 97/63
--- NOTE | 2019-02-07 08:14 | NUR ---
HAND-OFF: Report given to RADHA Tena. Addendum: 02/07/19 at 0815 by CARMEN EDWARD RN HAND-OFF: Report given to RADHA Caban.
[2019-02-07] MEDS ORDERED: PCA HYDROmorphone 1mg/ml 30 ML IV PRN (11:00)
--- NOTE | 2019-02-07 11:17 | General Progress Note ---
Progress Note Progress Note AVSS Ambulating well Abdomen soft, mildly distended, incision clean, stoma pink Urine 2400 BCIR ileo 220 WBC down 7100 Hgb down 10 Mg 1.8 Albumin 2.7 IMp. Ileus malnutrition and iron deficiency present on admission Plan:NPO, TPN, Venofer, continue Velasquez one more day f/u labs d/c basal infusion of PHOTOGRAPHY INTERN Manny Kramer MD Feb 07, 2019 11:17
[2019-02-07 12:00] VITALS: BP 88/54
--- NOTE | 2019-02-07 13:07 | NUR ---
NURSE NOTES: The content of the DATA EXAMINATION CLERK tubing waisted at the med room in the RX destroyer, witness by RADHA Farmer. DATA EXAMINATION CLERK syringe empty.
--- NOTE | 2019-02-07 13:57 | NUR ---
*-* INSURANCE *-* UPDATED CLINICALS HAVE BEEN FAXED TO: [facility] REF# [id number] P; [phone] F: [phone]
[2019-02-07 16:00] VITALS: BP 95/61
--- NOTE | 2019-02-07 19:58 | NUR ---
HAND-OFF: Report given to Yara,Charge Nurse.
[2019-02-07 20:00] VITALS: BP_SYST 95; BP_SYST 96; BP_DIAS 54; BP_DIAS 63
--- NOTE | 2019-02-07 20:46 | NUR ---
NURSE NOTES: Received report from Yara charge operator nurse. Pt is in bed, awake, alert and oriented x4. On room air, TPN running, SHEATHER on demand at bedside. PICC EVONNE dressing intact. dressing to abdomen intact, ileostomy draining to gravity, juarez catheter, patent and draining. Pt is sitting up comfortably, bed is locked in lowest position, side rails x2. call light within reach. will continue to monitor
[2019-02-07] MEDS: Dyna-Hex 2% Top Sol 2oz TOPIC SCH (21:32)
[2019-02-07] MEDS: PARoxetine 10mg tab ORAL SCH (21:33)
[2019-02-07] MEDS: Iron Sucrose 100 MG in NS 55 ML IV SCH (21:33)
[2019-02-07] MEDS: TraZODone 50mg tab ORAL SCH (21:33)
[2019-02-07] MEDS: Fat Emulsion Iv 20% 240 ML in Tpn 1,680 ML IV SCH (21:36)
[2019-02-08] VITALS (8 sets, daily range): BP systolic 89–107; BP diastolic 58–70
[2019-02-08] MEDS: Unasyn 3gm/NS 110ml IVPB SCH ×8 (00:08→19:18)
[2019-02-08] MEDS: Flagyl 500mg/NS 100ml Pre-Mix IV SCH ×5 (00:08→23:05)
[2019-02-08] MEDS: NovoLOG Insulin Flexpen SUBQ SCH ×4 (05:29→17:59)
[2019-02-08] MEDS: D5 1/4NS w/KCl 20mEq 1,000 ML IV SCH (05:31)
[2019-02-08 06:31] LABS: BASOPHILS % (AUTO) 0.9 % (0.0-2.0); EOSINOPHILS % (AUTO) 4.2 % (0.0-3.0); HEMATOCRIT 32.9 % (37.0-47.0); LYMPHOCYTES % (AUTO) 27.1 % (20.0-45.0); MEAN CORPUSCULAR VOLUME 83 FL (80-99); MONOCYTES % (AUTO) 6.5 % (1.0-10.0); NEUTROPHILS % (AUTO) 61.2 % (45.0-75.0); PLATELET COUNT 202 K/UL (150-450); RED BLOOD COUNT 3.99 M/UL (4.20-5.40); RED CELL DISTRIBUTION WIDTH 14.2 % (11.6-14.8); WHITE BLOOD COUNT 6.9 K/UL (4.8-10.8)
[2019-02-08] MEDS: PCA shift volume MISC SCH ×2 (07:00→19:08)
--- NOTE | 2019-02-08 07:32 | NUR ---
HAND-OFF: Report given to RADHA Adames.
--- NOTE | 2019-02-08 07:35 | NUR ---
NURSE NOTES: Received report from RADHA Strong. Rounding done with outgoing nurse. Pt a/o x 4, in bed. No respiratory distress noted. Denies any pain at this time. Father is at bedside. EVONNE PICC line IV access is patent, dressing is C/D/I. Abdominal surgical dressing id C/D/I. RENAL NURSE is on. Ileostomy/juarez bag is patent, in placed. Bed in lowest position, call light within reach. Will continue to monitor.
[2019-02-08 07:40] LABS: ALANINE AMINOTRANSFERASE 52 U/L (12-78); ALBUMIN/GLOBULIN RATIO 0.9 (1.0-2.7); ALKALINE PHOSPHATASE 72 U/L (46-116); ANION GAP 0 mmol/L (5-15); ASPARTATE AMINO TRANSFERASE 40 U/L (15-37); BILIRUBIN,TOTAL 0.3 MG/DL (0.2-1.0); BLOOD UREA NITROGEN 11 mg/dL (7-18); CALCIUM 8.5 MG/DL (8.5-10.1); CARBON DIOXIDE 37 MMOL/L (21-32); CHLORIDE 103 MMOL/L (98-107); CREATININE 0.8 MG/DL (0.55-1.30); POTASSIUM 3.7 MMOL/L (3.5-5.1); SODIUM 140 MMOL/L (136-145)
[2019-02-08] MEDS: Estradiol Vaginal Cr 42.5 Gm Tube VAGIN SCH (09:10)
--- NOTE | 2019-02-08 09:43 | NUR ---
CASE MANAGEMENT:REVIEW 02/07/19 SI: POD #2 S/P RELEASE OF SCAR TISSUE ,INTRA-ABDOMINAL PERISTOMAL OF HOSTILE ABDOMEN 98.6 97 16 95/54 96% ON RA IS: IV MAG SULFATE Q1HRS X2 IVF@30/HR CANDY DEPOSITING MACHINE OPERATOR DILAUDID TPN/IL @ 80/HR IV AMPICILLIN Q6HRS IV FLAGYL Q8HRS IV VENOFER QHS : MED/SURG STATUS 3 EAST
--- NOTE | 2019-02-08 09:45 | NUR ---
CASE MANAGEMENT:REVIEW 02/08/19 SI: POD #3 S/P RELEASE OF SCAR TISSUE ,INTRA-ABDOMINAL PERISTOMAL OF HOSTILE ABDOMEN 98.4 87 20 97/58 98% ON RA H/H-11.0/32.9 MAG-1.7 AST+40 IS: IV VENOFER QHS IVF@30/HR OFF TRACK BETTING MANAGER DILAUDID TPN/IL @ 80/HR IV AMPICILLIN Q6HRS IV FLAGYL Q8HRS IV VENOFER QHS : MED/SURG STATUS 3 EAST
[2019-02-08] MEDS ORDERED: Naloxone 0.4mg/ml Inj IVP PRN (10:26)
[2019-02-08] MEDS ORDERED: Rate Change PCA 1 Each MISC PRN (10:30)
--- NOTE | 2019-02-08 10:39 | General Progress Note ---
Progress Note Progress Note AVSS Doing well ambulating freely Abdomen soft, mild distention, incision clean Urine 5250 BCIR ileo 340 Hgb 11 Mg 1.7 albumin 3 Imp: Ileus Plan: continue npo, TPN infuse Mg f/u labs Manny Kramer MD Feb 08, 2019 10:39
--- NOTE | 2019-02-08 10:40 | NUR ---
NURSE NOTES: Patient is ambulating hallway with her father's assistance. No discomfort noted.
[2019-02-08] MEDS ORDERED: PCA HYDROmorphone 1mg/ml 30 ML IV PRN (11:00)
--- NOTE | 2019-02-08 11:11 | NUR ---
*-* INSURANCE *-* UPDATED CLINICALS HAVE BEEN FAXED TO: [facility] REF# [id number] P; [phone] F: [phone]
--- NOTE | 2019-02-08 11:33 | NUR ---
NURSE NOTES: Patient is ambulating hallway with steady gait.
[2019-02-08] MEDS ORDERED: DiphenhydrAMINE 50mg/ml Inj IVP PRN (12:15)
--- NOTE | 2019-02-08 13:11 | NUR ---
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 CURRENT DIET:NPO, on TPN PO DIET RECOMMENDATIONS: DIET PER MD PARENTERAL NUTRITION RECOMMENDATIONS: D/AA Rate: 70 IL Rate: 10 Total Rate: 80 Volume: 1920 % Dextrose: 17 % AA: 5.3 Energy (kcals/kg): 1807 Protein (g/kg protein): 89 Nonprotein KCALS: 1451 GIR (mg CHO/kg/min): 3.07 % Fat KCALS: 26.5 NCP: N Ratio: 102:0 TPN Comment: Maintain current TPN: * D17%, AA5.3% @ 70ml/hr + IL20% @ 10ml/hr-> total of 80ml/hr, all 3:1 * TPN at goal provides 100% est kcal/prot needs (28kcal/1.4g prot per kg abw) ADDITIONAL RECOMMENDATIONS: 1) Obtain standing wt when able + weekly weights 2) W/ TPN, monitor lytes, BGs, LFTs daily . .
[2019-02-08] MEDS ORDERED: NS Irrig 1000ml ONE (13:41)
[2019-02-08] MEDS ORDERED: Tubing IV Secondary IV ONE (13:41)
--- NOTE | 2019-02-08 16:26 | NUR ---
NURSE NOTES: Patient is ambulating hallway with her father in stable condition.
[2019-02-08] MEDS ORDERED: clonazePAM 0.5mg tab ORAL PRN (17:00)
--- NOTE | 2019-02-08 18:19 | NUR ---
NURSE NOTES: Patient is ambulating hallway in stable condition. Father assisting pt at this time.
--- NOTE | 2019-02-08 19:15 | NUR ---
HAND-OFF: Report given to RADHA Kebede. Pt is stable.
--- NOTE | 2019-02-08 19:31 | NUR ---
NURSE NOTES: Received patient in bed, awake, alert, oriented, father at bed side, F/C is in place, secure, draining well, PICC line site is clean dry and intact. Call light is within reach, bed is in low position, locked and alarm is on. Will continue to monitor for comfort and safety.
[2019-02-08] MEDS: Dyna-Hex 2% Top Sol 2oz TOPIC SCH (20:02)
[2019-02-08] MEDS: Fat Emulsion Iv 20% 240 ML in Tpn 1,680 ML IV SCH (20:04)
[2019-02-08] MEDS: TraZODone 50mg tab ORAL SCH (20:38)
[2019-02-08] MEDS: PARoxetine 10mg tab ORAL SCH (20:38)
[2019-02-08] MEDS: Iron Sucrose 100 MG in NS 55 ML IV SCH (20:39)
[2019-02-09] VITALS (7 sets, daily range): BP systolic 93–123; BP diastolic 62–78
[2019-02-09] MEDS: Unasyn 3gm/NS 110ml IVPB SCH ×4 (00:09→06:18)
[2019-02-09] MEDS: NovoLOG Insulin Flexpen SUBQ SCH ×5 (00:10→23:58)
[2019-02-09] MEDS: D5 1/4NS w/KCl 20mEq 1,000 ML IV SCH (05:11)
[2019-02-09] MEDS: Flagyl 500mg/NS 100ml Pre-Mix IV SCH (05:11)
[2019-02-09 06:17] LABS: BASOPHILS % (AUTO) 0.3 % (0.0-2.0); EOSINOPHILS % (AUTO) 4.5 % (0.0-3.0); HEMATOCRIT 32.4 % (37.0-47.0); HEMOGLOBIN 10.9 G/DL (12.0-16.0); LYMPHOCYTES % (AUTO) 19.6 % (20.0-45.0); MEAN CORPUSCULAR VOLUME 83 FL (80-99); MONOCYTES % (AUTO) 6.8 % (1.0-10.0); NEUTROPHILS % (AUTO) 68.8 % (45.0-75.0); PLATELET COUNT 196 K/UL (150-450); RED BLOOD COUNT 3.92 M/UL (4.20-5.40); WHITE BLOOD COUNT 6.1 K/UL (4.8-10.8)
[2019-02-09 06:42] LABS: ALANINE AMINOTRANSFERASE 43 U/L (12-78); ALBUMIN 2.8 G/DL (3.4-5.0); ALBUMIN/GLOBULIN RATIO 0.8 (1.0-2.7); ALKALINE PHOSPHATASE 72 U/L (46-116); ANION GAP 6 mmol/L (5-15); ASPARTATE AMINO TRANSFERASE 28 U/L (15-37); BILIRUBIN,TOTAL 0.3 MG/DL (0.2-1.0); BLOOD UREA NITROGEN 9 mg/dL (7-18); CALCIUM 8.4 MG/DL (8.5-10.1); CARBON DIOXIDE 32 MMOL/L (21-32); CHLORIDE 104 MMOL/L (98-107); CREATININE 0.8 MG/DL (0.55-1.30); POTASSIUM 3.8 MMOL/L (3.5-5.1); SODIUM 142 MMOL/L (136-145)
[2019-02-09] MEDS: PCA shift volume MISC SCH ×2 (07:08→19:09)
--- NOTE | 2019-02-09 07:26 | NUR ---
HAND-OFF: Report given to Siri GARCIA.
--- NOTE | 2019-02-09 07:30 | NUR ---
NURSE NOTES: Received report Yandy. Patient is in bed, alert and oriented x4. No respiratory distress noted. Denies pain or discomfort at this time. Father is at bedside. EVONNE PICC line is patent, dressing is C/D/I. Abdominal surgical dressing id C/D/I. MACHINE DESIGN CHECKER is on and TPN is running @ 80cc/hr. Ileostomy/juarez bag is patent, in placed, draining well to gravity. Bed in lowest position, call light and personnel items within reach. Will continue to monitor.
--- NOTE | 2019-02-09 08:00 | NUR ---
NURSE NOTES: RN asked if juarez can be removed as per Dr. Kramer's order and patient denies any pain or discomfort @ this time and juarez is draining yellowish colored urine, no blood or sediment. But patient wants to see the doctor before juarez removal.Will follow up.
[2019-02-09] MEDS: Phytonadione 10 mg/mL 1ml amp SUBQ SCH (09:09)
[2019-02-09] MEDS ORDERED: Naloxone 0.4mg/ml Inj IVP PRN (09:34)
[2019-02-09] MEDS ORDERED: Rate Change PCA 1 Each MISC PRN (09:45)
--- NOTE | 2019-02-09 09:48 | General Progress Note ---
Progress Note Progress Note AVSS Feeling well. Abdomen soft, healing nicely Urine 3670 BCIr ileo 710 Labs stable/satisf Mg 1.8 Albumin 2.8 Imp. Resolving ileus Plan: limited clear liquid diet d/c urinary juarez continue TPN Manny Kramer MD Feb 09, 2019 09:48
--- NOTE | 2019-02-09 10:00 | NUR ---
NURSE NOTES: Removed juarez cath, urine output is 900cc. No blood or discharge noted. Instructed patient to call nurse for urine output monitoring after she urinates. Placed hat in the toilet bowl.
[2019-02-09] MEDS ORDERED: PCA HYDROmorphone 1mg/ml 30 ML IV PRN (11:00)
[2019-02-09] MEDS ORDERED: DiphenhydrAMINE 50mg/ml Inj IVP PRN (12:15)
--- NOTE | 2019-02-09 12:17 | NUR ---
NURSE NOTES: given tylenol for mild headache. v/s stable.Will continue to monitor.
--- NOTE | 2019-02-09 12:30 | NUR ---
NURSE NOTES: Patient is on clear liquid now but no appetite @ this time. Patient will try to eat later.
--- NOTE | 2019-02-09 17:23 | NUR ---
CASE MANAGEMENT: REVIEW SI: MALFUNCTIONING RAGLAND POUCH REVISION BCIR 02/05 RAGLAND POUCH ENDOSCOPY 01/24 T 97.8 HR 91 RR 16 BP 93/62 SAT 97% ROOM AIR H/H 10.9/32.4 ALBUMIN / GLOBULIN RATIO 0.8 IS: TPN IV Q24HR D5 1/4 NS w/KCl 20MEQ IVF @30ML/HR VENOFER IV @60ML/HR QHS SHRINK PIT OPERATOR DILAUDID 0.5MG CLEAR LIQUID PO DIET MED/SURG UNIT STATUS DCP: PATIENT IS FROM HOME
--- NOTE | 2019-02-09 19:13 | NUR ---
HAND-OFF: Report given to RADHA Olmedo.
--- NOTE | 2019-02-09 19:15 | NUR ---
NURSE NOTES: Receive a report from RADHA Solano. Round is done. Pt is awake and alert, siting in bed. No acute distress noted. No noted respiratory distress.Pain is 2/10 with PRODUCTION TRAINER pump but has not used for past 4 hrs. States that feeing weak. Pt started clear liquid diet and no noted bloating sensation. Ileostomy is drained with natural gravity and flushing 3hrs with NS 20ml. Surgery site remains dry and clean with gauze dressing. No residual sensation after self-voiding. Call light within reach. Will continue to monitor.
[2019-02-09] MEDS: Dyna-Hex 2% Top Sol 2oz TOPIC SCH (20:16)
[2019-02-09] MEDS: Iron Sucrose 100 MG in NS 55 ML IV SCH (20:16)
[2019-02-09] MEDS: Fat Emulsion Iv 20% 240 ML in Tpn 1,680 ML IV SCH (20:18)
--- NOTE | 2019-02-09 21:00 | NUR ---
NURSE NOTES: TPN and main fluid are running via PICC on EVONNE. Site is kept clean with dressing without redness or swelling. Encourage I/S while awake every hour. Provide care of plans. Will continue to monitor.
[2019-02-09] MEDS: TraZODone 50mg tab ORAL SCH (21:27)
[2019-02-09] MEDS: PARoxetine 10mg tab ORAL SCH (21:28)
[2019-02-10] VITALS (7 sets, daily range): BP systolic 95–117; BP diastolic 60–71
[2019-02-10 05:50] LABS: BASOPHILS % (AUTO) 0.3 % (0.0-2.0); EOSINOPHILS % (AUTO) 4.8 % (0.0-3.0); HEMATOCRIT 34.1 % (37.0-47.0); HEMOGLOBIN 11.5 G/DL (12.0-16.0); LYMPHOCYTES % (AUTO) 25.5 % (20.0-45.0); MEAN CORPUSCULAR VOLUME 82 FL (80-99); MONOCYTES % (AUTO) 6.9 % (1.0-10.0); NEUTROPHILS % (AUTO) 62.5 % (45.0-75.0); PLATELET COUNT 194 K/UL (150-450); RED BLOOD COUNT 4.15 M/UL (4.20-5.40); RED CELL DISTRIBUTION WIDTH 14.2 % (11.6-14.8); WHITE BLOOD COUNT 5.5 K/UL (4.8-10.8)
--- NOTE | 2019-02-10 06:00 | NUR ---
NURSE NOTES: Denies pain. Pt is asleep without acute distress. Will continue to monitor. 12hr output Urine: 1475ml Ileostomy: 625ml-80ml(flushing)=545ml
[2019-02-10 06:11] LABS: ALANINE AMINOTRANSFERASE 35 U/L (12-78); ALBUMIN 2.9 G/DL (3.4-5.0); ALBUMIN/GLOBULIN RATIO 0.8 (1.0-2.7); ALKALINE PHOSPHATASE 70 U/L (46-116); ANION GAP 6 mmol/L (5-15); ASPARTATE AMINO TRANSFERASE 21 U/L (15-37); BILIRUBIN,TOTAL 0.2 MG/DL (0.2-1.0); BLOOD UREA NITROGEN 10 mg/dL (7-18); CALCIUM 8.6 MG/DL (8.5-10.1); CARBON DIOXIDE 29 MMOL/L (21-32); CHLORIDE 105 MMOL/L (98-107); CREATININE 0.7 MG/DL (0.55-1.30); POTASSIUM 4.2 MMOL/L (3.5-5.1); SODIUM 139 MMOL/L (136-145)
[2019-02-10] MEDS: NovoLOG Insulin Flexpen SUBQ SCH ×3 (06:16→18:00)
[2019-02-10] MEDS: D5 1/4NS w/KCl 20mEq 1,000 ML IV SCH (06:19)
[2019-02-10] MEDS: PCA shift volume MISC SCH (07:20)
--- NOTE | 2019-02-10 07:20 | NUR ---
HAND-OFF: Report given to RADHA Solano. Round is done.
--- NOTE | 2019-02-10 07:21 | NUR ---
NURSE NOTES: Received pt in bed, AAO x 4. No c/o of distress/pain at this time. Father is at the bedside. PICC line on EVONNE intact and patent, running TPN @ 80 ml/hr and D5 1/4 NS with kcl 20 mEq @ 30 ml/hr. Abdominal surgical dressing is C/D/I. REGIONAL CLINICAL DIRECTOR is on. Ileostomy/FC is intact and patent, draining by gravity. Bed in the lowest and locked. Call light within reach. Will continue to monitor
[2019-02-10] MEDS ORDERED: Tubing IV Secondary IV ONE (09:28)
[2019-02-10] MEDS ORDERED: NS Irrig 1000ml ONE (09:28)
[2019-02-10] MEDS ORDERED: Rate Change PCA 1 Each MISC PRN (10:30)
[2019-02-10] MEDS ORDERED: DiphenhydrAMINE 50mg/ml Inj IVP PRN (10:34)
[2019-02-10] MEDS ORDERED: PCA HYDROmorphone 1mg/ml 30 ML IV PRN (10:34)
[2019-02-10] MEDS ORDERED: LORazepam 1mg tab SL PRN ×2 (10:34→10:35)
[2019-02-10] MEDS ORDERED: Naloxone 0.4mg/ml Inj IVP PRN (10:35)
--- NOTE | 2019-02-10 10:43 | General Progress Note ---
Progress Note Progress Note AVSS Having intermittent nausea and only took 400 cc clear liquids. voiding well Abdomen soft, flat, healing nicely Urine 3785 BCIR ileo 1315 Hgb 11.5 Mg 1.7 Albumin 2.9 Imp: slowly resolving ileus Plan: Full liquid diet + continue TPN maintain continuous drainage of Wilkinson pouch Mg infusion f/u labs Manny Kramer MD Feb 10, 2019 10:43
[2019-02-10] MEDS: HYDROcodone/Acetamin 5/325 tab ORAL PRN (17:41)
--- NOTE | 2019-02-10 18:40 | NUR ---
NURSE NOTES: 12hr output Urine: 2020 ml Ileostomy 850ml-80ml (flushing) = 770 ml
[2019-02-10] MEDS ORDERED: PCA shift volume MISC SCH (19:00)
--- NOTE | 2019-02-10 19:15 | NUR ---
HAND-OFF: Report given to RADHA Olmedo and RADHA Zhang.
--- NOTE | 2019-02-10 19:20 | NUR ---
NURSE NOTES: Received report from RADHA Hirsch . patient in stable condition A/Ox 4 breaths even regular and unlabored on room air .Picc line intact and asymptomatic with i.v fluids on EVONNE. C/O of pain /, Pain medication to be provided as ordered . patient with ileostomy on continuous drain by gravity, dressing intact. bed in low locked position and yamilex light with in reach will continue to monitor
[2019-02-10] MEDS: Dyna-Hex 2% Top Sol 2oz TOPIC SCH (20:14)
[2019-02-10] MEDS: TraZODone 50mg tab ORAL SCH (20:15)
[2019-02-10] MEDS: Iron Sucrose 100 MG in NS 55 ML IV SCH (20:15)
[2019-02-10] MEDS: PARoxetine 10mg tab ORAL SCH (20:15)
[2019-02-10] MEDS: Fat Emulsion Iv 20% 240 ML in Tpn 1,680 ML IV SCH (20:16)
--- NOTE | 2019-02-10 20:30 | NUR ---
NURSE NOTES: Mild nausea sense is tolerating. Offer medication but pt refuses to take at this time. Inform pt of getting symptoms developed. Pt is aware. Surgery site kept dressing clean and dry. Noted gas passing via ileostomy bag but denies any discomfort. Will continue to monitor.
[2019-02-11] VITALS: BP 94/56
[2019-02-11] MEDS: NovoLOG Insulin Flexpen SUBQ SCH ×5 (00:13→23:39)
[2019-02-11 04:00] VITALS: BP 102/61
--- NOTE | 2019-02-11 06:00 | NUR ---
NURSE NOTES: Denies nausea and pain. Will continue to monitor. 12hr output urine: 1050ml True ileostomy: 765ml
[2019-02-11 06:25] LABS: BASOPHILS % (AUTO) 0.4 % (0.0-2.0); EOSINOPHILS % (AUTO) 5.1 % (0.0-3.0); HEMATOCRIT 34.8 % (37.0-47.0); LYMPHOCYTES % (AUTO) 27.6 % (20.0-45.0); MEAN CORPUSCULAR VOLUME 82 FL (80-99); NEUTROPHILS % (AUTO) 60.9 % (45.0-75.0); PLATELET COUNT 225 K/UL (150-450); RED BLOOD COUNT 4.22 M/UL (4.20-5.40); RED CELL DISTRIBUTION WIDTH 14.4 % (11.6-14.8); WHITE BLOOD COUNT 6.9 K/UL (4.8-10.8)
[2019-02-11 06:45] LABS: ALANINE AMINOTRANSFERASE 32 U/L (12-78); ALBUMIN 3.1 G/DL (3.4-5.0); ALBUMIN/GLOBULIN RATIO 0.8 (1.0-2.7); ALKALINE PHOSPHATASE 65 U/L (46-116); ANION GAP 9 mmol/L (5-15); ASPARTATE AMINO TRANSFERASE 19 U/L (15-37); BILIRUBIN,TOTAL 0.3 MG/DL (0.2-1.0); BLOOD UREA NITROGEN 14 mg/dL (7-18); CALCIUM 8.6 MG/DL (8.5-10.1); CARBON DIOXIDE 28 MMOL/L (21-32); CHLORIDE 104 MMOL/L (98-107); CREATININE 0.8 MG/DL (0.55-1.30); POTASSIUM 3.9 MMOL/L (3.5-5.1); SODIUM 141 MMOL/L (136-145)
--- NOTE | 2019-02-11 07:15 | NUR ---
HAND-OFF: Report given to RADHA Orellana. Round is done.
--- NOTE | 2019-02-11 07:20 | NUR ---
NURSE NOTES: Received report from RADHA Olmedo. Patient is A/O X 4, in bed, having a breakfast. No respiratory distress noted. C/O abdominal surgical site pain 06/27. Pain medicine will be given as MD ordered. EVONNE PICC line dressing is C/D/I. Abdominal surgical site dressing is C/D/I. Ileostomy bag is patent, greenish color noted. Father is at the bedside. Bed in lowest position, call light within reach. Will continue to monitor.
[2019-02-11 08:00] VITALS: BP 102/65
[2019-02-11] MEDS: HYDROcodone/Acetamin 5/325 tab ORAL PRN ×2 (08:28→18:34)
--- NOTE | 2019-02-11 08:29 | General Progress Note ---
Progress Note Progress Note AVSS Doing well with full liquid diet. Abdomen soft, healing nicely Urine 3070 BCIR ileo 1515 Hgb up 12 Mg 1.8 albumin up 3.1 Imp. Improving Plan: BCIR low residue diet continue TPN another day maintain continuous drainage of Wilkinson pouch Manny Kramer MD Feb 11, 2019 08:29
--- NOTE | 2019-02-11 08:49 | NUR ---
NURSE NOTES: Patient is ambulating hallway with her father's assistance in stable condition.
[2019-02-11] MEDS: Estradiol Vaginal Cr 42.5 Gm Tube VAGIN SCH (09:21)
--- NOTE | 2019-02-11 10:47 | NUR ---
NURSE NOTES: Patient is ambulating hallway with her father. Pt is stable.
[2019-02-11 12:00] VITALS: BP 103/68
--- NOTE | 2019-02-11 15:45 | NUR ---
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 CURRENT DIET:Now advanced to BCIR Low Residue diet PO DIET RECOMMENDATIONS: BCIR LOW RESIDUE DIET PER MD PARENTERAL NUTRITION RECOMMENDATIONS: D/AA Rate: 70 IL Rate: 10 Total Rate: 80 Volume: 1920 % Dextrose: 17 % AA: 5.3 Energy (kcals/kg): 1807 Protein (g/kg protein): 89 Nonprotein KCALS: 1451 GIR (mg CHO/kg/min): 3.07 % Fat KCALS: 26.5 NCP: N Ratio: 102:0 TPN Comment: REC TO TAPER OFF TPN BY 50%, THEN DC ->D17%, AA5.3% @ 70ml/hr + IL20% @ 10ml/hr-> total of 80ml/hr, all 3:1 -> TPN at goal provides 100% est kcal/prot needs (28kcal/1.4g prot per kg abw) ADDITIONAL RECOMMENDATIONS: 1) Obtain standing wt when able + weekly weights 2) Monitor PO acceptance and tolerance - rec to taper off TPN then DC .
--- NOTE | 2019-02-11 15:56 | NUR ---
CASE MANAGEMENT:REVIEW 02/11/19 SI: POD #6 S/P RELEASE OF SCAR TISSUE ,INTRA-ABDOMINAL PERISTOMAL OF HOSTILE ABDOMEN 98.2 78 20 103/68 96% ON RA IS: TPN/IL @ 80/HR PAXIL PO QHS VIT K SQ QWEEK IV VENOFER QHS NORCO PO Q4HR PRN : MED/SURG STATUS 3 EAST PLAN: START BCIR DIET
[2019-02-11 16:00] VITALS: BP 102/60
--- NOTE | 2019-02-11 19:34 | NUR ---
HAND-OFF: Report given to RADHA Zafar. Pt is stable.
--- NOTE | 2019-02-11 19:51 | NUR ---
NURSE NOTES: Received report from RN LOVE . patient in stable condition A/Ox 4 breaths even regular and unlabored on room air. Patient on BCIR diet low residuel. Picc line intact, patent and asymptomatic with i.v fluids on EVONNE. C/O of pain 04/29, Pain medication to be provided as ordered . patient with ileostomy on continuous drain by gravity, dressing intact. bed in low locked position and yamilex light with in reach will continue to monitor
[2019-02-11 20:00] VITALS: BP 99/56
[2019-02-11] MEDS: Iron Sucrose 100 MG in NS 55 ML IV SCH (21:30)
[2019-02-11] MEDS: Dyna-Hex 2% Top Sol 2oz TOPIC SCH (21:30)
[2019-02-11] MEDS: PARoxetine 10mg tab ORAL SCH (21:31)
[2019-02-11] MEDS: TraZODone 50mg tab ORAL SCH (21:31)
[2019-02-11] MEDS: Fat Emulsion Iv 20% 240 ML in Tpn 1,680 ML IV SCH (21:32)
[2019-02-12] VITALS (7 sets, daily range): BP systolic 89–106; BP diastolic 48–69
[2019-02-12] MEDS: NovoLOG Insulin Flexpen SUBQ SCH ×4 (05:12→17:02)
--- NOTE | 2019-02-12 07:30 | NUR ---
HAND-OFF: Report given to RADHA Bass. Patient remains stable.
--- NOTE | 2019-02-12 07:54 | NUR ---
NURSE NOTES: AWAKE/ALERT. C/O NAUSEA AFTER BREAKFAST. GIVEN ZOFRAN 4MG IV ORDERED. WILL CONTINUE TO MONITOR PT.
--- NOTE | 2019-02-12 09:05 | NUR ---
NURSE NOTES: Received report from RN Shelia . patient in stable condition A/Ox 4 breaths even regular and unlabored on room air. Patient contnues BCIR diet low residuel. Picc line intact, patent and asymptomatic with i.v fluids on EVONNE . patient with ileostomy on continuous drain by gravity, dressing intact. bed in low locked position and yamilex light with in reach will continue to monitor
--- NOTE | 2019-02-12 09:15 | NUR ---
NURSE NOTES: nausea relieved.ambulatory ad jessica out in the rose.
--- NOTE | 2019-02-12 09:18 | NUR ---
*-* INSURANCE *-* UPDATED CLINICALS HAVE BEEN FAXED TO: [facility] REF# [id number] P; [phone] F: [phone]
--- NOTE | 2019-02-12 12:04 | General Progress Note ---
Progress Note Progress Note AVSS Doing well eating 50% of BCIR diet Abdomen soft, incision clean Urine 1420 BCIR ileo 1510 Imp. Improved Plan: D/C TPN after current supply is complete f/u labs in AM Begin BCIR self-intubations in AM Manny Kramer MD Feb 12, 2019 12:04
--- NOTE | 2019-02-12 14:48 | NUR ---
CASE MANAGEMENT:REVIEW 02/12/19 SI: POD #7BYRD S/P RELEASE OF SCAR TISSUE ,INTRA-ABDOMINAL PERISTOMAL OF HOSTILE ABDOMEN 98.4 76 15 104/68 97% ON RA IS: TPN/IL @ 80/HR PAXIL PO QHS VIT K SQ QWEEK IV VENOFER QHS NORCO PO Q4HR PRN : MED/SURG STATUS 3 EAST PLAN: DC TPN AFTER CURRENT SUPPLY F/U LABS IN AM BEGIN BCIR SELF INTUBATION IN AM
[2019-02-12] MEDS: HYDROcodone/Acetamin 5/325 tab ORAL PRN (15:05)
--- NOTE | 2019-02-12 19:00 | NUR ---
NURSE NOTES: NO SIGNIFICANT CHANGES. CONDITION STABLE.
--- NOTE | 2019-02-12 19:00 | NUR ---
NURSE NOTES: Received report from RN Shelia . patient in stable condition A/Ox 4 breaths even regular and unlabored on room air. Patient continues BCIR diet low residuel. Picc line intact, patent and asymptomatic with i.v fluids on EVONNE . patient's ileostomy on continuous drain by gravity, dressing intact. bed in low locked position and yamilex light with in reach will continue to monitor
--- NOTE | 2019-02-12 19:24 | NUR ---
HAND-OFF: Report given to Tabitha BRIGGS RN.
[2019-02-12] MEDS: TraZODone 50mg tab ORAL SCH (21:25)
[2019-02-12] MEDS: PARoxetine 10mg tab ORAL SCH (21:25)
[2019-02-12] MEDS: Dyna-Hex 2% Top Sol 2oz TOPIC SCH (21:25)
[2019-02-13] VITALS: BP 102/60
[2019-02-13 04:00] VITALS: BP 100/60
[2019-02-13 06:25] LABS: BASOPHILS % (AUTO) 0.5 % (0.0-2.0); EOSINOPHILS % (AUTO) 4.8 % (0.0-3.0); HEMATOCRIT 36.1 % (37.0-47.0); HEMOGLOBIN 11.9 G/DL (12.0-16.0); LYMPHOCYTES % (AUTO) 25.5 % (20.0-45.0); MEAN CORPUSCULAR VOLUME 84 FL (80-99); MONOCYTES % (AUTO) 5.7 % (1.0-10.0); NEUTROPHILS % (AUTO) 63.6 % (45.0-75.0); PLATELET COUNT 225 K/UL (150-450); RED BLOOD COUNT 4.29 M/UL (4.20-5.40)
[2019-02-13 07:27] LABS: ALANINE AMINOTRANSFERASE 30 U/L (12-78); ALBUMIN 3.5 G/DL (3.4-5.0); ALBUMIN/GLOBULIN RATIO 0.9 (1.0-2.7); ALKALINE PHOSPHATASE 71 U/L (46-116); ANION GAP 11 mmol/L (5-15); ASPARTATE AMINO TRANSFERASE 20 U/L (15-37); BILIRUBIN,TOTAL 0.3 MG/DL (0.2-1.0); BLOOD UREA NITROGEN 14 mg/dL (7-18); CARBON DIOXIDE 26 MMOL/L (21-32); CHLORIDE 104 MMOL/L (98-107); CREATININE 0.9 MG/DL (0.55-1.30); PHOSPHORUS 3.3 MG/DL (2.5-4.9); POTASSIUM 4.2 MMOL/L (3.5-5.1); SODIUM 141 MMOL/L (136-145)
--- NOTE | 2019-02-13 07:45 | NUR ---
HAND-OFF: Report given to RADHA Zamorano.
--- NOTE | 2019-02-13 07:45 | NUR ---
HAND-OFF: Report given to RADHA Zamorano. Pt in stable condition.
[2019-02-13 08:00] VITALS: BP 105/66
--- NOTE | 2019-02-13 08:00 | NUR ---
NURSE NOTES: Received report from Andrade Núñez pt a/a/o x4 seating in bed with no signs of distress or other issues at this time. surgical dressing dry and intact. PICC line in place on the right upper heplock (TPN discontinue last night). ileostomy draining to gravity car shifter out put: 620ml. urine:900ml. call light within reach, bed in lowest position. side rales up x2. plan to start self intubation today and to d/c home tomorrow at 04:00. supplies are given to patient already per car shifter report. I will f/u as needed.
--- NOTE | 2019-02-13 08:06 | NUR ---
CASE MANAGEMENT:REVIEW 02/13/19 SI: POD #8 S/P RELEASE OF SCAR TISSUE ,INTRA-ABDOMINAL PERISTOMAL OF HOSTILE ABDOMEN 98.6 76 16 100/60 99% ON RA H/H-11.9/36.1 MAG-1.7 IS: NORCO PO Q4HRS PRN VIT C PO PRN : MED/SURG STATUS 3 EAST PLAN: PROVIDE DISCHARGE SUPPLIES
[2019-02-13] MEDS: Estradiol Vaginal Cr 42.5 Gm Tube VAGIN SCH (08:44)
[2019-02-13 12:00] VITALS: BP 99/68
[2019-02-13] MEDS: HYDROcodone/Acetamin 5/325 tab ORAL PRN (12:18)
--- NOTE | 2019-02-13 12:55 | NUR ---
*-* INSURANCE *-* UPDATED CLINICALS HAVE BEEN FAXED TO: [facility] REF# [id number] P; [phone] F: [phone]
--- NOTE | 2019-02-13 14:39 | General Progress Note ---
Progress Note Progress Note doing well - still takin gNorco for post-op pain Abdomen soft, hernando removed steri-strips applied Urine 2160 BCIR ileo 1640 tolerating BCIR diet Urine 2160 BCIr ileo 1640 Labs all stable Mg 1.7 Albumin 3.5 BCIR ileo catheter removed - reinserts readily Imp. Improved Plan: Mg infusion then remove PICC RN supervised BCIR self-intubations q3h am to hs and prn Discharge in AM with full supplies/limitations/instructions provided/discussed F/U 1 week and prn To take Imodium or Bentyl prn Rx [place] 5/325 #40 Zofran ODT 4mg #40 Manny Kramer MD Feb 13, 2019 14:39
[2019-02-13 16:00] VITALS: BP 102/66
[2019-02-13] MEDS ORDERED: Tubing IV Secondary IV ONE (16:20)
[2019-02-13] MEDS ORDERED: NS Irrig 1000ml ONE (16:20)
--- NOTE | 2019-02-13 19:17 | NUR ---
HAND-OFF: Report given to Liss GARCIA, pt in stable condition. - During my shift pt start intubating at 17:00. pt was able to intubate with the phoebe catheter with no signs of distress or any issues. out put 50-20= 30. - pt was able to ambulate around the unit multiple times with steady gait. Total I&O's ileostomy: 225-23=776gd urine: 700ml
--- NOTE | 2019-02-13 19:23 | NUR ---
NURSE NOTES: Received report & pt from RADHA Zamorano. Pt in bed, a&ox4, in room air, family member at bedside. No s/s of acute distress & no c/o pain at this time. PICC line intact & will remove PICC tonight as ordered. Surgical wound OSCILLOGRAPH TECHNICIAN. Pt to self intubate next @ 1999 & pt aware. Bed in lowest position, call light within reach. Will continue to monitor.
[2019-02-13 20:00] VITALS: BP 95/59
[2019-02-13] MEDS: Dyna-Hex 2% Top Sol 2oz TOPIC SCH (20:00)
--- NOTE | 2019-02-13 20:00 | NUR ---
NURSE NOTES: PICC line D/C'd. No bleeding noted. Catheter tip intact. Pressure applied. Told pt to lie down flat for at least 30mins.
[2019-02-13] MEDS: PARoxetine 10mg tab ORAL SCH (20:29)
[2019-02-13] MEDS: TraZODone 50mg tab ORAL SCH (20:29)
--- NOTE | 2019-02-14 03:50 | NUR ---
DISCHARGE NOTE: D/C'd pt to home as ordered by . Pt a&ox4, denies pain, nausea & vomiting. D/C paperwork/instructions explained, signed, & given to pt. Pt verbalized understanding. Pt belongings re-checked & signed. All questions answered. Pt refused to be wheeled via wheel chair. Accompanied pt downstairs.
--- NOTE | 2019-02-15 09:40 | NUR ---
*-* INSURANCE *-* UPDATED CLINICALS HAVE BEEN FAXED TO: [facility] REF# [id number] P; [phone] F: [phone]
--- NOTE | 2019-02-16 13:12 | Discharge Summary ---
Discharge Summary Hospital Course Date of Admission Jan 22, 2019 at 21:06 Date of Discharge Feb 14, 2019 at 03:50 Admitting Diagnosis Malfunctioning Wilkinson continent ileostomy Persistent abdominal pain Reason for Hospitalization: in hospital management, possible surgery HPI Eve Mccann is a 48 year old female who was admitted on Jan 22, 2019 at 21:06 for malfunctioning Wilkinson continent ileostomy and persistent abdominal pain . 48-year-old female in overall good health, who presented with recurring episodes of abdominal pain with poor output from her continent ileostomy , when intubating as well as persistent pouchitis and incontinence. The patient had a past history of pelvic floor dysfunction and colonic inertia and has undergone multiple operations at the [facility], resulting with an end ileostomy. On October 19, 2018, the patient was operated here for conversion of her malfunctioning ileostomy to a Wilkinson continent intestinal reservoir continent ileostomy and temporary catheter gastrostomy. She had a difficult postoperative course with fevers and transient pouch cutaneous fistula through a drain that resolved with suction drainage of her pouch and NPO with TPN. She was discharged self intubating her pouch, tolerating a low residue diet, and well healed , off antibiotics. The patient has had several episodes of abdominal pain. She was taken cefdinir and Cipro and Flagyl for pouchitis often without sustained improvement either with cefdinir or Cipro and Flagyl. She was advised to come to the emergency room to determine the cause of her symptoms and the cause of her incontinence. Consultations Dr Starkey-preschool principal Procedures s/p 01/24/[address] Williams Wilkinson continent ileostomy pouch endoscopy s/p 02/05/[address] Kramer Laparotomy with finding of hostile abdomen and release of scar tissue, intra- abdominal peristomal. Hospital Course patient admitted labs from ER remained stable patient was kept n.p.o., on IV fluids CT scan of the abdomen pelvis with p.o. and IV contrast was normal except for retained stool in Wilkinson pouch despite catheter in good positio patient started on vigorous irrigation of Wilkinson pouch patient undergone Wilkinson continent ileostomy pouch endoscopy , which revealed a partial dessusception of the nipple valve approximately 10% with the distance to the tip of the valve from the stoma orifice 12 cm, which in this patient should be closer to 9 cm. there were redundant mucosal folds within the access tract 28 [place] Velasquez was inserted in pouch and decompressed completely; secured with the tape and connected to gravity drainage bag patient tolerated endoscopy well. magnesium was replaced pain management was addressed. patient initially started on conservative management with trial of clear liquid and then BCIR diet with indwelling pouch catheter to continue the drainage. plan was if she tolerates it without cramping and bloating , start self intubation plan for TPN if unable to tolerate oral intake. PICC line was inserted 01/24 abdominal cramping and bloating was possibly due to maturational pouch and was managed with antispasmodics /Bentyl laboratory results revealed severe malnutrition along with iron deficiency anemia patient was started on TPN continued drainage of Wilkinson pouch was maintained patient was on IV Venofer magnesium was further replaced. strict intake and output were followed. Kock pouch pouchogram with small bowel series revealed normal pouchogram; mildly distended distal small bowel may be due to mild ileus ; no evidence of obstruction patient started on clear liquids, diet was advanced to full liquids patient was able to tolerate diet TPN continued with close monitoring of labs and strict intake and output patient subsequently undergone upper GI series with small bowel follow-through , which revealed negative small bowel series with appropriate function and bowel motility no evidence of obstruction or ileus TPN stopped patient was advanced to BCIR diet pouch catheter maintained to continuous drainage pain management was addressed stool for C. difficile was negative. patient started on RN supervised self intubation every 3 hours a.m. to hs and as needed. patient used 28 Velasquez to intubate Wilkinson pouch instead of usual 30 [place] Ryann however she still had to manipulate catheters into the pouch and had discomfort every time while intubating, but no incontinence abdomen remained soft indwelling 28 [place] was replaced to Wilkinson pouch to continuous drainage patient started on TPN and subsequently was scheduled for surgery strict intake and output along with labs closely monitored patient was continued on Venofer infusion additional B12 intramuscularly was given patient started on clear liquid diet on 02/03 and 02/04 , kept n.p.o. after midnight; TPN continued. additional magnesium provided patient received preoperative IV antibiotics and subcutaneous heparin patient subsequently undergone on 02/06 laparotomy and revision of Wilkinson continent ileostomy valve postoperatively patient was kept n.p.o. , on TPN patient ambulated well; incentive spirometry was encouraged while in the bed Velasquez was subsequently discontinued ileus was slowly resolving, and patient started on clear liquid diet TPN continued. patient was advanced to full liquid , TPN continued continuous drainage of Wilkinson pouch was maintained additional magnesium infusion provided patient was able to tolerate clear and full liquid diet and was advanced to BCIR low residue diet TPN was continued for additional day continuous drainage of Wilkinson pouch was maintained TPN was discontinued BCIR ileo catheter was removed, reinserted readily patient started on RN supervised self-intubation every 3 hours a.m. to and as needed patient was able to self intubate without difficulties full supplies/limitations, instruction provided/discussed patient to follow-up in the office in 1 week and as needed prescription for [place] and Zofran provided patient was instructed to take Imodium and Bentyl on as-needed basis patient clinically stabilized and was ready for discharge FINAL DIAGNOSES 1. Malfunctioning Wilkinson continent ileostomy with difficulty with intubation and some incontinence. 2. History of colonic inertia and pelvic floor dysfunction. 3. STATUS POST MULTIPLE ABDOMINAL OPERATIONS: 3.1. Right oophorectomy in 1991. 3.2. Total abdominal hysterectomy for endometriosis in 2000. 3.3. Cholecystectomy in 2006. 3.4. Removal of dilated colon and rectum with coloanal anastomosis and temporary ileostomy in May 2015. 3.5. Left salpingo-oophorectomy in November 2015. 3.6. Closure of temporary ileostomy on 01/08/2017. 3.7. Emergency colostomy on 01/11/2017. 3.8. Repair of parastomal hernia on 07/30/2017. 3.9. Removal of the remaining abdominal colon and rectum with abdominoperineal proctectomy and end-loop ileostomy on 09/29/2018. (All of these above operations were done at the [facility]). 3.10. Wilkinson continent ileostomy with resection of 15 cm of defunctionalized ileum with malfunctioning ileostomy and repair of parastomal hernia with temporary gastrostomy on 10/19/2018. 4. Laparotomy with finding of hostile abdomen and release of scar tissue, intra- abdominal peristomal 02/05/19 5. Severe malnutrition 6. Iron deficiency anemia 7. Postoperative ileus Discharge Medications Continued Medications: Clonazepam* (Klonopin*) 0.5 Mg Tablet 0.5 MG ORAL TID PRN for For Anxiety, TAB 0 Refills (This prescription has been renewed) Estradiol (Estradiol) 1 Each Patch.tdsw 1 EACH TD TWICE A WEEK, PATCH (This prescription has been renewed) Estradiol 0.1 mg patch apply to skin twice a week Estradiol* (Estrace*) 42.5 Gm Cream.appl 1 APPLIC VAGIN THREE TIMES A WEEK, GM (This prescription has been renewed) Estradiol 0.01 Vaginal cream three times a week Paroxetine Hcl (Paxil) 30 Mg Tablet 30 MG ORAL BEDTIME, #30 TAB 0 Refills (This prescription has been renewed) Trazodone* (Trazodone*) 150 Mg Tablet 150 MG ORAL BEDTIME, TAB (This prescription has been renewed) Trimethoprim Sulfate (Trimethoprim) 100 Mg Tablet 100 MG PO BEDTIME, TAB (This prescription has been renewed) Discharge Condition Upon Discharge: stable Discharge Disposition Patient was discharged home Discharge Instructions Discharge Instructions Special Instructions I have been assigned to complete a D/C Summary on this account. I was not involved in the patient management Marni Reynoso NP Feb 16, 2019 13:12
== END 2019-02-14 03:50 | disposition home or self-care (01) | DRG 335 ==
LOC: EDBEDREQ 20:37 → EMR 20:48 → 3E 21:06 → EDBEDREQ 21:34
PROC: B518ZZA Fluoroscopy of Superior Vena Cava, Guidance (ICD-10-PCS; 2019-01-24)
PROC: 02HV33Z Insertion of Infusion Device into Superior Vena Cava, Percutaneous Approach (ICD-10-PCS; principal; 2019-01-24 13:01)
PROC: 0DJD8ZZ Inspection of Lower Intestinal Tract, Via Natural or Artificial Opening Endoscopic (ICD-10-PCS; principal; 2019-01-24 13:01)
PROC: 0DN80ZZ Release Small Intestine, Open Approach (ICD-10-PCS; 2019-02-05)
DX: K94.13 Enterostomy malfunction (principal); E43 Unspecified severe protein-calorie malnutrition; K91.850 Pouchitis; K63.2 Fistula of intestine; K56.7 Ileus, unspecified; R15.9 Full incontinence of feces; N31.9 Neuromuscular dysfunction of bladder, unspecified; Z68.36 Body mass index [BMI] 36.0-36.9, adult; D50.9 Iron deficiency anemia, unspecified; K66.0 Peritoneal adhesions (postprocedural) (postinfection)
CPT/HCPCS: 36415; 36569; 74177; 74249; 74270; 76937; 80053; 81001; 82150; 82607; 82728; 82746; 82962; 83540; 83550; 83690; 83735; 84100; 85025; 85610; 85651; 85730; 86140; 86850; 86900; 86901; 87324; 93005; 94003; 94150; 99285; J1815; J2250; J2405; J2710; J2765; J7030